=== PATIENT | female | born 1980 | race Caucasian/White ===

== ENCOUNTER 2018-01-04 08:15 | Outpatient (RCR) | payer MEDICARE, SELFPAY ==
--- NOTE | 2017-08-18 05:51 | PT.OIE ---
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, left leg, sequela (08/16/17) Provider Visit Care Team Role Provider Type ELINOR Kendall Attending Provider Non-Staff Family Provider Primary Care Provider Specialty: Medical Address: [address] [place] [address], [id number] Email: Physical Therapy Initial Evaluation PT-OP-A Visit Information Start: 08/17/17 10:04 Freq: Status: Active Protocol: Document 08/17/17 10:04 [facility] (Rec: 08/17/17 10:22 [facility] [id number]) Out-Patient Physical Therapy Visit Information Visit Information Visit Type Initial Evaluation Visit Start Time 10:45 Visit Stop Time 11:15 Total Visit Minutes 45 Visit Number 1 Number of DATA REVIEWER Visits 0 Evaluation Information Evaluation Date 08/16/17 PT-OP-B Current Condition Start: 08/17/17 10:04 Freq: Status: Active Protocol: Document 08/17/17 10:04 [facility] (Rec: 08/17/17 10:22 [facility] [email or web address]) Current Condition History of Current Condition Onset Date 2006 Current Complaints left hip pain chronic due to hx of surgeries, injury to sciatic nerve History of Current Condition Umm is a 37 year old female with 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 She has undergone multiple surgeries and 2 rounds of radiation in her left hip where much of the gluteal tissue has been removed due to the cancer. She has had grafts from the abdominal wall and hamstring performed on the left. 3 years ago Umm woke up from surgery and could not move her left leg lower than her knee. During that surgery there was a nerve injury to the sciatic nerve. She now uses a AFO for gait. Prior Treatments and Tests Umm has been seen at our would clinic for multiple open wounds but notes she is no longer needed wound care. She has also been seen for PT on [facility] but has moved to [place] so is now seeking ongoing treatment in our PT clinic Treatment Goals Patient/Caregiver Goals Crystals goals include having a exercise routine she can follow and do 2 times per day. She likes to hike and would like to improve her left hip ROM for hiking. Prior Functional Status Baseline Function- ADL's Independent Current Functional Impairments (Reported) Functional Limitations- Mobility/Gait limitations with gait due to nerve damage of the lower left leg, wearing AFO, limitations with hip ROM due to radiation /surgeries Functional Limitations- Recreation/ Umm would like to work Hobbies towards hiking but she is limited at this time due to lack of ROM and strength PT-OP-C Subjective Start: 08/17/17 10:04 Freq: Status: Active Protocol: Document 08/16/17 10:30 [facility] (Rec: 08/17/17 10:22 [facility] [email or web address]) OP-PT Subjective Patient Comments Patient Comments Umm reports her chief complaint is stiffness and weakness in her left hip. She is limited with anything that requires hip flexion OP-PT Pain Assessment Pain Assessment Grid Paper Pain Assessment Grid Completed Yes Location Left Hip Pain Location Details pain left hip anteriorly with flexion and posteriorly due to surgeries Intensity 5 Scale Used Numeric (1 - 10) Description Aching Dull Frequency Frequent Pain Aggravating Factors Exercise Sitting Walking Stair Climbing Other Pain Alleviating Factors pain rated 4-5/10 PT-OP-F Manual Assessment Start: 08/17/17 10:04 Freq: Status: Active Protocol: Document 08/16/17 10:30 [facility] (Rec: 08/17/17 10:22 [facility] [email or web address]) Manual Assessments Soft Tissue Assessment Soft Tissue Mobility Assessment left hip tenderness to palpation laterally due to multiple surgeries and skin graphs, Myofascial tension and multiple regions of scar tissue are palpated Joint Mobility Assessment Joint Mobility Assessment left hip limited in flexion past 90 degrees due to hip impingement and soft tissue tightness. Umm feels this is due to her radiation. She notes she has seen improvements with her hip flexion with her prior PT and that she can tie her shoes now where she was unable to do this before PT-OP-K Range of Motion Start: 08/17/17 10:22 Freq: Status: Active Protocol: Document 08/16/17 10:30 [facility] (Rec: 08/17/17 10:30 [facility] [email or web address]) Hip Goniometric Range of Motion Hip Measured in Degrees Right Hip ROM WFL No Flexion w/Knee Flexed 120 Straight Leg Raise 30 External Rotation 45 Left Hip ROM WFL No Testing Position Supine Flexion w/Knee Flexed 90 Straight Leg Raise 40 External Rotation 25 Hip ROM Limitations Hip ROM Limitations Soft Tissue Tightness Comments limited in hip flexion due to tightness and impingement symptoms in the anterior hip, hip extension severely limited due to iliopsoas tightness bilaterally. The left leg leg actually has better ROM of the hamstrings than the right Ankle and Foot Goniometric Range of Motion Ankle and Foot ROM Limitations Comments No AROM of the left foot or ankle due to motor weakness with nerve injury PT-OP-M Strength Start: 08/18/17 05:42 Freq: Status: Active Protocol: Document 08/18/17 05:43 [facility] (Rec: 08/18/17 05:45 [facility] [email or web address]) Trunk Strength Trunk Manual Muscle Testing Core Stabilization Weakness in the core stabilizers with + ASLR test B and a great deal of pelvic rotation during gait Hip Strength Hip Manual Muscle Testing Right Flexion (L2) 5 Normal Extension (S1) 4 Good Abduction 3 Fair Adduction 5 Normal External Rotation 4 Good Internal Rotation 5 Normal Left Flexion (L2) 2+ Poor+ Extension (S1) 3 Fair Abduction 2 Poor External Rotation 3 Fair PT-OP-Q Treatments Start: 08/17/17 10:04 Freq: Status: Active Protocol: Document 08/16/17 10:30 [facility] (Rec: 08/17/17 10:30 [facility] [email or web address]) Therapeutic Exercises Standing Exercises 2 Standing Exercise Name standing warrior one Side bilateral 1 Standing Exercise Name half kneeling and sitting on a ball with hip extended psoas stretch Side left Reps/Minutes hold 1-2 minutes Other Exercises 1 Other Exercise Name quadraped pelvic tilts and rock backs Side bilateral Reps/Minutes 5 each PT-OP-T Assessment and Plan Start: 08/17/17 10:04 Freq: Status: Active Protocol: Document 08/16/17 10:30 [facility] (Rec: 08/18/17 05:41 [facility] [email or web address]) Physical Therapy Assessment Rehab Potential Rehabilitation Potential Good Evaluation Complexity Number of Personal Factors/Comorbidities 1-2 Number of Body Systems Impaired 3 Clinical Presentation at Evaluation Evolving Impairments Impairments Balance Functional Activities Functional Mobility Pain Posture ROM Soft Tissue Mobility Strength Tone Goals Four Impairment Umm is limited in recreational activities of hiking Engineering Systems Analyst Goal (LTG) Umm is able to return to functional activities of hiking Three Impairment Decreased flexibility of the left hip Engineering Systems Analyst Goal (LTG) Umm is independent with a home program addressing hip flexibility and strength Two Impairment functional difficulty with kneeling Engineering Systems Analyst Goal (LTG) Umm is able to perform a 1 /2 kneel for improved iliopsoas flexibility One Impairment decreased ROM left hip Engineering Systems Analyst Goal (LTG) improve hip ROM to 100 degrees flexion or better for improved function LTG Duration 8 weeks Assessment Summary Assessment Umm presents to physical therapy with chief complaints of left hip stiffness and weakness due to multiple skin graphs and surgeries to remove the soft tissue sarcoma in her left hip. She is impaired as well due to nerve damage in the left lower extremity and is wearing a AFO. She feels her left hip ROM restrictions are due to muscle tightness and radiation damage. She does note that she has gained hip ROM from previous PT on [facility]. She has moved to [place] so she is seeking further care here. Treatment will focus on hip ROM, core stability and functional strengthening Physical Therapy Plan Frequency and Duration Duration of Treatment 8 weeks Plan of Care Start Date 08/16/17 Plan of Care End Date 10/18/17 Therapeutic Interventions Therapeutic Interventions Balance Training Gait Training Home Exercise Program Joint Mobilizations Manual Therapy Patient/Caregiver Education Self-Care/Home Management Soft Tissue Mobilization Therapeutic Exercises Modalities Cold Pack/Ice Massage Please Sign and Return: I have reviewed this Plan of Care and certify that the skilled therapy services above are required to meet the patient???s needs. Physician Signature Date Printed Name and Credentials Clinical Instructor Signature Printed Name and Credentials
--- NOTE | 2017-08-18 05:52 | PT.OPPOC ---
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, left leg, sequela (08/16/17) Provider Visit Care Team Role Provider Type ELINOR Kendall Attending Provider Non-Staff Family Provider Primary Care Provider Specialty: Medical Address: [address] [place] [address], [id number] Email: Plan Of Care PT-OP-T Assessment and Plan Start: 08/17/17 10:04 Freq: Status: Active Protocol: Document 08/16/17 10:30 [facility] (Rec: 08/18/17 05:41 [facility] [email or web address]) Physical Therapy Assessment Rehab Potential Rehabilitation Potential Good Evaluation Complexity Number of Personal Factors/Comorbidities 1-2 Number of Body Systems Impaired 3 Clinical Presentation at Evaluation Evolving Impairments Impairments Balance Functional Activities Functional Mobility Pain Posture ROM Soft Tissue Mobility Strength Tone Goals Four Impairment Umm is limited in recreational activities of hiking Assistant Manager [employer]side Operations Goal (LTG) Umm is able to retun to functional activities of hiking Three Impairment Decreased flexibility of the left hip Assistant Manager [employer] Goal (LTG) Umm is independent with a home program addressing hip flexibility and strength Two Impairment functional difficulty with kneeling Half-Way Goal (LTG) Umm is able to perform a 1 /2 kneel for improved iliopsoas flexibiilty One Impairment decreased ROM left hip Assistant Manager [employer] Goal (LTG) improve hip ROM to 100 degrees flexion or better for improved function LTG Duration 8 weeks Assessment Summary Assessment Umm presents to physical therapywith chief complaints of left hip stiffness and weakness due to multiple skin graphs and surgeries to remove the soft tissue sarcoma in her left hip. She is impaired as well due to nerve damage in the left lower extremity and is wearing a AFO. She feels her left hip ROM restrictions are due to muscle tightness and radiation damage. She does note that she has gained hip ROM from previous PT on [facility]. She has moved to [place] so she is seeking further care here. Treatment will focus on hip ROM, core stability and functional strengthening Physical Therapy Plan Frequency and Duration Duration of Treatment 8 weeks Plan of Care Start Date 08/16/17 Plan of Care End Date 10/18/17 Therapeutic Interventions Therapeutic Interventions Balance Training Gait Training Home Exercise Program Joint Mobilizations Manual Therapy Patient/Caregiver Education Self-Care/Home Management Soft Tissue Mobilization Therapeutic Exercises Modalities Cold Pack/Ice Massage Plan of Care Dates Plan of Care Start Date 08/16/17 Plan of Care End Date 10/18/17 Please Sign and Return: I have reviewed this Plan of Care and certify that the skilled therapy services above are required to meet the patient???s needs. Physician Signature Date Printed Name and Credentials Clinical Instructor Signature Printed Name and Credentials
--- NOTE | 2017-08-22 17:20 | PT.OTN ---
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, left leg, sequela (08/22/17) Physical Therapy Treatment Note PT-OP-A Visit Information Start: 08/17/17 10:04 Freq: Status: Active Protocol: Document 08/22/17 17:10 [facility] (Rec: 08/22/17 17:20 [facility] [email or web address]) Out-Patient Physical Therapy Visit Information Visit Information Visit Type Treatment Note Visit Start Time 16:00 Visit Stop Time 16:45 Total Visit Minutes 45 Visit Number 2 Number of LIVESTOCK RANCH HAND Visits 0 PT-OP-B Current Condition Start: 08/17/17 10:04 Freq: Status: Active Protocol: Document 08/22/17 17:10 [facility] (Rec: 08/22/17 17:20 [facility] [email or web address]) Current Condition History of Current Condition Onset Date 2006 Current Complaints left hip pain chronic due to hx of surgeries, injury to sciatic nerve History of Current Condition Umm is a 37 year old female with 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 She has undergone multipe surgeries and 2 rounds of radiation in her left hip where much of the gluteal tissue has been removed due to the cancer. She has had grafts from the abdominal wall and hamstring performed on the left. 3 years ago Umm woke up from surgery and could not move her left leg lower than her knee. During that surgery there was a nerve injury to the sciatic nerve. She now uses a AFO for gait. Prior Treatments and Tests Umm has been seen at our would clinic for multiple open wounds but notes she is no longer needed wound care. She has also been seen for PT on [facility] but has moved to [place] so is now seeking ongoing treatment in our PT clinic PT-OP-C Subjective Start: 08/17/17 10:04 Freq: Status: Active Protocol: Document 08/22/17 17:10 [facility] (Rec: 08/22/17 17:20 [facility] [email or web address]) OP-PT Subjective Patient Comments Patient Comments Umm reports she has been working on her home exercises routine PT-OP-F Manual Assessment Start: 08/17/17 10:04 Freq: Status: Active Protocol: Document 08/16/17 10:30 [facility] (Rec: 08/17/17 10:22 [facility] [email or web address]) Manual Assessments Soft Tissue Assessment Soft Tissue Mobility Assessment left hip tendern to palpation laterally due to multiple surgeries and skin graphs, Myofascial tension and multiple regions of scar tissue are palpated Joint Mobility Assessment Joint Mobility Assessment left hip limited in flexion past 90 degress due to hip impingement and soft tissue tightness. Umm feels this is due to her radiation. She notes she has seen improvements with her hip flexion with her prior PT and that she can tie her shoes now where she was unable to do this before PT-OP-K Range of Motion Start: 08/17/17 10:22 Freq: Status: Active Protocol: Document 08/16/17 10:30 [facility] (Rec: 08/17/17 10:30 [facility] [email or web address]) Hip Goniometric Range of Motion Hip Measured in Degrees Right Hip ROM WFL No Flexion w/Knee Flexed 120 Straight Leg Raise 30 External Rotation 45 Left Hip ROM WFL No Testing Position Supine Flexion w/Knee Flexed 90 Straight Leg Raise 40 External Rotation 25 Hip ROM Limitations Hip ROM Limitations Soft Tissue Tightness Comments limited in hip flexion due to tightness and imprigement symptoms in the anterior hip, hip extension severly limited due to iliopsoas tightness bilaterally. The left leg leg actually has better ROM of the hamstrings than the right Ankle and Foot Goniometric Range of Motion Ankle and Foot ROM Limitations Comments No AROM of the left fot or ankle due to motor weakness with nerve injury PT-OP-M Strength Start: 08/18/17 05:42 Freq: Status: Active Protocol: Document 08/18/17 05:43 [facility] (Rec: 08/18/17 05:45 [facility] [email or web address]) Trunk Strength Trunk Manual Muscle Testing Core Stabilization Weakness in the core stabilizers with + ASLR test B and a great deal of pelvic rotation during gait Hip Strength Hip Manual Muscle Testing Right Flexion (L2) 5 Normal Extension (S1) 4 Good Abduction 3 Fair Adduction 5 Normal External Rotation 4 Good Internal Rotation 5 Normal Left Flexion (L2) 2+ Poor+ Extension (S1) 3 Fair Abduction 2 Poor External Rotation 3 Fair PT-OP-Q Treatments Start: 08/17/17 10:04 Freq: Status: Active Protocol: Document 08/22/17 17:10 [facility] (Rec: 08/22/17 17:20 [facility] [email or web address]) Gym Equipment Shuttle Rebound 1 Exercise Details shuttle leg press Comments 75# 3 sets of 10 reps bilateral 50# 2 sets of 10 reps left leg Therapeutic Exercises Prone Exercises 1 Prone Exercise Name prone on bed manual hip flexor stretch Reps/Minutes hold 2 min per side Sidelying Exercises 1 Sidelying Exercise Name clam shells Reps/Minutes 3x10 Standing Exercises 3 Standing Exercise Name standing hip flexor stretch with foot on the ball Side left Reps/Minutes hold 1-2 minutes 2 Standing Exercise Name standing warrior one Side bilateral 1 Standing Exercise Name half kneeling and sitting on a ball with hip extended psoas stretch Side left Reps/Minutes hold 1-2 minutes Other Exercises 3 Other Exercise Name quadraped TA with left leg extended Reps/Minutes 5 reps 2 Other Exercise Name BALL EXERCISES: ball rolls and ball bridges Reps/Minutes 2 sets of 10 reps 1 Other Exercise Name quadraped pelvic tilts and rock backs Side bilateral Reps/Minutes 5 each Manual Therapy Treatment Joint Mobilizations 2 Joint lateral hip capsule streatch Comments MWM with belt and hip ER 1 Joint MWM hip flexion with distraction and posterior glide Direction posterior Grade III Manual Techniques 1 Type manual hip flexor stretch and manual MFR in heron test position PT-OP-T Assessment and Plan Start: 08/17/17 10:04 Freq: Status: Active Protocol: Document 08/22/17 17:10 [facility] (Rec: 08/22/17 17:20 [facility] [email or web address]) Physical Therapy Assessment Assessment Summary Assessment good tolerance today of manual therapy techniques and exercises Quadraped TA with leg extension is a challange for Crystal. Continue to work on improved hip flexion Physical Therapy Plan Frequency and Duration Frequency of Treatment 2 Duration of Treatment 8 weeks Plan of Care Start Date 08/16/17 Plan of Care End Date 10/18/17 Therapeutic Interventions Therapeutic Interventions Balance Training Gait Training Home Exercise Program Joint Mobilizations Manual Therapy Patient/Caregiver Education Self-Care/Home Management Soft Tissue Mobilization Therapeutic Exercises Modalities Cold Pack/Ice Massage Next Visit Focus/Plan Next Visit Plan focus on hip flexion ROM and dynamic stabilization Please Sign and Return: I have reviewed this Plan of Care and certify that the skilled therapy services above are required to meet the patient???s needs. Physician Signature Date Printed Name and Credentials Clinical Instructor Signature Printed Name and Credentials
--- NOTE | 2017-08-24 15:09 | PT.OTN ---
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, left leg, sequela (08/24/17) Physical Therapy Treatment Note PT-OP-A Visit Information Start: 08/17/17 10:04 Freq: Status: Active Protocol: Document 08/24/17 10:35 LRN (Rec: 08/24/17 11:17 LRN [id number]) Out-Patient Physical Therapy Visit Information Visit Information Visit Type Treatment Note Visit Start Time 10:35 Visit Stop Time 11:25 Visit Number 3 Number of TRAFFIC I MANAGER Visits 0 Evaluation Information Evaluation Date 08/16/17 PT-OP-B Current Condition Start: 08/17/17 10:04 Freq: Status: Active Protocol: Document 08/22/17 17:10 [facility] (Rec: 08/22/17 17:20 [facility] [email or web address]) Current Condition History of Current Condition Onset Date 2006 Current Complaints left hip pain chronic due to hx of surgeries, injury to sciatic nerve History of Current Condition Umm is a 37 year old female with 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 She has undergone multipe surgeries and 2 rounds of radiation in her left hip where much of the gluteal tissue has been removed due to the cancer. She has had grafts from the abdominal wall and hamstring performed on the left. 3 years ago Umm woke up from surgery and could not move her left leg lower than her knee. During that surgery there was a nerve injury to the sciatic nerve. She now uses a AFO for gait. Prior Treatments and Tests Umm has been seen at our would clinic for multiple open wounds but notes she is no longer needed wound care. She has also been seen for PT on [facility] but has moved to [place] so is now seeking ongoing treatment in our PT clinic PT-OP-C Subjective Start: 08/17/17 10:04 Freq: Status: Active Protocol: Document 08/24/17 10:35 LRN (Rec: 08/24/17 15:01 LRN [id number]) OP-PT Subjective Patient Comments Patient Comments Doing home ex's. PT-OP-F Manual Assessment Start: 08/17/17 10:04 Freq: Status: Active Protocol: Document 08/16/17 10:30 [facility] (Rec: 08/17/17 10:22 [facility] [email or web address]) Manual Assessments Soft Tissue Assessment Soft Tissue Mobility Assessment left hip tendern to palpation laterally due to multiple surgeries and skin graphs, Myofascial tension and multiple regions of scar tissue are palpated Joint Mobility Assessment Joint Mobility Assessment left hip limited in flexion past 90 degress due to hip impingement and soft tissue tightness. Umm feels this is due to her radiation. She notes she has seen improvements with her hip flexion with her prior PT and that she can tie her shoes now where she was unable to do this before PT-OP-K Range of Motion Start: 08/17/17 10:22 Freq: Status: Active Protocol: Document 08/16/17 10:30 [facility] (Rec: 08/17/17 10:30 [facility] [email or web address]) Hip Goniometric Range of Motion Hip Measured in Degrees Right Hip ROM WFL No Flexion w/Knee Flexed 120 Straight Leg Raise 30 External Rotation 45 Left Hip ROM WFL No Testing Position Supine Flexion w/Knee Flexed 90 Straight Leg Raise 40 External Rotation 25 Hip ROM Limitations Hip ROM Limitations Soft Tissue Tightness Comments limited in hip flexion due to tightness and imprigement symptoms in the anterior hip, hip extension severly limited due to iliopsoas tightness bilaterally. The left leg leg actually has better ROM of the hamstrings than the right Ankle and Foot Goniometric Range of Motion Ankle and Foot ROM Limitations Comments No AROM of the left fot or ankle due to motor weakness with nerve injury PT-OP-M Strength Start: 08/18/17 05:42 Freq: Status: Active Protocol: Document 08/18/17 05:43 [facility] (Rec: 08/18/17 05:45 [facility] [email or web address]) Trunk Strength Trunk Manual Muscle Testing Core Stabilization Weakness in the core stabilizers with + ASLR test B and a great deal of pelvic rotation during gait Hip Strength Hip Manual Muscle Testing Right Flexion (L2) 5 Normal Extension (S1) 4 Good Abduction 3 Fair Adduction 5 Normal External Rotation 4 Good Internal Rotation 5 Normal Left Flexion (L2) 2+ Poor+ Extension (S1) 3 Fair Abduction 2 Poor External Rotation 3 Fair PT-OP-Q Treatments Start: 08/17/17 10:04 Freq: Status: Active Protocol: Document 08/24/17 10:35 LRN (Rec: 08/24/17 11:17 LRN [id number]) Gym Equipment Shuttle Rebound 1 Exercise Details shuttle leg press Comments 75# 3 sets of 10 reps bilateral 50# 3 sets of 10 reps left leg Therapeutic Exercises Supine Exercises 1 Supine Exercise Name Hip ext after hip flexor stretch Side left Reps/Minutes 10 hip ext reps x 2 Prone Exercises 1 Prone Exercise Name prone on bed manual hip flexor stretch Reps/Minutes hold 2 min L side Standing Exercises 3 Standing Exercise Name standing hip flexor stretch with foot on the ball Side left Reps/Minutes hold 1-2 minutes 2 Standing Exercise Name standing warrior one Side bilateral Reps/Minutes hold 1-2 minutes 1 Standing Exercise Name half kneeling and sitting on a ball with hip extended psoas stretch Side left Reps/Minutes hold 1-2 minutes Other Exercises 1 Other Exercise Name quadraped pelvic tilts and rock backs Side bilateral Reps/Minutes 1-2 each Manual Therapy Treatment Soft Tissue Mobilization 1 Body Location L hip flexor/Quad CATALINO stretch Mobilization Type Trigger Point Release Body Position Supine & R Sidelie Comments Very tender at Psoas attachment @ [facility]. Joint Mobilizations 2 Joint lateral hip capsule streatch Comments MWM with belt and hip ER 1 Joint MWM hip flexion with distraction and posterior glide Direction posterior Grade III Manual Techniques 1 Type manual hip flexor stretch and manual MFR in heron test position PT-OP-T Assessment and Plan Start: 08/17/17 10:04 Freq: Status: Active Protocol: Document 08/24/17 10:35 LRN (Rec: 08/24/17 11:17 LRN [id number]) Physical Therapy Assessment Assessment Summary Assessment Pt is sensitive to touch/ palpation at the L ASIS, probably due to tightness of Psoas Major, CATALINO treatment may be helpful. Physical Therapy Plan Frequency and Duration Frequency of Treatment 2 Duration of Treatment 8 weeks Plan of Care Start Date 08/16/17 Plan of Care End Date 10/18/17 Therapeutic Interventions Therapeutic Interventions Balance Training Gait Training Home Exercise Program Joint Mobilizations Manual Therapy Patient/Caregiver Education Self-Care/Home Management Soft Tissue Mobilization Therapeutic Exercises Modalities Cold Pack/Ice Massage Next Visit Focus/Plan Next Visit Plan focus on hip flexion ROM and dynamic stabilization, try adding CATALINO stretch to L quad/ hip flexors.
--- NOTE | 2017-08-30 14:45 | PT.OTN ---
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, left leg, sequela (08/29/17) Physical Therapy Treatment Note PT-OP-A Visit Information Start: 08/17/17 10:04 Freq: Status: Active Protocol: Document 08/30/17 14:41 [facility] (Rec: 08/30/17 14:44 [facility] [email or web address]) Out-Patient Physical Therapy Visit Information Visit Information Visit Type Treatment Note Visit Start Time 15:15 Visit Stop Time 16:00 Total Visit Minutes 45 Visit Number 5 Number of MASS SPECTROMETRY MANAGER Visits 0 PT-OP-B Current Condition Start: 08/17/17 10:04 Freq: Status: Active Protocol: Document 08/22/17 17:10 [facility] (Rec: 08/22/17 17:20 [facility] [email or web address]) Current Condition History of Current Condition Onset Date 2006 Current Complaints left hip pain chronic due to hx of surgeries, injury to sciatic nerve History of Current Condition Umm is a 37 year old female with 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 She has undergone multipe surgeries and 2 rounds of radiation in her left hip where much of the gluteal tissue has been removed due to the cancer. She has had grafts from the abdominal wall and hamstring performed on the left. 3 years ago Umm woke up from surgery and could not move her left leg lower than her knee. During that surgery there was a nerve injury to the sciatic nerve. She now uses a AFO for gait. Prior Treatments and Tests Umm has been seen at our [facility] clinic for multiple open wounds but notes she is no longer needed wound care. She has also been seen for PT on [facility] but has moved to [place] so is now seeking ongoing treatment in our PT clinic PT-OP-C Subjective Start: 08/17/17 10:04 Freq: Status: Active Protocol: Document 08/24/17 10:35 LRN (Rec: 08/24/17 15:01 LRN [id number]) OP-PT Subjective Patient Comments Patient Comments Doing home ex's. PT-OP-F Manual Assessment Start: 08/17/17 10:04 Freq: Status: Active Protocol: Document 08/16/17 10:30 [facility] (Rec: 08/17/17 10:22 [facility] [email or web address]) Manual Assessments Soft Tissue Assessment Soft Tissue Mobility Assessment left hip tendern to palpation laterally due to multiple surgeries and skin graphs, Myofascial tension and multiple regions of scar tissue are palpated Joint Mobility Assessment Joint Mobility Assessment left hip limited in flexion past 90 degress due to hip impingement and soft tissue tightness. Umm feels this is due to her radiation. She notes she has seen improvements with her hip flexion with her prior PT and that she can tie her shoes now where she was unable to do this before PT-OP-K Range of Motion Start: 08/17/17 10:22 Freq: Status: Active Protocol: Document 08/16/17 10:30 [facility] (Rec: 08/17/17 10:30 [facility] [email or web address]) Hip Goniometric Range of Motion Hip Measured in Degrees Right Hip ROM WFL No Flexion w/Knee Flexed 120 Straight Leg Raise 30 External Rotation 45 Left Hip ROM WFL No Testing Position Supine Flexion w/Knee Flexed 90 Straight Leg Raise 40 External Rotation 25 Hip ROM Limitations Hip ROM Limitations Soft Tissue Tightness Comments limited in hip flexion due to tightness and imprigement symptoms in the anterior hip, hip extension severly limited due to iliopsoas tightness bilaterally. The left leg leg actually has better ROM of the hamstrings than the right Ankle and Foot Goniometric Range of Motion Ankle and Foot ROM Limitations Comments No AROM of the left fot or ankle due to motor weakness with nerve injury PT-OP-M Strength Start: 08/18/17 05:42 Freq: Status: Active Protocol: Document 08/18/17 05:43 [facility] (Rec: 08/18/17 05:45 [facility] [email or web address]) Trunk Strength Trunk Manual Muscle Testing Core Stabilization Weakness in the core stabilizers with + ASLR test B and a great deal of pelvic rotation during gait Hip Strength Hip Manual Muscle Testing Right Flexion (L2) 5 Normal Extension (S1) 4 Good Abduction 3 Fair Adduction 5 Normal External Rotation 4 Good Internal Rotation 5 Normal Left Flexion (L2) 2+ Poor+ Extension (S1) 3 Fair Abduction 2 Poor External Rotation 3 Fair PT-OP-Q Treatments Start: 08/17/17 10:04 Freq: Status: Active Protocol: Document 08/30/17 14:41 [facility] (Rec: 08/30/17 14:44 [facility] [email or web address]) Gym Equipment Shuttle Rebound 1 Exercise Details shuttle leg press Comments 75# 3 sets of 10 reps bilateral 50# 3 sets of 10 reps left leg Therapeutic Exercises Supine Exercises 1 Supine Exercise Name Hip ext after hip flexor stretch Side left Reps/Minutes 10 hip ext reps x 2 Prone Exercises 1 Prone Exercise Name prone on bed manual hip flexor stretch Reps/Minutes hold 2 min L side Sidelying Exercises 1 Sidelying Exercise Name clam shells Reps/Minutes 3x10 Standing Exercises 3 Standing Exercise Name standing hip flexor stretch with foot on the ball Side left Reps/Minutes hold 1-2 minutes Other Exercises 3 Other Exercise Name quadraped TA with left leg extended Reps/Minutes 5 reps 2 Other Exercise Name BALL EXERCISES: ball rolls and ball bridges Reps/Minutes 2 sets of 10 reps 1 Other Exercise Name quadraped pelvic tilts and rock backs Side bilateral Reps/Minutes 1-2 each Manual Therapy Treatment Soft Tissue Mobilization 1 Body Location L hip flexor/Quad CATALINO stretch Mobilization Type Trigger Point Release Body Position Supine & R Sidelie Comments Very tender at Psoas attachment @ [facility]. Joint Mobilizations 2 Joint lateral hip capsule streatch Comments MWM with belt and hip ER 1 Joint MWM hip flexion with distraction and posterior glide Direction posterior Grade III Manual Techniques 1 Type manual hip flexor stretch and manual MFR in heron test position PT-OP-T Assessment and Plan Start: 08/17/17 10:04 Freq: Status: Active Protocol: Document 08/30/17 14:41 [facility] (Rec: 08/30/17 14:44 [facility] [email or web address]) Physical Therapy Assessment Assessment Summary Assessment good tolerance of treatment and hip flexion manual glides and stretching Physical Therapy Plan Frequency and Duration Frequency of Treatment 2 Duration of Treatment 8 weeks Plan of Care Start Date 08/16/17 Plan of Care End Date 10/18/17 Therapeutic Interventions Therapeutic Interventions Balance Training Gait Training Home Exercise Program Joint Mobilizations Manual Therapy Patient/Caregiver Education Self-Care/Home Management Soft Tissue Mobilization Therapeutic Exercises Modalities Cold Pack/Ice Massage Next Visit Focus/Plan Next Visit Plan focus on hip flexion ROM and dynamic stabilization, try adding CATALINO stretch to L quad/ hip flexors. Please Sign and Return: I have reviewed this Plan of Care and certify that the skilled therapy services above are required to meet the patient?s needs. Physician Signature Date Printed Name and Credentials Clinical Instructor Signature Printed Name and Credentials
--- NOTE | 2017-08-31 17:33 | PT.OTN ---
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, left leg, sequela (08/29/17) Physical Therapy Treatment Note PT-OP-A Visit Information Start: 08/17/17 10:04 Freq: Status: Active Protocol: Document 08/29/17 15:15 [facility] (Rec: 08/30/17 14:44 [facility] [email or web address]) Out-Patient Physical Therapy Visit Information Visit Information Visit Type Treatment Note Visit Start Time 15:15 Visit Stop Time 16:00 Total Visit Minutes 45 Visit Number 5 Number of SNATH HANDLE ASSEMBLER Visits 0 PT-OP-B Current Condition Start: 08/17/17 10:04 Freq: Status: Active Protocol: Document 08/22/17 17:10 [facility] (Rec: 08/22/17 17:20 [facility] [email or web address]) Current Condition History of Current Condition Onset Date 2006 Current Complaints left hip pain chronic due to hx of surgeries, injury to sciatic nerve History of Current Condition Umm is a 37 year old female with 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 She has undergone multipe surgeries and 2 rounds of radiation in her left hip where much of the gluteal tissue has been removed due to the cancer. She has had grafts from the abdominal wall and hamstring performed on the left. 3 years ago Umm woke up from surgery and could not move her left leg lower than her knee. During that surgery there was a nerve injury to the sciatic nerve. She now uses a AFO for gait. Prior Treatments and Tests Umm has been seen at our would clinic for multiple open wounds but notes she is no longer needed wound care. She has also been seen for PT on [facility] but has moved to [place] so is now seeking ongoing treatment in our PT clinic PT-OP-C Subjective Start: 08/17/17 10:04 Freq: Status: Active Protocol: Document 08/24/17 10:35 LRN (Rec: 08/24/17 15:01 LRN [id number]) OP-PT Subjective Patient Comments Patient Comments Doing home ex's. PT-OP-F Manual Assessment Start: 08/17/17 10:04 Freq: Status: Active Protocol: Document 08/16/17 10:30 [facility] (Rec: 08/17/17 10:22 [facility] [email or web address]) Manual Assessments Soft Tissue Assessment Soft Tissue Mobility Assessment left hip tendern to palpation laterally due to multiple surgeries and skin graphs, Myofascial tension and multiple regions of scar tissue are palpated Joint Mobility Assessment Joint Mobility Assessment left hip limited in flexion past 90 degress due to hip impingement and soft tissue tightness. Umm feels this is due to her radiation. She notes she has seen improvements with her hip flexion with her prior PT and that she can tie her shoes now where she was unable to do this before PT-OP-K Range of Motion Start: 08/17/17 10:22 Freq: Status: Active Protocol: Document 08/16/17 10:30 [facility] (Rec: 08/17/17 10:30 [facility] [email or web address]) Hip Goniometric Range of Motion Hip Measured in Degrees Right Hip ROM WFL No Flexion w/Knee Flexed 120 Straight Leg Raise 30 External Rotation 45 Left Hip ROM WFL No Testing Position Supine Flexion w/Knee Flexed 90 Straight Leg Raise 40 External Rotation 25 Hip ROM Limitations Hip ROM Limitations Soft Tissue Tightness Comments limited in hip flexion due to tightness and imprigement symptoms in the anterior hip, hip extension severly limited due to iliopsoas tightness bilaterally. The left leg leg actually has better ROM of the hamstrings than the right Ankle and Foot Goniometric Range of Motion Ankle and Foot ROM Limitations Comments No AROM of the left fot or ankle due to motor weakness with nerve injury PT-OP-M Strength Start: 08/18/17 05:42 Freq: Status: Active Protocol: Document 08/18/17 05:43 [facility] (Rec: 08/18/17 05:45 [facility] [email or web address]) Trunk Strength Trunk Manual Muscle Testing Core Stabilization Weakness in the core stabilizers with + ASLR test B and a great deal of pelvic rotation during gait Hip Strength Hip Manual Muscle Testing Right Flexion (L2) 5 Normal Extension (S1) 4 Good Abduction 3 Fair Adduction 5 Normal External Rotation 4 Good Internal Rotation 5 Normal Left Flexion (L2) 2+ Poor+ Extension (S1) 3 Fair Abduction 2 Poor External Rotation 3 Fair PT-OP-Q Treatments Start: 08/17/17 10:04 Freq: Status: Active Protocol: Document 08/30/17 14:41 [facility] (Rec: 08/30/17 14:44 [facility] [email or web address]) Gym Equipment Shuttle Rebound 1 Exercise Details shuttle leg press Comments 75# 3 sets of 10 reps bilateral 50# 3 sets of 10 reps left leg Therapeutic Exercises Supine Exercises 1 Supine Exercise Name Hip ext after hip flexor stretch Side left Reps/Minutes 10 hip ext reps x 2 Prone Exercises 1 Prone Exercise Name prone on bed manual hip flexor stretch Reps/Minutes hold 2 min L side Sidelying Exercises 1 Sidelying Exercise Name clam shells Reps/Minutes 3x10 Standing Exercises 3 Standing Exercise Name standing hip flexor stretch with foot on the ball Side left Reps/Minutes hold 1-2 minutes Other Exercises 3 Other Exercise Name quadraped TA with left leg extended Reps/Minutes 5 reps 2 Other Exercise Name BALL EXERCISES: ball rolls and ball bridges Reps/Minutes 2 sets of 10 reps 1 Other Exercise Name quadraped pelvic tilts and rock backs Side bilateral Reps/Minutes 1-2 each Manual Therapy Treatment Soft Tissue Mobilization 1 Body Location L hip flexor/Quad CATALINO stretch Mobilization Type Trigger Point Release Body Position Supine & R Sidelie Comments Very tender at Psoas attachment @ [facility]. Joint Mobilizations 2 Joint lateral hip capsule streatch Comments MWM with belt and hip ER 1 Joint MWM hip flexion with distraction and posterior glide Direction posterior Grade III Manual Techniques 1 Type manual hip flexor stretch and manual MFR in heron test position PT-OP-T Assessment and Plan Start: 08/17/17 10:04 Freq: Status: Active Protocol: Document 08/30/17 14:41 [facility] (Rec: 08/30/17 14:44 [facility] [email or web address]) Physical Therapy Assessment Assessment Summary Assessment good tolerance of treatment and hip flexion manual glides and stretching Physical Therapy Plan Frequency and Duration Frequency of Treatment 2 Duration of Treatment 8 weeks Plan of Care Start Date 08/16/17 Plan of Care End Date 10/18/17 Therapeutic Interventions Therapeutic Interventions Balance Training Gait Training Home Exercise Program Joint Mobilizations Manual Therapy Patient/Caregiver Education Self-Care/Home Management Soft Tissue Mobilization Therapeutic Exercises Modalities Cold Pack/Ice Massage Next Visit Focus/Plan Next Visit Plan focus on hip flexion ROM and dynamic stabilization, try adding CATALINO stretch to L quad/ hip flexors. Please Sign and Return: I have reviewed this Plan of Care and certify that the skilled therapy services above are required to meet the patient?s needs. Physician Signature Date Printed Name and Credentials Clinical Instructor Signature Printed Name and Credentials
--- NOTE | 2017-08-31 17:36 | PT.OTN ---
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, left leg, sequela (08/29/17) Physical Therapy Treatment Note PT-OP-A Visit Information Start: 08/17/17 10:04 Freq: Status: Active Protocol: Document 08/29/17 15:15 AMH (Rec: 08/30/17 14:44 AMH [email or web address]) Out-Patient Physical Therapy Visit Information Visit Information Visit Type Treatment Note Visit Start Time 15:15 Visit Stop Time 16:00 Total Visit Minutes 45 Visit Number 5 Number of STAFF COUNSEL Visits 0 PT-OP-B Current Condition Start: 08/17/17 10:04 Freq: Status: Active Protocol: Document 08/22/17 17:10 AMH (Rec: 08/22/17 17:20 AMH [email or web address]) Current Condition History of Current Condition Onset Date 2006 Current Complaints left hip pain chronic due to hx of surgeries, injury to sciatic nerve History of Current Condition Umm is a 37 year old female with 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 She has undergone multipe surgeries and 2 rounds of radiation in her left hip where much of the gluteal tissue has been removed due to the cancer. She has had grafts from the abdominal wall and hamstring performed on the left. 3 years ago Umm woke up from surgery and could not move her left leg lower than her knee. During that surgery there was a nerve injury to the sciatic nerve. She now uses a AFO for gait. Prior Treatments and Tests Umm has been seen at our would clinic for multiple open wounds but notes she is no longer needed wound care. She has also been seen for PT on [facility] but has moved to [place] so is now seeking ongoing treatment in our PT clinic PT-OP-C Subjective Start: 08/17/17 10:04 Freq: Status: Active Protocol: Document 08/24/17 10:35 LRN (Rec: 08/24/17 15:01 LRN [id number]) OP-PT Subjective Patient Comments Patient Comments Doing home ex's. PT-OP-F Manual Assessment Start: 08/17/17 10:04 Freq: Status: Active Protocol: Document 08/16/17 10:30 AMH (Rec: 08/17/17 10:22 AMH [email or web address]) Manual Assessments Soft Tissue Assessment Soft Tissue Mobility Assessment left hip tendern to palpation laterally due to multiple surgeries and skin graphs, Myofascial tension and multiple regions of scar tissue are palpated Joint Mobility Assessment Joint Mobility Assessment left hip limited in flexion past 90 degress due to hip impingement and soft tissue tightness. Umm feels this is due to her radiation. She notes she has seen improvements with her hip flexion with her prior PT and that she can tie her shoes now where she was unable to do this before PT-OP-K Range of Motion Start: 08/17/17 10:22 Freq: Status: Active Protocol: Document 08/16/17 10:30 AMH (Rec: 08/17/17 10:30 AMH [email or web address]) Hip Goniometric Range of Motion Hip Measured in Degrees Right Hip ROM WFL No Flexion w/Knee Flexed 120 Straight Leg Raise 30 External Rotation 45 Left Hip ROM WFL No Testing Position Supine Flexion w/Knee Flexed 90 Straight Leg Raise 40 External Rotation 25 Hip ROM Limitations Hip ROM Limitations Soft Tissue Tightness Comments limited in hip flexion due to tightness and imprigement symptoms in the anterior hip, hip extension severly limited due to iliopsoas tightness bilaterally. The left leg leg actually has better ROM of the hamstrings than the right Ankle and Foot Goniometric Range of Motion Ankle and Foot ROM Limitations Comments No AROM of the left fot or ankle due to motor weakness with nerve injury PT-OP-M Strength Start: 08/18/17 05:42 Freq: Status: Active Protocol: Document 08/18/17 05:43 AMH (Rec: 08/18/17 05:45 AMH [email or web address]) Trunk Strength Trunk Manual Muscle Testing Core Stabilization Weakness in the core stabilizers with + ASLR test B and a great deal of pelvic rotation during gait Hip Strength Hip Manual Muscle Testing Right Flexion (L2) 5 Normal Extension (S1) 4 Good Abduction 3 Fair Adduction 5 Normal External Rotation 4 Good Internal Rotation 5 Normal Left Flexion (L2) 2+ Poor+ Extension (S1) 3 Fair Abduction 2 Poor External Rotation 3 Fair PT-OP-Q Treatments Start: 08/17/17 10:04 Freq: Status: Active Protocol: Document 08/29/17 15:15 AMH (Rec: 08/30/17 14:44 AMH [email or web address]) Gym Equipment Shuttle Rebound 1 Exercise Details shuttle leg press Comments 75# 3 sets of 10 reps bilateral 50# 3 sets of 10 reps left leg Therapeutic Exercises Supine Exercises 1 Supine Exercise Name Hip ext after hip flexor stretch Side left Reps/Minutes 10 hip ext reps x 2 Prone Exercises 1 Prone Exercise Name prone on bed manual hip flexor stretch Reps/Minutes hold 2 min L side Sidelying Exercises 1 Sidelying Exercise Name clam shells Reps/Minutes 3x10 Standing Exercises 3 Standing Exercise Name standing hip flexor stretch with foot on the ball Side left Reps/Minutes hold 1-2 minutes Other Exercises 3 Other Exercise Name quadraped TA with left leg extended Reps/Minutes 5 reps 2 Other Exercise Name BALL EXERCISES: ball rolls and ball bridges Reps/Minutes 2 sets of 10 reps 1 Other Exercise Name quadraped pelvic tilts and rock backs Side bilateral Reps/Minutes 1-2 each Manual Therapy Treatment Soft Tissue Mobilization 1 Body Location L hip flexor/Quad CATALINO stretch Mobilization Type Trigger Point Release Body Position Supine & R Sidelie Comments Very tender at Psoas attachment @ [facility]. Joint Mobilizations 2 Joint lateral hip capsule streatch Comments MWM with belt and hip ER 1 Joint MWM hip flexion with distraction and posterior glide Direction posterior Grade III Manual Techniques 1 Type manual hip flexor stretch and manual MFR in heron test position PT-OP-T Assessment and Plan Start: 08/17/17 10:04 Freq: Status: Active Protocol: Document 08/29/17 15:15 AMH (Rec: 08/30/17 14:44 AMH [email or web address]) Physical Therapy Assessment Assessment Summary Assessment good tolerance of treatment and hip flexion manual glides and stretching Physical Therapy Plan Frequency and Duration Frequency of Treatment 2 Duration of Treatment 8 weeks Plan of Care Start Date 08/16/17 Plan of Care End Date 10/18/17 Therapeutic Interventions Therapeutic Interventions Balance Training Gait Training Home Exercise Program Joint Mobilizations Manual Therapy Patient/Caregiver Education Self-Care/Home Management Soft Tissue Mobilization Therapeutic Exercises Modalities Cold Pack/Ice Massage Next Visit Focus/Plan Next Visit Plan focus on hip flexion ROM and dynamic stabilization, try adding CATALINO stretch to L quad/ hip flexors. Please Sign and Return: I have reviewed this Plan of Care and certify that the skilled therapy services above are required to meet the patient?s needs. Physician Signature Date Printed Name and Credentials Clinical Instructor Signature Printed Name and Credentials
--- NOTE | 2017-09-06 12:58 | PT.OTN ---
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, left leg, sequela (09/05/17) Physical Therapy Treatment Note PT-OP-A Visit Information Start: 08/17/17 10:04 Freq: Status: Active Protocol: Document 09/05/17 15:15 AMH (Rec: 09/06/17 12:58 AMH [email or web address]) Out-Patient Physical Therapy Visit Information Visit Information Visit Type Treatment Note Visit Start Time 15:15 Visit Stop Time 16:00 Total Visit Minutes 45 Visit Number 6 Number of RESIDENTIAL INSTRUCTOR Visits 0 PT-OP-B Current Condition Start: 08/17/17 10:04 Freq: Status: Active Protocol: Document 08/22/17 17:10 AMH (Rec: 08/22/17 17:20 AMH [email or web address]) Current Condition History of Current Condition Onset Date 2006 Current Complaints left hip pain chronic due to hx of surgeries, injury to sciatic nerve History of Current Condition Umm is a 37 year old female with 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 She has undergone multipe surgeries and 2 rounds of radiation in her left hip where much of the gluteal tissue has been removed due to the cancer. She has had grafts from the abdominal wall and hamstring performed on the left. 3 years ago Umm woke up from surgery and could not move her left leg lower than her knee. During that surgery there was a nerve injury to the sciatic nerve. She now uses a AFO for gait. Prior Treatments and Tests Umm has been seen at our [facility] clinic for multiple open wounds but notes she is no longer needed wound care. She has also been seen for PT on [facility] but has moved to [place] so is now seeking ongoing treatment in our PT clinic PT-OP-C Subjective Start: 08/17/17 10:04 Freq: Status: Active Protocol: Document 09/05/17 15:15 AMH (Rec: 09/06/17 12:58 AMH [email or web address]) OP-PT Subjective Patient Comments Patient Comments Umm reports she broke her AFO and had it repaired. PT-OP-F Manual Assessment Start: 08/17/17 10:04 Freq: Status: Active Protocol: Document 08/16/17 10:30 AMH (Rec: 08/17/17 10:22 AMH [email or web address]) Manual Assessments Soft Tissue Assessment Soft Tissue Mobility Assessment left hip tendern to palpation laterally due to multiple surgeries and skin graphs, Myofascial tension and multiple regions of scar tissue are palpated Joint Mobility Assessment Joint Mobility Assessment left hip limited in flexion past 90 degress due to hip impingement and soft tissue tightness. Umm feels this is due to her radiation. She notes she has seen improvements with her hip flexion with her prior PT and that she can tie her shoes now where she was unable to do this before PT-OP-K Range of Motion Start: 08/17/17 10:22 Freq: Status: Active Protocol: Document 08/16/17 10:30 AMH (Rec: 08/17/17 10:30 AMH [email or web address]) Hip Goniometric Range of Motion Hip Measured in Degrees Right Hip ROM WFL No Flexion w/Knee Flexed 120 Straight Leg Raise 30 External Rotation 45 Left Hip ROM WFL No Testing Position Supine Flexion w/Knee Flexed 90 Straight Leg Raise 40 External Rotation 25 Hip ROM Limitations Hip ROM Limitations Soft Tissue Tightness Comments limited in hip flexion due to tightness and imprigement symptoms in the anterior hip, hip extension severly limited due to iliopsoas tightness bilaterally. The left leg leg actually has better ROM of the hamstrings than the right Ankle and Foot Goniometric Range of Motion Ankle and Foot ROM Limitations Comments No AROM of the left fot or ankle due to motor weakness with nerve injury PT-OP-M Strength Start: 08/18/17 05:42 Freq: Status: Active Protocol: Document 08/18/17 05:43 AMH (Rec: 08/18/17 05:45 AMH [email or web address]) Trunk Strength Trunk Manual Muscle Testing Core Stabilization Weakness in the core stabilizers with + ASLR test B and a great deal of pelvic rotation during gait Hip Strength Hip Manual Muscle Testing Right Flexion (L2) 5 Normal Extension (S1) 4 Good Abduction 3 Fair Adduction 5 Normal External Rotation 4 Good Internal Rotation 5 Normal Left Flexion (L2) 2+ Poor+ Extension (S1) 3 Fair Abduction 2 Poor External Rotation 3 Fair PT-OP-Q Treatments Start: 08/17/17 10:04 Freq: Status: Active Protocol: Document 09/05/17 15:15 AMH (Rec: 09/06/17 12:58 AMH [email or web address]) Gym Equipment Cable Column (Body Solid) Hip Abduction Details seated abduction Resistance 20# Reps/Time 2x10 Shuttle Rebound 1 Exercise Details shuttle leg press Comments 75# 3 sets of 10 reps bilateral 50# 3 sets of 10 reps left leg Therapeutic Ball 1 Exercise Details prone walk outs and hip abduction Ball Size/Color 65 cm Therapeutic Exercises Supine Exercises 1 Supine Exercise Name Hip ext after hip flexor stretch Side left Reps/Minutes 10 hip ext reps x 2 Sidelying Exercises 1 Sidelying Exercise Name clam shells Reps/Minutes 3x10 Other Exercises 3 Other Exercise Name quadraped TA with left leg extended Reps/Minutes 5 reps 2 Other Exercise Name BALL EXERCISES: ball rolls and ball bridges Reps/Minutes 2 sets of 10 reps 1 Other Exercise Name quadraped pelvic tilts and rock backs Side bilateral Reps/Minutes 1-2 each Manual Therapy Treatment Soft Tissue Mobilization 1 Body Location L hip flexor/Quad CATALINO stretch Mobilization Type Trigger Point Release Body Position Supine & R Sidelie Comments Very tender at Psoas attachment @ [facility]. Joint Mobilizations 2 Joint lateral hip capsule streatch Comments MWM with belt and hip ER 1 Joint MWM hip flexion with distraction and posterior glide Direction posterior Grade III PT-OP-T Assessment and Plan Start: 08/17/17 10:04 Freq: Status: Active Protocol: Document 09/05/17 15:15 AMH (Rec: 09/06/17 12:58 AMH [email or web address]) Physical Therapy Assessment Assessment Summary Assessment begin progressing towards gym equipment as Umm would like to transition to the gym after she is finished with PT. She has a good handle on her HEP mat program Physical Therapy Plan Frequency and Duration Frequency of Treatment 2 Duration of Treatment 8 weeks Plan of Care Start Date 08/16/17 Plan of Care End Date 10/18/17 Therapeutic Interventions Therapeutic Interventions Balance Training Gait Training Home Exercise Program Joint Mobilizations Manual Therapy Patient/Caregiver Education Self-Care/Home Management Soft Tissue Mobilization Therapeutic Exercises Modalities Cold Pack/Ice Massage Next Visit Focus/Plan Next Note Type Treatment Note Next Visit Plan progress towards ther ex on gym equipment Please Sign and Return: I have reviewed this Plan of Care and certify that the skilled therapy services above are required to meet the patient?s needs. Physician Signature Date Printed Name and Credentials Clinical Instructor Signature Printed Name and Credentials
--- NOTE | 2017-09-14 17:23 | PT.OTN ---
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, left leg, sequela (09/14/17) Physical Therapy Treatment Note PT-OP-A Visit Information Start: 08/17/17 10:04 Freq: Status: Active Protocol: Document 09/14/17 13:45 AMH (Rec: 09/14/17 17:22 AMH [email or web address]) Out-Patient Physical Therapy Visit Information Visit Information Visit Type Treatment Note Visit Start Time 13:45 Visit Stop Time 14:30 Total Visit Minutes 45 Visit Number 8 Number of SOLAR ENERGY SYSTEM INSTALLER HELPER Visits 0 PT-OP-B Current Condition Start: 08/17/17 10:04 Freq: Status: Active Protocol: Document 08/22/17 17:10 AMH (Rec: 08/22/17 17:20 AMH [email or web address]) Current Condition History of Current Condition Onset Date 2006 Current Complaints left hip pain chronic due to hx of surgeries, injury to sciatic nerve History of Current Condition Umm is a 37 year old female with 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 She has undergone multipe surgeries and 2 rounds of radiation in her left hip where much of the gluteal tissue has been removed due to the cancer. She has had grafts from the abdominal wall and hamstring performed on the left. 3 years ago Umm woke up from surgery and could not move her left leg lower than her knee. During that surgery there was a nerve injury to the sciatic nerve. She now uses a AFO for gait. Prior Treatments and Tests Umm has been seen at our [facility] clinic for multiple open wounds but notes she is no longer needed wound care. She has also been seen for PT on [facility] but has moved to [place] so is now seeking ongoing treatment in our PT clinic PT-OP-C Subjective Start: 08/17/17 10:04 Freq: Status: Active Protocol: Document 09/14/17 13:45 AMH (Rec: 09/14/17 17:22 AMH [email or web address]) OP-PT Subjective Patient Comments Patient Comments Umm continues to note improvement with hip ROM. She reports she wasn't sore following last visit with the addition of weights Patient Reported Progress Improving PT-OP-F Manual Assessment Start: 08/17/17 10:04 Freq: Status: Active Protocol: Document 08/16/17 10:30 AMH (Rec: 08/17/17 10:22 AMH [email or web address]) Manual Assessments Soft Tissue Assessment Soft Tissue Mobility Assessment left hip tendern to palpation laterally due to multiple surgeries and skin graphs, Myofascial tension and multiple regions of scar tissue are palpated Joint Mobility Assessment Joint Mobility Assessment left hip limited in flexion past 90 degress due to hip impingement and soft tissue tightness. Umm feels this is due to her radiation. She notes she has seen improvements with her hip flexion with her prior PT and that she can tie her shoes now where she was unable to do this before PT-OP-K Range of Motion Start: 08/17/17 10:22 Freq: Status: Active Protocol: Document 08/16/17 10:30 AMH (Rec: 08/17/17 10:30 AMH [email or web address]) Hip Goniometric Range of Motion Hip Measured in Degrees Right Hip ROM WFL No Flexion w/Knee Flexed 120 Straight Leg Raise 30 External Rotation 45 Left Hip ROM WFL No Testing Position Supine Flexion w/Knee Flexed 90 Straight Leg Raise 40 External Rotation 25 Hip ROM Limitations Hip ROM Limitations Soft Tissue Tightness Comments limited in hip flexion due to tightness and imprigement symptoms in the anterior hip, hip extension severly limited due to iliopsoas tightness bilaterally. The left leg leg actually has better ROM of the hamstrings than the right Ankle and Foot Goniometric Range of Motion Ankle and Foot ROM Limitations Comments No AROM of the left fot or ankle due to motor weakness with nerve injury PT-OP-M Strength Start: 08/18/17 05:42 Freq: Status: Active Protocol: Document 08/18/17 05:43 AMH (Rec: 08/18/17 05:45 AMH [email or web address]) Trunk Strength Trunk Manual Muscle Testing Core Stabilization Weakness in the core stabilizers with + ASLR test B and a great deal of pelvic rotation during gait Hip Strength Hip Manual Muscle Testing Right Flexion (L2) 5 Normal Extension (S1) 4 Good Abduction 3 Fair Adduction 5 Normal External Rotation 4 Good Internal Rotation 5 Normal Left Flexion (L2) 2+ Poor+ Extension (S1) 3 Fair Abduction 2 Poor External Rotation 3 Fair PT-OP-Q Treatments Start: 08/17/17 10:04 Freq: Status: Active Protocol: Document 09/14/17 13:45 AMH (Rec: 09/14/17 17:22 AMH [email or web address]) Gym Equipment Cable Column (Body Solid) Leg Extension Details leg ext Resistance 40# Reps/Time 3x10 Shuttle Rebound 1 Exercise Details shuttle leg press Comments 75# 3 sets of 10 reps bilateral 50# 3 sets of 10 reps left leg Therapeutic Exercises Standing Exercises 4 Standing Exercise Name standing lunges in parallel bars 2 Standing Exercise Name standing warrior one Side bilateral Reps/Minutes hold 1-2 minutes Comments in parallel bars 1 Standing Exercise Name half kneeling and sitting on a ball with hip extended psoas stretch Side left Reps/Minutes hold 1-2 minutes Comments in parallel bars Other Exercises 4 Other Exercise Name standing functional squats and single leg squats with cables as TRX Comments on shuttle balance PT-OP-T Assessment and Plan Start: 08/17/17 10:04 Freq: Status: Active Protocol: Document 09/14/17 13:45 AMH (Rec: 09/14/17 17:22 AMH [email or web address]) Physical Therapy Assessment Assessment Summary Assessment able to go into half kneeling in the parallel bars, Good improvement from the first time we tried half kneeling. Physical Therapy Plan Frequency and Duration Frequency of Treatment 2 Duration of Treatment 8 weeks Plan of Care Start Date 08/16/17 Plan of Care End Date 10/18/17 Therapeutic Interventions Therapeutic Interventions Balance Training Gait Training Home Exercise Program Joint Mobilizations Manual Therapy Patient/Caregiver Education Self-Care/Home Management Soft Tissue Mobilization Therapeutic Exercises Modalities Cold Pack/Ice Massage Next Visit Focus/Plan Next Note Type Treatment Note Next Visit Plan continue progressing towards functional movements and dynamic stabilization.
--- NOTE | 2017-09-19 12:15 | PT.OTN ---
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 (Rec: 09/19/17 12:15 [facility] [id number]) Out-Patient Physical Therapy Visit Information Visit Information Visit Type Treatment Note Visit Start Time 11:20 Visit Stop Time 12:00 Total Visit Minutes 40 Visit Number 9 Number of PARK MANAGER Visits 0 PT-OP-B Current Condition Start: 08/17/17 10:04 Freq: Status: Active Protocol: Document 08/22/17 17:10 [facility] (Rec: 08/22/17 17:20 [facility] [email or web address]) Current Condition History of Current Condition Onset Date 2006 Current Complaints left hip pain chronic due to hx of surgeries, injury to sciatic nerve History of Current Condition Umm is a 37 year old female with 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 She has undergone multipe surgeries and 2 rounds of radiation in her left hip where much of the gluteal tissue has been removed due to the cancer. She has had grafts from the abdominal wall and hamstring performed on the left. 3 years ago Umm woke up from surgery and could not move her left leg lower than her knee. During that surgery there was a nerve injury to the sciatic nerve. She now uses a AFO for gait. Prior Treatments and Tests mUm has been seen at our would clinic for multiple open wounds but notes she is no longer needed wound care. She has also been seen for PT on [facility] but has moved to [place] so is now seeking ongoing treatment in our PT clinic PT-OP-C Subjective Start: 08/17/17 10:04 Freq: Status: Active Protocol: Document 09/19/17 11:19 [facility] (Rec: 09/19/17 12:15 [facility] [id number]) OP-PT Subjective Patient Comments Patient Comments compliance with HEP. She has not stretched yet this AM PT-OP-F Manual Assessment Start: 08/17/17 10:04 Freq: Status: Active Protocol: Document 08/16/17 10:30 [facility] (Rec: 08/17/17 10:22 [facility] [email or web address]) Manual Assessments Soft Tissue Assessment Soft Tissue Mobility Assessment left hip tendern to palpation laterally due to multiple surgeries and skin graphs, Myofascial tension and multiple regions of scar tissue are palpated Joint Mobility Assessment Joint Mobility Assessment left hip limited in flexion past 90 degress due to hip impingement and soft tissue tightness. Umm feels this is due to her radiation. She notes she has seen improvements with her hip flexion with her prior PT and that she can tie her shoes now where she was unable to do this before PT-OP-K Range of Motion Start: 08/17/17 10:22 Freq: Status: Active Protocol: Document 08/16/17 10:30 [facility] (Rec: 08/17/17 10:30 [facility] [email or web address]) Hip Goniometric Range of Motion Hip Measured in Degrees Right Hip ROM WFL No Flexion w/Knee Flexed 120 Straight Leg Raise 30 External Rotation 45 Left Hip ROM WFL No Testing Position Supine Flexion w/Knee Flexed 90 Straight Leg Raise 40 External Rotation 25 Hip ROM Limitations Hip ROM Limitations Soft Tissue Tightness Comments limited in hip flexion due to tightness and imprigement symptoms in the anterior hip, hip extension severly limited due to iliopsoas tightness bilaterally. The left leg leg actually has better ROM of the hamstrings than the right Ankle and Foot Goniometric Range of Motion Ankle and Foot ROM Limitations Comments No AROM of the left fot or ankle due to motor weakness with nerve injury PT-OP-M Strength Start: 08/18/17 05:42 Freq: Status: Active Protocol: Document 08/18/17 05:43 [facility] (Rec: 08/18/17 05:45 [facility] [email or web address]) Trunk Strength Trunk Manual Muscle Testing Core Stabilization Weakness in the core stabilizers with + ASLR test B and a great deal of pelvic rotation during gait Hip Strength Hip Manual Muscle Testing Right Flexion (L2) 5 Normal Extension (S1) 4 Good Abduction 3 Fair Adduction 5 Normal External Rotation 4 Good Internal Rotation 5 Normal Left Flexion (L2) 2+ Poor+ Extension (S1) 3 Fair Abduction 2 Poor External Rotation 3 Fair PT-OP-Q Treatments Start: 08/17/17 10:04 Freq: Status: Active Protocol: Document 09/19/17 11:19 [facility] (Rec: 09/19/17 12:15 [facility] [id number]) Gym Equipment Cable Column (Body Solid) Leg Curl Details hamstring curl Resistance 40# 2x10 Leg Extension Details leg ext Resistance 40# Reps/Time 3x10 Shuttle Rebound 1 Exercise Details shuttle leg press Comments 100# 3 sets of 10 reps bilateral 62# 1 set of 15 then 50# 15 reps left leg Therapeutic Exercises Standing Exercises 4 Standing Exercise Name standing lunges in parallel bars Manual Therapy Treatment Joint Mobilizations 2 Joint lateral hip capsule streatch Comments MWM with belt and hip ER 1 Joint hip flexion with distraction and inf glide Direction inf Grade III Comments FM c/r Manual Techniques 1 Type Manual stretching into ER Comments c/r PT-OP-T Assessment and Plan Start: 08/17/17 10:04 Freq: Status: Active Protocol: Document 09/19/17 11:19 [facility] (Rec: 09/19/17 12:15 [facility] [id number]) Physical Therapy Assessment Assessment Summary Assessment Pt did well with inc weight with resistance exercises. Improved ER & flex with stretching & hip mobs. Physical Therapy Plan Frequency and Duration Frequency of Treatment 2 Duration of Treatment 8 weeks Plan of Care Start Date 08/16/17 Plan of Care End Date 10/18/17 Next Visit Focus/Plan Next Note Type Treatment Note Next Visit Plan continue progressing towards functional movements and dynamic stabilization.
--- NOTE | 2017-09-21 18:28 | PT.OTN ---
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, left leg, sequela (09/21/17) Physical Therapy Treatment Note PT-OP-A Visit Information Start: 08/17/17 10:04 Freq: Status: Active Protocol: Document 09/21/17 13:45 [facility] (Rec: 09/21/17 18:28 [facility] [email or web address]) Out-Patient Physical Therapy Visit Information Visit Information Visit Type Treatment Note Visit Start Time 13:45 Visit Stop Time 14:30 Total Visit Minutes 45 Visit Number 10 Number of EMISSIONS REPAIR TECHNICIAN Visits 0 PT-OP-B Current Condition Start: 08/17/17 10:04 Freq: Status: Active Protocol: Document 08/22/17 17:10 [facility] (Rec: 08/22/17 17:20 [facility] [email or web address]) Current Condition History of Current Condition Onset Date 2006 Current Complaints left hip pain chronic due to hx of surgeries, injury to sciatic nerve History of Current Condition Umm is a 37 year old female with 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 She has undergone multipe surgeries and 2 rounds of radiation in her left hip where much of the gluteal tissue has been removed due to the cancer. She has had grafts from the abdominal wall and hamstring performed on the left. 3 years ago Umm woke up from surgery and could not move her left leg lower than her knee. During that surgery there was a nerve injury to the sciatic nerve. She now uses a AFO for gait. Prior Treatments and Tests Umm has been seen at our [facility] clinic for multiple open wounds but notes she is no longer needed wound care. She has also been seen for PT on [facility] but has moved to [place] so is now seeking ongoing treatment in our PT clinic PT-OP-C Subjective Start: 08/17/17 10:04 Freq: Status: Active Protocol: Document 09/21/17 13:45 [facility] (Rec: 09/21/17 18:28 [facility] [email or web address]) OP-PT Subjective Patient Comments Patient Comments reports her AFO was tightened yesterday PT-OP-F Manual Assessment Start: 08/17/17 10:04 Freq: Status: Active Protocol: Document 08/16/17 10:30 [facility] (Rec: 08/17/17 10:22 [facility] [email or web address]) Manual Assessments Soft Tissue Assessment Soft Tissue Mobility Assessment left hip tendern to palpation laterally due to multiple surgeries and skin graphs, Myofascial tension and multiple regions of scar tissue are palpated Joint Mobility Assessment Joint Mobility Assessment left hip limited in flexion past 90 degress due to hip impingement and soft tissue tightness. Umm feels this is due to her radiation. She notes she has seen improvements with her hip flexion with her prior PT and that she can tie her shoes now where she was unable to do this before PT-OP-K Range of Motion Start: 08/17/17 10:22 Freq: Status: Active Protocol: Document 08/16/17 10:30 [facility] (Rec: 08/17/17 10:30 [facility] [email or web address]) Hip Goniometric Range of Motion Hip Measured in Degrees Right Hip ROM WFL No Flexion w/Knee Flexed 120 Straight Leg Raise 30 External Rotation 45 Left Hip ROM WFL No Testing Position Supine Flexion w/Knee Flexed 90 Straight Leg Raise 40 External Rotation 25 Hip ROM Limitations Hip ROM Limitations Soft Tissue Tightness Comments limited in hip flexion due to tightness and imprigement symptoms in the anterior hip, hip extension severly limited due to iliopsoas tightness bilaterally. The left leg leg actually has better ROM of the hamstrings than the right Ankle and Foot Goniometric Range of Motion Ankle and Foot ROM Limitations Comments No AROM of the left fot or ankle due to motor weakness with nerve injury PT-OP-M Strength Start: 08/18/17 05:42 Freq: Status: Active Protocol: Document 08/18/17 05:43 [facility] (Rec: 08/18/17 05:45 [facility] [email or web address]) Trunk Strength Trunk Manual Muscle Testing Core Stabilization Weakness in the core stabilizers with + ASLR test B and a great deal of pelvic rotation during gait Hip Strength Hip Manual Muscle Testing Right Flexion (L2) 5 Normal Extension (S1) 4 Good Abduction 3 Fair Adduction 5 Normal External Rotation 4 Good Internal Rotation 5 Normal Left Flexion (L2) 2+ Poor+ Extension (S1) 3 Fair Abduction 2 Poor External Rotation 3 Fair PT-OP-Q Treatments Start: 08/17/17 10:04 Freq: Status: Active Protocol: Document 09/21/17 13:45 [facility] (Rec: 09/21/17 18:28 [facility] [email or web address]) Gym Equipment Cable Column (Body Solid) Leg Extension Details leg ext Resistance 40# Reps/Time 3x10 Hip Abduction Details seated abduction Resistance 20# Reps/Time 2x10 Shuttle Rebound 1 Exercise Details shuttle leg press Comments 100# 3 sets of 10 reps bilateral 62# 1 set of 15 then 50# 15 reps left leg Therapeutic Exercises Standing Exercises 4 Standing Exercise Name standing lunges in parallel bars 3 Standing Exercise Name standing hip flexor stretch with foot on the ball Side left Reps/Minutes hold 1-2 minutes 2 Standing Exercise Name standing warrior one Side bilateral Reps/Minutes hold 1-2 minutes Comments in parallel bars 1 Standing Exercise Name half kneeling and sitting on a ball with hip extended psoas stretch Side left Reps/Minutes hold 1-2 minutes Comments in parallel bars PT-OP-T Assessment and Plan Start: 08/17/17 10:04 Freq: Status: Active Protocol: Document 09/21/17 13:45 [facility] (Rec: 09/21/17 18:28 [facility] [email or web address]) Physical Therapy Assessment Assessment Summary Assessment tolerating improved hip ROM for standing lunges in parallel bars Physical Therapy Plan Frequency and Duration Frequency of Treatment 2 Duration of Treatment 8 weeks Plan of Care Start Date 08/16/17 Plan of Care End Date 10/18/17 Therapeutic Interventions Therapeutic Interventions Balance Training Gait Training Home Exercise Program Joint Mobilizations Manual Therapy Patient/Caregiver Education Self-Care/Home Management Soft Tissue Mobilization Therapeutic Exercises Modalities Cold Pack/Ice Massage Next Visit Focus/Plan Next Note Type Treatment Note Next Visit Plan continue progressing towards functional movements and dynamic stabilization.
--- NOTE | 2017-09-25 17:28 | PT.OTN ---
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, left leg, sequela (09/25/17) Physical Therapy Treatment Note PT-OP-A Visit Information Start: 08/17/17 10:04 Freq: Status: Active Protocol: Document 09/25/17 16:45 [facility] (Rec: 09/25/17 17:27 [facility] [id number]) Out-Patient Physical Therapy Visit Information Visit Information Visit Type Treatment Note Visit Start Time 16:45 Visit Stop Time 17:30 Total Visit Minutes 45 Visit Number 11 Number of SENIOR DATA MODELER Visits 0 PT-OP-B Current Condition Start: 08/17/17 10:04 Freq: Status: Active Protocol: Document 08/22/17 17:10 [facility] (Rec: 08/22/17 17:20 [facility] [email or web address]) Current Condition History of Current Condition Onset Date 2006 Current Complaints left hip pain chronic due to hx of surgeries, injury to sciatic nerve History of Current Condition Umm is a 37 year old female with 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 She has undergone multipe surgeries and 2 rounds of radiation in her left hip where much of the gluteal tissue has been removed due to the cancer. She has had grafts from the abdominal wall and hamstring performed on the left. 3 years ago Umm woke up from surgery and could not move her left leg lower than her knee. During that surgery there was a nerve injury to the sciatic nerve. She now uses a AFO for gait. Prior Treatments and Tests Umm has been seen at our [facility] clinic for multiple open wounds but notes she is no longer needed wound care. She has also been seen for PT on [facility] but has moved to [place] so is now seeking ongoing treatment in our PT clinic PT-OP-C Subjective Start: 08/17/17 10:04 Freq: Status: Active Protocol: Document 09/25/17 16:45 [facility] (Rec: 09/25/17 17:27 [facility] [id number]) OP-PT Subjective Patient Comments Patient Comments Pt reports that her hips have been feeling much better, and she feels like the strengthening is really helping. PT-OP-F Manual Assessment Start: 08/17/17 10:04 Freq: Status: Active Protocol: Document 08/16/17 10:30 [facility] (Rec: 08/17/17 10:22 [facility] [email or web address]) Manual Assessments Soft Tissue Assessment Soft Tissue Mobility Assessment left hip tendern to palpation laterally due to multiple surgeries and skin graphs, Myofascial tension and multiple regions of scar tissue are palpated Joint Mobility Assessment Joint Mobility Assessment left hip limited in flexion past 90 degress due to hip impingement and soft tissue tightness. Umm feels this is due to her radiation. She notes she has seen improvements with her hip flexion with her prior PT and that she can tie her shoes now where she was unable to do this before PT-OP-K Range of Motion Start: 08/17/17 10:22 Freq: Status: Active Protocol: Document 08/16/17 10:30 [facility] (Rec: 08/17/17 10:30 [facility] [email or web address]) Hip Goniometric Range of Motion Hip Measured in Degrees Right Hip ROM WFL No Flexion w/Knee Flexed 120 Straight Leg Raise 30 External Rotation 45 Left Hip ROM WFL No Testing Position Supine Flexion w/Knee Flexed 90 Straight Leg Raise 40 External Rotation 25 Hip ROM Limitations Hip ROM Limitations Soft Tissue Tightness Comments limited in hip flexion due to tightness and imprigement symptoms in the anterior hip, hip extension severly limited due to iliopsoas tightness bilaterally. The left leg leg actually has better ROM of the hamstrings than the right Ankle and Foot Goniometric Range of Motion Ankle and Foot ROM Limitations Comments No AROM of the left fot or ankle due to motor weakness with nerve injury PT-OP-M Strength Start: 08/18/17 05:42 Freq: Status: Active Protocol: Document 08/18/17 05:43 [facility] (Rec: 08/18/17 05:45 [facility] [email or web address]) Trunk Strength Trunk Manual Muscle Testing Core Stabilization Weakness in the core stabilizers with + ASLR test B and a great deal of pelvic rotation during gait Hip Strength Hip Manual Muscle Testing Right Flexion (L2) 5 Normal Extension (S1) 4 Good Abduction 3 Fair Adduction 5 Normal External Rotation 4 Good Internal Rotation 5 Normal Left Flexion (L2) 2+ Poor+ Extension (S1) 3 Fair Abduction 2 Poor External Rotation 3 Fair PT-OP-Q Treatments Start: 08/17/17 10:04 Freq: Status: Active Protocol: Document 09/25/17 16:45 [facility] (Rec: 09/25/17 17:27 [facility] [id number]) Gym Equipment Cable Column (Body Solid) Leg Curl Details hamstring curl Resistance 50# Reps/Time 3x10 Leg Extension Details leg ext Resistance 40# Reps/Time 3x10 Hip Abduction Details seated abduction Resistance 20# -> 30# Reps/Time 3x10 Shuttle Rebound 1 Exercise Details shuttle leg press Comments 100# 3 sets of 10 reps bilateral 62# 1 set of 15 then 50# 15 reps left leg Therapeutic Exercises Standing Exercises 4 Standing Exercise Name standing lunges in parallel bars 1 Standing Exercise Name half kneeling and sitting on a ball with hip extended psoas stretch Side left Reps/Minutes hold 1-2 minutes Comments in parallel bars Manual Therapy Treatment Joint Mobilizations 2 Joint lateral hip capsule streatch Comments MWM with belt and hip ER 1 Joint hip flexion with distraction and inf glide Direction inf Grade III Comments FM c/r Manual Techniques 1 Type Manual stretching into ER Comments c/r PT-OP-T Assessment and Plan Start: 08/17/17 10:04 Freq: Status: Active Protocol: Document 09/25/17 16:45 [facility] (Rec: 09/25/17 17:27 [facility] [id number]) Physical Therapy Assessment Assessment Summary Assessment Pt making small but steady progress with strength, able to increase weight on many TherEx activities today. Physical Therapy Plan Frequency and Duration Frequency of Treatment 2 Duration of Treatment 8 weeks Plan of Care Start Date 08/16/17 Plan of Care End Date 10/18/17 Therapeutic Interventions Therapeutic Interventions Balance Training Gait Training Home Exercise Program Joint Mobilizations Manual Therapy Patient/Caregiver Education Self-Care/Home Management Soft Tissue Mobilization Therapeutic Exercises Modalities Cold Pack/Ice Massage Next Visit Focus/Plan Next Note Type Treatment Note Next Visit Plan continue progressing towards functional movements and dynamic stabilization.
--- NOTE | 2017-09-28 16:30 | PT.OTN ---
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, left leg, sequela (09/28/17) Physical Therapy Treatment Note PT-OP-A Visit Information Start: 08/17/17 10:04 Freq: Status: Active Protocol: Document 09/28/17 16:23 [facility] (Rec: 09/28/17 16:28 [facility] [email or web address]) Out-Patient Physical Therapy Visit Information Visit Information Visit Type Progress Note Visit Start Time 13:45 Visit Stop Time 14:30 Total Visit Minutes 45 Visit Number 12 Number of BIOINFORMATICS SOFTWARE ENGINEER Visits 0 PT-OP-B Current Condition Start: 08/17/17 10:04 Freq: Status: Active Protocol: Document 08/22/17 17:10 [facility] (Rec: 08/22/17 17:20 [facility] [email or web address]) Current Condition History of Current Condition Onset Date 2006 Current Complaints left hip pain chronic due to hx of surgeries, injury to sciatic nerve History of Current Condition Umm is a 37 year old female with 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 She has undergone multipe surgeries and 2 rounds of radiation in her left hip where much of the gluteal tissue has been removed due to the cancer. She has had grafts from the abdominal wall and hamstring performed on the left. 3 years ago Umm woke up from surgery and could not move her left leg lower than her knee. During that surgery there was a nerve injury to the sciatic nerve. She now uses a AFO for gait. Prior Treatments and Tests Umm has been seen at our [facility] clinic for multiple open wounds but notes she is no longer needed wound care. She has also been seen for PT on [facility] but has moved to [place] so is now seeking ongoing treatment in our PT clinic PT-OP-C Subjective Start: 08/17/17 10:04 Freq: Status: Active Protocol: Document 09/28/17 16:23 [facility] (Rec: 09/28/17 16:28 [facility] [email or web address]) OP-PT Subjective Patient Comments Patient Comments Umm notes continued improvement of her symptoms Patient Reported Progress Improving PT-OP-F Manual Assessment Start: 08/17/17 10:04 Freq: Status: Active Protocol: Document 08/16/17 10:30 [facility] (Rec: 08/17/17 10:22 [facility] [email or web address]) Manual Assessments Soft Tissue Assessment Soft Tissue Mobility Assessment left hip tendern to palpation laterally due to multiple surgeries and skin graphs, Myofascial tension and multiple regions of scar tissue are palpated Joint Mobility Assessment Joint Mobility Assessment left hip limited in flexion past 90 degress due to hip impingement and soft tissue tightness. Umm feels this is due to her radiation. She notes she has seen improvements with her hip flexion with her prior PT and that she can tie her shoes now where she was unable to do this before PT-OP-K Range of Motion Start: 08/17/17 10:22 Freq: Status: Active Protocol: Document 09/28/17 16:28 [facility] (Rec: 09/28/17 16:30 [facility] [email or web address]) Hip Goniometric Range of Motion Hip Measured in Degrees Right Hip ROM WFL No Flexion w/Knee Flexed 120 Straight Leg Raise 50 External Rotation 45 Left Hip ROM WFL No Testing Position Supine Flexion w/Knee Flexed 100 Straight Leg Raise 50 External Rotation 38 Hip ROM Limitations Hip ROM Limitations Soft Tissue Tightness Comments improving length of the iliopsoas, Umm is able to half knee now with parallel bars for support due to improved length of the iliopsoas PT-OP-M Strength Start: 08/18/17 05:42 Freq: Status: Active Protocol: Document 08/18/17 05:43 [facility] (Rec: 08/18/17 05:45 [facility] [email or web address]) Trunk Strength Trunk Manual Muscle Testing Core Stabilization Weakness in the core stabilizers with + ASLR test B and a great deal of pelvic rotation during gait Hip Strength Hip Manual Muscle Testing Right Flexion (L2) 5 Normal Extension (S1) 4 Good Abduction 3 Fair Adduction 5 Normal External Rotation 4 Good Internal Rotation 5 Normal Left Flexion (L2) 2+ Poor+ Extension (S1) 3 Fair Abduction 2 Poor External Rotation 3 Fair PT-OP-Q Treatments Start: 08/17/17 10:04 Freq: Status: Active Protocol: Document 09/28/17 16:23 [facility] (Rec: 09/28/17 16:28 [facility] [email or web address]) Gym Equipment Shuttle Rebound 1 Exercise Details shuttle leg press Comments 100# 3 sets of 10 reps bilateral 62# 1 set of 15 then 50# 15 reps left leg Therapeutic Ball 1 Exercise Details hip extension, ER on the ball stretch Therapeutic Exercises Standing Exercises 4 Standing Exercise Name standing lunges in parallel bars 3 Standing Exercise Name standing hip flexor stretch with foot on the ball Side left Reps/Minutes hold 1-2 minutes 2 Standing Exercise Name standing warrior one Side bilateral Reps/Minutes hold 1-2 minutes Comments in parallel bars 1 Standing Exercise Name half kneeling and sitting on a ball with hip extended psoas stretch Side left Reps/Minutes hold 1-2 minutes Comments in parallel bars Other Exercises 4 Other Exercise Name standing functional squats and single leg squats with cables as TRX Comments on shuttle balance PT-OP-T Assessment and Plan Start: 08/17/17 10:04 Freq: Status: Active Protocol: Document 09/28/17 16:23 [facility] (Rec: 09/28/17 16:28 [facility] [email or web address]) Physical Therapy Assessment Progress Towards Goals Progress Towards Goals Progressing Toward Goals Progress Comments Umm notes that her hips are feeling better and she is showing improvements with strength and ROM. Assessment Summary Assessment Pt making small but steady progress with strength, able to increase weight on many TherEx activities today. Physical Therapy Plan Frequency and Duration Frequency of Treatment 2 Duration of Treatment 8 weeks Plan of Care Start Date 08/16/17 Plan of Care End Date 10/18/17 Therapeutic Interventions Therapeutic Interventions Balance Training Gait Training Home Exercise Program Joint Mobilizations Manual Therapy Patient/Caregiver Education Self-Care/Home Management Soft Tissue Mobilization Therapeutic Exercises Modalities Cold Pack/Ice Massage Next Visit Focus/Plan Next Note Type Treatment Note Next Visit Plan continue progressing towards functional movements and dynamic stabilization.
--- NOTE | 2017-09-28 16:35 | PT.OPPN ---
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, left leg, sequela (09/28/17) Physical Therapy Progress Note PT-OP-A Visit Information Start: 08/17/17 10:04 Freq: Status: Active Protocol: Document 09/28/17 16:23 AMH (Rec: 09/28/17 16:28 AMH [email or web address]) Out-Patient Physical Therapy Visit Information Visit Information Visit Type Progress Note Visit Start Time 13:45 Visit Stop Time 14:30 Total Visit Minutes 45 Visit Number 12 Number of MILLWRIGHT INSTRUCTOR Visits 0 PT-OP-B Current Condition Start: 08/17/17 10:04 Freq: Status: Active Protocol: Document 08/22/17 17:10 AMH (Rec: 08/22/17 17:20 AMH [email or web address]) Current Condition History of Current Condition Onset Date 2006 Current Complaints left hip pain chronic due to hx of surgeries, injury to sciatic nerve History of Current Condition Umm is a 37 year old female with 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 She has undergone multipe surgeries and 2 rounds of radiation in her left hip where much of the gluteal tissue has been removed due to the cancer. She has had grafts from the abdominal wall and hamstring performed on the left. 3 years ago Umm woke up from surgery and could not move her left leg lower than her knee. During that surgery there was a nerve injury to the sciatic nerve. She now uses a AFO for gait. Prior Treatments and Tests Umm has been seen at our would clinic for multiple open wounds but notes she is no longer needed wound care. She has also been seen for PT on [facility] but has moved to [place] so is now seeking ongoing treatment in our PT clinic PT-OP-C Subjective Start: 08/17/17 10:04 Freq: Status: Active Protocol: Document 09/28/17 16:23 AMH (Rec: 09/28/17 16:28 AMH [email or web address]) OP-PT Subjective Patient Comments Patient Comments Umm notes continued improvement of her symptoms Patient Reported Progress Improving PT-OP-F Manual Assessment Start: 08/17/17 10:04 Freq: Status: Active Protocol: Document 08/16/17 10:30 AMH (Rec: 08/17/17 10:22 AMH [email or web address]) Manual Assessments Soft Tissue Assessment Soft Tissue Mobility Assessment left hip tendern to palpation laterally due to multiple surgeries and skin graphs, Myofascial tension and multiple regions of scar tissue are palpated Joint Mobility Assessment Joint Mobility Assessment left hip limited in flexion past 90 degress due to hip impingement and soft tissue tightness. Umm feels this is due to her radiation. She notes she has seen improvements with her hip flexion with her prior PT and that she can tie her shoes now where she was unable to do this before PT-OP-K Range of Motion Start: 08/17/17 10:22 Freq: Status: Active Protocol: Document 09/28/17 16:28 AMH (Rec: 09/28/17 16:30 AMH [email or web address]) Hip Goniometric Range of Motion Hip Measured in Degrees Right Hip ROM WFL No Flexion w/Knee Flexed 120 Straight Leg Raise 50 External Rotation 45 Left Hip ROM WFL No Testing Position Supine Flexion w/Knee Flexed 100 Straight Leg Raise 50 External Rotation 38 Hip ROM Limitations Hip ROM Limitations Soft Tissue Tightness Comments improving length of the iliopsoas, Umm is able to half knee now with parallel bars for support due to improved length of the iliopsoas PT-OP-M Strength Start: 08/18/17 05:42 Freq: Status: Active Protocol: Document 09/28/17 16:35 AMH (Rec: 09/28/17 16:35 AMH [email or web address]) Hip Strength Hip Manual Muscle Testing Right Flexion (L2) 5 Normal Extension (S1) 4 Good Abduction 4 Good Adduction 5 Normal External Rotation 4 Good Internal Rotation 5 Normal Left Flexion (L2) 3 Fair Extension (S1) 3+ Fair+ Abduction 3 Fair External Rotation 3 Fair PT-OP-T Assessment and Plan Start: 08/17/17 10:04 Freq: Status: Active Protocol: Document 09/28/17 16:23 AMH (Rec: 09/28/17 16:28 AMH [email or web address]) Physical Therapy Assessment Progress Towards Goals Progress Towards Goals Progressing Toward Goals Progress Comments Umm notes that her hips are feeling better and she is showing improvements with strength and ROM. Assessment Summary Assessment Pt making small but steady progress with strength, able to increase weight on many TherEx activities today. Physical Therapy Plan Frequency and Duration Frequency of Treatment 2 Duration of Treatment 8 weeks Plan of Care Start Date 08/16/17 Plan of Care End Date 10/18/17 Therapeutic Interventions Therapeutic Interventions Balance Training Gait Training Home Exercise Program Joint Mobilizations Manual Therapy Patient/Caregiver Education Self-Care/Home Management Soft Tissue Mobilization Therapeutic Exercises Modalities Cold Pack/Ice Massage Next Visit Focus/Plan Next Note Type Treatment Note Next Visit Plan continue progressing towards functional movements and dynamic stabilization.
--- NOTE | 2017-10-03 18:15 | PT.OTN ---
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, left leg, sequela (10/03/17) Physical Therapy Treatment Note PT-OP-A Visit Information Start: 08/17/17 10:04 Freq: Status: Active Protocol: Document 10/03/17 18:11 AMH (Rec: 10/03/17 18:15 AMH [email or web address]) Out-Patient Physical Therapy Visit Information Visit Information Visit Type Treatment Note Visit Start Time 13:45 Visit Stop Time 14:30 Total Visit Minutes 45 Visit Number 13 Number of HOPPER OPERATOR Visits 0 PT-OP-B Current Condition Start: 08/17/17 10:04 Freq: Status: Active Protocol: Document 08/22/17 17:10 AMH (Rec: 08/22/17 17:20 AMH [email or web address]) Current Condition History of Current Condition Onset Date 2006 Current Complaints left hip pain chronic due to hx of surgeries, injury to sciatic nerve History of Current Condition Umm is a 37 year old female with 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 She has undergone multipe surgeries and 2 rounds of radiation in her left hip where much of the gluteal tissue has been removed due to the cancer. She has had grafts from the abdominal wall and hamstring performed on the left. 3 years ago Umm woke up from surgery and could not move her left leg lower than her knee. During that surgery there was a nerve injury to the sciatic nerve. She now uses a AFO for gait. Prior Treatments and Tests Umm has been seen at our would clinic for multiple open wounds but notes she is no longer needed wound care. She has also been seen for PT on [facility] but has moved to [place] so is now seeking ongoing treatment in our PT clinic PT-OP-C Subjective Start: 08/17/17 10:04 Freq: Status: Active Protocol: Document 10/03/17 18:11 AMH (Rec: 10/03/17 18:15 AMH [email or web address]) OP-PT Subjective Patient Comments Patient Comments Umm notes continued improvement of her symptoms Patient Reported Progress Improving PT-OP-F Manual Assessment Start: 08/17/17 10:04 Freq: Status: Active Protocol: Document 08/16/17 10:30 AMH (Rec: 08/17/17 10:22 AMH [email or web address]) Manual Assessments Soft Tissue Assessment Soft Tissue Mobility Assessment left hip tendern to palpation laterally due to multiple surgeries and skin graphs, Myofascial tension and multiple regions of scar tissue are palpated Joint Mobility Assessment Joint Mobility Assessment left hip limited in flexion past 90 degress due to hip impingement and soft tissue tightness. Umm feels this is due to her radiation. She notes she has seen improvements with her hip flexion with her prior PT and that she can tie her shoes now where she was unable to do this before PT-OP-K Range of Motion Start: 08/17/17 10:22 Freq: Status: Active Protocol: Document 09/28/17 16:28 AMH (Rec: 09/28/17 16:30 AMH [email or web address]) Hip Goniometric Range of Motion Hip Measured in Degrees Right Hip ROM WFL No Flexion w/Knee Flexed 120 Straight Leg Raise 50 External Rotation 45 Left Hip ROM WFL No Testing Position Supine Flexion w/Knee Flexed 100 Straight Leg Raise 50 External Rotation 38 Hip ROM Limitations Hip ROM Limitations Soft Tissue Tightness Comments improving length of the iliopsoas, Umm is able to half knee now with parallel bars for support due to improved length of the iliopsoas PT-OP-M Strength Start: 08/18/17 05:42 Freq: Status: Active Protocol: Document 09/28/17 16:35 AMH (Rec: 09/28/17 16:35 AMH [email or web address]) Hip Strength Hip Manual Muscle Testing Right Flexion (L2) 5 Normal Extension (S1) 4 Good Abduction 4 Good Adduction 5 Normal External Rotation 4 Good Internal Rotation 5 Normal Left Flexion (L2) 3 Fair Extension (S1) 3+ Fair+ Abduction 3 Fair External Rotation 3 Fair PT-OP-Q Treatments Start: 08/17/17 10:04 Freq: Status: Active Protocol: Document 10/03/17 18:11 AMH (Rec: 10/03/17 18:15 AMH [email or web address]) Gym Equipment Cable Column (Body Solid) Leg Curl Details hamstring curl Resistance 50# Reps/Time 3x10 Leg Extension Details leg ext Resistance 40# Reps/Time 3x10 Hip Abduction Details seated abduction Resistance 20# -> 30# Reps/Time 3x10 Shuttle Rebound 1 Exercise Details shuttle leg press Comments 100# 3 sets of 10 reps bilateral 62# 1 set of 15 then 50# 15 reps left leg Therapeutic Exercises Supine Exercises 1 Supine Exercise Name iliopsoas stretch in heron test position Prone Exercises 1 Prone Exercise Name prone iliopsoas stretch Reps/Minutes 2 min Standing Exercises 4 Standing Exercise Name standing lunges in parallel bars 3 Standing Exercise Name standing hip flexor stretch with foot on the ball Side left Reps/Minutes hold 1-2 minutes 2 Standing Exercise Name standing warrior one Side bilateral Reps/Minutes hold 1-2 minutes Comments in parallel bars PT-OP-T Assessment and Plan Start: 08/17/17 10:04 Freq: Status: Active Protocol: Document 10/03/17 18:11 AMH (Rec: 10/03/17 18:15 AMH [email or web address]) Physical Therapy Assessment Assessment Summary Assessment Umm would like to begin working towards a gym program she can do on her own, as she tolerates additional activities a gym program would work out well for her Physical Therapy Plan Frequency and Duration Frequency of Treatment 2 Duration of Treatment 8 weeks Plan of Care Start Date 08/16/17 Plan of Care End Date 10/18/17 Therapeutic Interventions Therapeutic Interventions Balance Training Gait Training Home Exercise Program Joint Mobilizations Manual Therapy Patient/Caregiver Education Self-Care/Home Management Soft Tissue Mobilization Therapeutic Exercises Modalities Cold Pack/Ice Massage Next Visit Focus/Plan Next Note Type Treatment Note Next Visit Plan continue progressing towards functional movements and dynamic stabilization.
--- NOTE | 2017-10-05 19:01 | PT.OTN ---
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, left leg, sequela (10/05/17) Physical Therapy Treatment Note PT-OP-A Visit Information Start: 08/17/17 10:04 Freq: Status: Active Protocol: Document 10/05/17 18:54 AMH (Rec: 10/05/17 19:01 AMH [email or web address]) Out-Patient Physical Therapy Visit Information Visit Information Visit Type Treatment Note Visit Start Time 13:45 Visit Stop Time 14:30 Total Visit Minutes 45 Visit Number 14 Number of LUNCHROOM OPERATOR Visits 0 PT-OP-B Current Condition Start: 08/17/17 10:04 Freq: Status: Active Protocol: Document 08/22/17 17:10 AMH (Rec: 08/22/17 17:20 AMH [email or web address]) Current Condition History of Current Condition Onset Date 2006 Current Complaints left hip pain chronic due to hx of surgeries, injury to sciatic nerve History of Current Condition Umm is a 37 year old female with 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 She has undergone multipe surgeries and 2 rounds of radiation in her left hip where much of the gluteal tissue has been removed due to the cancer. She has had grafts from the abdominal wall and hamstring performed on the left. 3 years ago Umm woke up from surgery and could not move her left leg lower than her knee. During that surgery there was a nerve injury to the sciatic nerve. She now uses a AFO for gait. Prior Treatments and Tests Umm has been seen at our would clinic for multiple open wounds but notes she is no longer needed wound care. She has also been seen for PT on [facility] but has moved to [place] so is now seeking ongoing treatment in our PT clinic PT-OP-C Subjective Start: 08/17/17 10:04 Freq: Status: Active Protocol: Document 10/05/17 18:54 AMH (Rec: 10/05/17 19:01 AMH [email or web address]) OP-PT Subjective Patient Comments Patient Comments no new complaints PT-OP-F Manual Assessment Start: 08/17/17 10:04 Freq: Status: Active Protocol: Document 08/16/17 10:30 AMH (Rec: 08/17/17 10:22 AMH [email or web address]) Manual Assessments Soft Tissue Assessment Soft Tissue Mobility Assessment left hip tendern to palpation laterally due to multiple surgeries and skin graphs, Myofascial tension and multiple regions of scar tissue are palpated Joint Mobility Assessment Joint Mobility Assessment left hip limited in flexion past 90 degress due to hip impingement and soft tissue tightness. Umm feels this is due to her radiation. She notes she has seen improvements with her hip flexion with her prior PT and that she can tie her shoes now where she was unable to do this before PT-OP-K Range of Motion Start: 08/17/17 10:22 Freq: Status: Active Protocol: Document 09/28/17 16:28 AMH (Rec: 09/28/17 16:30 AMH [email or web address]) Hip Goniometric Range of Motion Hip Measured in Degrees Right Hip ROM WFL No Flexion w/Knee Flexed 120 Straight Leg Raise 50 External Rotation 45 Left Hip ROM WFL No Testing Position Supine Flexion w/Knee Flexed 100 Straight Leg Raise 50 External Rotation 38 Hip ROM Limitations Hip ROM Limitations Soft Tissue Tightness Comments improving length of the iliopsoas, Umm is able to half knee now with parallel bars for support due to improved length of the iliopsoas PT-OP-M Strength Start: 08/18/17 05:42 Freq: Status: Active Protocol: Document 09/28/17 16:35 AMH (Rec: 09/28/17 16:35 AMH [email or web address]) Hip Strength Hip Manual Muscle Testing Right Flexion (L2) 5 Normal Extension (S1) 4 Good Abduction 4 Good Adduction 5 Normal External Rotation 4 Good Internal Rotation 5 Normal Left Flexion (L2) 3 Fair Extension (S1) 3+ Fair+ Abduction 3 Fair External Rotation 3 Fair PT-OP-Q Treatments Start: 08/17/17 10:04 Freq: Status: Active Protocol: Document 10/05/17 18:54 AMH (Rec: 10/05/17 19:01 AMH [email or web address]) Gym Equipment Shuttle Rebound 1 Exercise Details shuttle leg press Comments 100# 3 sets of 10 reps bilateral 62# 1 set of 15 then 50# 15 reps left leg Shuttle Balance 1 Details squats and tandem stance Therapeutic Exercises Standing Exercises 6 Standing Exercise Name side steps with yellow theraband 5 Standing Exercise Name step ups on 6 step and pamela Comments in parallel bars 4 Standing Exercise Name standing lunges in parallel bars 3 Standing Exercise Name standing hip flexor stretch with foot on the ball Side left Reps/Minutes hold 1-2 minutes 2 Standing Exercise Name standing warrior one Side bilateral Reps/Minutes hold 1-2 minutes Comments in parallel bars 1 Standing Exercise Name half kneeling and sitting on a ball with hip extended psoas stretch Side left Reps/Minutes hold 1-2 minutes Comments in parallel bars Other Exercises 4 Other Exercise Name standing functional squats and single leg squats with cables as TRX Comments on shuttle balance Manual Therapy Treatment Joint Mobilizations 2 Joint lateral hip capsule streatch Comments MWM with belt and hip ER 1 Joint hip flexion with distraction and inf glide Direction inf Grade III Comments FM c/r PT-OP-T Assessment and Plan Start: 08/17/17 10:04 Freq: Status: Active Protocol: Document 10/05/17 18:54 AMH (Rec: 10/05/17 19:01 AMH [email or web address]) Physical Therapy Assessment Assessment Summary Assessment able to perform step ups on BOSU bilateral LE today Physical Therapy Plan Frequency and Duration Frequency of Treatment 2 Duration of Treatment 8 weeks Plan of Care Start Date 08/16/17 Plan of Care End Date 10/18/17 Therapeutic Interventions Therapeutic Interventions Balance Training Gait Training Home Exercise Program Joint Mobilizations Manual Therapy Patient/Caregiver Education Self-Care/Home Management Soft Tissue Mobilization Therapeutic Exercises Modalities Cold Pack/Ice Massage Next Visit Focus/Plan Next Note Type Treatment Note Next Visit Plan continue progressing towards functional movements and dynamic stabilization.
--- NOTE | 2017-10-12 15:45 | PT.OTN ---
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, left leg, sequela (10/12/17) Physical Therapy Treatment Note PT-OP-A Visit Information Start: 08/17/17 10:04 Freq: Status: Active Protocol: Document 10/12/17 15:40 AMH (Rec: 10/12/17 15:44 AMH [email or web address]) Out-Patient Physical Therapy Visit Information Visit Information Visit Type Treatment Note Visit Start Time 13:45 Visit Stop Time 14:30 Total Visit Minutes 45 Visit Number 15 Number of ALCOHOLISM WORKER Visits 0 PT-OP-B Current Condition Start: 08/17/17 10:04 Freq: Status: Active Protocol: Document 08/22/17 17:10 AMH (Rec: 08/22/17 17:20 AMH [email or web address]) Current Condition History of Current Condition Onset Date 2006 Current Complaints left hip pain chronic due to hx of surgeries, injury to sciatic nerve History of Current Condition Umm is a 37 year old female with 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 She has undergone multipe surgeries and 2 rounds of radiation in her left hip where much of the gluteal tissue has been removed due to the cancer. She has had grafts from the abdominal wall and hamstring performed on the left. 3 years ago Umm woke up from surgery and could not move her left leg lower than her knee. During that surgery there was a nerve injury to the sciatic nerve. She now uses a AFO for gait. Prior Treatments and Tests Umm has been seen at our would clinic for multiple open wounds but notes she is no longer needed wound care. She has also been seen for PT on [facility] but has moved to [place] so is now seeking ongoing treatment in our PT clinic PT-OP-C Subjective Start: 08/17/17 10:04 Freq: Status: Active Protocol: Document 10/12/17 15:40 AMH (Rec: 10/12/17 15:44 AMH [email or web address]) OP-PT Subjective Patient Comments Patient Comments Umm reports she is a bit sore today as she took a stumble in the [employer] [place] PT-OP-F Manual Assessment Start: 08/17/17 10:04 Freq: Status: Active Protocol: Document 08/16/17 10:30 AMH (Rec: 08/17/17 10:22 AMH [email or web address]) Manual Assessments Soft Tissue Assessment Soft Tissue Mobility Assessment left hip tendern to palpation laterally due to multiple surgeries and skin graphs, Myofascial tension and multiple regions of scar tissue are palpated Joint Mobility Assessment Joint Mobility Assessment left hip limited in flexion past 90 degress due to hip impingement and soft tissue tightness. Umm feels this is due to her radiation. She notes she has seen improvements with her hip flexion with her prior PT and that she can tie her shoes now where she was unable to do this before PT-OP-K Range of Motion Start: 08/17/17 10:22 Freq: Status: Active Protocol: Document 09/28/17 16:28 AMH (Rec: 09/28/17 16:30 AMH [email or web address]) Hip Goniometric Range of Motion Hip Measured in Degrees Right Hip ROM WFL No Flexion w/Knee Flexed 120 Straight Leg Raise 50 External Rotation 45 Left Hip ROM WFL No Testing Position Supine Flexion w/Knee Flexed 100 Straight Leg Raise 50 External Rotation 38 Hip ROM Limitations Hip ROM Limitations Soft Tissue Tightness Comments improving length of the iliopsoas, Umm is able to half knee now with parallel bars for support due to improved length of the iliopsoas PT-OP-M Strength Start: 08/18/17 05:42 Freq: Status: Active Protocol: Document 09/28/17 16:35 AMH (Rec: 09/28/17 16:35 AMH [email or web address]) Hip Strength Hip Manual Muscle Testing Right Flexion (L2) 5 Normal Extension (S1) 4 Good Abduction 4 Good Adduction 5 Normal External Rotation 4 Good Internal Rotation 5 Normal Left Flexion (L2) 3 Fair Extension (S1) 3+ Fair+ Abduction 3 Fair External Rotation 3 Fair PT-OP-Q Treatments Start: 08/17/17 10:04 Freq: Status: Active Protocol: Document 10/12/17 15:40 AMH (Rec: 10/12/17 15:44 AMH [email or web address]) Gym Equipment Shuttle Rebound 1 Exercise Details shuttle leg press Comments 100# 3 sets of 10 reps bilateral 62# 1 set of 15 then 50# 15 reps left leg Shuttle Balance 1 Details squats and tandem stance Therapeutic Exercises Supine Exercises 1 Supine Exercise Name iliopsoas stretch in heron test position Standing Exercises 6 Standing Exercise Name side steps with yellow theraband Manual Therapy Treatment Joint Mobilizations 2 Joint lateral hip capsule streatch Comments MWM with belt and hip ER 1 Joint hip flexion with distraction and inf glide Direction inf Grade III Comments FM c/r Manual Techniques 1 Type Manual stretching into ER Comments c/r PT-OP-T Assessment and Plan Start: 08/17/17 10:04 Freq: Status: Active Protocol: Document 10/12/17 15:40 AMH (Rec: 10/12/17 15:44 AMH [email or web address]) Physical Therapy Assessment Assessment Summary Assessment SLR to 90 degrees today, good improvement Physical Therapy Plan Frequency and Duration Frequency of Treatment 2 Duration of Treatment 8 weeks Plan of Care Start Date 08/16/17 Plan of Care End Date 10/18/17 Therapeutic Interventions Therapeutic Interventions Balance Training Gait Training Home Exercise Program Joint Mobilizations Manual Therapy Patient/Caregiver Education Self-Care/Home Management Soft Tissue Mobilization Therapeutic Exercises Modalities Cold Pack/Ice Massage Next Visit Focus/Plan Next Note Type Treatment Note Next Visit Plan continue progressing towards functional movements and dynamic stabilization.
--- NOTE | 2017-10-17 17:28 | PT.OTN ---
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, left leg, sequela (10/17/17) Physical Therapy Treatment Note PT-OP-A Visit Information Start: 08/17/17 10:04 Freq: Status: Active Protocol: Document 10/17/17 17:21 [facility] (Rec: 10/17/17 17:28 [facility] [email or web address]) Out-Patient Physical Therapy Visit Information Visit Information Visit Type Treatment Note Visit Start Time 13:45 Visit Stop Time 14:30 Total Visit Minutes 45 Visit Number 16 Number of DARKLIGHT INSPECTOR Visits 0 PT-OP-B Current Condition Start: 08/17/17 10:04 Freq: Status: Active Protocol: Document 08/22/17 17:10 [facility] (Rec: 08/22/17 17:20 [facility] [email or web address]) Current Condition History of Current Condition Onset Date 2006 Current Complaints left hip pain chronic due to hx of surgeries, injury to sciatic nerve History of Current Condition Umm is a 37 year old female with 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 She has undergone multipe surgeries and 2 rounds of radiation in her left hip where much of the gluteal tissue has been removed due to the cancer. She has had grafts from the abdominal wall and hamstring performed on the left. 3 years ago Umm woke up from surgery and could not move her left leg lower than her knee. During that surgery there was a nerve injury to the sciatic nerve. She now uses a AFO for gait. Prior Treatments and Tests Umm has been seen at our would clinic for multiple open wounds but notes she is no longer needed wound care. She has also been seen for PT on [facility] but has moved to [place] so is now seeking ongoing treatment in our PT clinic PT-OP-C Subjective Start: 08/17/17 10:04 Freq: Status: Active Protocol: Document 10/17/17 17:21 [facility] (Rec: 10/17/17 17:28 [facility] [email or web address]) OP-PT Subjective Patient Comments Patient Comments Umm reports she fell again when hiking and this time fell onto her right knee. She has been icing it but is still sore today and her low back is sore Patient Reported Progress Improving PT-OP-F Manual Assessment Start: 08/17/17 10:04 Freq: Status: Active Protocol: Document 08/16/17 10:30 [facility] (Rec: 08/17/17 10:22 [facility] [email or web address]) Manual Assessments Soft Tissue Assessment Soft Tissue Mobility Assessment left hip tendern to palpation laterally due to multiple surgeries and skin graphs, Myofascial tension and multiple regions of scar tissue are palpated Joint Mobility Assessment Joint Mobility Assessment left hip limited in flexion past 90 degress due to hip impingement and soft tissue tightness. Umm feels this is due to her radiation. She notes she has seen improvements with her hip flexion with her prior PT and that she can tie her shoes now where she was unable to do this before PT-OP-K Range of Motion Start: 08/17/17 10:22 Freq: Status: Active Protocol: Document 09/28/17 16:28 [facility] (Rec: 09/28/17 16:30 [facility] [email or web address]) Hip Goniometric Range of Motion Hip Measured in Degrees Right Hip ROM WFL No Flexion w/Knee Flexed 120 Straight Leg Raise 50 External Rotation 45 Left Hip ROM WFL No Testing Position Supine Flexion w/Knee Flexed 100 Straight Leg Raise 50 External Rotation 38 Hip ROM Limitations Hip ROM Limitations Soft Tissue Tightness Comments improving length of the iliopsoas, Umm is able to half knee now with parallel bars for support due to improved length of the iliopsoas PT-OP-M Strength Start: 08/18/17 05:42 Freq: Status: Active Protocol: Document 09/28/17 16:35 [facility] (Rec: 09/28/17 16:35 [facility] [email or web address]) Hip Strength Hip Manual Muscle Testing Right Flexion (L2) 5 Normal Extension (S1) 4 Good Abduction 4 Good Adduction 5 Normal External Rotation 4 Good Internal Rotation 5 Normal Left Flexion (L2) 3 Fair Extension (S1) 3+ Fair+ Abduction 3 Fair External Rotation 3 Fair PT-OP-Q Treatments Start: 08/17/17 10:04 Freq: Status: Active Protocol: Document 10/17/17 17:21 [facility] (Rec: 10/17/17 17:28 [facility] [email or web address]) Manual Therapy Treatment Soft Tissue Mobilization 2 Body Location lumbar paraspinals MFR Body Position Prone 1 Body Location LEft hip flexor and quad MFR Joint Mobilizations 2 Joint lateral hip capsule streatch Comments MWM with belt and hip ER 1 Joint hip flexion with distraction and inf glide Direction inf Grade III Comments FM c/r Manual Techniques 1 Type Manual stretching into ER Body Position Prone Comments in prone with contract relax PT-OP-T Assessment and Plan Start: 08/17/17 10:04 Freq: Status: Active Protocol: Document 10/17/17 17:21 [facility] (Rec: 10/17/17 17:28 [facility] [email or web address]) Physical Therapy Assessment Progress Towards Goals Progress Towards Goals Progressing Toward Goals Assessment Summary Assessment Umm has had a few falls with hiking. I did talk to her about using her hiking poles and she is using them. I would like to see her using the eliptical seeing eye dog trainer at the gym as she wants to get her heart rate up with hiking but has taken 2 falls in the past few weeks. Her hip ROM is improving and she is improving with strength of the hips. Umm would benefit from continued PT Physical Therapy Plan Frequency and Duration Frequency of Treatment 2 Duration of Treatment 8 weeks Plan of Care Start Date 08/16/17 Plan of Care End Date 10/18/17 Therapeutic Interventions Therapeutic Interventions Balance Training Gait Training Home Exercise Program Joint Mobilizations Manual Therapy Patient/Caregiver Education Self-Care/Home Management Soft Tissue Mobilization Therapeutic Exercises Modalities Cold Pack/Ice Massage Next Visit Focus/Plan Next Note Type Treatment Note Next Visit Plan continue progressing towards functional movements and dynamic stabilization.
--- NOTE | 2017-10-17 17:31 | PT.OTRE ---
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, left leg, sequela (10/17/17) Provider Visit Care Team Role Provider Type ELINOR Kendall Attending Provider Non-Staff Family Provider Primary Care Provider Specialty: Medical Address: [address] [place] [address], [id number] Email: Physical Therapy Re-Evaluation PT-OP-A Visit Information Start: 08/17/17 10:04 Freq: Status: Active Protocol: Document 10/17/17 17:21 [facility] (Rec: 10/17/17 17:28 [facility] [email or web address]) Out-Patient Physical Therapy Visit Information Visit Information Visit Type Treatment Note Visit Start Time 13:45 Visit Stop Time 14:30 Total Visit Minutes 45 Visit Number 16 Number of SCARFING MACHINE OPERATOR Visits 0 PT-OP-B Current Condition Start: 08/17/17 10:04 Freq: Status: Active Protocol: Document 08/22/17 17:10 [facility] (Rec: 08/22/17 17:20 [facility] [email or web address]) Current Condition History of Current Condition Onset Date 2006 Current Complaints left hip pain chronic due to hx of surgeries, injury to sciatic nerve History of Current Condition Umm is a 37 year old female with 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 She has undergone multipe surgeries and 2 rounds of radiation in her left hip where much of the gluteal tissue has been removed due to the cancer. She has had grafts from the abdominal wall and hamstring performed on the left. 3 years ago Umm woke up from surgery and could not move her left leg lower than her knee. During that surgery there was a nerve injury to the sciatic nerve. She now uses a AFO for gait. Prior Treatments and Tests Umm has been seen at our would clinic for multiple open wounds but notes she is no longer needed wound care. She has also been seen for PT on [facility] but has moved to [place] so is now seeking ongoing treatment in our PT clinic PT-OP-C Subjective Start: 08/17/17 10:04 Freq: Status: Active Protocol: Document 10/17/17 17:21 [facility] (Rec: 10/17/17 17:28 [facility] [email or web address]) OP-PT Subjective Patient Comments Patient Comments Umm reports she fell again when hiking and this time fell onto her right knee. She has been icing it but is still sore today and her low back is sore Patient Reported Progress Improving PT-OP-F Manual Assessment Start: 08/17/17 10:04 Freq: Status: Active Protocol: Document 08/16/17 10:30 [facility] (Rec: 08/17/17 10:22 [facility] [email or web address]) Manual Assessments Soft Tissue Assessment Soft Tissue Mobility Assessment left hip tendern to palpation laterally due to multiple surgeries and skin graphs, Myofascial tension and multiple regions of scar tissue are palpated Joint Mobility Assessment Joint Mobility Assessment left hip limited in flexion past 90 degress due to hip impingement and soft tissue tightness. Umm feels this is due to her radiation. She notes she has seen improvements with her hip flexion with her prior PT and that she can tie her shoes now where she was unable to do this before PT-OP-K Range of Motion Start: 08/17/17 10:22 Freq: Status: Active Protocol: Document 09/28/17 16:28 [facility] (Rec: 09/28/17 16:30 [facility] [email or web address]) Hip Goniometric Range of Motion Hip Measured in Degrees Right Hip ROM WFL No Flexion w/Knee Flexed 120 Straight Leg Raise 50 External Rotation 45 Left Hip ROM WFL No Testing Position Supine Flexion w/Knee Flexed 100 Straight Leg Raise 50 External Rotation 38 Hip ROM Limitations Hip ROM Limitations Soft Tissue Tightness Comments improving length of the iliopsoas, Umm is able to half knee now with parallel bars for support due to improved length of the iliopsoas PT-OP-M Strength Start: 08/18/17 05:42 Freq: Status: Active Protocol: Document 09/28/17 16:35 [facility] (Rec: 09/28/17 16:35 [facility] [email or web address]) Hip Strength Hip Manual Muscle Testing Right Flexion (L2) 5 Normal Extension (S1) 4 Good Abduction 4 Good Adduction 5 Normal External Rotation 4 Good Internal Rotation 5 Normal Left Flexion (L2) 3 Fair Extension (S1) 3+ Fair+ Abduction 3 Fair External Rotation 3 Fair PT-OP-Q Treatments Start: 08/17/17 10:04 Freq: Status: Active Protocol: Document 10/17/17 17:21 [facility] (Rec: 10/17/17 17:28 [facility] [email or web address]) Manual Therapy Treatment Soft Tissue Mobilization 2 Body Location lumbar paraspinals MFR Body Position Prone 1 Body Location LEft hip flexor and quad MFR Joint Mobilizations 2 Joint lateral hip capsule streatch Comments MWM with belt and hip ER 1 Joint hip flexion with distraction and inf glide Direction inf Grade III Comments FM c/r Manual Techniques 1 Type Manual stretching into ER Body Position Prone Comments in prone with contract relax PT-OP-T Assessment and Plan Start: 08/17/17 10:04 Freq: Status: Active Protocol: Document 10/17/17 17:21 [facility] (Rec: 10/17/17 17:28 [facility] [email or web address]) Physical Therapy Assessment Progress Towards Goals Progress Towards Goals Progressing Toward Goals Assessment Summary Assessment Umm has had a few falls with hiking. I did talk to her about using her hiking poles and she is using them. I would like to see her using the eliptical application trainer at the gym as she wants to get her heart rate up with hiking but has taken 2 falls in the past few weeks. Her hip ROM is improving and she is improving with strength of the hips. Umm would benefit from continued PT Physical Therapy Plan Frequency and Duration Frequency of Treatment 2 Duration of Treatment 8 weeks Plan of Care Start Date 10/17/17 Plan of Care End Date 12/13/17 Therapeutic Interventions Therapeutic Interventions Balance Training Gait Training Home Exercise Program Joint Mobilizations Manual Therapy Patient/Caregiver Education Self-Care/Home Management Soft Tissue Mobilization Therapeutic Exercises Modalities Cold Pack/Ice Massage Next Visit Focus/Plan Next Note Type Treatment Note Next Visit Plan continue progressing towards functional movements and dynamic stabilization.
--- NOTE | 2017-10-19 15:48 | PT.OTN ---
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, left leg, sequela (10/19/17) Physical Therapy Treatment Note PT-OP-A Visit Information Start: 08/17/17 10:04 Freq: Status: Active Protocol: Document 10/19/17 15:41 [facility] (Rec: 10/19/17 15:47 [facility] [email or web address]) Out-Patient Physical Therapy Visit Information Visit Information Visit Type Treatment Note Visit Start Time 13:45 Visit Stop Time 14:30 Total Visit Minutes 45 Visit Number 17 Number of WHEEL AND AXLE INSPECTOR Visits 0 PT-OP-B Current Condition Start: 08/17/17 10:04 Freq: Status: Active Protocol: Document 08/22/17 17:10 [facility] (Rec: 08/22/17 17:20 [facility] [email or web address]) Current Condition History of Current Condition Onset Date 2006 Current Complaints left hip pain chronic due to hx of surgeries, injury to sciatic nerve History of Current Condition Umm is a 37 year old female with 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 She has undergone multipe surgeries and 2 rounds of radiation in her left hip where much of the gluteal tissue has been removed due to the cancer. She has had grafts from the abdominal wall and hamstring performed on the left. 3 years ago Umm woke up from surgery and could not move her left leg lower than her knee. During that surgery there was a nerve injury to the sciatic nerve. She now uses a AFO for gait. Prior Treatments and Tests Umm has been seen at our would clinic for multiple open wounds but notes she is no longer needed wound care. She has also been seen for PT on [facility] but has moved to [place] so is now seeking ongoing treatment in our PT clinic PT-OP-C Subjective Start: 08/17/17 10:04 Freq: Status: Active Protocol: Document 10/19/17 15:41 [facility] (Rec: 10/19/17 15:47 [facility] [email or web address]) OP-PT Subjective Patient Comments Patient Comments Umm notes that her back is still sore from her hike. She also talks about how she feels uneven when she is supine or sitting due to the removal of so much of her gluteals. She asks if there is a prosthetic that can be molded for her to put on with sitting or supine. Patient Reported Progress Improving PT-OP-F Manual Assessment Start: 08/17/17 10:04 Freq: Status: Active Protocol: Document 08/16/17 10:30 [facility] (Rec: 08/17/17 10:22 [facility] [email or web address]) Manual Assessments Soft Tissue Assessment Soft Tissue Mobility Assessment left hip tendern to palpation laterally due to multiple surgeries and skin graphs, Myofascial tension and multiple regions of scar tissue are palpated Joint Mobility Assessment Joint Mobility Assessment left hip limited in flexion past 90 degress due to hip impingement and soft tissue tightness. Umm feels this is due to her radiation. She notes she has seen improvements with her hip flexion with her prior PT and that she can tie her shoes now where she was unable to do this before PT-OP-K Range of Motion Start: 08/17/17 10:22 Freq: Status: Active Protocol: Document 09/28/17 16:28 [facility] (Rec: 09/28/17 16:30 [facility] [email or web address]) Hip Goniometric Range of Motion Hip Measured in Degrees Right Hip ROM WFL No Flexion w/Knee Flexed 120 Straight Leg Raise 50 External Rotation 45 Left Hip ROM WFL No Testing Position Supine Flexion w/Knee Flexed 100 Straight Leg Raise 50 External Rotation 38 Hip ROM Limitations Hip ROM Limitations Soft Tissue Tightness Comments improving length of the iliopsoas, Umm is able to half knee now with parallel bars for support due to improved length of the iliopsoas PT-OP-M Strength Start: 08/18/17 05:42 Freq: Status: Active Protocol: Document 09/28/17 16:35 [facility] (Rec: 09/28/17 16:35 [facility] [email or web address]) Hip Strength Hip Manual Muscle Testing Right Flexion (L2) 5 Normal Extension (S1) 4 Good Abduction 4 Good Adduction 5 Normal External Rotation 4 Good Internal Rotation 5 Normal Left Flexion (L2) 3 Fair Extension (S1) 3+ Fair+ Abduction 3 Fair External Rotation 3 Fair PT-OP-Q Treatments Start: 08/17/17 10:04 Freq: Status: Active Protocol: Document 10/19/17 15:41 [facility] (Rec: 10/19/17 15:47 [facility] [email or web address]) Gym Equipment Cable Column (Body Solid) Leg Curl Details hamstring curl Resistance 50# Reps/Time 3x10 Leg Extension Details leg ext Resistance 40# Reps/Time 3x10 Hip Abduction Details seated abduction Resistance 20# -> 30# Reps/Time 3x10 Shuttle Rebound 1 Exercise Details shuttle leg press Comments 100# 3 sets of 10 reps bilateral 62# 1 set of 15 then 50# 15 reps left leg Manual Therapy Treatment Soft Tissue Mobilization 2 Body Location lumbar paraspinals MFR Body Position Prone PT-OP-T Assessment and Plan Start: 08/17/17 10:04 Freq: Status: Active Protocol: Document 10/19/17 15:41 [facility] (Rec: 10/19/17 15:47 [facility] [email or web address]) Physical Therapy Assessment Assessment Summary Assessment I will place a call to [facility] asking about any type of prothesis that can be made. Physical Therapy Plan Frequency and Duration Frequency of Treatment 2 Duration of Treatment 8 weeks Plan of Care Start Date 10/17/17 Plan of Care End Date 12/13/17 Therapeutic Interventions Therapeutic Interventions Balance Training Gait Training Home Exercise Program Joint Mobilizations Manual Therapy Patient/Caregiver Education Self-Care/Home Management Soft Tissue Mobilization Therapeutic Exercises Modalities Cold Pack/Ice Massage Next Visit Focus/Plan Next Note Type Treatment Note Next Visit Plan work on step ups and incline/ declines as Umm wants to be able to hike
--- NOTE | 2017-10-23 16:41 | PT.OTN ---
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, left leg, sequela (10/23/17) Physical Therapy Treatment Note PT-OP-A Visit Information Start: 08/17/17 10:04 Freq: Status: Active Protocol: Document 10/23/17 13:00 [facility] (Rec: 10/23/17 16:32 [facility] [id number]) Out-Patient Physical Therapy Visit Information Visit Information Visit Type Treatment Note Visit Start Time 13:00 Visit Stop Time 13:45 Total Visit Minutes 45 Visit Number 18 Number of MARKET ANALYST Visits 0 PT-OP-B Current Condition Start: 08/17/17 10:04 Freq: Status: Active Protocol: Document 08/22/17 17:10 [facility] (Rec: 08/22/17 17:20 [facility] [email or web address]) Current Condition History of Current Condition Onset Date 2006 Current Complaints left hip pain chronic due to hx of surgeries, injury to sciatic nerve History of Current Condition Umm is a 37 year old female with 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 She has undergone multipe surgeries and 2 rounds of radiation in her left hip where much of the gluteal tissue has been removed due to the cancer. She has had grafts from the abdominal wall and hamstring performed on the left. 3 years ago Umm woke up from surgery and could not move her left leg lower than her knee. During that surgery there was a nerve injury to the sciatic nerve. She now uses a AFO for gait. Prior Treatments and Tests Umm has been seen at our would clinic for multiple open wounds but notes she is no longer needed wound care. She has also been seen for PT on [facility] but has moved to [place] so is now seeking ongoing treatment in our PT clinic PT-OP-C Subjective Start: 08/17/17 10:04 Freq: Status: Active Protocol: Document 10/23/17 13:00 [facility] (Rec: 10/23/17 16:32 [facility] [id number]) OP-PT Subjective Patient Comments Patient Comments Still a little soreness in back but improving. Frustrated about difficulty with hiking. Excited to try aquatic PT. PT-OP-F Manual Assessment Start: 08/17/17 10:04 Freq: Status: Active Protocol: Document 08/16/17 10:30 [facility] (Rec: 08/17/17 10:22 [facility] [email or web address]) Manual Assessments Soft Tissue Assessment Soft Tissue Mobility Assessment left hip tendern to palpation laterally due to multiple surgeries and skin graphs, Myofascial tension and multiple regions of scar tissue are palpated Joint Mobility Assessment Joint Mobility Assessment left hip limited in flexion past 90 degress due to hip impingement and soft tissue tightness. Umm feels this is due to her radiation. She notes she has seen improvements with her hip flexion with her prior PT and that she can tie her shoes now where she was unable to do this before PT-OP-K Range of Motion Start: 08/17/17 10:22 Freq: Status: Active Protocol: Document 09/28/17 16:28 [facility] (Rec: 09/28/17 16:30 [facility] [email or web address]) Hip Goniometric Range of Motion Hip Measured in Degrees Right Hip ROM WFL No Flexion w/Knee Flexed 120 Straight Leg Raise 50 External Rotation 45 Left Hip ROM WFL No Testing Position Supine Flexion w/Knee Flexed 100 Straight Leg Raise 50 External Rotation 38 Hip ROM Limitations Hip ROM Limitations Soft Tissue Tightness Comments improving length of the iliopsoas, Umm is able to half knee now with parallel bars for support due to improved length of the iliopsoas PT-OP-M Strength Start: 08/18/17 05:42 Freq: Status: Active Protocol: Document 09/28/17 16:35 [facility] (Rec: 09/28/17 16:35 [facility] [email or web address]) Hip Strength Hip Manual Muscle Testing Right Flexion (L2) 5 Normal Extension (S1) 4 Good Abduction 4 Good Adduction 5 Normal External Rotation 4 Good Internal Rotation 5 Normal Left Flexion (L2) 3 Fair Extension (S1) 3+ Fair+ Abduction 3 Fair External Rotation 3 Fair PT-OP-Q Treatments Start: 08/17/17 10:04 Freq: Status: Active Protocol: Document 10/19/17 15:41 [facility] (Rec: 10/19/17 15:47 [facility] [email or web address]) Gym Equipment Cable Column (Body Solid) Leg Curl Details hamstring curl Resistance 50# Reps/Time 3x10 Leg Extension Details leg ext Resistance 40# Reps/Time 3x10 Hip Abduction Details seated abduction Resistance 20# -> 30# Reps/Time 3x10 Shuttle Rebound 1 Exercise Details shuttle leg press Comments 100# 3 sets of 10 reps bilateral 62# 1 set of 15 then 50# 15 reps left leg Manual Therapy Treatment Soft Tissue Mobilization 2 Body Location lumbar paraspinals MFR Body Position Prone PT-OP-S Aquatic Treatment Start: 10/23/17 16:32 Freq: Status: Active Protocol: Document 10/23/17 13:00 [facility] (Rec: 10/23/17 16:38 [facility] [email or web address]) Aquatics Treatment Pool Entry/Exit Pool Entry/Exit Method Stairs Assistance Independent Water Walking Other- 1 Water Level Chest Level Level of Assistance Verbal Cues Comments fwd, bck, , may, may kick Lower Extremity Exercises 1 Details hip flex/ext, ab/ad, circles Body Position Standing Water Level Chest Level Reps/Duration 10x Lower Extremity Stretches 1 Details HS, hip ad, ITB, quad, hip flex Body Position Standing Water Level Chest Level Equipment Small Noodle Reps/Duration 6 min Balance 1 Details SLS Body Position Standing Water Level Chest Level Reps/Duration 2x Eola Activities Eola Activities Bicycle Cross Country Running Hip Abduction/Adduction Sit Kicks Other Activities Included 10 min of 30:30 intervals tethered Equipment flotation belt, tether Duration 15 min Swim Strokes Crawl Equipment Flotation Belt Laps/Duration 25 m PT-OP-T Assessment and Plan Start: 08/17/17 10:04 Freq: Status: Active Protocol: Document 10/23/17 13:00 [facility] (Rec: 10/23/17 16:32 [facility] [id number]) Physical Therapy Assessment Assessment Summary Assessment Good tolerance for aquatic PT with patient noting improved ease of hip mobility, and was able to challenge balance in a safe manner. Physical Therapy Plan Frequency and Duration Frequency of Treatment 2 Duration of Treatment 8 weeks Plan of Care Start Date 10/17/17 Plan of Care End Date 12/13/17 Therapeutic Interventions Therapeutic Interventions Balance Training Gait Training Home Exercise Program Joint Mobilizations Manual Therapy Patient/Caregiver Education Self-Care/Home Management Soft Tissue Mobilization Therapeutic Exercises Modalities Cold Pack/Ice Massage Next Visit Focus/Plan Next Note Type Treatment Note Next Visit Plan work on step ups and incline/ declines as Umm wants to be able to hike. Issue written aquatic exercise handouts including deep water running interval program.
--- NOTE | 2017-10-25 09:13 | PT.OTN ---
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, left leg, sequela (10/24/17) Physical Therapy Treatment Note PT-OP-A Visit Information Start: 08/17/17 10:04 Freq: Status: Active Protocol: Document 10/24/17 13:45 AMH (Rec: 10/25/17 09:10 AMH [email or web address]) Out-Patient Physical Therapy Visit Information Visit Information Visit Type Treatment Note Visit Start Time 13:45 Visit Stop Time 14:30 Total Visit Minutes 45 Visit Number 19 Number of SMALL PRODUCTS II ASSEMBLER Visits 0 PT-OP-B Current Condition Start: 08/17/17 10:04 Freq: Status: Active Protocol: Document 08/22/17 17:10 AMH (Rec: 08/22/17 17:20 AMH [email or web address]) Current Condition History of Current Condition Onset Date 2006 Current Complaints left hip pain chronic due to hx of surgeries, injury to sciatic nerve History of Current Condition Umm is a 37 year old female with 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 She has undergone multipe surgeries and 2 rounds of radiation in her left hip where much of the gluteal tissue has been removed due to the cancer. She has had grafts from the abdominal wall and hamstring performed on the left. 3 years ago Umm woke up from surgery and could not move her left leg lower than her knee. During that surgery there was a nerve injury to the sciatic nerve. She now uses a AFO for gait. Prior Treatments and Tests Umm has been seen at our would clinic for multiple open wounds but notes she is no longer needed wound care. She has also been seen for PT on [facility] but has moved to [place] so is now seeking ongoing treatment in our PT clinic PT-OP-C Subjective Start: 08/17/17 10:04 Freq: Status: Active Protocol: Document 10/24/17 13:45 AMH (Rec: 10/25/17 09:10 AMH [email or web address]) OP-PT Subjective Patient Comments Patient Comments low back symptoms are improving. Umm reports she enjoyed working in the pool and was suprised she could ambulate without her AFO Patient Reported Progress Improving PT-OP-F Manual Assessment Start: 08/17/17 10:04 Freq: Status: Active Protocol: Document 08/16/17 10:30 AMH (Rec: 08/17/17 10:22 [facility] [email or web address]) Manual Assessments Soft Tissue Assessment Soft Tissue Mobility Assessment left hip tendern to palpation laterally due to multiple surgeries and skin graphs, Myofascial tension and multiple regions of scar tissue are palpated Joint Mobility Assessment Joint Mobility Assessment left hip limited in flexion past 90 degress due to hip impingement and soft tissue tightness. Umm feels this is due to her radiation. She notes she has seen improvements with her hip flexion with her prior PT and that she can tie her shoes now where she was unable to do this before PT-OP-K Range of Motion Start: 08/17/17 10:22 Freq: Status: Active Protocol: Document 09/28/17 16:28 AMH (Rec: 09/28/17 16:30 AMH [email or web address]) Hip Goniometric Range of Motion Hip Measured in Degrees Right Hip ROM WFL No Flexion w/Knee Flexed 120 Straight Leg Raise 50 External Rotation 45 Left Hip ROM WFL No Testing Position Supine Flexion w/Knee Flexed 100 Straight Leg Raise 50 External Rotation 38 Hip ROM Limitations Hip ROM Limitations Soft Tissue Tightness Comments improving length of the iliopsoas, Umm is able to half knee now with parallel bars for support due to improved length of the iliopsoas PT-OP-M Strength Start: 08/18/17 05:42 Freq: Status: Active Protocol: Document 09/28/17 16:35 AMH (Rec: 09/28/17 16:35 AMH [email or web address]) Hip Strength Hip Manual Muscle Testing Right Flexion (L2) 5 Normal Extension (S1) 4 Good Abduction 4 Good Adduction 5 Normal External Rotation 4 Good Internal Rotation 5 Normal Left Flexion (L2) 3 Fair Extension (S1) 3+ Fair+ Abduction 3 Fair External Rotation 3 Fair PT-OP-Q Treatments Start: 08/17/17 10:04 Freq: Status: Active Protocol: Document 10/24/17 13:45 AMH (Rec: 10/25/17 09:10 AMH [email or web address]) Gym Equipment Shuttle Rebound 1 Exercise Details shuttle leg press Comments 100# 3 sets of 10 reps bilateral 62# 1 set of 15 then 50# 15 reps left leg Therapeutic Exercises Standing Exercises 8 Standing Exercise Name standing balance board Comments forward and back 7 Standing Exercise Name standing hip hikes Reps/Minutes 2 x 10 6 Standing Exercise Name side steps with yellow theraband 5 Standing Exercise Name step ups on 6 step and pamela Comments in parallel bars forward and lateral steps 4 Standing Exercise Name standing lunges in parallel bars 3 Standing Exercise Name standing hip flexor stretch with foot on the ball Side left Reps/Minutes hold 1-2 minutes Other Exercises 2 Other Exercise Name standing hip abduction Reps/Minutes 2 x 10 reps PT-OP-S Aquatic Treatment Start: 10/23/17 16:32 Freq: Status: Active Protocol: Document 10/23/17 13:00 SAK (Rec: 10/23/17 16:38 SAK [id number]) Aquatics Treatment Pool Entry/Exit Pool Entry/Exit Method Stairs Assistance Independent Water Walking Other- 1 Water Level Chest Level Level of Assistance Verbal Cues Comments fwd, bck, , may, may kick Lower Extremity Exercises 1 Details hip flex/ext, ab/ad, circles Body Position Standing Water Level Chest Level Reps/Duration 10x Lower Extremity Stretches 1 Details HS, hip ad, ITB, quad, hip flex Body Position Standing Water Level Chest Level Equipment Small Noodle Reps/Duration 6 min Balance 1 Details SLS Body Position Standing Water Level Chest Level Reps/Duration 2x Dowling Activities Dowling Activities Bicycle Cross Country Running Hip Abduction/Adduction Sit Kicks Other Activities Included 10 min of 30:30 intervals tethered Equipment flotation belt, tether Duration 15 min Swim Strokes Crawl Equipment Flotation Belt Laps/Duration 25 m PT-OP-T Assessment and Plan Start: 08/17/17 10:04 Freq: Status: Active Protocol: Document 10/24/17 13:45 AMH (Rec: 10/25/17 09:10 AMH [email or web address]) Physical Therapy Assessment Assessment Summary Assessment working on step ups and downs as well as walking down incline with eccentric control as this is how Umm fell last week on a trail Physical Therapy Plan Frequency and Duration Frequency of Treatment 2 Duration of Treatment 8 weeks Plan of Care Start Date 10/17/17 Plan of Care End Date 12/13/17 Therapeutic Interventions Therapeutic Interventions Balance Training Gait Training Home Exercise Program Joint Mobilizations Manual Therapy Patient/Caregiver Education Self-Care/Home Management Soft Tissue Mobilization Therapeutic Exercises Modalities Cold Pack/Ice Massage Next Visit Focus/Plan Next Note Type Treatment Note Next Visit Plan continue working eccentric control to help with walking downhill and going down stairs
--- NOTE | 2017-10-30 15:51 | PT.OTN ---
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, left leg, sequela (10/30/17) Physical Therapy Treatment Note PT-OP-A Visit Information Start: 08/17/17 10:04 Freq: Status: Active Protocol: Document 10/30/17 09:06 LRN (Rec: 10/30/17 10:36 LRN [id number]) Out-Patient Physical Therapy Visit Information Visit Information Visit Type Treatment Note Visit Start Time 09:06 Visit Stop Time 09:45 Total Visit Minutes 39 Visit Number 20 Number of LEATHER GOODS I ASSEMBLER Visits 0 PT-OP-B Current Condition Start: 08/17/17 10:04 Freq: Status: Active Protocol: Document 08/22/17 17:10 AMH (Rec: 08/22/17 17:20 AMH [email or web address]) Current Condition History of Current Condition Onset Date 2006 Current Complaints left hip pain chronic due to hx of surgeries, injury to sciatic nerve History of Current Condition Umm is a 37 year old female with 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 She has undergone multipe surgeries and 2 rounds of radiation in her left hip where much of the gluteal tissue has been removed due to the cancer. She has had grafts from the abdominal wall and hamstring performed on the left. 3 years ago Umm woke up from surgery and could not move her left leg lower than her knee. During that surgery there was a nerve injury to the sciatic nerve. She now uses a AFO for gait. Prior Treatments and Tests Umm has been seen at our [facility] clinic for multiple open wounds but notes she is no longer needed wound care. She has also been seen for PT on [facility] but has moved to [place] so is now seeking ongoing treatment in our PT clinic PT-OP-C Subjective Start: 08/17/17 10:04 Freq: Status: Active Protocol: Document 10/30/17 09:06 LRN (Rec: 10/30/17 10:36 LRN [id number]) OP-PT Subjective Patient Comments Patient Comments Fell a couple weeks ago and strained her back. Feels like she has a slipped disc ana she has lost flexibility and feels something is out. Overall is getting better. PT-OP-F Manual Assessment Start: 08/17/17 10:04 Freq: Status: Active Protocol: Document 08/16/17 10:30 AMH (Rec: 08/17/17 10:22 AMH [email or web address]) Manual Assessments Soft Tissue Assessment Soft Tissue Mobility Assessment left hip tendern to palpation laterally due to multiple surgeries and skin graphs, Myofascial tension and multiple regions of scar tissue are palpated Joint Mobility Assessment Joint Mobility Assessment left hip limited in flexion past 90 degress due to hip impingement and soft tissue tightness. Umm feels this is due to her radiation. She notes she has seen improvements with her hip flexion with her prior PT and that she can tie her shoes now where she was unable to do this before PT-OP-K Range of Motion Start: 08/17/17 10:22 Freq: Status: Active Protocol: Document 09/28/17 16:28 AMH (Rec: 09/28/17 16:30 AMH [email or web address]) Hip Goniometric Range of Motion Hip Measured in Degrees Right Hip ROM WFL No Flexion w/Knee Flexed 120 Straight Leg Raise 50 External Rotation 45 Left Hip ROM WFL No Testing Position Supine Flexion w/Knee Flexed 100 Straight Leg Raise 50 External Rotation 38 Hip ROM Limitations Hip ROM Limitations Soft Tissue Tightness Comments improving length of the iliopsoas, Umm is able to half knee now with parallel bars for support due to improved length of the iliopsoas PT-OP-M Strength Start: 08/18/17 05:42 Freq: Status: Active Protocol: Document 09/28/17 16:35 AMH (Rec: 09/28/17 16:35 AMH [email or web address]) Hip Strength Hip Manual Muscle Testing Right Flexion (L2) 5 Normal Extension (S1) 4 Good Abduction 4 Good Adduction 5 Normal External Rotation 4 Good Internal Rotation 5 Normal Left Flexion (L2) 3 Fair Extension (S1) 3+ Fair+ Abduction 3 Fair External Rotation 3 Fair PT-OP-Q Treatments Start: 08/17/17 10:04 Freq: Status: Active Protocol: Document 10/30/17 09:06 LRN (Rec: 10/30/17 10:36 LRN [id number]) Gym Equipment Shuttle Rebound 1 Exercise Details shuttle leg press Comments 100# 3 sets of 10 reps bilateral 62# 2 set of 15 reps left leg Shuttle Balance 1 Details Squats, forward/backd, angled fwd/bkwd, angled with mvmt of R back leg. Reps/Duration 20' Comments Links on Blue Therapeutic Exercises Standing Exercises 8 Standing Exercise Name standing balance board, and with rocker on top for incline ecc loading Comments forward and back 5 Standing Exercise Name Step down with L. Comments in parallel bars forward and lateral steps 3 Standing Exercise Name standing hip flexor stretch with foot on step Side bilateral Reps/Minutes hold 1-2 minutes Comments Pump stretch L with hip flex and R with knee ext PT-OP-S Aquatic Treatment Start: 10/23/17 16:32 Freq: Status: Active Protocol: Document 10/23/17 13:00 SAK (Rec: 10/23/17 16:38 SAK [id number]) Aquatics Treatment Pool Entry/Exit Pool Entry/Exit Method Stairs Assistance Independent Water Walking Other- 1 Water Level Chest Level Level of Assistance Verbal Cues Comments fwd, bck, side, may, may kick Lower Extremity Exercises 1 Details hip flex/ext, ab/ad, circles Body Position Standing Water Level Chest Level Reps/Duration 10x Lower Extremity Stretches 1 Details HS, hip ad, ITB, quad, hip flex Body Position Standing Water Level Chest Level Equipment Small Noodle Reps/Duration 6 min Balance 1 Details SLS Body Position Standing Water Level Chest Level Reps/Duration 2x Jackson Activities Jackson Activities Bicycle Cross Country Running Hip Abduction/Adduction Sit Kicks Other Activities Included 10 min of 30:30 intervals tethered Equipment flotation belt, tether Duration 15 min Swim Strokes Crawl Equipment Flotation Belt Laps/Duration 25 m PT-OP-T Assessment and Plan Start: 08/17/17 10:04 Freq: Status: Active Protocol: Document 10/30/17 09:06 LRN (Rec: 10/30/17 10:36 LRN [id number]) Physical Therapy Assessment Assessment Summary Assessment Pt appears to be safer side stepping down an incline at a 45 deg angle when practicing balance on the Balance Shuttle and rocker board. Physical Therapy Plan Frequency and Duration Frequency of Treatment 2 Duration of Treatment 8 weeks Plan of Care Start Date 10/17/17 Plan of Care End Date 12/13/17 Therapeutic Interventions Therapeutic Interventions Balance Training Gait Training Home Exercise Program Joint Mobilizations Manual Therapy Patient/Caregiver Education Self-Care/Home Management Soft Tissue Mobilization Therapeutic Exercises Modalities Cold Pack/Ice Massage Next Visit Focus/Plan Next Note Type Treatment Note Next Visit Plan Continue working eccentric control to help with walking downhill and going down stairs
--- NOTE | 2017-11-15 11:23 | PT.OTN ---
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, left leg, sequela (11/14/17) Physical Therapy Treatment Note PT-OP-A Visit Information Start: 08/17/17 10:04 Freq: Status: Active Protocol: Document 11/14/17 16:00 AMH (Rec: 11/15/17 11:22 AMH [email or web address]) Out-Patient Physical Therapy Visit Information Visit Information Visit Type Treatment Note Visit Start Time 16:00 Visit Stop Time 16:45 Total Visit Minutes 45 Visit Number 21 Number of MANAGER PAYROLL Visits 0 PT-OP-B Current Condition Start: 08/17/17 10:04 Freq: Status: Active Protocol: Document 08/22/17 17:10 AMH (Rec: 08/22/17 17:20 AMH [email or web address]) Current Condition History of Current Condition Onset Date 2006 Current Complaints left hip pain chronic due to hx of surgeries, injury to sciatic nerve History of Current Condition Umm is a 37 year old female with 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 She has undergone multipe surgeries and 2 rounds of radiation in her left hip where much of the gluteal tissue has been removed due to the cancer. She has had grafts from the abdominal wall and hamstring performed on the left. 3 years ago Umm woke up from surgery and could not move her left leg lower than her knee. During that surgery there was a nerve injury to the sciatic nerve. She now uses a AFO for gait. Prior Treatments and Tests Umm has been seen at our [facility] clinic for multiple open wounds but notes she is no longer needed wound care. She has also been seen for PT on [facility] but has moved to [place] so is now seeking ongoing treatment in our PT clinic PT-OP-C Subjective Start: 08/17/17 10:04 Freq: Status: Active Protocol: Document 11/14/17 16:00 AMH (Rec: 11/15/17 11:22 AMH [email or web address]) OP-PT Subjective Patient Comments Patient Comments Umm reports her back is doing better overall and she felt like she walked a lot when she was on her [employer] cruise Patient Reported Progress Improving PT-OP-F Manual Assessment Start: 08/17/17 10:04 Freq: Status: Active Protocol: Document 08/16/17 10:30 AMH (Rec: 08/17/17 10:22 [facility] [id number]) Manual Assessments Soft Tissue Assessment Soft Tissue Mobility Assessment left hip tendern to palpation laterally due to multiple surgeries and skin graphs, Myofascial tension and multiple regions of scar tissue are palpated Joint Mobility Assessment Joint Mobility Assessment left hip limited in flexion past 90 degress due to hip impingement and soft tissue tightness. Umm feels this is due to her radiation. She notes she has seen improvements with her hip flexion with her prior PT and that she can tie her shoes now where she was unable to do this before PT-OP-K Range of Motion Start: 08/17/17 10:22 Freq: Status: Active Protocol: Document 09/28/17 16:28 AMH (Rec: 09/28/17 16:30 AMH [email or web address]) Hip Goniometric Range of Motion Hip Measured in Degrees Right Hip ROM WFL No Flexion w/Knee Flexed 120 Straight Leg Raise 50 External Rotation 45 Left Hip ROM WFL No Testing Position Supine Flexion w/Knee Flexed 100 Straight Leg Raise 50 External Rotation 38 Hip ROM Limitations Hip ROM Limitations Soft Tissue Tightness Comments improving length of the iliopsoas, Umm is able to half knee now with parallel bars for support due to improved length of the iliopsoas PT-OP-M Strength Start: 08/18/17 05:42 Freq: Status: Active Protocol: Document 09/28/17 16:35 AMH (Rec: 09/28/17 16:35 AMH [email or web address]) Hip Strength Hip Manual Muscle Testing Right Flexion (L2) 5 Normal Extension (S1) 4 Good Abduction 4 Good Adduction 5 Normal External Rotation 4 Good Internal Rotation 5 Normal Left Flexion (L2) 3 Fair Extension (S1) 3+ Fair+ Abduction 3 Fair External Rotation 3 Fair PT-OP-Q Treatments Start: 08/17/17 10:04 Freq: Status: Active Protocol: Document 11/14/17 16:00 AMH (Rec: 11/15/17 11:22 AMH [email or web address]) Cardio Equipment Elliptical Duration (Minutes) 5 Gym Equipment Shuttle Rebound 1 Exercise Details shuttle leg press Comments 100# 3 sets of 10 reps bilateral 62# 2 set of 15 reps left leg Shuttle Balance 1 Details Squats, forward/backd, angled fwd/bkwd, angled with mvmt of R back leg. Reps/Duration 20' Comments Links on Blue Therapeutic Exercises Prone Exercises 1 Prone Exercise Name prone on table iliopsoas stretch Reps/Minutes hold 1-2 minutes with knee flexion Standing Exercises 8 Standing Exercise Name standing balance board, and with rocker on top for incline ecc loading Comments forward and back 7 Standing Exercise Name standing hip hikes Reps/Minutes 2 x 10 6 Standing Exercise Name side steps with yellow theraband 5 Standing Exercise Name Step down with L. Comments in parallel bars forward and lateral steps 4 Standing Exercise Name standing lunges in parallel bars 3 Standing Exercise Name standing hip flexor stretch with foot on step Side bilateral Reps/Minutes hold 1-2 minutes Comments Pump stretch L with hip flex and R with knee ext Other Exercises 2 Other Exercise Name standing hip abduction Reps/Minutes 2 x 10 reps PT-OP-S Aquatic Treatment Start: 10/23/17 16:32 Freq: Status: Active Protocol: Document 10/23/17 13:00 SAK (Rec: 10/23/17 16:38 SAK [id number]) Aquatics Treatment Pool Entry/Exit Pool Entry/Exit Method Stairs Assistance Independent Water Walking Other- 1 Water Level Chest Level Level of Assistance Verbal Cues Comments fwd, bck, side, may, may kick Lower Extremity Exercises 1 Details hip flex/ext, ab/ad, circles Body Position Standing Water Level Chest Level Reps/Duration 10x Lower Extremity Stretches 1 Details HS, hip ad, ITB, quad, hip flex Body Position Standing Water Level Chest Level Equipment Small Noodle Reps/Duration 6 min Balance 1 Details SLS Body Position Standing Water Level Chest Level Reps/Duration 2x Wilsons Activities Wilsons Activities Bicycle Cross Country Running Hip Abduction/Adduction Sit Kicks Other Activities Included 10 min of 30:30 intervals tethered Equipment flotation belt, tether Duration 15 min Swim Strokes Crawl Equipment Flotation Belt Laps/Duration 25 m PT-OP-T Assessment and Plan Start: 08/17/17 10:04 Freq: Status: Active Protocol: Document 11/14/17 16:00 AMH (Rec: 11/15/17 11:22 AMH [email or web address]) Physical Therapy Assessment Assessment Summary Assessment good tolerance for exercises today and balance. Begin transitioning to gym program Physical Therapy Plan Frequency and Duration Frequency of Treatment 2 Duration of Treatment 8 weeks Plan of Care Start Date 10/17/17 Plan of Care End Date 12/13/17 Therapeutic Interventions Therapeutic Interventions Balance Training Gait Training Home Exercise Program Joint Mobilizations Manual Therapy Patient/Caregiver Education Self-Care/Home Management Soft Tissue Mobilization Therapeutic Exercises Modalities Cold Pack/Ice Massage Next Visit Focus/Plan Next Note Type Treatment Note Next Visit Plan Continue working eccentric control to help with walking downhill and going down stairs
--- NOTE | 2017-11-16 17:55 | PT.OTN ---
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, left leg, sequela (11/16/17) Physical Therapy Treatment Note PT-OP-A Visit Information Start: 08/17/17 10:04 Freq: Status: Active Protocol: Document 11/16/17 17:51 [facility] (Rec: 11/16/17 17:55 [facility] [email or web address]) Out-Patient Physical Therapy Visit Information Visit Information Visit Type Treatment Note Visit Start Time 15:15 Visit Stop Time 16:00 Total Visit Minutes 45 Visit Number 22 Number of [employer] WORKER Visits 0 PT-OP-B Current Condition Start: 08/17/17 10:04 Freq: Status: Active Protocol: Document 08/22/17 17:10 [facility] (Rec: 08/22/17 17:20 [facility] [email or web address]) Current Condition History of Current Condition Onset Date 2006 Current Complaints left hip pain chronic due to hx of surgeries, injury to sciatic nerve History of Current Condition Umm is a 37 year old female with 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 She has undergone multipe surgeries and 2 rounds of radiation in her left hip where much of the gluteal tissue has been removed due to the cancer. She has had grafts from the abdominal wall and hamstring performed on the left. 3 years ago Umm woke up from surgery and could not move her left leg lower than her knee. During that surgery there was a nerve injury to the sciatic nerve. She now uses a AFO for gait. Prior Treatments and Tests Umm has been seen at our would clinic for multiple open wounds but notes she is no longer needed wound care. She has also been seen for PT on [facility] but has moved to [place] so is now seeking ongoing treatment in our PT clinic PT-OP-C Subjective Start: 08/17/17 10:04 Freq: Status: Active Protocol: Document 11/16/17 17:51 [facility] (Rec: 11/16/17 17:55 [facility] [email or web address]) OP-PT Subjective Patient Comments Patient Comments feeling better overall and rode the eliptical for 30 minutes today prior to therapy PT-OP-F Manual Assessment Start: 08/17/17 10:04 Freq: Status: Active Protocol: Document 08/16/17 10:30 [facility] (Rec: 08/17/17 10:22 [facility] [email or web address]) Manual Assessments Soft Tissue Assessment Soft Tissue Mobility Assessment left hip tendern to palpation laterally due to multiple surgeries and skin graphs, Myofascial tension and multiple regions of scar tissue are palpated Joint Mobility Assessment Joint Mobility Assessment left hip limited in flexion past 90 degress due to hip impingement and soft tissue tightness. Umm feels this is due to her radiation. She notes she has seen improvements with her hip flexion with her prior PT and that she can tie her shoes now where she was unable to do this before PT-OP-K Range of Motion Start: 08/17/17 10:22 Freq: Status: Active Protocol: Document 09/28/17 16:28 [facility] (Rec: 09/28/17 16:30 [facility] [email or web address]) Hip Goniometric Range of Motion Hip Measured in Degrees Right Hip ROM WFL No Flexion w/Knee Flexed 120 Straight Leg Raise 50 External Rotation 45 Left Hip ROM WFL No Testing Position Supine Flexion w/Knee Flexed 100 Straight Leg Raise 50 External Rotation 38 Hip ROM Limitations Hip ROM Limitations Soft Tissue Tightness Comments improving length of the iliopsoas, Umm is able to half knee now with parallel bars for support due to improved length of the iliopsoas PT-OP-M Strength Start: 08/18/17 05:42 Freq: Status: Active Protocol: Document 09/28/17 16:35 [facility] (Rec: 09/28/17 16:35 [facility] [email or web address]) Hip Strength Hip Manual Muscle Testing Right Flexion (L2) 5 Normal Extension (S1) 4 Good Abduction 4 Good Adduction 5 Normal External Rotation 4 Good Internal Rotation 5 Normal Left Flexion (L2) 3 Fair Extension (S1) 3+ Fair+ Abduction 3 Fair External Rotation 3 Fair PT-OP-Q Treatments Start: 08/17/17 10:04 Freq: Status: Active Protocol: Document 11/16/17 17:51 [facility] (Rec: 11/16/17 17:55 [facility] [email or web address]) Gym Equipment Shuttle Rebound 1 Exercise Details shuttle leg press Comments 100# 3 sets of 10 reps bilateral 62# 2 set of 15 reps left leg Shuttle Balance 1 Details Squats, forward/backd, angled fwd/bkwd, angled with mvmt of R back leg. Reps/Duration 20' Comments Links on Blue Therapeutic Exercises Standing Exercises 8 Standing Exercise Name standing balance board, and with rocker on top for incline ecc loading Comments forward and back 7 Standing Exercise Name standing hip hikes Reps/Minutes 2 x 10 6 Standing Exercise Name side steps with yellow theraband 5 Standing Exercise Name Step down with L. Comments in parallel bars forward and lateral steps 4 Standing Exercise Name standing lunges in parallel bars 3 Standing Exercise Name standing hip flexor stretch with foot on step Side bilateral Reps/Minutes hold 1-2 minutes Comments Pump stretch L with hip flex and R with knee ext 2 Standing Exercise Name standing warrior one Side bilateral Reps/Minutes hold 1-2 minutes Comments in parallel bars 1 Standing Exercise Name half kneeling and sitting on a ball with hip extended psoas stretch Side left Reps/Minutes hold 1-2 minutes Comments in parallel bars Manual Therapy Treatment Joint Mobilizations 1 Joint hip flexion with distraction and inf glide Direction inf Grade III Comments FM c/r Manual Techniques 1 Type Manual stretching into ER Body Position Prone Comments in prone with contract relax PT-OP-S Aquatic Treatment Start: 10/23/17 16:32 Freq: Status: Active Protocol: Document 10/23/17 13:00 [facility] (Rec: 10/23/17 16:38 [facility] [id number]) Aquatics Treatment Pool Entry/Exit Pool Entry/Exit Method Stairs Assistance Independent Water Walking Other- 1 Water Level Chest Level Level of Assistance Verbal Cues Comments fwd, bck, , may, may kick Lower Extremity Exercises 1 Details hip flex/ext, ab/ad, circles Body Position Standing Water Level Chest Level Reps/Duration 10x Lower Extremity Stretches 1 Details HS, hip ad, ITB, quad, hip flex Body Position Standing Water Level Chest Level Equipment Small Noodle Reps/Duration 6 min Balance 1 Details SLS Body Position Standing Water Level Chest Level Reps/Duration 2x [place] Activities [place] Activities Bicycle Cross Country Running Hip Abduction/Adduction Sit Kicks Other Activities Included 10 min of 30:30 intervals tethered Equipment flotation belt, tether Duration 15 min Swim Strokes Crawl Equipment Flotation Belt Laps/Duration 25 m PT-OP-T Assessment and Plan Start: 08/17/17 10:04 Freq: Status: Active Protocol: Document 11/16/17 17:51 [facility] (Rec: 11/16/17 17:55 [facility] [email or web address]) Physical Therapy Assessment Assessment Summary Assessment improving hip flexion today to 110 degrees. Umm has turned a corner with both hip ROM and balance Physical Therapy Plan Frequency and Duration Frequency of Treatment 2 Duration of Treatment 8 weeks Plan of Care Start Date 10/17/17 Plan of Care End Date 12/13/17 Therapeutic Interventions Therapeutic Interventions Balance Training Gait Training Home Exercise Program Joint Mobilizations Manual Therapy Patient/Caregiver Education Self-Care/Home Management Soft Tissue Mobilization Therapeutic Exercises Modalities Cold Pack/Ice Massage Next Visit Focus/Plan Next Note Type Treatment Note Next Visit Plan Continue working eccentric control to help with walking downhill and going down stairs
--- NOTE | 2017-11-21 16:30 | PT.OTN ---
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 She has undergone multipe surgeries and 2 rounds of radiation in her left hip where much of the gluteal tissue has been removed due to the cancer. She has had grafts from the abdominal wall and hamstring performed on the left. 3 years ago Umm woke up from surgery and could not move her left leg lower than her knee. During that surgery there was a nerve injury to the sciatic nerve. She now uses a AFO for gait. Prior Treatments and Tests Umm has been seen at our [facility] clinic for multiple open wounds but notes she is no longer needed wound care. She has also been seen for PT on [facility] but has moved to [place] so is now seeking ongoing treatment in our PT clinic PT-OP-C Subjective Start: 08/17/17 10:04 Freq: Status: Active Protocol: Document 11/21/17 16:23 [facility] (Rec: 11/21/17 16:29 [facility] [email or web address]) OP-PT Subjective Patient Comments Patient Comments Umm reports she did the eliptical again at the gym today prior to PT. She is noticing improved hip flexion. She is wanting to start trying some classes at the gym PT-OP-F Manual Assessment Start: 08/17/17 10:04 Freq: Status: Active Protocol: Document 08/16/17 10:30 [facility] (Rec: 08/17/17 10:22 [facility] [email or web address]) Manual Assessments Soft Tissue Assessment Soft Tissue Mobility Assessment left hip tendern to palpation laterally due to multiple surgeries and skin graphs, Myofascial tension and multiple regions of scar tissue are palpated Joint Mobility Assessment Joint Mobility Assessment left hip limited in flexion past 90 degress due to hip impingement and soft tissue tightness. Umm feels this is due to her radiation. She notes she has seen improvements with her hip flexion with her prior PT and that she can tie her shoes now where she was unable to do this before PT-OP-K Range of Motion Start: 08/17/17 10:22 Freq: Status: Active Protocol: Document 09/28/17 16:28 [facility] (Rec: 09/28/17 16:30 [facility] [email or web address]) Hip Goniometric Range of Motion Hip Measured in Degrees Right Hip ROM WFL No Flexion w/Knee Flexed 120 Straight Leg Raise 50 External Rotation 45 Left Hip ROM WFL No Testing Position Supine Flexion w/Knee Flexed 100 Straight Leg Raise 50 External Rotation 38 Hip ROM Limitations Hip ROM Limitations Soft Tissue Tightness Comments improving length of the iliopsoas, Umm is able to half knee now with parallel bars for support due to improved length of the iliopsoas PT-OP-M Strength Start: 08/18/17 05:42 Freq: Status: Active Protocol: Document 09/28/17 16:35 [facility] (Rec: 09/28/17 16:35 [facility] [email or web address]) Hip Strength Hip Manual Muscle Testing Right Flexion (L2) 5 Normal Extension (S1) 4 Good Abduction 4 Good Adduction 5 Normal External Rotation 4 Good Internal Rotation 5 Normal Left Flexion (L2) 3 Fair Extension (S1) 3+ Fair+ Abduction 3 Fair External Rotation 3 Fair PT-OP-Q Treatments Start: 08/17/17 10:04 Freq: Status: Active Protocol: Document 11/21/17 16:23 [facility] (Rec: 11/21/17 16:29 [facility] [email or web address]) Gym Equipment Shuttle Rebound 1 Exercise Details shuttle leg press Comments 100# 3 sets of 10 reps bilateral 62# 2 set of 15 reps left leg Shuttle Balance 1 Details Squats, forward/backd, angled fwd/bkwd, angled with mvmt of R back leg. Reps/Duration 20' Comments Links on Blue Therapeutic Exercises Standing Exercises 8 Standing Exercise Name standing balance board, and with rocker on top for incline ecc loading Comments forward and back 7 Standing Exercise Name standing hip hikes Reps/Minutes 2 x 10 6 Standing Exercise Name side steps with blue theraband 5 Standing Exercise Name Step down with L. Comments in parallel bars forward and lateral steps 2 Standing Exercise Name standing warrior one Side bilateral Reps/Minutes hold 1-2 minutes Comments in parallel bars Other Exercises 4 Other Exercise Name step ups on 6 bench Reps/Minutes 2 x 10 reps 2 Other Exercise Name standing hip abduction Reps/Minutes 2 x 10 reps PT-OP-S Aquatic Treatment Start: 10/23/17 16:32 Freq: Status: Active Protocol: Document 10/23/17 13:00 [facility] (Rec: 10/23/17 16:38 [facility]AK [id number]) Aquatics Treatment Pool Entry/Exit Pool Entry/Exit Method Stairs Assistance Independent Water Walking Other- 1 Water Level Chest Level Level of Assistance Verbal Cues Comments fwd, bck, , may, may kick Lower Extremity Exercises 1 Details hip flex/ext, ab/ad, circles Body Position Standing Water Level Chest Level Reps/Duration 10x Lower Extremity Stretches 1 Details HS, hip ad, ITB, quad, hip flex Body Position Standing Water Level Chest Level Equipment Small Noodle Reps/Duration 6 min Balance 1 Details SLS Body Position Standing Water Level Chest Level Reps/Duration 2x [place] Activities [place] Activities Bicycle Cross Country Running Hip Abduction/Adduction Sit Kicks Other Activities Included 10 min of 30:30 intervals tethered Equipment flotation belt, tether Duration 15 min Swim Strokes Crawl Equipment Flotation Belt Laps/Duration 25 m PT-OP-T Assessment and Plan Start: 08/17/17 10:04 Freq: Status: Active Protocol: Document 11/21/17 16:23 [facility] (Rec: 11/21/17 16:29 [facility] [email or web address]) Physical Therapy Assessment Assessment Summary Assessment hip ROM into flexion continues to improve and lateral hip stabilization is helping with balance. No falls in the past 3 weeks Physical Therapy Plan Frequency and Duration Frequency of Treatment 2 Duration of Treatment 8 weeks Plan of Care Start Date 10/17/17 Plan of Care End Date 12/13/17 Therapeutic Interventions Therapeutic Interventions Balance Training Gait Training Home Exercise Program Joint Mobilizations Manual Therapy Patient/Caregiver Education Self-Care/Home Management Soft Tissue Mobilization Therapeutic Exercises Modalities Cold Pack/Ice Massage Next Visit Focus/Plan Next Note Type Treatment Note Next Visit Plan Continue working eccentric control to help with walking downhill and going down stairs . Increase step height for step ups
--- NOTE | 2017-11-24 09:59 | PT.OTN ---
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 She has undergone multipe surgeries and 2 rounds of radiation in her left hip where much of the gluteal tissue has been removed due to the cancer. She has had grafts from the abdominal wall and hamstring performed on the left. 3 years ago Umm woke up from surgery and could not move her left leg lower than her knee. During that surgery there was a nerve injury to the sciatic nerve. She now uses a AFO for gait. Prior Treatments and Tests Umm has been seen at our would clinic for multiple open wounds but notes she is no longer needed wound care. She has also been seen for PT on [facility] but has moved to [place] so is now seeking ongoing treatment in our PT clinic PT-OP-C Subjective Start: 08/17/17 10:04 Freq: Status: Active Protocol: Document 11/24/17 09:01 [facility]N (Rec: 11/24/17 09:58 LRN [id number]) OP-PT Subjective Patient Comments Patient Comments Pt reports not doing gym workout today. PT-OP-F Manual Assessment Start: 08/17/17 10:04 Freq: Status: Active Protocol: Document 08/16/17 10:30 [facility] (Rec: 08/17/17 10:22 [facility] [email or web address]) Manual Assessments Soft Tissue Assessment Soft Tissue Mobility Assessment left hip tendern to palpation laterally due to multiple surgeries and skin graphs, Myofascial tension and multiple regions of scar tissue are palpated Joint Mobility Assessment Joint Mobility Assessment left hip limited in flexion past 90 degress due to hip impingement and soft tissue tightness. Umm feels this is due to her radiation. She notes she has seen improvements with her hip flexion with her prior PT and that she can tie her shoes now where she was unable to do this before PT-OP-K Range of Motion Start: 08/17/17 10:22 Freq: Status: Active Protocol: Document 09/28/17 16:28 [facility] (Rec: 09/28/17 16:30 [facility] [email or web address]) Hip Goniometric Range of Motion Hip Measured in Degrees Right Hip ROM WFL No Flexion w/Knee Flexed 120 Straight Leg Raise 50 External Rotation 45 Left Hip ROM WFL No Testing Position Supine Flexion w/Knee Flexed 100 Straight Leg Raise 50 External Rotation 38 Hip ROM Limitations Hip ROM Limitations Soft Tissue Tightness Comments improving length of the iliopsoas, Umm is able to half knee now with parallel bars for support due to improved length of the iliopsoas PT-OP-M Strength Start: 08/18/17 05:42 Freq: Status: Active Protocol: Document 09/28/17 16:35 [facility] (Rec: 09/28/17 16:35 [facility] [email or web address]) Hip Strength Hip Manual Muscle Testing Right Flexion (L2) 5 Normal Extension (S1) 4 Good Abduction 4 Good Adduction 5 Normal External Rotation 4 Good Internal Rotation 5 Normal Left Flexion (L2) 3 Fair Extension (S1) 3+ Fair+ Abduction 3 Fair External Rotation 3 Fair PT-OP-Q Treatments Start: 08/17/17 10:04 Freq: Status: Active Protocol: Document 11/24/17 09:01 [facility] (Rec: 11/24/17 09:58 LRN [id number]) Cardio Equipment Elliptical Duration (Minutes) 10 Resistance Lev 2 Therapeutic Exercises Standing Exercises 8 Standing Exercise Name Incline stepping forward/ sideways with L LE Reps/Minutes 7' 5 Standing Exercise Name Step down with L. Comments in parallel bars forward Other Exercises 4 Other Exercise Name step ups on 6 to 4 bench Reps/Minutes 2 x 10 reps Manual Therapy Treatment Joint Mobilizations 1 Joint hip flexion with distraction and inf glide Direction inf Grade III Comments FM c/r Manual Techniques 2 Type Manual stretch into Hip Ext & Flex Body Position Supine Comments c/r f/b active Ext & Flex respectively. 1 Type Manual stretching into ER Body Position Prone Comments in prone with contract relax f /b active ER PT-OP-S Aquatic Treatment Start: 10/23/17 16:32 Freq: Status: Active Protocol: Document 10/23/17 13:00 [facility] (Rec: 10/23/17 16:38 [facility]AK [id number]) Aquatics Treatment Pool Entry/Exit Pool Entry/Exit Method Stairs Assistance Independent Water Walking Other- 1 Water Level Chest Level Level of Assistance Verbal Cues Comments fwd, bck, , may, may kick Lower Extremity Exercises 1 Details hip flex/ext, ab/ad, circles Body Position Standing Water Level Chest Level Reps/Duration 10x Lower Extremity Stretches 1 Details HS, hip ad, ITB, quad, hip flex Body Position Standing Water Level Chest Level Equipment Small Noodle Reps/Duration 6 min Balance 1 Details SLS Body Position Standing Water Level Chest Level Reps/Duration 2x [place] Activities [place] Activities Bicycle Cross Country Running Hip Abduction/Adduction Sit Kicks Other Activities Included 10 min of 30:30 intervals tethered Equipment flotation belt, tether Duration 15 min Swim Strokes Crawl Equipment Flotation Belt Laps/Duration 25 m PT-OP-T Assessment and Plan Start: 08/17/17 10:04 Freq: Status: Active Protocol: Document 11/24/17 09:01 [facility]N (Rec: 11/24/17 09:58 [facility]N [id number]) Physical Therapy Assessment Assessment Summary Assessment Pt is improving in confidence of ability to exercise. No complaint with stretching, L hip ER appears most restricted . Physical Therapy Plan Frequency and Duration Frequency of Treatment 2 Duration of Treatment 8 weeks Plan of Care Start Date 10/17/17 Plan of Care End Date 12/13/17 Therapeutic Interventions Therapeutic Interventions Balance Training Gait Training Home Exercise Program Joint Mobilizations Manual Therapy Patient/Caregiver Education Self-Care/Home Management Soft Tissue Mobilization Therapeutic Exercises Modalities Cold Pack/Ice Massage Next Visit Focus/Plan Next Note Type Treatment Note Next Visit Plan Continue working eccentric control to help with walking downhill and going down stairs . Increase step height for step ups
--- NOTE | 2017-12-11 15:18 | PT.OTN ---
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, left leg, sequela (12/11/17) Physical Therapy Treatment Note PT-OP-A Visit Information Start: 08/17/17 10:04 Freq: Status: Active Protocol: Document 12/11/17 11:19 LRN (Rec: 12/11/17 12:38 LRN [id number]) Out-Patient Physical Therapy Visit Information Visit Information Visit Type Progress Note Visit Note Pt 4' late Visit Start Time 11:19 Visit Stop Time 12:15 Total Visit Minutes 56 Visit Number 25 Number of APPRENTICESHIP CONSULTANT Visits 0 Evaluation Information Evaluation Date 08/16/17 PT-OP-B Current Condition Start: 08/17/17 10:04 Freq: Status: Active Protocol: Document 08/22/17 17:10 [facility] (Rec: 08/22/17 17:20 [facility] [email or web address]) Current Condition History of Current Condition Onset Date 2006 Current Complaints left hip pain chronic due to hx of surgeries, injury to sciatic nerve History of Current Condition Umm is a 37 year old female with 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 She has undergone multipe surgeries and 2 rounds of radiation in her left hip where much of the gluteal tissue has been removed due to the cancer. She has had grafts from the abdominal wall and hamstring performed on the left. 3 years ago Umm woke up from surgery and could not move her left leg lower than her knee. During that surgery there was a nerve injury to the sciatic nerve. She now uses a AFO for gait. Prior Treatments and Tests Umm has been seen at our would clinic for multiple open wounds but notes she is no longer needed wound care. She has also been seen for PT on [facility] but has moved to [place] so is now seeking ongoing treatment in our PT clinic PT-OP-C Subjective Start: 08/17/17 10:04 Freq: Status: Active Protocol: Document 12/11/17 11:19 LRN (Rec: 12/11/17 12:38 LRN [id number]) OP-PT Subjective Patient Comments Patient Comments States she is doing better. Doing stairs with reciprocal gait and it is feeling more natural. Strength in the leg is improving. Patient Questionnaires Lower Extremity Functional Scale LEFS Score 39 LEFS Impairment 40 to 59% Impaired (Score 32- 47) PT-OP-F Manual Assessment Start: 08/17/17 10:04 Freq: Status: Active Protocol: Document 08/16/17 10:30 [facility] (Rec: 08/17/17 10:22 [facility] [email or web address]) Manual Assessments Soft Tissue Assessment Soft Tissue Mobility Assessment left hip tendern to palpation laterally due to multiple surgeries and skin graphs, Myofascial tension and multiple regions of scar tissue are palpated Joint Mobility Assessment Joint Mobility Assessment left hip limited in flexion past 90 degress due to hip impingement and soft tissue tightness. Umm feels this is due to her radiation. She notes she has seen improvements with her hip flexion with her prior PT and that she can tie her shoes now where she was unable to do this before PT-OP-K Range of Motion Start: 08/17/17 10:22 Freq: Status: Active Protocol: Document 12/11/17 11:19 LRN (Rec: 12/11/17 15:12 LRN [id number]) Hip Goniometric Range of Motion Hip Measured in Degrees Right Hip ROM WFL No Testing Position Supine Straight Leg Raise 85 Internal Rotation 85 External Rotation 60 Left Hip ROM WFL No Testing Position Supine Flexion w/Knee Flexed 100 Straight Leg Raise 90 Extension 10 Internal Rotation 85 External Rotation 60 Hip ROM Limitations Hip ROM Limitations Soft Tissue Tightness Comments R hip ext: lacking 10 deg's. PT-OP-M Strength Start: 08/18/17 05:42 Freq: Status: Active Protocol: Document 09/28/17 16:35 [facility] (Rec: 09/28/17 16:35 [facility] [email or web address]) Hip Strength Hip Manual Muscle Testing Right Flexion (L2) 5 Normal Extension (S1) 4 Good Abduction 4 Good Adduction 5 Normal External Rotation 4 Good Internal Rotation 5 Normal Left Flexion (L2) 3 Fair Extension (S1) 3+ Fair+ Abduction 3 Fair External Rotation 3 Fair PT-OP-Q Treatments Start: 08/17/17 10:04 Freq: Status: Active Protocol: Document 12/11/17 11:19 LRN (Rec: 12/11/17 12:38 LRN [id number]) Cardio Equipment Elliptical Duration (Minutes) 10 Resistance Lev 2 Gym Equipment Shuttle Rebound 1 Exercise Details shuttle leg press Comments 100# 3 sets of 10 reps bilateral 62# 2 set of 15 reps left leg Therapeutic Exercises Supine Exercises KTC stretch Side left Comments AROM/PROM taken 1 Supine Exercise Name Iliopsoas stretch Side bilateral Comments PROM taken supine. Right - kneeling, Left - supine. Standing Exercises 8 Standing Exercise Name Incline stepping forward/ sideways with L LE Reps/Minutes none Comments forward and back 7 Standing Exercise Name standing hip hikes Reps/Minutes none 6 Standing Exercise Name side steps with blue theraband Reps/Minutes none 5 Standing Exercise Name Step down with L. Reps/Minutes none Comments in parallel bars forward 4 Standing Exercise Name standing lunges in parallel bars Reps/Minutes none 3 Standing Exercise Name standing hip flexor stretch with foot on step Reps/Minutes none 2 Standing Exercise Name standing warrior one Reps/Minutes none Comments in parallel bars 1 Standing Exercise Name half kneeling and sitting on a ball with hip extended psoas stretch Side right Reps/Minutes hold 1-2 minutes Comments in parallel bars Other Exercises 4 Other Exercise Name step ups on 6 to 4 bench Reps/Minutes none 2 Other Exercise Name standing hip abduction Reps/Minutes none Manual Therapy Treatment Nerve Glides LE Nerve Sciatic/Hamstring Body Position Supine Reps/Duration 2' each Comments Bilateral Manual Techniques 2 Type Manual stretch into Hip Ext & Flex Body Position Supine Comments c/r f/b active Ext & Flex respectively. 1 Type Manual stretching into ER/IR Body Position Supine Comments contract relax f/b active ER & IR. ROM taken. Self-Care/Home Management Treatment Education Patient Education Home Exercise Program Activities Self-Care/Home Management Activities Handout issued and reviewed for Hamstring/Sciatic n. stretch. PT-OP-S Aquatic Treatment Start: 10/23/17 16:32 Freq: Status: Active Protocol: Document 10/23/17 13:00 [facility] (Rec: 10/23/17 16:38 [email or web address] [id number]) Aquatics Treatment Pool Entry/Exit Pool Entry/Exit Method Stairs Assistance Independent Water Walking Other- 1 Water Level Chest Level Level of Assistance Verbal Cues Comments fwd, bck, may, kick Lower Extremity Exercises 1 Details hip flex/ext, ab/ad, circles Body Position Standing Water Level Chest Level Reps/Duration 10x Lower Extremity Stretches 1 Details HS, hip ad, ITB, quad, hip flex Body Position Standing Water Level Chest Level Equipment Small Noodle Reps/Duration 6 min Balance 1 Details SLS Body Position Standing Water Level Chest Level Reps/Duration 2x [place] Activities [place] Activities Bicycle Cross Country Running Hip Abduction/Adduction Sit Kicks Other Activities Included 10 min of 30:30 intervals tethered Equipment flotation belt, tether Duration 15 min Swim Strokes Crawl Equipment Flotation Belt Laps/Duration 25 m PT-OP-T Assessment and Plan Start: 08/17/17 10:04 Freq: Status: Active Protocol: Document 12/11/17 11:19 LRN (Rec: 12/11/17 12:38 LRN [id number]) Physical Therapy Assessment Rehab Potential Rehabilitation Potential Good Impairments Impairments Balance Functional Activities Functional Mobility Pain Posture ROM Soft Tissue Mobility Strength Tone Goals Five Impairment Decreased ROM Right Hip Fdc Goal (LTG) Improve R hip PSLR 90 deg's and extension 8 deg's or greater for improved function. Four Impairment Umm is limited in recreational activities of hiking Phys Asst Goal (LTG) Umm is able to return to functional activities of hiking on trails and inclines without falling. Three Impairment Decreased flexibility of the left hip Short Term Goal (STG) Umm is independent with a home program addressing hip flexibility and strength. STG Duration GOAL MET Phys Asst Goal (LTG) Pt will demonstrate improved symmetry of motion at the hips for greater stability with recreational activities. LTG Duration 03/16/18 Two Impairment Functional difficulty with kneeling Phys Asst Goal (LTG) Umm is able to perform a 1 /2 kneel for improved Iliopsoas flexibility. (: Tight hip ext Right, able to perform on the Left). LTG Duration 03/16/18 One Impairment Decreased ROM left hip Phys Asst Goal (LTG) Improve L hip ROM: Flex to 100 degrees and ER to 30 deg's or better and maximize IR, for improved function. LTG Duration 03/16/18 Assessment Summary Assessment Pt demonstrates improved L hip flexion mobility but also demonstrates asymmetry with mobility for PSLR, hip ER, IR and extension. She has improved in LE strength and now is able to ambulate stairs with a reciprocal gait, but has difficulty with walking on uneven surfaces (hiking trails) and is limited with hiking on steep inclines; therefore further strengthening and balance training is appropriate. The pt is consistent with therapy and her HEP and shows excellent potential to further improve. I recommend the pt decrease therapy to 1x/ week to progress her transition to a home program and carlos add aquatic therapy to further challenge and improve her balance. Physical Therapy Plan Frequency and Duration Frequency of Treatment 1x/Week Duration of Treatment 12 weeks Plan of Care Start Date 12/11/17 Plan of Care End Date 03/12/18 Therapeutic Interventions Therapeutic Interventions Balance Training Gait Training Home Exercise Program Joint Mobilizations Manual Therapy Patient/Caregiver Education Self-Care/Home Management Soft Tissue Mobilization Therapeutic Exercises Modalities Cold Pack/Ice Massage Next Visit Focus/Plan Next Note Type Treatment Note Next Visit Plan Continue aquatic therapy to improve balance. Continue working eccentric control to help with walking downhill and going down stairs. Increase step height for step ups. Improve flexibility of L hip: IR, ER; R hip: PSLR, ER, & ext to improve kneeling ability and function.
--- NOTE | 2017-12-27 14:32 | PT.OTN ---
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, left leg, sequela (12/27/17) Physical Therapy Treatment Note PT-OP-A Visit Information Start: 08/17/17 10:04 Freq: Status: Active Protocol: Document 12/27/17 14:28 [facility] (Rec: 12/27/17 14:31 [facility] [email or web address]) Out-Patient Physical Therapy Visit Information Visit Information Visit Type Treatment Note Visit Start Time 13:00 Visit Stop Time 13:45 Total Visit Minutes 45 Visit Number 26 Number of REPRODUCTIVE ENDOCRINOLOGIST Visits 0 PT-OP-B Current Condition Start: 08/17/17 10:04 Freq: Status: Active Protocol: Document 08/22/17 17:10 [facility] (Rec: 08/22/17 17:20 [facility] [email or web address]) Current Condition History of Current Condition Onset Date 2006 Current Complaints left hip pain chronic due to hx of surgeries, injury to sciatic nerve History of Current Condition Umm is a 37 year old female with 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 She has undergone multipe surgeries and 2 rounds of radiation in her left hip where much of the gluteal tissue has been removed due to the cancer. She has had grafts from the abdominal wall and hamstring performed on the left. 3 years ago Umm woke up from surgery and could not move her left leg lower than her knee. During that surgery there was a nerve injury to the sciatic nerve. She now uses a AFO for gait. Prior Treatments and Tests Umm has been seen at our would clinic for multiple open wounds but notes she is no longer needed wound care. She has also been seen for PT on [facility] but has moved to [place] so is now seeking ongoing treatment in our PT clinic PT-OP-C Subjective Start: 08/17/17 10:04 Freq: Status: Active Protocol: Document 12/27/17 14:31 [facility] (Rec: 12/27/17 14:32 [facility] [email or web address]) OP-PT Subjective Patient Comments Patient Comments Umm reports she has hiked a few times and done the body flow class at the gym. She has been happy to be able to do this Patient Reported Progress Improving PT-OP-F Manual Assessment Start: 08/17/17 10:04 Freq: Status: Active Protocol: Document 08/16/17 10:30 [facility] (Rec: 08/17/17 10:22 [facility] [id number]) Manual Assessments Soft Tissue Assessment Soft Tissue Mobility Assessment left hip tendern to palpation laterally due to multiple surgeries and skin graphs, Myofascial tension and multiple regions of scar tissue are palpated Joint Mobility Assessment Joint Mobility Assessment left hip limited in flexion past 90 degress due to hip impingement and soft tissue tightness. Umm feels this is due to her radiation. She notes she has seen improvements with her hip flexion with her prior PT and that she can tie her shoes now where she was unable to do this before PT-OP-K Range of Motion Start: 08/17/17 10:22 Freq: Status: Active Protocol: Document 12/11/17 11:19 LRN (Rec: 12/11/17 15:12 LRN [id number]) Hip Goniometric Range of Motion Hip Measured in Degrees Right Hip ROM WFL No Testing Position Supine Straight Leg Raise 85 Internal Rotation 85 External Rotation 60 Left Hip ROM WFL No Testing Position Supine Flexion w/Knee Flexed 100 Straight Leg Raise 90 Extension 10 Internal Rotation 85 External Rotation 60 Hip ROM Limitations Hip ROM Limitations Soft Tissue Tightness Comments R hip ext: lacking 10 deg's. PT-OP-M Strength Start: 08/18/17 05:42 Freq: Status: Active Protocol: Document 09/28/17 16:35 [facility] (Rec: 09/28/17 16:35 [facility] [email or web address]) Hip Strength Hip Manual Muscle Testing Right Flexion (L2) 5 Normal Extension (S1) 4 Good Abduction 4 Good Adduction 5 Normal External Rotation 4 Good Internal Rotation 5 Normal Left Flexion (L2) 3 Fair Extension (S1) 3+ Fair+ Abduction 3 Fair External Rotation 3 Fair PT-OP-Q Treatments Start: 08/17/17 10:04 Freq: Status: Active Protocol: Document 12/27/17 14:28 [facility] (Rec: 12/27/17 14:31 AM[facility] [email or web address]) Therapeutic Exercises Standing Exercises 8 Standing Exercise Name Incline stepping forward/ sideways with L LE Reps/Minutes none Comments forward and back 7 Standing Exercise Name standing hip hikes Reps/Minutes none 6 Standing Exercise Name side steps with blue theraband Reps/Minutes none 5 Standing Exercise Name Step down with L. Reps/Minutes none Comments in parallel bars forward 4 Standing Exercise Name standing lunges in parallel bars Reps/Minutes none 3 Standing Exercise Name standing hip flexor stretch with foot on step Reps/Minutes none 2 Standing Exercise Name standing warrior one Reps/Minutes none Comments in parallel bars 1 Standing Exercise Name half kneeling and sitting on a ball with hip extended psoas stretch Side right Reps/Minutes hold 1-2 minutes Comments in parallel bars Other Exercises 4 Other Exercise Name step ups on 6 to 4 bench Reps/Minutes none 2 Other Exercise Name standing hip abduction Reps/Minutes none Manual Therapy Treatment Joint Mobilizations 1 Joint hip flexion with distraction and inf glide Direction inf Grade III Comments FM c/r Manual Techniques 3 Type manual iliopsoas stretch 1 Type Manual stretching into ER/IR Body Position Supine Comments contract relax f/b active ER & IR. ROM taken. PT-OP-S Aquatic Treatment Start: 10/23/17 16:32 Freq: Status: Active Protocol: Document 10/23/17 13:00 [facility] (Rec: 10/23/17 16:38 [facility] [id number]) Aquatics Treatment Pool Entry/Exit Pool Entry/Exit Method Stairs Assistance Independent Water Walking Other- 1 Water Level Chest Level Level of Assistance Verbal Cues Comments fwd, bck, side, may, may kick Lower Extremity Exercises 1 Details hip flex/ext, ab/ad, circles Body Position Standing Water Level Chest Level Reps/Duration 10x Lower Extremity Stretches 1 Details HS, hip ad, ITB, quad, hip flex Body Position Standing Water Level Chest Level Equipment Small Noodle Reps/Duration 6 min Balance 1 Details SLS Body Position Standing Water Level Chest Level Reps/Duration 2x [place] Activities [place] Activities Bicycle Cross Country Running Hip Abduction/Adduction Sit Kicks Other Activities Included 10 min of 30:30 intervals tethered Equipment flotation belt, tether Duration 15 min Swim Strokes Crawl Equipment Flotation Belt Laps/Duration 25 m PT-OP-T Assessment and Plan Start: 08/17/17 10:04 Freq: Status: Active Protocol: Document 12/27/17 14:28 [facility] (Rec: 12/27/17 14:31 [facility] [email or web address]) Physical Therapy Assessment Assessment Summary Assessment improved balance today from the last time I have seen Umm. She has been hiking more as well and doing yoga. Physical Therapy Plan Frequency and Duration Frequency of Treatment 1x/Week Duration of Treatment 12 weeks Plan of Care Start Date 12/11/17 Plan of Care End Date 03/12/18 Next Visit Focus/Plan Next Note Type Treatment Note Next Visit Plan continue to progress dynamic strengthnening and balance exercises
--- NOTE | 2018-01-04 13:42 | PT.OTN ---
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, left leg, sequela (01/04/18) Physical Therapy Treatment Note PT-OP-A Visit Information Start: 08/17/17 10:04 Freq: Status: Active Protocol: Document 01/04/18 08:18 LRN (Rec: 01/04/18 09:03 LRN [id number]) Out-Patient Physical Therapy Visit Information Visit Information Visit Type Treatment Note Visit Start Time 08:18 Visit Stop Time 09:02 Total Visit Minutes 44 Visit Number 28 Number of INTERNAL REVIEW AND AUDIT COMPLIANCE Visits 0 Evaluation Information Evaluation Date 08/16/17 PT-OP-B Current Condition Start: 08/17/17 10:04 Freq: Status: Active Protocol: Document 08/22/17 17:10 AMH (Rec: 08/22/17 17:20 AMH [id number]) Current Condition History of Current Condition Onset Date 2006 Current Complaints left hip pain chronic due to hx of surgeries, injury to sciatic nerve History of Current Condition Umm is a 37 year old female with 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 She has undergone multipe surgeries and 2 rounds of radiation in her left hip where much of the gluteal tissue has been removed due to the cancer. She has had grafts from the abdominal wall and hamstring performed on the left. 3 years ago Umm woke up from surgery and could not move her left leg lower than her knee. During that surgery there was a nerve injury to the sciatic nerve. She now uses a AFO for gait. Prior Treatments and Tests Umm has been seen at our would clinic for multiple open wounds but notes she is no longer needed wound care. She has also been seen for PT on [facility] but has moved to [place] so is now seeking ongoing treatment in our PT clinic PT-OP-C Subjective Start: 08/17/17 10:04 Freq: Status: Active Protocol: Document 01/04/18 08:18 LRN (Rec: 01/04/18 09:03 LRN [id number]) OP-PT Subjective Patient Comments Patient Comments Can walk a mile ~28' vs previously almost 45' Patient Reported Progress Improving PT-OP-F Manual Assessment Start: 08/17/17 10:04 Freq: Status: Active Protocol: Document 08/16/17 10:30 AMH (Rec: 08/17/17 10:22 [facility] [id number]) Manual Assessments Soft Tissue Assessment Soft Tissue Mobility Assessment left hip tendern to palpation laterally due to multiple surgeries and skin graphs, Myofascial tension and multiple regions of scar tissue are palpated Joint Mobility Assessment Joint Mobility Assessment left hip limited in flexion past 90 degress due to hip impingement and soft tissue tightness. Umm feels this is due to her radiation. She notes she has seen improvements with her hip flexion with her prior PT and that she can tie her shoes now where she was unable to do this before PT-OP-K Range of Motion Start: 08/17/17 10:22 Freq: Status: Active Protocol: Document 12/11/17 11:19 LRN (Rec: 12/11/17 15:12 LRN [id number]) Hip Goniometric Range of Motion Hip Measured in Degrees Right Hip ROM WFL No Testing Position Supine Straight Leg Raise 85 Internal Rotation 85 External Rotation 60 Left Hip ROM WFL No Testing Position Supine Flexion w/Knee Flexed 100 Straight Leg Raise 90 Extension 10 Internal Rotation 85 External Rotation 60 Hip ROM Limitations Hip ROM Limitations Soft Tissue Tightness Comments R hip ext: lacking 10 deg's. PT-OP-M Strength Start: 08/18/17 05:42 Freq: Status: Active Protocol: Document 09/28/17 16:35 AMH (Rec: 09/28/17 16:35 AMH [email or web address]) Hip Strength Hip Manual Muscle Testing Right Flexion (L2) 5 Normal Extension (S1) 4 Good Abduction 4 Good Adduction 5 Normal External Rotation 4 Good Internal Rotation 5 Normal Left Flexion (L2) 3 Fair Extension (S1) 3+ Fair+ Abduction 3 Fair External Rotation 3 Fair PT-OP-Q Treatments Start: 08/17/17 10:04 Freq: Status: Active Protocol: Document 01/04/18 08:18 LRN (Rec: 01/04/18 09:03 LRN [id number]) Gym Equipment Shuttle Rebound 1 Exercise Details shuttle leg press Comments 100# 3 sets of 10 reps bilateral 62# 2 set of 15 reps left leg Shuttle Balance 1 Details Scissor stance fwd/bkwd, weight shifting forward/back; wgt shift w/incline Reps/Duration 20' Comments Links on Red, bilaterally. Therapeutic Ball 1 Exercise Details Trunk rotation bilaterally Ball Size/Color Green Body Position Sitting Comments Dk Blue T-Band resistance. Trunk rotation weaker to the right. Lumbar Paraspinal weakness on right. Therapeutic Exercises Standing Exercises 8 Standing Exercise Name Incline stepping forward/ sideways with L LE Reps/Minutes 1' Comments 15% inclined treadmill; DC'd - not a challenge 5 Standing Exercise Name Step down with L. Reps/Minutes none Comments in parallel bars forward 1 Standing Exercise Name half kneeling and sitting on a ball with hip extended psoas stretch Side right Equipment Used 6' Reps/Minutes hold 1-2 minutes Comments in parallel bars Other Exercises 4 Other Exercise Name step ups on 6 to 4 bench Reps/Minutes 6' 2 Other Exercise Name standing hip abduction Reps/Minutes 3' PT-OP-S Aquatic Treatment Start: 10/23/17 16:32 Freq: Status: Active Protocol: Document 10/23/17 13:00 SAK (Rec: 10/23/17 16:38 SAK [id number]) Aquatics Treatment Pool Entry/Exit Pool Entry/Exit Method Stairs Assistance Independent Water Walking Other- 1 Water Level Chest Level Level of Assistance Verbal Cues Comments fwd, bck, side, may, may kick Lower Extremity Exercises 1 Details hip flex/ext, ab/ad, circles Body Position Standing Water Level Chest Level Reps/Duration 10x Lower Extremity Stretches 1 Details HS, hip ad, ITB, quad, hip flex Body Position Standing Water Level Chest Level Equipment Small Noodle Reps/Duration 6 min Balance 1 Details SLS Body Position Standing Water Level Chest Level Reps/Duration 2x Baker Activities Baker Activities Bicycle Cross Country Running Hip Abduction/Adduction Sit Kicks Other Activities Included 10 min of 30:30 intervals tethered Equipment flotation belt, tether Duration 15 min Swim Strokes Crawl Equipment Flotation Belt Laps/Duration 25 m PT-OP-T Assessment and Plan Start: 08/17/17 10:04 Freq: Status: Active Protocol: Document 01/04/18 08:18 LRN (Rec: 01/04/18 09:03 LRN [id number]) Physical Therapy Assessment Goals Five Impairment Decreased ROM Right Hip Mining Engineer Goal (LTG) Improve R hip PSLR 90 deg's and extension 8 deg's or greater for improved function. Four Impairment Umm is limited in recreational activities of hiking Mining Engineer Goal (LTG) Umm is able to return to functional activities of hiking on trails and inclines without falling. Three Impairment Decreased flexibility of the left hip Short Term Goal (STG) Umm is independent with a home program addressing hip flexibility and strength. STG Duration GOAL MET Mining Engineer Goal (LTG) Pt will demonstrate improved symmetry of motion at the hips for greater stability with recreational activities. LTG Duration 03/16/18 Two Impairment Functional difficulty with kneeling Mining Engineer Goal (LTG) Umm is able to perform a 1 /2 kneel for improved Iliopsoas flexibility. (: Tight hip ext Right, able to perform on the Left). LTG Duration 03/16/18 One Impairment Decreased ROM left hip Senior Living Goal (LTG) Improve L hip ROM: Flex to 100 degrees and ER to 30 deg's or better and maximize IR, for improved function. LTG Duration 03/16/18 Assessment Summary Assessment Pt walking speed is much improved per verbal report. She has tightness of her R Illiopsoas and may need manual assist to stretch. Pt willing to try a steeper hike. Physical Therapy Plan Frequency and Duration Frequency of Treatment 1x/Week Duration of Treatment 12 weeks Plan of Care Start Date 12/11/17 Plan of Care End Date 03/12/18 Next Visit Focus/Plan Next Visit Plan Recheck L hip flex/ext motion if goal achieved. Progress dynamic strengthening and balance exercises.
--- NOTE | 2018-05-09 10:52 | PT.OPDS ---
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, left leg, sequela (01/04/18) Provider Visit Care Team Role Provider Type ELINOR Kendall Attending Provider Non-Staff Family Provider Primary Care Provider Specialty: Medical Address: [address] [place] [address], [id number] Email: Visit Number Visit Number [id number] Discharge Summary PT-OP-B Current Condition Start: 08/17/17 10:04 Freq: Status: Active Protocol: Document 08/22/17 17:10 AMH (Rec: 08/22/17 17:20 AMH [id number]) Current Condition History of Current Condition Onset Date 2006 Current Complaints left hip pain chronic due to hx of surgeries, injury to sciatic nerve History of Current Condition Umm is a 37 year old female with 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 She has undergone multipe surgeries and 2 rounds of radiation in her left hip where much of the gluteal tissue has been removed due to the cancer. She has had grafts from the abdominal wall and hamstring performed on the left. 3 years ago Umm woke up from surgery and could not move her left leg lower than her knee. During that surgery there was a nerve injury to the sciatic nerve. She now uses a AFO for gait. Prior Treatments and Tests Umm has been seen at our would clinic for multiple open wounds but notes she is no longer needed wound care. She has also been seen for PT on [facility] but has moved to [place] so is now seeking ongoing treatment in our PT clinic PT-OP-C Subjective Start: 08/17/17 10:04 Freq: Status: Active Protocol: Document 01/04/18 08:18 LRN (Rec: 01/04/18 09:03 LRN [id number]) OP-PT Subjective Patient Comments Patient Comments Can walk a mile ~28' vs previously almost 45' Patient Reported Progress Improving PT-OP-F Manual Assessment Start: 08/17/17 10:04 Freq: Status: Active Protocol: Document 08/16/17 10:30 AMH (Rec: 08/17/17 10:22 AMH [email or web address]) Manual Assessments Soft Tissue Assessment Soft Tissue Mobility Assessment left hip tendern to palpation laterally due to multiple surgeries and skin graphs, Myofascial tension and multiple regions of scar tissue are palpated Joint Mobility Assessment Joint Mobility Assessment left hip limited in flexion past 90 degress due to hip impingement and soft tissue tightness. Umm feels this is due to her radiation. She notes she has seen improvements with her hip flexion with her prior PT and that she can tie her shoes now where she was unable to do this before PT-OP-K Range of Motion Start: 08/17/17 10:22 Freq: Status: Active Protocol: Document 12/11/17 11:19 LRN (Rec: 12/11/17 15:12 LRN [id number]) Hip Goniometric Range of Motion Hip Measured in Degrees Right Hip ROM WFL No Testing Position Supine Straight Leg Raise 85 Internal Rotation 85 External Rotation 60 Left Hip ROM WFL No Testing Position Supine Flexion w/Knee Flexed 100 Straight Leg Raise 90 Extension 10 Internal Rotation 85 External Rotation 60 Hip ROM Limitations Hip ROM Limitations Soft Tissue Tightness Comments R hip ext: lacking 10 deg's. PT-OP-M Strength Start: 08/18/17 05:42 Freq: Status: Active Protocol: Document 09/28/17 16:35 AMH (Rec: 09/28/17 16:35 AMH [email or web address]) Hip Strength Hip Manual Muscle Testing Right Flexion (L2) 5 Normal Extension (S1) 4 Good Abduction 4 Good Adduction 5 Normal External Rotation 4 Good Internal Rotation 5 Normal Left Flexion (L2) 3 Fair Extension (S1) 3+ Fair+ Abduction 3 Fair External Rotation 3 Fair PT-OP-T Assessment and Plan Start: 08/17/17 10:04 Freq: Status: Active Protocol: Document 05/09/18 10:49 AMH (Rec: 05/09/18 10:52 AMH [email or web address]) Physical Therapy Assessment Assessment Summary Assessment Pt walking speed is much improved per verbal report. She has tightness of her R Illiopsoas. Umm did not schedule any remaining visits following her last appointment 01/04/19. Physical Therapy Plan Discharge Physical Therapy Discharge Reasons No Longer Attending PT
== END 2018-05-15 13:45 ==
LOC: PHYS 08:15
PROVIDERS: Family Provider Nurse Practitioner Family; PCP Nurse Practitioner Family; Visit Provider Nurse Practitioner Family
DX: M25.552 Pain in left hip (principal); S74 Injury of nerves at hip and thigh level
CPT/HCPCS: 97010; 97110; 97112; 97113; 97140; 97162

== ENCOUNTER 2018-02-12 09:31 | Inpatient (IN) | payer MEDICARE, MEDICAID, SELFPAY ==
[2018-02-12] VITALS (7 sets, daily range): BP systolic 97–130; BP diastolic 41–67; PULSE 75–87; RESP 14–18; TEMP 36.3–37.2; O2SAT 93–100; BMI 35.6
--- NOTE | 2018-02-12 10:15 | PC.NURSE ---
Left hip scarring extensive after osteosarcoma surgery 3 years ago. Has had staph infection x 3. Small amount of exudate noted in folds of skin. Left hip is hot, red w/ redness extending to right buttocks outside of area marked yesterday by .
[2018-02-12] MEDS: SODIUM CHLORIDE 0.9% 1,000 ML 1000 ML IV (10:52)
[2018-02-12 10:54] LABS: Add Manual Diff / Slide Review NO; Basophils Percent Auto 0.2 % (0-2); Hematocrit 37.2 % (36-46); Hemoglobin 12.5 g/dL (12.0-16.0); Mean Corpuscular HGB Conc 33.7 % (30-36); Mean Corpuscular Hemoglobin 30.5 PG (26-34); Mean Corpuscular Volume 90.7 fL (80-100); Monocytes Percent Auto 4.1 % (3-14); Neutrophils Absolute Auto 9900 /uL (3000-5900); Neutrophils Percent Auto 90.7 % (50-75); Platelet Count 140 X10^3/uL (150-400); Red Blood Cell Count 4.11 X10^6/uL (4.0-5.2); Red Cell Distribution Width 13.4 % (11.6-14.8); White Blood Cell Count 10.9 X10^3/uL (4.5-11.0)
[2018-02-12 11:01] LABS: INR 1.4 (0.9-1.3); Prothrombin Time 15.1 SECONDS (10.1-12.7)
[2018-02-12 11:04] LABS: PTT Partial Thromboplastin Tim 29 SECONDS (26.4-36.2)
--- NOTE | 2018-02-12 11:04 | ED.EXTPRO ---
HPI - Extremity Problem General Chief complaint: Extremity Problem,Nontraumatic Stated complaint: think she has a staph infection on left hip Time Seen by Provider: 02/12/18 10:30 Source: patient Mode of arrival: ambulatory Limitations: no limitations History of Present Illness HPI Narrative: Patient complains of erythema and pain in this skin and soft tissue of her left hip and buttock. Patient has extensive scarring in the area after removal of cancers tissue years ago, and has had multiple infections in this site. She has an area on her left buttock that has taken a very very long time to heal, and is still occasionally open. The patient is concerned because the area of pain and erythema has spread quickly. Patient denies fevers, but does have a feeling of chills. No nausea or vomiting. No abdominal pain no spread of the redness to her abdominal wall. Related Data Home Medications Medication Instructions Recorded Confirmed gabapentin [Neurontin] 600 mg PO TID #0 12/29/16 02/12/18 lorazepam 2 mg PO PRN PRN #0 05/12/17 02/12/18 Previous Rx's Medication Instructions Recorded acyclovir [Zovirax] 400 mg PO BID 8 Days #16 tab 02/14/18 cephalexin 500 mg PO QID 7 Days #28 cap 02/14/18 Allergies Allergy/AdvReac Type Severity Reaction Status Date / Time levofloxacin [From LEVAQUIN] Allergy Severe TENDON AND Verified 02/12/18 09:45 JOINT PAIN omeprazole [OMEPRAZOLE] Allergy Severe RASH Verified 02/12/18 09:45 Review of Systems Review of Systems All systems reviewed & are unremarkable except as noted in HPI and below Constitutional Denies chills, Denies fever(s), Denies lethargy and Denies weakness Eyes Denies change in vision, Denies eye discharge, Denies irritation and Denies loss of vision ENT Ears, Nose, Mouth, and Throat: Denies change in voice, Denies neck pain and Denies sore throat Cardiovascular Denies chest pain, Denies irregular heart rhythm, Denies lightheadedness, Denies palpitations, Denies dyspnea, Denies dyspnea on exertion and Denies orthopnea Respiratory Denies cough, Denies dyspnea, Denies dyspnea on exertion and Denies wheezing Gastrointestinal Gastrointestinal: Denies abdominal pain, Denies change in bowel habits, Denies diarrhea, Denies nausea and Denies vomiting Genitourinary Denies hematuria, Denies flank pain, Denies urinary incontinence and Denies urinary urgency Musculoskeletal Denies neck pain Comments: Pain and erythema, left buttock and hip. Integumentary/Breasts Denies pruritus, Reports erythema, Denies rash and Denies wounds Neurologic Denies confusion, Denies loss of vision and Denies weakness Psychiatric Denies anxiety, Denies confusion, Denies depression, Denies homicidal ideation and Denies suicidal ideation Endocrine Denies palpitations Hematologic/Lymphatic Denies easy bruising Allergic/Immunologic Denies wheezing [facility] Medical History Clostridium difficile diarrhea (Acute) Nerve damage (Acute) Nerve damage of foot (Acute) Osteosarcoma of bone (Acute) Surgical History Status post skin flap graft (Acute) Family History Father Pacemaker Social History household members: significant other and children Smoking Status: Former smoker alcohol intake: current Exam Initial Vital Signs Initial Vital Signs: Vital Signs Temperature 97.4 F L 02/12/18 09:45 Pulse Rate 87 02/12/18 09:45 Respiratory Rate 16 02/12/18 09:45 Blood Pressure 102/63 02/12/18 09:45 Pulse Oximetry 93 02/12/18 09:45 Const General: cooperative and well developed Nutritional Appearance: well nourished Orientation: alert, awake, oriented x3 and not confused [facility] Head: normocephalic and atraumatic Ears: external ears normal Nose: external nose normal and No nasal discharge Face and sinus: face symmetric and No dry mucous membranes Mouth: oral mucosae normal and moist mucous membranes Teeth and gingiva: dentition normal Eyes General: appearance normal, both eyes and all related structures Eyelids: eyelids normal Conjunctivae: conjunctivae normal Sclera: sclerae normal Pupils: PERRL EOM: EOM intact bilaterally Neck Neck: normal visual inspection, trachea midline, No lymphadenopathy, No midline deformity and No JVD Lymphatic: No lymphedema Chest Chest: normal inspection of the chest Resp Effort & Inspection: normal respiratory effort, able to speak in complete sentences, no respiratory distress and no use of accessory muscles Auscultation: clear to auscultation bilaterally, no rales, no rhonchi and no wheezes Cardio Rate: regular rate Rhythm: regular rhythm Heart Sounds: no click, no gallops, no murmurs and no rubs Pulses: normal peripheral pulses GI Inspection: non-distended Palpation: soft, no hepatosplenomegaly, No guarding, No pulsatile mass and No tender Auscultation: normal bowel sounds Back/Spine/Pelvis Back: No CVA tenderness Cervical Spine: cervical ROM normal and No pain with cervical ROM Thoracic/Lumbar Spine: thoracic and lumbar spine normal to inspection Skin General: no rashes or lesions noted, erythema, No jaundice and No petechiae Other: An additional 10 cm of more faint erythema is noted to be starting on the patient's right buttock. Neuro General: alert, oriented x3, gait normal and no focal motor deficits Speech: speech normal Extrem General: full ROM, no clubbing, cyanosis or edema, no pedal edema and no calf tenderness Psych Appearance: well kempt Mental Status: mental status grossly normal Attitude: cooperative Thought Content: normal and suicidality Judgment: judgment good Course Course Narrative: Patient was worked up with labs and started on vancomycin. The patient was given the option to have a dose of vancomycin here and then go home and have IV antibiotics at up with her doctor tomorrow as she has done before. However, patient expressed concern about the rapid spread of this cellulitis, and felt that it would be better to have a period of observation as an inpatient, as she had when she has had a rapidly progressive infection before, it has been more difficult to get turned around. I felt this was reasonable, and I did arrange for admission to the hospital with Dr. Langston. Orders Ordered: Discontinued Medications Acetaminophen (Tylenol) 650 mg PO Q6HR PRN PRN Reason: As Needed for Fever/Mild Pain Last Admin: 02/14/18 09:26 Dose: 650 mg Hydrocodone Bitart/Acetaminophen (Mcgill 5/325) 1 tab PO Q4HR PRN PRN Reason: Pain, Moderate (4-6) Last Admin: 02/13/18 23:18 Dose: 1 tab Admin: 02/13/18 18:56 Dose: 1 tab Admin: 02/13/18 14:29 Dose: 1 tab Admin: 02/13/18 08:18 Dose: 1 tab Admin: 02/13/18 03:14 Dose: 1 tab Admin: 02/12/18 22:10 Dose: 1 tab Admin: 02/12/18 16:46 Dose: 1 tab Acyclovir (Zovirax) 400 mg PO BID [facility] Last Admin: 02/14/18 09:05 Dose: 400 mg Admin: 02/13/18 21:56 Dose: 400 mg Admin: 02/13/18 14:29 Dose: 400 mg Enoxaparin Sodium (Lovenox) 40 mg SUBCUT DAILY [facility] Last Admin: 02/14/18 09:09 Dose: Not Given Admin: 02/13/18 08:12 Dose: 40 mg Gabapentin (Neurontin) 600 mg PO TID [facility] Last Admin: 02/14/18 09:05 Dose: 600 mg Admin: 02/13/18 21:57 Dose: 600 mg Admin: 02/13/18 14:29 Dose: 600 mg Admin: 02/13/18 08:13 Dose: 600 mg Admin: 02/12/18 22:08 Dose: 600 mg Admin: 02/12/18 15:49 Dose: 600 mg Heparin Sodium (Porcine) (Heparin (Cl/Picc/Mid-Line)) 50 unit IV BID [facility] Last Admin: 02/14/18 10:13 Dose: 50 unit Admin: 02/13/18 22:53 Dose: 50 unit Heparin Sodium (Porcine) (Heparin (Cl/Picc/Mid-Line)) 50 unit IV PRN PRN PRN Reason: Flush Last Admin: 02/13/18 23:42 Dose: 50 unit Sodium Chloride (Normal Saline 0.9%) 1,000 mls @ 1,000 mls/hr IV BOLUS ONE Stop: 02/12/18 10:56 Last Admin: 02/12/18 10:52 Dose: 1,000 mls/hr Vancomycin HCl/Dextrose (Vancomycin) 1,000 mg in 200 mls @ 200 mls/hr IV NOW ONE Stop: 02/12/18 12:26 Last Infusion: 02/12/18 13:50 Dose: 0 mls/hr Admin: 02/12/18 12:08 Dose: 200 mls/hr Cefazolin Sodium/Dextrose (Ancef) 2 gm in 100 mls @ 200 mls/hr IV Q8H [facility] Last Infusion: 02/14/18 10:20 Dose: 0 mls/hr Admin: 02/14/18 09:07 Dose: 200 mls/hr Infusion: 02/13/18 23:41 Dose: 0 mls/hr Admin: 02/13/18 22:53 Dose: 200 mls/hr Infusion: 02/13/18 16:47 Dose: 200 mls/hr Admin: 02/13/18 16:17 Dose: 200 mls/hr Infusion: 02/13/18 09:00 Dose: 0 mls/hr Admin: 02/13/18 08:11 Dose: 200 mls/hr Infusion: 02/13/18 00:15 Dose: 0 mls/hr Admin: 02/12/18 23:40 Dose: 200 mls/hr Infusion: 02/12/18 16:35 Dose: 0 mls/hr Admin: 02/12/18 15:48 Dose: 200 mls/hr Dextrose/Sodium Chloride (Dextrose 5%-0.45% Ns) 1,000 mls @ 100 mls/hr IV CONT NINFA Last Infusion: 02/13/18 14:28 Dose: 0 mls/hr Admin: 02/13/18 03:14 Dose: 100 mls/hr Infusion: 02/13/18 01:48 Dose: 100 mls/hr Admin: 02/12/18 15:48 Dose: 100 mls/hr Sodium Chloride (Normal Saline 0.9%) 250 mls @ 21 mls/hr IV Q24H PRN PRN Reason: Flush Last Admin: 02/14/18 09:10 Dose: 21 mls/hr Infusion: 02/14/18 04:14 Dose: 21 mls/hr Admin: 02/13/18 16:19 Dose: 21 mls/hr Lactobacillus Acidophilus (Bacid Caplet) 1 each PO BIDWM [facility] Last Admin: 02/14/18 09:05 Dose: 1 each Admin: 02/13/18 17:50 Dose: 1 each Lorazepam (Ativan) 2 mg PO Q6HR PRN PRN Reason: Anxiety Morphine Sulfate (Morphine) 2 mg IV Q4HR PRN PRN Reason: Pain, Moderate (4-6) Sennosides (Senna) 17.2 mg PO BEDTIME NINFA Last Admin: 02/13/18 21:57 Dose: 17.2 mg Admin: 02/12/18 22:08 Dose: 17.2 mg Sertraline HCl (Zoloft) 25 mg PO BEDTIME NINFA Last Admin: 02/13/18 21:57 Dose: 25 mg Admin: 02/12/18 22:08 Dose: 25 mg Sodium Chloride (Normal Saline 0.9% Flush) 10 ml IV PRN PRN PRN Reason: Flush Last Admin: 02/14/18 10:13 Dose: 10 ml Admin: 02/13/18 16:19 Dose: 10 ml Sodium Chloride (Normal Saline 0.9% Flush) 10 ml IV BID NINFA Last Admin: 02/14/18 09:08 Dose: 10 ml Admin: 02/13/18 22:53 Dose: 10 ml Temazepam (Resoril) 30 mg PO BEDTIME PRN PRN Reason: Sleep Last Admin: 02/13/18 22:53 Dose: 30 mg Vital Signs - 8 hr 02/12/18 09:45 02/12/18 10:12 02/12/18 10:46 Temperature 97.4 F L Pulse Rate 87 78 80 Pulse Rate [Left Dorsalis Pedis] 75 Respiratory Rate 16 14 14 Blood Pressure 102/63 Blood Pressure [Left Arm] 97/41 L 111/53 L Pulse Oximetry 93 95 95 MDM - Extremity (Nontraumatic) Medical Records Attestation: I reviewed the patient's medical records. Lab Data Attestation: I reviewed the patient's lab results. Result diagrams: 02/13/18 06:27 02/13/18 06:27 Lab Results 02/12/18 02/12/18 02/12/18 Range/Units 10:45 10:45 10:45 WBC 10.9 (4.5-11.0) X10^3/uL RBC 4.11 (4.0-5.2) X10^6/uL Hgb 12.5 (12.0-16.0) g/dL Hct 37.2 (36-46) % MCV 90.7 (80-100) fL MCH 30.5 (26-34) PG MCHC 33.7 (30-36) % RDW 13.4 (11.6-14.8) % Plt Count 140 L (150-400) X10^3/uL Neut % (Auto) 90.7 H (50-75) % Lymph % (Auto) 5.0 L (25-40) % [place] % (Auto) 4.1 (3-14) % Eos % (Auto) 0.0 L (2-4) % Baso % (Auto) 0.2 (0-2) % Neut # (Auto) 9900 H (7516-0793) /uL PT 15.1 H (10.1-12.7) SECONDS INR 1.4 H (0.9-1.3) APTT 29 (26.4-36.2) SECONDS Sodium (137-145) mmol/L Potassium (3.4-5.1) mmol/L Chloride (98-107) mmol/L Carbon Dioxide (22-32) mmol/L BUN (7-17) mg/dL Creatinine (0.52-1.04) mg/dL Estimated GFR (>60) mL/min BUN/Creatinine Ratio (6-22) Glucose (70-100) mg/dL Lactate (0.7-2.1) mmol/L Calcium (8.4-10.2) mg/dL Total Bilirubin (0.2-1.3) mg/dL AST (14-36) IU/L ALT (9-52) IU/L Alkaline Phosphatase (38-126) U/L Total Protein (6.3-8.2) g/dL Albumin (3.5-5.0) g/dL Globulin (1.7-4.1) g/dL Albumin/Globulin Ratio (1.0-2.8) Lipase (23-300) U/L Procalcitonin 7.00 H (<0.5) ng/mL 02/12/18 02/12/18 02/13/18 Range/Units 10:45 10:45 06:27 WBC 6.6 (4.5-11.0) X10^3/uL RBC 3.89 L (4.0-5.2) X10^6/uL Hgb 11.9 L (12.0-16.0) g/dL Hct 35.3 L (36-46) % MCV 90.6 (80-100) fL MCH 30.5 (26-34) PG MCHC 33.6 (30-36) % RDW 13.4 (11.6-14.8) % Plt Count 123 L (150-400) X10^3/uL Neut % (Auto) 69.8 D (50-75) % Lymph % (Auto) 19.2 L (25-40) % [place] % (Auto) 9.8 (3-14) % Eos % (Auto) 1.0 L (2-4) % Baso % (Auto) 0.2 (0-2) % Neut # (Auto) 4600 (5427-0551) /uL PT (10.1-12.7) SECONDS INR (0.9-1.3) APTT (26.4-36.2) SECONDS Sodium 139 (137-145) mmol/L Potassium 3.2 L (3.4-5.1) mmol/L Chloride 102 (98-107) mmol/L Carbon Dioxide 27 (22-32) mmol/L BUN 16 (7-17) mg/dL Creatinine 0.70 (0.52-1.04) mg/dL Estimated GFR > 60.0 (>60) mL/min BUN/Creatinine Ratio 22.9 H (6-22) Glucose 105 H (70-100) mg/dL Lactate 0.8 (0.7-2.1) mmol/L Calcium 9.2 (8.4-10.2) mg/dL Total Bilirubin 0.6 (0.2-1.3) mg/dL AST 28 (14-36) IU/L ALT 35 (9-52) IU/L Alkaline Phosphatase 62 (38-126) U/L Total Protein 7.1 (6.3-8.2) g/dL Albumin 3.9 (3.5-5.0) g/dL Globulin 3.2 (1.7-4.1) g/dL Albumin/Globulin Ratio 1.2 (1.0-2.8) Lipase 39 (23-300) U/L Procalcitonin (<0.5) ng/mL 02/13/18 Range/Units 06:27 WBC (4.5-11.0) X10^3/uL RBC (4.0-5.2) X10^6/uL Hgb (12.0-16.0) g/dL Hct (36-46) % MCV (80-100) fL MCH (26-34) PG MCHC (30-36) % RDW (11.6-14.8) % Plt Count (150-400) X10^3/uL Neut % (Auto) (50-75) % Lymph % (Auto) (25-40) % [place] % (Auto) (3-14) % Eos % (Auto) (2-4) % Baso % (Auto) (0-2) % Neut # (Auto) (5322-8846) /uL PT (10.1-12.7) SECONDS INR (0.9-1.3) APTT (26.4-36.2) SECONDS Sodium 143 (137-145) mmol/L Potassium 3.1 L (3.4-5.1) mmol/L Chloride 106 (98-107) mmol/L Carbon Dioxide 26 (22-32) mmol/L BUN 10 (7-17) mg/dL Creatinine 0.70 (0.52-1.04) mg/dL Estimated GFR > 60.0 (>60) mL/min BUN/Creatinine Ratio 14.3 (6-22) Glucose 112 H (70-100) mg/dL Lactate (0.7-2.1) mmol/L Calcium 8.7 (8.4-10.2) mg/dL Total Bilirubin (0.2-1.3) mg/dL AST (14-36) IU/L ALT (9-52) IU/L Alkaline Phosphatase (38-126) U/L Total Protein (6.3-8.2) g/dL Albumin (3.5-5.0) g/dL Globulin (1.7-4.1) g/dL Albumin/Globulin Ratio (1.0-2.8) Lipase (23-300) U/L Procalcitonin (<0.5) ng/mL Point of Care Testing Test Results Negative Urine Dip Bedside Urine Glucose Negative Bedside Urine Bilirubin - Negative Bedside Urine Ketone - Negative Urine Specific [place] 1.010 Bedside Urine Occult Blood - Negative Bedside Urine pH 6 Bedside Urine Protein - Negative Bedside Urine Urobilinogen - Negative Bedside Urine Nitrite - Negative Bedside Urine Leukocytes - Negative Esterase Discharge Plan Departure Patient Disposition: Admitted As Inpatient Clinical Impression: Cellulitis Discharge Date/Time: 02/12/18 14:31 Interventions: ED Discharge Assessment Last Done: 02/12/18 14:30 Admit Date/Time: 02/12/18 13:45 Admit Provider: Rosa Maria Langston
[2018-02-12 11:11] LABS: Alanine Aminotransferase 35 IU/L (9-52); Albumin 3.9 g/dL (3.5-5.0); Albumin Globulin Ratio 1.2 (1.0-2.8); Alkaline Phosphatase 62 U/L (38-126); Aspartate Aminotransferase 28 IU/L (14-36); BUN Creatinine Ratio 22.9 (6-22); Bilirubin Total 0.6 mg/dL (0.2-1.3); Blood Urea Nitrogen 16 mg/dL (7-17); Calcium 9.2 mg/dL (8.4-10.2); Carbon Dioxide 27 mmol/L (22-32); Chloride 102 mmol/L (98-107); Estimated Glomerular Filt Rate > 60.0 mL/min (>60); Globulin 3.2 g/dL (1.7-4.1); Glucose 105 mg/dL (70-100); HEMOLYSIS < 15 (0-50); Lipase 39 U/L (23-300); Potassium 3.2 mmol/L (3.4-5.1); Sodium 139 mmol/L (137-145); Total Protein 7.1 g/dL (6.3-8.2)
[2018-02-12 11:12] LABS: Lactate (Lactic Acid) 0.8 mmol/L (0.7-2.1)
[2018-02-12] MEDS: VANCOMYCIN 1,000 MG/200 ML FROZ.PIGGY 200 MG IV (12:08)
--- NOTE | 2018-02-12 13:57 | PC.NURSE ---
elier Sandhu placed a midline left upper arm.
--- NOTE | 2018-02-12 15:26 | P.HP_ITS ---
History of Present Illness Date Patient Seen: 02/12/18 Chief complaint: think she has a staph infection on left hip Narrative: Patient is a 37-year-old female with a history of osteosarcoma involving the left hip. She has had at least 6 surgeries to the left hip. The patient has had myocutaneous flap. She had an open wound. He has had at least 2 episodes of cellulitis. Patient was last hospitalized in April of 2017 for cellulitis of the left hip. Her cultures were negative for MRSA, she did grow cultures that showed methicillin sensitive Staph aureus. She was previously treated with cefazolin with good results. The patient would like to have IV antibiotics at home if possible. We discussed using IV and then switching to oral at the time of discharge. The patient states her symptoms began yesterday. She developed shaking chills, nausea, and noted redness over the left hip. She is not aware of having a fever. She reports some headache and initially thought she was getting the flu. She developed redness over the entire hip and anterior thigh. The patient had a normal lactate, slightly elevated WBC. She is admitted to the hospital for treatment of cellulitis Patient History Medical History Osteosarcoma of bone (Acute) Surgical History Status post skin flap graft (Acute) Family & Social History Family history unavailable: Yes Social History: household members significant other,children Prior Living Arrangements House Safety & Behavioral: Feels Safe in Current Yes Environment Been Physically Hurt or No Threatened By a Person Suicidal Ideation Description None Suicide Plan Description No Plan Tobacco & Substance use: Smoking Status Former smoker alcohol intake current alcohol intake frequency a few times a week Meds Home Medications Medication Instructions Recorded Confirmed Type gabapentin [Neurontin] 600 mg PO TID #0 12/29/16 02/12/18 History lorazepam 2 mg PO PRN PRN #0 05/12/17 02/12/18 History Allergies Allergy/AdvReac Type Severity Reaction Status Date / Time levofloxacin [From LEVAQUIN] Allergy Severe TENDON AND Verified 02/12/18 09:45 JOINT PAIN omeprazole [OMEPRAZOLE] Allergy Severe RASH Verified 02/12/18 09:45 Review of Systems Review of Systems All systems reviewed & are unremarkable except as noted in HPI and below Exam Vital Signs (past 8 hours): - 02/12/18 09:45 02/12/18 10:12 02/12/18 10:46 Temperature 97.4 F L Pulse Rate 87 78 80 Pulse Rate [Left Dorsalis Pedis] 75 Respiratory Rate 16 14 14 Blood Pressure 102/63 Blood Pressure [Left Arm] 97/41 L 111/53 L Pulse Oximetry 93 95 95 02/12/18 13:10 02/12/18 14:19 Temperature 98.2 F Pulse Rate 81 78 Pulse Rate [Left Dorsalis Pedis] Respiratory Rate 18 18 Blood Pressure 112/61 Blood Pressure [Left Arm] 104/67 Pulse Oximetry 97 98 Oxygen Delivery Method Room Air Oxygen Flow Rate 0 Narrative Exam Narrative: Pleasant female in no acute distress HEENT: Normocephalic atraumatic, oropharynx is clear, neck is supple, Lungs: Clear to auscultation Cardiac exam: Regular rate and rhythm normal S1 and S2 with a II/ systolic ejection murmur Abdomen: Soft nontender nondistended Left hip: Erythema along the surgical incision. There is erythema along the anterior posterior surface stretching down the thigh. There are multiple deformities of the left hip corresponding to multiple prior surgeries. The left foot is dropped. Skin over the hip is warm red and mildly tender. Neuro exam: Cranial nerves are intact, sensation grossly intact, strength is symmetric and equal except for the left foot. She is unable to dorsiflex or plantar flex the left foot Objective Labs Result Diagrams: 02/12/18 10:45 02/12/18 10:45 Labs: Laboratory Results - last 24 hr 02/12/18 02/12/18 02/12/18 10:45 10:45 10:45 WBC 10.9 RBC 4.11 Hgb 12.5 Hct 37.2 MCV 90.7 MCH 30.5 MCHC 33.7 RDW 13.4 Plt Count 140 L Neut % (Auto) 90.7 H Lymph % (Auto) 5.0 L [place] % (Auto) 4.1 Eos % (Auto) 0.0 L Baso % (Auto) 0.2 Neut # (Auto) 9900 H PT 15.1 H INR 1.4 H APTT 29 Sodium Potassium Chloride Carbon Dioxide BUN Creatinine Estimated GFR BUN/Creatinine Ratio Glucose Lactate Calcium Total Bilirubin AST ALT Alkaline Phosphatase Total Protein Albumin Globulin Albumin/Globulin Ratio Lipase Procalcitonin 7.00 H 02/12/18 02/12/18 10:45 10:45 WBC RBC Hgb Hct MCV MCH MCHC RDW Plt Count Neut % (Auto) Lymph % (Auto) [place] % (Auto) Eos % (Auto) Baso % (Auto) Neut # (Auto) PT INR APTT Sodium 139 Potassium 3.2 L Chloride 102 Carbon Dioxide 27 BUN 16 Creatinine 0.70 Estimated GFR > 60.0 BUN/Creatinine Ratio 22.9 H Glucose 105 H Lactate 0.8 Calcium 9.2 Total Bilirubin 0.6 AST 28 ALT 35 Alkaline Phosphatase 62 Total Protein 7.1 Albumin 3.9 Globulin 3.2 Albumin/Globulin Ratio 1.2 Lipase 39 Procalcitonin Assessment & Plan (1) Cellulitis: Problem details: Patient will be started on cefazolin. She has previously been treated for methicillin sensitive Staph aureus with prior infections and this is been successful. Hopefully she will get 48 hr of IV antibiotics and then be switched to oral. Qualifiers: Laterality: Site of cellulitis: buttock Site of cellulitis of extremity: Site of cellulitis of trunk: Qualified Code(s): L03.317 - Cellulitis of buttock Current visit: Yes Status: Acute (2) Neuropathy: Problem details: Will continue her gabapentin as previously taken. Current visit: Yes Status: Acute (3) Hypokalemia: Problem details: Will replace Current visit: Yes Status: Acute Plan: Assessment/Plan Narrative: Will place her on DVT prophylaxis, will treat headache/pain with tylenol/lortab as needed Quality VTE Deep Vein Thrombosis/Pulmonary Embolism Present on Admission: No
[2018-02-12] MEDS: DEXTROSE 5%-0.45% NS 1,000 ML 100 ML IV (15:48)
[2018-02-12] MEDS: CEFAZOLIN 2 GM/100 ML FROZ.PIGGY IV ×2 (15:48→23:40)
[2018-02-12] MEDS: GABAPENTIN 600 MG TABLET PO ×2 (15:49→22:08)
[2018-02-12] MEDS: HYDROCODONE/ACET 5/325 TABLET 1 TAB PO ×2 (16:46→22:10)
--- NOTE | 2018-02-12 18:49 | PC.NURSE ---
Belkys shift note: Patient awake and alert, pleasant and cooperative. Erythematous left lateral hip extending from upper hip to lower buttocks area, areas of induration noted, tender, warm and non draining. Medicated with Mclean PO for pain 6/10 with adequate pain control. Call light within reach
[2018-02-12] MEDS: SENNOSIDES 8.6 MG TABLET 17.2 MG PO (22:08)
[2018-02-12] MEDS: SERTRALINE 25 MG TABLET PO (22:08)
[2018-02-13] VITALS (10 sets, daily range): BP systolic 107–125; BP diastolic 56–78; PULSE 71–93; RESP 16–18; TEMP 36.7–37.5; O2SAT 95–98
[2018-02-13] MEDS: HYDROCODONE/ACET 5/325 TABLET 1 TAB PO ×5 (03:14→23:18)
[2018-02-13] MEDS: DEXTROSE 5%-0.45% NS 1,000 ML 100 ML IV (03:14)
[2018-02-13 07:26] LABS: Add Manual Diff / Slide Review NO; Basophils Percent Auto 0.2 % (0-2); Hematocrit 35.3 % (36-46); Hemoglobin 11.9 g/dL (12.0-16.0); Lymphocytes Percent Auto 19.2 % (25-40); Mean Corpuscular HGB Conc 33.6 % (30-36); Mean Corpuscular Hemoglobin 30.5 PG (26-34); Mean Corpuscular Volume 90.6 fL (80-100); Monocytes Percent Auto 9.8 % (3-14); Neutrophils Absolute Auto 4600 /uL (3000-5900); Neutrophils Percent Auto 69.8 % (50-75); Platelet Count 123 X10^3/uL (150-400); Red Blood Cell Count 3.89 X10^6/uL (4.0-5.2); Red Cell Distribution Width 13.4 % (11.6-14.8); White Blood Cell Count 6.6 X10^3/uL (4.5-11.0)
[2018-02-13 07:38] LABS: BUN Creatinine Ratio 14.3 (6-22); Blood Urea Nitrogen 10 mg/dL (7-17); Calcium 8.7 mg/dL (8.4-10.2); Carbon Dioxide 26 mmol/L (22-32); Chloride 106 mmol/L (98-107); Estimated Glomerular Filt Rate > 60.0 mL/min (>60); Glucose 112 mg/dL (70-100); HEMOLYSIS < 15 (0-50); Potassium 3.1 mmol/L (3.4-5.1); Sodium 143 mmol/L (137-145)
[2018-02-13] MEDS: CEFAZOLIN 2 GM/100 ML FROZ.PIGGY IV ×3 (08:11→22:53)
[2018-02-13] MEDS: ENOXAPARIN 40 MG/0.4 ML SYRINGE SUBCUT (08:12)
[2018-02-13] MEDS: GABAPENTIN 600 MG TABLET PO ×3 (08:13→21:57)
--- NOTE | 2018-02-13 08:45 | CM.DANOTE ---
DCP: Case received, EMR reviewed and met with patient. Introduced self and role. DCP template completed with information currently available. Patient is a 37 year old female who admitted yesteday afternoon to the care of the hospitalist team. PCP: Dr. Pereira. Payer: confirmed: Medicare. Patient came to hospital with concerns of wound infection to her left hip. Patient has history of osteosarcoma. Patient carries diagnosis of Cellulitus. She is here for IV antibiotics. Met briefly with patient. Lives at home with her boyfriend, and is independent. P: DCP to continue to follow as plan unfolds. May need home health for wound care, will depend on progress in hospital. Kortney Lombardi RN/[employer]ologist
--- NOTE | 2018-02-13 12:08 | P.PN_ITS ---
Subjective Date Patient Seen: 02/13/18 Interval history: Patient had difficulty sleeping since last night. Notes that her redness has improved. She is anxious to go home. We discussed options of home IV antibiotics, antibiotics via the [facility], or inpatient antibiotics followed up with oral antibiotics. She is not having any diarrhea or nausea. No fever or chills. Patient requests to take probiotic and a sleeper to help her at night. Exam Vital Signs (past 8 hours): - 02/13/18 08:05 02/13/18 08:15 Temperature 99.0 F Pulse Rate 73 Respiratory Rate 18 Blood Pressure 113/62 Pulse Oximetry 96 96 Oxygen Delivery Method Room Air Oxygen Flow Rate 0 Narrative Exam Narrative: pleasant female in no acute distress Lungs: clear to auscultation CV: RRR nl Sl S2 Abd: Soft/ non tender/ non distended Ext: left hip with decreasing erythema, induration, and warmth. Still with significant rash along lateral portion of thigh Objective Labs Result Diagrams: 02/13/18 06:27 02/13/18 06:27 Labs: Laboratory Results - last 24 hr 02/13/18 02/13/18 06:27 06:27 WBC 6.6 RBC 3.89 L Hgb 11.9 L Hct 35.3 L MCV 90.6 MCH 30.5 MCHC 33.6 RDW 13.4 Plt Count 123 L Neut % (Auto) 69.8 D Lymph % (Auto) 19.2 L [place] % (Auto) 9.8 Eos % (Auto) 1.0 L Baso % (Auto) 0.2 Neut # (Auto) 4600 Sodium 143 Potassium 3.1 L Chloride 106 Carbon Dioxide 26 BUN 10 Creatinine 0.70 Estimated GFR > 60.0 BUN/Creatinine Ratio 14.3 Glucose 112 H Calcium 8.7 Assessment & Plan (1) Cellulitis: Problem details: Patient will be started on cefazolin. She has previously been treated for methicillin sensitive Staph aureus with prior infections and this is been successful. Hopefully she will get 48 hr of IV antibiotics and then be switched to oral. Cellulitis likely a complication from her multiple prior surgeries to the area Qualifiers: Laterality: Site of cellulitis: buttock Site of cellulitis of extremity: Site of cellulitis of trunk: Qualified Code(s): L03.317 - Cellulitis of buttock Current visit: Yes Status: Acute (2) Neuropathy: Problem details: Will continue her gabapentin as previously taken. Current visit: Yes Status: Acute (3) Hypokalemia: Problem details: Will replace Current visit: Yes Status: Acute Plan: Assessment/Plan Narrative: Will add sleeping pill. I would recommend IV antibiotics here for 2-3 days , then home on oral antibiotics Quality VTE Deep Vein Thrombosis/Pulmonary Embolism Present on Admission: No
[2018-02-13] MEDS: ACYCLOVIR 400 MG TABLET PO ×2 (14:29→21:56)
[2018-02-13] MEDS: SODIUM CHLORIDE 0.9% FLUSH 10 ML IV ×2 (16:19→22:53)
[2018-02-13] MEDS: SODIUM CHLORIDE 0.9% 250 ML 21 ML IV (16:19)
[2018-02-13] MEDS: LACTOBACILLUS ACIDOPHILUS TABLET 1 EACH PO (17:50)
[2018-02-13] MEDS: SERTRALINE 25 MG TABLET PO (21:57)
[2018-02-13] MEDS: SENNOSIDES 8.6 MG TABLET 17.2 MG PO (21:57)
[2018-02-13] MEDS: TEMAZEPAM 15 MG CAPSULE 30 MG PO (22:53)
--- NOTE | 2018-02-13 23:41 | PC.NURSE ---
SHIFT NOTE A&Ox3, pleasant and cooperative with care. independent with ADLs. pt frequently walking in hallways. c/o 5-10/03 pain to L hip area, given PRN norco per MAY. L midline intact. pt reports minimal sleep last night, hoping to have vitals and medications timed so she can sleep tonight; communicated to oncoming RN. call light within reach.
[2018-02-14 00:02] VITALS: O2SAT 97
--- NOTE | 2018-02-14 00:05 | PC.NURSE ---
Addendum entered by Kristine Valladares R.N. 02/14/18 07:00: Slept entire shift. States pain is minimal at 2/10 and declines offer of pain medication. Original Note: Patient is alert and oriented. Breath sounds CTA with RA sat of 97%. HRR Denies nausea. BT present and abdomen is soft. Denies any dysuria, frequency, urgency or incontinence. Has been getting up independently, but when asked reports a fall in past couple weeks due to paralysis of left foot/use of orthotic brace and apparently tripped over brace. Discussed fall risk with patient and she verbalizes she will call for assistance when getting out of bed and refuses bed alarm at this time; informed that if she does get up without calling we will need to activate the bed alarm and she verbalizes understanding. Independent with bed mobility. Area on left hip/buttock/perineal area is lightly pink but without any open areas. States pain is 5/10 and was medicated by SAT with Vicodin at shift change. Slight puffiness noted in left foot which she states is chronic.
[2018-02-14 06:41] VITALS: BP 109/61; PULSE 68; RESP 19; TEMP 36.7; O2SAT 96
[2018-02-14 07:50] VITALS: BP 130/72; PULSE 80; RESP 16; TEMP 36.5; O2SAT 97
[2018-02-14] MEDS: ACYCLOVIR 400 MG TABLET PO (09:05)
[2018-02-14] MEDS: LACTOBACILLUS ACIDOPHILUS TABLET 1 EACH PO (09:05)
[2018-02-14] MEDS: GABAPENTIN 600 MG TABLET PO (09:05)
[2018-02-14] MEDS: CEFAZOLIN 2 GM/100 ML FROZ.PIGGY IV (09:07)
[2018-02-14] MEDS: SODIUM CHLORIDE 0.9% FLUSH 10 ML IV ×2 (09:08→10:13)
[2018-02-14 09:10] VITALS: O2SAT 98
[2018-02-14] MEDS: SODIUM CHLORIDE 0.9% 250 ML 21 ML IV (09:10)
[2018-02-14] MEDS: ACETAMINOPHEN 325 MG TABLET 650 MG PO (09:26)
[2018-02-14 11:35] VITALS: BP 109/66; PULSE 73; RESP 14; TEMP 36.8; O2SAT 94
--- NOTE | 2018-02-14 12:12 | P.DS_ITS ---
History of Present Illness Date Patient Seen: 02/14/18 Time Patient Seen: 12:10 Chief complaint: L hip Cellulitis Narrative: 37-year-old female with past medical history of osteosarcoma bone, status post skin flap graft in the left hip presented to ED with shaking chills , nausea, and increasing redness in the left hip. Denied any fever on admission , but states that she developed redness over the entire hip and anterior thigh within the matter of a couple of days prior to admission. Discharge Providers Date of admission: 02/12/18 13:45 Primary care physician: ELINOR Kendall Discharge provider: Karina Dash MD Discharge Date: 02/14/18 Summary Discharge Diagnosis: L Hip Cellulitis, improving Osteosarcoma of the left hip with 6 surgeries and mucocutaneous flap, chronic Hospital Course: In the emergency department patient's vital signs were stable. She was noted to have normal lactate with slightly elevated WBC. She was also noted to have erythema and swelling in the left anterior hip. Patient was admitted for treatment of acute cellulitis. She was admitted to the general medical floor, and IV cefazolin was started, given her history of MSSA. WBC decreased to normal. Patient continued to be afebrile. Patient's condition improved over the course of 48 hr, and patient was switched to cephalexin p.o. 500 mg 4 times a day patient will be discharged home on cephalexin for 7 more days to complete a 10 day course of antibiotics. Status at Discharge Functional status at discharge: independent ambulation Overall status at discharge: patient is back to baseline Time Spent with Patient Less than 30 minutes Exam Vital Signs (past 8 hours): - 02/14/18 06:41 02/14/18 07:50 02/14/18 11:35 Temperature 98.0 F 97.7 F 98.2 F Pulse Rate 68 80 73 Respiratory Rate 19 16 14 Blood Pressure 109/61 130/72 109/66 Pulse Oximetry 96 97 94 Oxygen Delivery Method Room Air Oxygen Flow Rate 0 Narrative Exam Narrative: General: No acute distress, AAO x3 HEENT: PERRLA bilaterally Neck: Supple CV: Regular rate rhythm, no murmurs Respiratory: CTA bilaterally, no wheezing or crackles GI: Positive bowel sounds, soft, nontender Musculoskeletal: Normal range of motion Skin: Left hip redness improving. Mucocutaneous flap present. Large area of resection in the left hip. Neuro: No focal deficits Psych: AAO x3, appropriate mood Objective Labs Result Diagrams: 02/13/18 06:27 02/13/18 06:27 Discharge Plan Discharge Plan Discharge Problem: Cellulitis Patient Disposition: Home Discharge Med Rec/Prescriptions Prescriptions: New cephalexin 500 mg capsule 500 mg PO QID 7 Days Qty: 28 RF: 0 Continue gabapentin [Neurontin] 600 MG tablet 600 mg PO TID Qty: 0 RF: 0 lorazepam 2 MG tablet 2 mg PO PRN PRN (Reason: Anxiety) Qty: 0 RF: 0 Follow up/Referrals: Cassidy Pereira ARNP [Primary Care Provider] - 1 Week Provider Discharge Instructions Diet: Regular Discharge Data Primary Care Provider: Cassidy Pereira Attending Provider: Rosa Maria Langston Admit Date/Time: 02/12/18 13:45 Quality VTE Deep Vein Thrombosis/Pulmonary Embolism Present on Admission: No
--- NOTE | 2018-02-14 13:04 | CM.DPC ---
DCP: continued: case received, d/c order noted and spoke with KENYA Thornton. She is just in process of finalizing the d/c orders. Says pt's daughter is here to pick her up. No concerns noted re the dc plan.
--- NOTE | 2018-02-14 13:33 | PC.NURSE ---
Day Shift- Reviewed written and verbal discharge instructions with pt from Discharge summary packet. Reviewed prescription, follow up appt (pt will call for F/U in 1 week), pain management, antibiotic use, mobility, S/S of infection. Stated had no concerns. Midline removed without difficulty per protocol. Sterile gauze and tegaderm placed over insertion site, pt tolerated well. Pt left unit via wheelchair in no distress, stated was ready to be discharged. Pt's daughter present to drive pt home.
--- NOTE | 2018-02-20 06:29 | ED_ITS ---
HPI - Extremity Problem General Chief complaint: Extremity Problem,Nontraumatic Stated complaint: think she has a staph infection on left hip Time Seen by Provider: 02/12/18 10:30 Source: patient Mode of arrival: ambulatory Limitations: no limitations History of Present Illness HPI Narrative: Patient complains of erythema and pain in this skin and soft tissue of her left hip and buttock. Patient has extensive scarring in the area after removal of cancers tissue years ago, and has had multiple infections in this site. She has an area on her left buttock that has taken a very very long time to heal, and is still occasionally open. The patient is concerned because the area of pain and erythema has spread quickly. Patient denies fevers, but does have a feeling of chills. No nausea or vomiting. No abdominal pain no spread of the redness to her abdominal wall. Related Data Home Medications Medication Instructions Recorded Confirmed gabapentin [Neurontin] 600 mg PO TID #0 12/29/16 02/12/18 lorazepam 2 mg PO PRN PRN #0 05/12/17 02/12/18 Previous Rx's Medication Instructions Recorded acyclovir [Zovirax] 400 mg PO BID 8 Days #16 tab 02/14/18 cephalexin 500 mg PO QID 7 Days #28 cap 02/14/18 Allergies Allergy/AdvReac Type Severity Reaction Status Date / Time levofloxacin [From LEVAQUIN] Allergy Severe TENDON AND Verified 02/12/18 09:45 JOINT PAIN omeprazole [OMEPRAZOLE] Allergy Severe RASH Verified 02/12/18 09:45 Review of Systems Review of Systems All systems reviewed & are unremarkable except as noted in HPI and below Constitutional Denies chills, Denies fever(s), Denies lethargy and Denies weakness Eyes Denies change in vision, Denies eye discharge, Denies irritation and Denies loss of vision ENT Ears, Nose, Mouth, and Throat: Denies change in voice, Denies neck pain and Denies sore throat Cardiovascular Denies chest pain, Denies irregular heart rhythm, Denies lightheadedness, Denies palpitations, Denies dyspnea, Denies dyspnea on exertion and Denies orthopnea Respiratory Denies cough, Denies dyspnea, Denies dyspnea on exertion and Denies wheezing Gastrointestinal Gastrointestinal: Denies abdominal pain, Denies change in bowel habits, Denies diarrhea, Denies nausea and Denies vomiting Genitourinary Denies hematuria, Denies flank pain, Denies urinary incontinence and Denies urinary urgency Musculoskeletal Denies neck pain Comments: Pain and erythema, left buttock and hip. Integumentary/Breasts Denies pruritus, Reports erythema, Denies rash and Denies wounds Neurologic Denies confusion, Denies loss of vision and Denies weakness Psychiatric Denies anxiety, Denies confusion, Denies depression, Denies homicidal ideation and Denies suicidal ideation Endocrine Denies palpitations Hematologic/Lymphatic Denies easy bruising Allergic/Immunologic Denies wheezing [facility] Medical History Clostridium difficile diarrhea (Acute) Nerve damage (Acute) Nerve damage of foot (Acute) Osteosarcoma of bone (Acute) Surgical History Status post skin flap graft (Acute) Family History Father Pacemaker Social History household members: significant other and children Smoking Status: Former smoker alcohol intake: current Exam Initial Vital Signs Initial Vital Signs: Vital Signs Temperature 97.4 F L 02/12/18 09:45 Pulse Rate 87 02/12/18 09:45 Respiratory Rate 16 02/12/18 09:45 Blood Pressure 102/63 02/12/18 09:45 Pulse Oximetry 93 02/12/18 09:45 Const General: cooperative and well developed Nutritional Appearance: well nourished Orientation: alert, awake, oriented x3 and not confused [facility] Head: normocephalic and atraumatic Ears: external ears normal Nose: external nose normal and No nasal discharge Face and sinus: face symmetric and No dry mucous membranes Mouth: oral mucosae normal and moist mucous membranes Teeth and gingiva: dentition normal Eyes General: appearance normal, both eyes and all related structures Eyelids: eyelids normal Conjunctivae: conjunctivae normal Sclera: sclerae normal Pupils: PERRL EOM: EOM intact bilaterally Neck Neck: normal visual inspection, trachea midline, No lymphadenopathy, No midline deformity and No JVD Lymphatic: No lymphedema Chest Chest: normal inspection of the chest Resp Effort & Inspection: normal respiratory effort, able to speak in complete sentences, no respiratory distress and no use of accessory muscles Auscultation: clear to auscultation bilaterally, no rales, no rhonchi and no wheezes Cardio Rate: regular rate Rhythm: regular rhythm Heart Sounds: no click, no gallops, no murmurs and no rubs Pulses: normal peripheral pulses GI Inspection: non-distended Palpation: soft, no hepatosplenomegaly, No guarding, No pulsatile mass and No tender Auscultation: normal bowel sounds Back/Spine/Pelvis Back: No CVA tenderness Cervical Spine: cervical ROM normal and No pain with cervical ROM Thoracic/Lumbar Spine: thoracic and lumbar spine normal to inspection Skin General: no rashes or lesions noted, erythema, No jaundice and No petechiae Other: An additional 10 cm of more faint erythema is noted to be starting on the patient's right buttock. Neuro General: alert, oriented x3, gait normal and no focal motor deficits Speech: speech normal Extrem General: full ROM, no clubbing, cyanosis or edema, no pedal edema and no calf tenderness Psych Appearance: well kempt Mental Status: mental status grossly normal Attitude: cooperative Thought Content: normal and suicidality Judgment: judgment good Course Course Narrative: Patient was worked up with labs and started on vancomycin. The patient was given the option to have a dose of vancomycin here and then go home and have IV antibiotics at up with her doctor tomorrow as she has done before. However, patient expressed concern about the rapid spread of this cellulitis, and felt that it would be better to have a period of observation as an inpatient, as she had when she has had a rapidly progressive infection before , it has been more difficult to get turned around. I felt this was reasonable, and I did arrange for admission to the hospital with Dr. Langston. Orders Ordered: Discontinued Medications Acetaminophen (Tylenol) 650 mg PO Q6HR PRN PRN Reason: As Needed for Fever/Mild Pain Last Admin: 02/14/18 09:26 Dose: 650 mg Hydrocodone Bitart/Acetaminophen ([place]ester 5/325) 1 tab PO Q4HR PRN PRN Reason: Pain, Moderate (4-6) Last Admin: 02/13/18 23:18 Dose: 1 tab Admin: 02/13/18 18:56 Dose: 1 tab Admin: 02/13/18 14:29 Dose: 1 tab Admin: 02/13/18 08:18 Dose: 1 tab Admin: 02/13/18 03:14 Dose: 1 tab Admin: 02/12/18 22:10 Dose: 1 tab Admin: 02/12/18 16:46 Dose: 1 tab Acyclovir (Zovirax) 400 mg PO BID [facility] Last Admin: 02/14/18 09:05 Dose: 400 mg Admin: 02/13/18 21:56 Dose: 400 mg Admin: 02/13/18 14:29 Dose: 400 mg Enoxaparin Sodium (Lovenox) 40 mg SUBCUT DAILY [facility] Last Admin: 02/14/18 09:09 Dose: Not Given Admin: 02/13/18 08:12 Dose: 40 mg Gabapentin (Neurontin) 600 mg PO TID [facility] Last Admin: 02/14/18 09:05 Dose: 600 mg Admin: 02/13/18 21:57 Dose: 600 mg Admin: 02/13/18 14:29 Dose: 600 mg Admin: 02/13/18 08:13 Dose: 600 mg Admin: 02/12/18 22:08 Dose: 600 mg Admin: 02/12/18 15:49 Dose: 600 mg Heparin Sodium (Porcine) (Heparin (Cl/Picc/Mid-Line)) 50 unit IV BID [facility] Last Admin: 02/14/18 10:13 Dose: 50 unit Admin: 02/13/18 22:53 Dose: 50 unit Heparin Sodium (Porcine) (Heparin (Cl/Picc/Mid-Line)) 50 unit IV PRN PRN PRN Reason: Flush Last Admin: 02/13/18 23:42 Dose: 50 unit Sodium Chloride (Normal Saline 0.9%) 1,000 mls @ 1,000 mls/hr IV BOLUS ONE Stop: 02/12/18 10:56 Last Admin: 02/12/18 10:52 Dose: 1,000 mls/hr Vancomycin HCl/Dextrose (Vancomycin) 1,000 mg in 200 mls @ 200 mls/hr IV NOW ONE Stop: 02/12/18 12:26 Last Infusion: 02/12/18 13:50 Dose: 0 mls/hr Admin: 02/12/18 12:08 Dose: 200 mls/hr Cefazolin Sodium/Dextrose (Ancef) 2 gm in 100 mls @ 200 mls/hr IV Q8H [facility] Last Infusion: 02/14/18 10:20 Dose: 0 mls/hr Admin: 02/14/18 09:07 Dose: 200 mls/hr Infusion: 02/13/18 23:41 Dose: 0 mls/hr Admin: 02/13/18 22:53 Dose: 200 mls/hr Infusion: 02/13/18 16:47 Dose: 200 mls/hr Admin: 02/13/18 16:17 Dose: 200 mls/hr Infusion: 02/13/18 09:00 Dose: 0 mls/hr Admin: 02/13/18 08:11 Dose: 200 mls/hr Infusion: 02/13/18 00:15 Dose: 0 mls/hr Admin: 02/12/18 23:40 Dose: 200 mls/hr Infusion: 02/12/18 16:35 Dose: 0 mls/hr Admin: 02/12/18 15:48 Dose: 200 mls/hr Dextrose/Sodium Chloride (Dextrose 5%-0.45% Ns) 1,000 mls @ 100 mls/hr IV CONT NINFA Last Infusion: 02/13/18 14:28 Dose: 0 mls/hr Admin: 02/13/18 03:14 Dose: 100 mls/hr Infusion: 02/13/18 01:48 Dose: 100 mls/hr Admin: 02/12/18 15:48 Dose: 100 mls/hr Sodium Chloride (Normal Saline 0.9%) 250 mls @ 21 mls/hr IV Q24H PRN PRN Reason: Flush Last Admin: 02/14/18 09:10 Dose: 21 mls/hr Infusion: 02/14/18 04:14 Dose: 21 mls/hr Admin: 02/13/18 16:19 Dose: 21 mls/hr Lactobacillus Acidophilus (Bacid Caplet) 1 each PO BIDWM [facility] Last Admin: 02/14/18 09:05 Dose: 1 each Admin: 02/13/18 17:50 Dose: 1 each Lorazepam (Ativan) 2 mg PO Q6HR PRN PRN Reason: Anxiety Morphine Sulfate (Morphine) 2 mg IV Q4HR PRN PRN Reason: Pain, Moderate (4-6) Sennosides (Senna) 17.2 mg PO BEDTIME NINFA Last Admin: 02/13/18 21:57 Dose: 17.2 mg Admin: 02/12/18 22:08 Dose: 17.2 mg Sertraline HCl (Zoloft) 25 mg PO BEDTIME NINFA Last Admin: 02/13/18 21:57 Dose: 25 mg Admin: 02/12/18 22:08 Dose: 25 mg Sodium Chloride (Normal Saline 0.9% Flush) 10 ml IV PRN PRN PRN Reason: Flush Last Admin: 02/14/18 10:13 Dose: 10 ml Admin: 02/13/18 16:19 Dose: 10 ml Sodium Chloride (Normal Saline 0.9% Flush) 10 ml IV BID NINFA Last Admin: 02/14/18 09:08 Dose: 10 ml Admin: 02/13/18 22:53 Dose: 10 ml Temazepam (Resoril) 30 mg PO BEDTIME PRN PRN Reason: Sleep Last Admin: 02/13/18 22:53 Dose: 30 mg Vital Signs - 8 hr 02/12/18 09:45 02/12/18 10:12 02/12/18 10:46 Temperature 97.4 F L Pulse Rate 87 78 80 Pulse Rate [Left Dorsalis Pedis] 75 Respiratory Rate 16 14 14 Blood Pressure 102/63 Blood Pressure [Left Arm] 97/41 L 111/53 L Pulse Oximetry 93 95 95 MDM - Extremity (Nontraumatic) Medical Records Attestation: I reviewed the patient's medical records. Lab Data Attestation: I reviewed the patient's lab results. Result diagrams: 02/13/18 06:27 02/13/18 06:27 Lab Results 02/12/18 02/12/18 02/12/18 Range/Units 10:45 10:45 10:45 WBC 10.9 (4.5-11.0) X10^3/uL RBC 4.11 (4.0-5.2) X10^6/uL Hgb 12.5 (12.0-16.0) g/dL Hct 37.2 (36-46) % MCV 90.7 (80-100) fL MCH 30.5 (26-34) PG MCHC 33.7 (30-36) % RDW 13.4 (11.6-14.8) % Plt Count 140 L (150-400) X10^3/uL Neut % (Auto) 90.7 H (50-75) % Lymph % (Auto) 5.0 L (25-40) % [place] % (Auto) 4.1 (3-14) % Eos % (Auto) 0.0 L (2-4) % Baso % (Auto) 0.2 (0-2) % Neut # (Auto) 9900 H (0855-0481) /uL PT 15.1 H (10.1-12.7) SECONDS INR 1.4 H (0.9-1.3) APTT 29 (26.4-36.2) SECONDS Sodium (137-145) mmol/L Potassium (3.4-5.1) mmol/L Chloride (98-107) mmol/L Carbon Dioxide (22-32) mmol/L BUN (7-17) mg/dL Creatinine (0.52-1.04) mg/dL Estimated GFR (>60) mL/min BUN/Creatinine Ratio (6-22) Glucose (70-100) mg/dL Lactate (0.7-2.1) mmol/L Calcium (8.4-10.2) mg/dL Total Bilirubin (0.2-1.3) mg/dL AST (14-36) IU/L ALT (9-52) IU/L Alkaline Phosphatase (38-126) U/L Total Protein (6.3-8.2) g/dL Albumin (3.5-5.0) g/dL Globulin (1.7-4.1) g/dL Albumin/Globulin Ratio (1.0-2.8) Lipase (23-300) U/L Procalcitonin 7.00 H (<0.5) ng/mL 02/12/18 02/12/18 02/13/18 Range/Units 10:45 10:45 06:27 WBC 6.6 (4.5-11.0) X10^3/uL RBC 3.89 L (4.0-5.2) X10^6/uL Hgb 11.9 L (12.0-16.0) g/dL Hct 35.3 L (36-46) % MCV 90.6 (80-100) fL MCH 30.5 (26-34) PG MCHC 33.6 (30-36) % RDW 13.4 (11.6-14.8) % Plt Count 123 L (150-400) X10^3/uL Neut % (Auto) 69.8 D (50-75) % Lymph % (Auto) 19.2 L (25-40) % [place] % (Auto) 9.8 (3-14) % Eos % (Auto) 1.0 L (2-4) % Baso % (Auto) 0.2 (0-2) % Neut # (Auto) 4600 (0670-2162) /uL PT (10.1-12.7) SECONDS INR (0.9-1.3) APTT (26.4-36.2) SECONDS Sodium 139 (137-145) mmol/L Potassium 3.2 L (3.4-5.1) mmol/L Chloride 102 (98-107) mmol/L Carbon Dioxide 27 (22-32) mmol/L BUN 16 (7-17) mg/dL Creatinine 0.70 (0.52-1.04) mg/dL Estimated GFR > 60.0 (>60) mL/min BUN/Creatinine Ratio 22.9 H (6-22) Glucose 105 H (70-100) mg/dL Lactate 0.8 (0.7-2.1) mmol/L Calcium 9.2 (8.4-10.2) mg/dL Total Bilirubin 0.6 (0.2-1.3) mg/dL AST 28 (14-36) IU/L ALT 35 (9-52) IU/L Alkaline Phosphatase 62 (38-126) U/L Total Protein 7.1 (6.3-8.2) g/dL Albumin 3.9 (3.5-5.0) g/dL Globulin 3.2 (1.7-4.1) g/dL Albumin/Globulin Ratio 1.2 (1.0-2.8) Lipase 39 (23-300) U/L Procalcitonin (<0.5) ng/mL 02/13/18 Range/Units 06:27 WBC (4.5-11.0) X10^3/uL RBC (4.0-5.2) X10^6/uL Hgb (12.0-16.0) g/dL Hct (36-46) % MCV (80-100) fL MCH (26-34) PG MCHC (30-36) % RDW (11.6-14.8) % Plt Count (150-400) X10^3/uL Neut % (Auto) (50-75) % Lymph % (Auto) (25-40) % [place] % (Auto) (3-14) % Eos % (Auto) (2-4) % Baso % (Auto) (0-2) % Neut # (Auto) (2421-4705) /uL PT (10.1-12.7) SECONDS INR (0.9-1.3) APTT (26.4-36.2) SECONDS Sodium 143 (137-145) mmol/L Potassium 3.1 L (3.4-5.1) mmol/L Chloride 106 (98-107) mmol/L Carbon Dioxide 26 (22-32) mmol/L BUN 10 (7-17) mg/dL Creatinine 0.70 (0.52-1.04) mg/dL Estimated GFR > 60.0 (>60) mL/min BUN/Creatinine Ratio 14.3 (6-22) Glucose 112 H (70-100) mg/dL Lactate (0.7-2.1) mmol/L Calcium 8.7 (8.4-10.2) mg/dL Total Bilirubin (0.2-1.3) mg/dL AST (14-36) IU/L ALT (9-52) IU/L Alkaline Phosphatase (38-126) U/L Total Protein (6.3-8.2) g/dL Albumin (3.5-5.0) g/dL Globulin (1.7-4.1) g/dL Albumin/Globulin Ratio (1.0-2.8) Lipase (23-300) U/L Procalcitonin (<0.5) ng/mL Point of Care Testing Test Results Negative Urine Dip Bedside Urine Glucose Negative Bedside Urine Bilirubin - Negative Bedside Urine Ketone - Negative Urine Specific [place] 1.010 Bedside Urine Occult Blood - Negative Bedside Urine pH 6 Bedside Urine Protein - Negative Bedside Urine Urobilinogen - Negative Bedside Urine Nitrite - Negative Bedside Urine Leukocytes - Negative Esterase Discharge Plan Departure Patient Disposition: Admitted As Inpatient Clinical Impression: Cellulitis Discharge Date/Time: 02/12/18 14:31 Interventions: ED Discharge Assessment Last Done: 02/12/18 14:30 Admit Date/Time: 02/12/18 13:45 Admit Provider: Rosa Maria Langston
== END 2018-02-14 13:35 | disposition home or self-care (01) | DRG 863 ==
LOC: ED 13:30 → AC 13:46
PROVIDERS: Admitting Provider Internal Medicine; Emergency Provider Emergency Medicine; Family Provider Nurse Practitioner Family; PCP Nurse Practitioner Family; Visit Provider Internal Medicine
DX: T81.40XA Infection following a procedure, unspecified, initial encounter (principal); L03.116 Cellulitis of left lower limb; L03.317 Cellulitis of buttock; E87.6 Hypokalemia; G62.9 Polyneuropathy, unspecified; Z85.830 Personal history of malignant neoplasm of bone; Z87.891 Personal history of nicotine dependence
CPT/HCPCS: 36415; 36591; 80048; 80053; 81003; 81025; 83605; 83690; 84145; 85025; 85610; 85730; 87040; 96365; 96367; 99283; 99284; J0690; J1642; J1650; J3370

== ENCOUNTER → 2019-01-02 08:41 | Outpatient (CLI) | payer MEDICARE, SELFPAY ==
[2018-02-12 14:36] VITALS: BMI 35.6
--- NOTE | 2019-01-02 | DI.CT.S_ITS ---
PROCEDURE: CT CHEST WO CON INDICATIONS: Prior 2014 history of sarcoma, evaluate for metastatic disease. TECHNIQUE: Noncontrast 5 mm thick sections acquired from the pulmonary apices to the posterior costophrenic angles. 1 mm lung window, 5 mm thick coronal and sagittal and 7 mm axial MIP reformats were then acquired. For radiation dose reduction, the following was used: automated exposure control, adjustment of mA and/or kV according to patient size. COMPARISON: None. FINDINGS: Image quality: Excellent. Lungs and pleura: No acute air space opacities. No pleural effusions or pneumothorax. Central and peripheral airways are patent and normal in caliber. Mediastinum: Heart size is normal. No pericardial effusion. No mediastinal adenopathy by size criteria. Thoracic aorta and central pulmonary arteries are normal in size. Esophagus is normal in caliber. No hiatal hernia. Bones and chest wall: No suspicious bony lesions. No vertebral body compression fractures. No axillary or supraclavicular adenopathy by size criteria. Thyroid gland is not well-visualized by this noncontrast technique. Abdomen: Visualized upper abdominal solid organs and bowel loops appear normal in the absence of contrast. IMPRESSION: No evidence of metastatic disease related to prior history of sarcoma. No underlying evidence of pneumonia or neoplasm is found. Dictated by: Vinnie Rodriguez M.D. on 01/02/2019 at 12:12 Approved by: Vinnie Rodriguez M.D. on 01/02/2019 at 12:14
--- NOTE | 2019-01-02 | DI.MRI.S_ITS ---
PROCEDURE: MR LOWER LEG LT WO/W CON INDICATIONS: SARCOMA TECHNIQUE: Noncontrast coronal T1 spin echo and STIR, sagittal T1 spin echo with fat saturation and STIR, axial T1 spin echo and T2 fast spin echo with fat saturation. After the administration of contrast, axial/sagittal/coronal T1 spin echo with fat saturation through the left tibia. COMPARISON: [facility], CT, CT PELVIS WITH CONTRAST, 07/06/2018, 11:14. Outside Facility, RG, MRI PELVIS W/WO CONTRAST, 03/31/2016, 14:45. [facility], MR, MR TIBIA FIBULA LEFT WITH/WITHOUT CONTRAST, 09/18/2018, 10:31. FINDINGS: Image quality: Excellent. Bones: The visualized bone marrow demonstrates normal signal on all sequences. There is redemonstration of periosteal and/or adjacent soft tissue enhancement at the level of the anterior mid left tibia, demonstrating amorphous appearance without definite masslike margins. Overall size and extent probably unchanged since 09/18/18. Overall, this measures 16 x 3 mm, however irregular margins preclude exact measurement. Soft tissues: Diffuse muscle atrophy IMPRESSION: Overall, grossly unchanged appearance of amorphous T2 hyperintensity and enhancement involving the anterior mid left tibial periosteum and adjacent subcutaneous soft tissue which is nonspecific. Differential remains unchanged from prior study dated 09/18/18 and recommend continued clinical and imaging surveillance (versus histologic sampling) since neoplasm cannot be excluded. Diffuse muscle atrophy. Dictated by: Demetrius Tang M.D. on 01/02/2019 at 10:52 Approved by: Demetrius Tang M.D. on 01/02/2019 at 11:03
--- NOTE | 2019-01-02 10:29 | DI.CT.S_ITS ---
PROCEDURE: CT PELVIS W CON INDICATIONS: SARCOMA TECHNIQUE: After the administration of intravenous contrast, 5 mm thick sections acquired from the iliac crests to the symphysis. 5 mm coronal and sagittal reformats were acquired. For radiation dose reduction, the following was used: automated exposure control, adjustment of mA and/or kV according to patient size. COMPARISON: [facility], CT, CT PELVIS WITH CONTRAST, 12/28/2017, 11:44. [facility], CT, CT PELVIS WITH CONTRAST, 07/06/2018, 11:14. FINDINGS: Image quality: Excellent. Peritoneum and bowel: Bowel loops demonstrate normal wall thickness and caliber. No free fluid or air. Genitourinary: Bladder wall thickness is normal. Nodes and vessels: No iliac, pelvic, or inguinal adenopathy by size criteria. Iliac vessels demonstrate normal size and enhancement. Bones: No suspicious bony lesions. Subcentimeter sclerosis within the left iliac wing is unchanged. Miscellaneous: No inguinal hernias. Postsurgical sequela related to resection of the left gluteal region. There is superficial fascial and subcutaneous stranding, scattered surgical clips and calcifications, with overall unchanged appearance. Ill-defined soft tissue scarring, and overlying skin deformity and thickening is seen, also unchanged. IMPRESSION: Overall, grossly stable examination with no specific evidence of residual or recurrent active tumor. Dictated by: Demetrius Tang M.D. on 01/02/2019 at 16:13 Approved by: Demetrius Tang M.D. on 01/02/2019 at 16:18
== END ==
PROVIDERS: Family Provider Nurse Practitioner Family; PCP Nurse Practitioner Family
DX: Z08 Encounter for follow-up examination after completed treatment for malignant neoplasm (principal); Z85.831 Personal history of malignant neoplasm of soft tissue; M62.562 Muscle wasting and atrophy, not elsewhere classified, left lower leg
CPT/HCPCS: 71250; 72193; 73720; Q9967

== ENCOUNTER 2019-02-24 17:44 | Observation (INO) | payer MEDICARE, SELFPAY ==
[2018-02-12 14:36] VITALS: BMI 35.6
[2019-02-24 17:47] VITALS: BP 99/63; PULSE 71; RESP 18; TEMP 36.6; O2SAT 98; BMI 34.2
--- NOTE | 2019-02-24 18:38 | ED_ITS ---
HPI - Skin/Abscess/Foreign Bdy General Chief complaint: Skin/Abscess/Foreign Body Stated complaint: cellulitis in hip Time Seen by Provider: 02/24/19 18:03 Source: patient Mode of arrival: Ambulatory Limitations: no limitations History of Present Illness HPI narrative: 38-year-old female nonsmoker with history of soft tissue osteosarcoma and recurrent cellulitis of the left hip presents to the emergency department with rapid onset pain, redness warmth overlying the surgical site on her left hip. She had fever and shaking chills with nausea and weakness starting last night. She denies chest pain or shortness of breath. She denies any bowel or urinary complaints. Her last admission for the same was about 1 year ago. MD complaint: other Onset (ago): hour(s) Tetanus up to date: yes Location: LLE Severity: moderate Quality: burning and aching Pain Consistency: constant Relieving factors: none Exacerbating factors: none Context: none Associated symptoms: fever and chills Treatments prior to arrival: none Related Data Previous Rx's Medication Instructions Recorded gabapentin 600 mg tablet 600 mg PO BID #180 tab 12/14/18 sertraline 100 mg tablet 100 mg PO DAILY #90 tab 01/29/19 Allergies Allergy/AdvReac Type Severity Reaction Status Date / Time levofloxacin [From LEVAQUIN] Allergy Severe TENDON AND Verified 10/30/18 14:23 JOINT PAIN omeprazole [OMEPRAZOLE] Allergy Severe RASH Verified 10/30/18 14:23 Review of Systems Constitutional Constitutional: Denies chills, Denies fatigue, Denies fever(s), Denies frequent falls, Denies lethargy and Denies weakness Eyes Eyes: Denies change in vision, Denies eye discharge, Denies irritation and Slim es loss of vision ENT Ears, Nose, Mouth, and Throat: Denies change in voice, Denies dizziness, Denies neck pain, Denies sore throat and Denies throat swelling Cardiovascular Cardiovascular: Denies chest pain, Denies irregular heart rhythm, Denies lightheadedness, Denies palpitations, Denies dyspnea, Denies dyspnea on exertion and Denies orthopnea Respiratory Respiratory: Denies cough, Denies dyspnea, Denies dyspnea on exertion and Denies wheezing Gastrointestinal Gastrointestinal: Denies abdominal pain, Denies change in bowel habits, Denies diarrhea, Denies nausea and Denies vomiting Genitourinary Genitourinary: Denies hematuria, Denies flank pain, Denies urinary incontinence and Denies urinary urgency Musculoskeletal Musculoskeletal: Denies back pain, Denies muscle weakness, Denies neck pain, Denies numbness and Denies tingling Integumentary/Breasts Skin/Breast: Denies pruritus, Reports erythema, Denies rash, Reports skin swelling and Denies wounds Neurologic Neurologic: Denies behavioral changes, Denies confusion, Denies dizziness, Denies frequent falls, Denies loss of vision, Denies numbness, Denies tingling and Denies weakness Psychiatric Psychiatric: Denies anxiety, Denies behavioral changes, Denies confusion, Denies depression, Denies homicidal ideation and Denies suicidal ideation Endocrine Endocrine: Denies fatigue, Denies flushing and Denies palpitations Hematologic/Lymphatic Hematologic/Lymphatic: Denies easy bruising Allergic/Immunologic Allergic/Immunologic: Denies urticaria, Denies throat swelling and Denies wheezing Patient History Medical History Clostridium difficile diarrhea (Acute) Nerve damage (Acute) Nerve damage of foot (Acute) Neutropenia (Inactive) Osteosarcoma of bone (Acute) Surgical History Anesthesia (Resolved) History of surgery (Resolved) Infection (Inactive) Status post skin flap graft (Acute) Tumor (Resolved) Family History Father Pacemaker Mental health problem Social History household members: significant other and children Smoking Status: Former smoker Tobacco: How many years used: 8 second hand exposure: No alcohol intake: current alcohol intake frequency: holidays/special occasions only Substance Use Type: does not use Exam Narrative Exam Narrative: GENERAL: [38] year old patient appears stated age. Well- nourished, well-developed patient, in mild distress. HEAD: Atraumatic. Normocephalic. EYES: Pupils equal round and reactive. Extraocular motions intact. No scleral icterus. No injection or drainage. ENT: Nose without bleeding, purulent drainage. Throat without erythema, tonsillar hypertrophy or exudate. Airway patent. NECK: Trachea midline. Non tender CARDIOVASCULAR: Regular rate and rhythm without murmurs, gallops, or rubs. RESPIRATORY: Clear to auscultation. Breath sounds equal bilaterally. No wheezes, rales, or rhonchi. GASTROINTESTINAL: Abdomen soft, non-tender, nondistended. EXTREMITIES: No edema or joint tenderness. BACK: Nontender without deformity or crepitance. No flank tenderness. NEURO: AOx3. SKIN: Well demarcated erythema overlying well-healed incision site on left hip warm to the touch and tender. No induration or fluctuance to suggest abscess. Initial Vital Signs Initial Vital Signs: Vital Signs Temperature 97.9 F 02/24/19 17:47 Pulse Rate 71 02/24/19 17:47 Respiratory Rate 18 02/24/19 17:47 Blood Pressure 99/63 02/24/19 17:47 Pulse Oximetry 98 02/24/19 17:47 Course Orders Ordered: ED Orders 02/24/19 18:49 Lactate (Lactic Acid) Stat 02/24/19 19:16 Basic Metabolic Panel Stat Blood Culture Stat C-Reactive Protein Quant Stat Complete Blood Count AUTO DIFF Stat Erythrocyte Sedimentation Rate Stat Acetaminophen (Tylenol) 650 mg PO Q6HR PRN PRN Reason: As Needed for Fever/Mild Pain Al Hydrox/Mg Hydrox/Simethicone (Maalox Plus) 30 ml PO Q6HR PRN PRN Reason: Dyspepsia Calcium Carbonate (Tums) 1,000 mg PO Q4HR PRN PRN Reason: Dyspepsia Enoxaparin Sodium (Lovenox) 40 mg SUBCUT DAILY [facility] Gabapentin (Neurontin) 600 mg PO BID [facility] Last Admin: 02/24/19 21:03 Dose: 600 mg Documented by: JACEY Lactated Ringer's (Lactated Ringers) 1,000 mls @ 75 mls/hr IV CONT [facility] Last Admin: 02/24/19 21:03 Dose: 75 mls/hr Documented by: JACEY Cefazolin Sodium/Dextrose (Ancef) 2 gm in 100 mls @ 200 mls/hr IV Q8H [facility] Ibuprofen (Advil) 600 mg PO Q6HR PRN PRN Reason: As Needed for Fever/Mild Pain Naloxone HCl (Narcan) 0.2 mg IV Q2MIN PRN PRN Reason: Opiate Reversal Ondansetron HCl (Zofran) 4 mg IV Q8HR PRN PRN Reason: Nausea And Vomiting Oxycodone HCl (Percolone) 5 mg PO Q4HR PRN PRN Reason: Pain, Moderate (4-6) Sertraline HCl (Zoloft) 100 mg PO DAILY NINFA Discontinued Medications Cefazolin Sodium/Dextrose (Ancef) 2 gm in 100 mls @ 200 mls/hr IV NOW ONE Stop: 02/24/19 19:17 Last Infusion: 02/24/19 19:57 Dose: 0 mls/hr Documented by: Admin: 02/24/19 19:15 Dose: 200 mls/hr Documented by: DOREEN Sodium Chloride (Normal Saline 0.9%) 1,000 mls @ 1,000 mls/hr IV BOLUS ONE Stop: 02/24/19 19:56 Last Infusion: 02/24/19 20:36 Dose: 0 mls/hr Documented by: Admin: 02/24/19 19:15 Dose: 1,000 mls/hr Documented by: DOREEN Ketorolac Tromethamine (Toradol) 15 mg IV NOW ONE Stop: 02/24/19 18:49 Last Admin: 02/24/19 19:15 Dose: 15 mg Documented by: DOREEN Vital Signs Vital signs: Vital Signs - 8 hr 02/24/19 17:47 Temperature 97.9 F Pulse Rate 71 Respiratory Rate 18 Blood Pressure 99/63 Pulse Oximetry 98 MDM - Skin/Abscess/Foreign Bdy Lab Data Result diagrams: 02/24/19 19:16 02/24/19 19:16 Labs: Lab Results 02/24/19 02/24/19 02/24/19 Range/Units 18:49 19:16 19:16 WBC (4.5-11.0) X10^3/uL RBC (4.0-5.2) X10^6/uL Hgb (12.0-16.0) g/dL Hct (36-46) % MCV (80-100) fL MCH (26-34) PG MCHC (30-36) % RDW (11.6-14.8) % Plt Count (150-400) X10^3/uL Neut % (Auto) (50-75) % Lymph % (Auto) (25-40) % [place] % (Auto) (3-14) % Eos % (Auto) (2-4) % Baso % (Auto) (0-2) % Neut # (Auto) (2647-3124) /uL Lymph # (Auto) (1155-7483) /uL [place] # (Auto) (0-900) /uL Eos # (Auto) (0-450) /uL Baso # (Auto) (0-100) /uL ESR 48 H (0-20) MM/HR Sodium 140 (137-145) mmol/L Potassium 3.3 L (3.4-5.1) mmol/L Chloride 104 (98-107) mmol/L Carbon Dioxide 29 (22-32) mmol/L BUN 18 H (7-17) mg/dL Creatinine 0.70 (0.52-1.04) mg/dL Estimated GFR > 60.0 (>60) mL/min BUN/Creatinine Ratio 25.7 H (6-22) Glucose 120 H (70-100) mg/dL Lactate 0.7 (0.7-2.1) mmol/L Calcium 9.2 (8.4-10.2) mg/dL C-Reactive Protein 20.0 H (<1.0) mg/dL 02/24/19 Range/Units 19:16 WBC 6.7 (4.5-11.0) X10^3/uL RBC 4.08 (4.0-5.2) X10^6/uL Hgb 12.6 (12.0-16.0) g/dL Hct 37.3 (36-46) % MCV 91.5 (80-100) fL MCH 30.8 (26-34) PG MCHC 33.6 (30-36) % RDW 13.3 (11.6-14.8) % Plt Count 141 L (150-400) X10^3/uL Neut % (Auto) 79.6 H (50-75) % Lymph % (Auto) 14.4 L (25-40) % [place] % (Auto) 4.3 (3-14) % Eos % (Auto) 1.0 L (2-4) % Baso % (Auto) 0.7 (0-2) % Neut # (Auto) 5300 (4025-6385) /uL Lymph # (Auto) 1000 L (9473-5592) /uL [place] # (Auto) 300 (0-900) /uL Eos # (Auto) 100 (0-450) /uL Baso # (Auto) 0 (0-100) /uL ESR (0-20) MM/HR Sodium (137-145) mmol/L Potassium (3.4-5.1) mmol/L Chloride (98-107) mmol/L Carbon Dioxide (22-32) mmol/L BUN (7-17) mg/dL Creatinine (0.52-1.04) mg/dL Estimated GFR (>60) mL/min BUN/Creatinine Ratio (6-22) Glucose (70-100) mg/dL Lactate (0.7-2.1) mmol/L Calcium (8.4-10.2) mg/dL C-Reactive Protein (<1.0) mg/dL MDM Narrative Medical decision making narrative: Patient with rapid onset symptoms consistent with cellulitis and the presence of systemic findings such as fever and shaking chills will warrants labs including cultures, IV and admission Discharge Plan Departure Patient Disposition: Admitted as Observation Clinical Impression: Cellulitis Qualifiers: Site of cellulitis: extremity Site of cellulitis of extremity: lower extremity Laterality: left Qualified Code(s): L03.116 - Cellulitis of left lower limb Discharge Date/Time: 02/24/19 20:37 Referrals: Jesse Munson ARNP [Primary Care Provider] - Admit Date/Time: 02/24/19 19:31 Admit Provider: Carlos Birmingham
[2019-02-24] MEDS: SODIUM CHLORIDE 0.9% 1,000 ML 1000 ML IV (19:15)
[2019-02-24] MEDS: CEFAZOLIN 2 GM/100 ML FROZ.PIGGY IV (19:15)
[2019-02-24] MEDS: KETOROLAC 60 MG/2 ML VIAL 15 MG IV (19:15)
[2019-02-24 19:24] LABS: Add Manual Diff / Slide Review NO; Basophils Absolute Auto 0 /uL (0-100); Basophils Percent Auto 0.7 % (0-2); Eosinophils Absolute Auto 100 /uL (0-450); Hematocrit 37.3 % (36-46); Hemoglobin 12.6 g/dL (12.0-16.0); Lymphocytes Absolute Auto 1000 /uL (1100-4500); Lymphocytes Percent Auto 14.4 % (25-40); Mean Corpuscular HGB Conc 33.6 % (30-36); Mean Corpuscular Hemoglobin 30.8 PG (26-34); Mean Corpuscular Volume 91.5 fL (80-100); Monocytes Absolute Auto 300 /uL (0-900); Monocytes Percent Auto 4.3 % (3-14); Neutrophils Absolute Auto 5300 /uL (1500-7000); Neutrophils Percent Auto 79.6 % (50-75); Platelet Count 141 X10^3/uL (150-400); Red Blood Cell Count 4.08 X10^6/uL (4.0-5.2); Red Cell Distribution Width 13.3 % (11.6-14.8); White Blood Cell Count 6.7 X10^3/uL (4.5-11.0)
[2019-02-24 19:33] LABS: BUN Creatinine Ratio 25.7 (6-22); Blood Urea Nitrogen 18 mg/dL (7-17); Calcium 9.2 mg/dL (8.4-10.2); Carbon Dioxide 29 mmol/L (22-32); Chloride 104 mmol/L (98-107); Estimated Glomerular Filt Rate > 60.0 mL/min (>60); Glucose 120 mg/dL (70-100); HEMOLYSIS 17 (0-50); Potassium 3.3 mmol/L (3.4-5.1); Sodium 140 mmol/L (137-145)
[2019-02-24 19:42] LABS: Lactate (Lactic Acid) 0.7 mmol/L (0.7-2.1)
[2019-02-24 19:45] LABS: Erythrocyte Sedimentation Rate 48 MM/HR (0-20)
[2019-02-24 20:31] VITALS: BP 111/60; PULSE 65; RESP 20; TEMP 36.4; O2SAT 100
[2019-02-24 20:36] VITALS: BP 106/67; PULSE 73; O2SAT 98
[2019-02-24 20:41] VITALS: BMI 34.2
[2019-02-24] MEDS: LACTATED RINGERS 1,000 ML 75 ML IV (21:03)
[2019-02-24] MEDS: GABAPENTIN 600 MG TABLET PO (21:03)
--- NOTE | 2019-02-24 21:57 | PC.ADMIT ---
1820 36 Admission Note: The patient,Umm Beltran,38 y/o, was given written information regarding hospital policies, unit procedures and contact persons. Patient's smoking status: Former smoker. Vital Signs - 8 hr 02/24/19 17:47 02/24/19 20:31 02/24/19 20:36 Temperature 97.9 F 97.5 F L Pulse Rate 71 65 73 Respiratory Rate 18 20 Blood Pressure 99/63 111/60 Blood Pressure [Right Arm] 106/67 Pulse Oximetry 98 100 98 Patient admitted to room 220 from ED, awake, alert, and pleasant. VSS and afebrile. Oriented to room, environment, and plan of care. Call light within reach
[2019-02-24] MEDS: OXYCODONE IR 5 MG TABLET PO (21:59)
[2019-02-24 23:30] VITALS: BP 122/71; PULSE 78; RESP 16; TEMP 37.7; O2SAT 98
--- NOTE | 2019-02-24 23:54 | PM.HP.1 ---
History of Present Illness History of Present Illness Date Patient Seen: 02/24/19 Time Patient Seen: 19:30 Chief complaint: cellulitis in hip Narrative: Ms. 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 The patient states her symptoms began last night with fingers, rigors, dizziness and nausea yesterday. She states she has been feeling weaker and groggy for the last few days. She describes pain in her left hip described as a constant burning and aching. She states that this is a similar episode for which was admitted 1 year ago. The patient receives care with the [facility] and was last seen reportedly 2 weeks ago. The patient denies complaints of headaches, nasal congestion or sore throat. She denies chest pain or palpitations, shortness of breath cough or wheezing. She has no abdominal pain and has had no further nausea or vomiting. She does endorse painful lymph nodes in the groin bilaterally. She reports no change in bowel or bladder habits. 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 She has no other assistive devices. Upon arrival the patient is afebrile with a temperature of 97.5?, heart rate of 65, blood pressure 111/60, respirations 20 saturating 100% on room air. On lab work the patient has a normal white count at 6.7, hemoglobin of 12.6 and hematocrit of 37.3 and platelets of 141. She is noted to have an ESR of 48 and CRP of 20. Lactic acid is negative at 0.7. On chemistry she is noted to have low potassium 3.3 and a BUN of 18 and creatinine 0.7 nonfasting glucose of 120. She has an EGFR of 60 with a BUN creatinine ratio of 25.7. While in the ER the patient received a normal saline bolus and Toradol for pain. She started on cefazolin 2 g IV and is admitted to the medicine service for IV antibiotic therapy for recurrent cellulitis. Patient History Medical History Anxiety (Inactive ~1977) Cellulitis (Inactive) Clostridium difficile diarrhea (Acute) Depression (Inactive ~1977) Hypokalemia (Inactive) Nerve damage of foot (Acute) Osteosarcoma of bone (Acute) Surgical History History of surgery (Resolved) Infection (Inactive) Status post skin flap graft (Acute) Tumor (Resolved) Family & Social History Family History Father Pacemaker Mental health problem Mother No significant medical problems Brother No significant medical problems Sister No significant medical problems Social History: household members significant other,children Prior Living Arrangements House Safety & Behavioral: Feels Safe in Current Yes Environment Tobacco & Substance use: Smoking Status Former smoker alcohol intake current alcohol intake frequency holiday/special occasion Substance Use Type does not use Comment: Patient lives in a single family home with her significant other whom she has been with for 6 years in 2 children. The patient states her father has a history of mental health issues and has had a pacemaker implantation however the rest of her family members have no significant medical history and denies further history of cancer, cardiac disease, respiratory or renal disease. Occupation: The patient is not currently working Smoking: The patient reports smoking approximately 1/2 pack per day for 8 years quitting in 1998. Alcohol: Patient describes occasional alcohol consumption approximately once per month. Substance use: The patient uses CBD tincture and at doubles for pain and anxiety. Advanced directives: The patient has no formal advanced directives but states her desire to be FULL CODE. She designates her significant other Nabeel Arreola to be her surrogate decision maker. Meds Home Medications and Allergies Home Medications Medication Instructions Recorded Confirmed Type gabapentin 600 mg tablet 600 mg PO BID #180 tab 12/14/18 02/24/19 Rx sertraline 100 mg tablet 100 mg PO DAILY #90 tab 01/29/19 02/24/19 Rx Allergies Allergy/AdvReac Type Severity Reaction Status Date / Time levofloxacin [From LEVAQUIN] Allergy Severe TENDON AND Verified 10/30/18 14:23 JOINT PAIN omeprazole [OMEPRAZOLE] Allergy Severe RASH Verified 10/30/18 14:23 Review of Systems Review of Systems Narrative: All systems are reviewed and unremarkable except as noted in HPI. Exam Vital Signs (past 8 hours): - 02/24/19 17:47 12/01/19 20:31 02/24/19 20:36 Temperature 97.9 F 97.5 F L Pulse Rate 71 65 73 Respiratory Rate 18 20 Blood Pressure 99/63 111/60 Blood Pressure [Right Arm] 106/67 Pulse Oximetry 98 100 98 Oxygen Delivery Method Room Air Oxygen Flow Rate 0 Narrative Exam Narrative: GENERAL APPEARANCE: well developed, overweight female appearing her stated age in no acute distress. HEENT: Normocephalic, PERRLA, conjunctiva clear, EOMs intact, no rhinorrhea, mucous membranes are moist and pink without lesions or exudate. NECK/THYROID: neck supple, no JVD, no thyromegaly, trachea midline. LYMPH NODES: no cervical or supraclavicular lymphadenopathy, pain on palpation bilateral inguinal lymph nodes. SKIN: [place], warm and dry, tissue deformity left hip extending antibiotic with deep crevices with surrounding redness warmth and tenderness on palpation left hip extending from iliac crest into the proximal thigh and lateral buttock. HEART: regular rate and rhythm, S1-S2, no murmur, no rubs or gallops, brisk capillary refill, no edema LUNGS: clear to auscultation bilaterally, no coarseness crackles or wheezing, no cough present CHEST: Symmetrical movement, no accessory muscle use. ABDOMEN: Well-healed surgical scar left lower abdomen, soft, no distention, no abdominal tenderness, no guarding, no organomegaly, no flank tenderness, active bowel tones. BACK: Normal curvature, nontender to palpation, no CVA tenderness on percussion EXTREMITIES: moves all extremities, left foot is flaccid. NEUROLOGIC: AAO x4, cranial nerves II-XII grossly intact, slight sensation left foot on deep pressure, no other sensory deficits. PSYCH: Calm, linear thought process, cooperative, appropriate with stable behavior, no thoughts of self-harm. Objective Labs Result Diagrams: 02/24/19 19:16 02/24/19 19:16 Labs: Laboratory Results - last 24 hr 02/24/19 02/24/19 02/24/19 18:49 19:16 19:16 WBC RBC Hgb Hct MCV MCH MCHC RDW Plt Count Neut % (Auto) Lymph % (Auto) [place] % (Auto) Eos % (Auto) Baso % (Auto) Neut # (Auto) Lymph # (Auto) [place] # (Auto) Eos # (Auto) Baso # (Auto) ESR 48 H Sodium 140 Potassium 3.3 L Chloride 104 Carbon Dioxide 29 BUN 18 H Creatinine 0.70 Estimated GFR > 60.0 BUN/Creatinine Ratio 25.7 H Glucose 120 H Lactate 0.7 Calcium 9.2 C-Reactive Protein 20.0 H 02/24/19 19:16 WBC 6.7 RBC 4.08 Hgb 12.6 Hct 37.3 MCV 91.5 MCH 30.8 MCHC 33.6 RDW 13.3 Plt Count 141 L Neut % (Auto) 79.6 H Lymph % (Auto) 14.4 L [place] % (Auto) 4.3 Eos % (Auto) 1.0 L Baso % (Auto) 0.7 Neut # (Auto) 5300 Lymph # (Auto) 1000 L [place] # (Auto) 300 Eos # (Auto) 100 Baso # (Auto) 0 ESR Sodium Potassium Chloride Carbon Dioxide BUN Creatinine Estimated GFR BUN/Creatinine Ratio Glucose Lactate Calcium C-Reactive Protein Assessment & Plan Assessment & Plan narrative: This is a 38-year-old female patient with a rapid onset of recurrent cellulitis left hip at site of previous cellulitis and multiple surgical interventions with associated systemic symptoms of weakness, fevers, rigors and nausea. 1. Acute cellulitis left hip, present on admission, active -patient with acute redness, warmth and pain on palpation over left hip rapid in onset. -patient with significant deformity of the left buttock and hip status post myocutaneous flap with no visible wounds or drainage. -patient with systemic symptoms including fevers, rigors and nausea. -elevated CRP at 20 and ESR at 48. -patient started on cefazolin 2 g IV every 8 hours. 2. Hypokalemia, acute, present on admission, active -patient with a potassium of 3.3 on admission -potassium K rider ordered -will recheck potassium level in the morning 3. Anxiety and depression, chronic, stable -stable mood and affect, no thoughts of self harm. -will continue sertraline 100 mg daily 4. 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 -patient reports minimal impairment of mobility, uses AFO brace left foot. -will continue gabapentin 600 mg twice daily. VTE prophylaxis: Bilateral SCDs, Lovenox 40 mg daily The patient is admitted to the hospital related to the rapid onset and systemic symptoms associated with cellulitis and the risk for potential complications and adverse events. The patient is admitted as an outpatient with expected length of stay to be less than 2 midnights. Scores GCS Ronaldo coma scale eye opening: Spontaneous [place] coma scale verbal response: Orientated [place] coma scale motor response: Obey commands Ronaldo coma scale total score: 15
[2019-02-25] MEDS: CEFAZOLIN 2 GM/100 ML FROZ.PIGGY IV ×2 (01:05→09:40)
[2019-02-25] MEDS: IBUPROFEN 600 MG TABLET PO ×2 (01:11→09:41)
[2019-02-25] MEDS: POTASSIUM CHLORIDE 40 MEQ in SODIUM CHLORIDE 0.9% 500 ML 130 ML IV (02:04)
[2019-02-25] MEDS: OXYCODONE IR 5 MG TABLET PO ×3 (02:09→14:04)
[2019-02-25 04:20] VITALS: BP 115/57; PULSE 61; RESP 16; TEMP 37.1; O2SAT 96
[2019-02-25] MEDS: SODIUM CHLORIDE 0.9% FLUSH 10 ML IV ×2 (06:19→09:41)
--- NOTE | 2019-02-25 06:24 | PC.NURSE ---
Pt. requested to stop IVF & her K-rider 40 meq. infused 328 cc. C/O IVP keeps alarming & she did not able to sleep. ELINOR Birmingham notified IVF & K-rider discontinued, Celsa from lab notified. Will monitor.
[2019-02-25 07:25] LABS: Add Manual Diff / Slide Review NO; Basophils Absolute Auto 0 /uL (0-100); Basophils Percent Auto 0.3 % (0-2); Eosinophils Absolute Auto 100 /uL (0-450); Eosinophils Percent Auto 1.8 % (2-4); Hematocrit 32.5 % (36-46); Lymphocytes Absolute Auto 1500 /uL (1100-4500); Lymphocytes Percent Auto 25.7 % (25-40); Mean Corpuscular HGB Conc 33.8 % (30-36); Mean Corpuscular Hemoglobin 30.9 PG (26-34); Mean Corpuscular Volume 91.3 fL (80-100); Monocytes Absolute Auto 500 /uL (0-900); Monocytes Percent Auto 9.2 % (3-14); Neutrophils Absolute Auto 3700 /uL (1500-7000); Platelet Count 135 X10^3/uL (150-400); Red Blood Cell Count 3.56 X10^6/uL (4.0-5.2); Red Cell Distribution Width 13.2 % (11.6-14.8); White Blood Cell Count 5.9 X10^3/uL (4.5-11.0)
[2019-02-25 07:30] LABS: BUN Creatinine Ratio 23.3 (6-22); Blood Urea Nitrogen 14 mg/dL (7-17); Calcium 8.5 mg/dL (8.4-10.2); Carbon Dioxide 26 mmol/L (22-32); Chloride 109 mmol/L (98-107); Estimated Glomerular Filt Rate > 60.0 mL/min (>60); Glucose 85 mg/dL (70-100); HEMOLYSIS < 15 (0-50); Potassium 3.8 mmol/L (3.4-5.1); Sodium 141 mmol/L (137-145)
[2019-02-25 07:47] LABS: C-Reactive Protein Quant 13.6 mg/dL (<1.0)
[2019-02-25 08:00] VITALS: BP 111/63; PULSE 62; RESP 16; TEMP 36.6; O2SAT 96
--- NOTE | 2019-02-25 09:15 | CM.DANOTE ---
Addendum entered by Kortney Lombardi R.N. 02/25/19 09:21: Is noted that patient is Medicaid/Medicare. Home Infusions may cover her since she is Medicaid. Original Note: DCP: Case received, EMR reviewed and met with patient. Introduced self and role. Was able to obtain baseline history and health information from patient. DCP assessment completed with information currently available. Patient is a 38 year old female who admitted yesterday evening to the care of the hospitalist team. PCP: ELINOR Carroll. Payer: confirmed: Medicare. Patient came to the hospital via family vehicle secondary to concerns about redness and possible infection in her hip. Patient holds diagnosis of cellulitis, and is on IV antibiotics. She also has history of osteosarcoma, and recurrent cellulitis. At this time, is pending culture. Met with patient in her room, she is alert and oriented. She resides here in [place] with her life partner, Nabeel Arreola, and other family members. Asked her if she had ever had home infusions before, and stated, she has. At this time, patient has peripheral line in. P: DCP will follow closely. Will see what cultures show, and if she will need rn long term care antibiotics at discharge. She is Medicare, so she may need to have outpatient infusion set up. Kortney Lombardi RN/Flux Plant Operator
[2019-02-25] MEDS: GABAPENTIN 600 MG TABLET PO (09:38)
[2019-02-25] MEDS: SERTRALINE 50 MG TABLET 100 MG PO (09:39)
[2019-02-25] MEDS: ACETAMINOPHEN 325 MG TABLET 650 MG PO (09:39)
[2019-02-25 11:15] VITALS: BP 112/72; PULSE 63; RESP 16; TEMP 37.1; O2SAT 97
--- NOTE | 2019-02-25 14:38 | P.DS_ITS ---
History of Present Illness History of Present Illness Date Patient Seen: 02/24/19 Chief complaint: cellulitis in hip Narrative: Written by Carlos ALDRICH: Ms. 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 The patient states her symptoms began last night with fingers, rigors, dizziness and nausea yesterday. She states she has been feeling weaker and groggy for the last few days. She describes pain in her left hip described as a constant burning and aching. She states that this is a similar episode for which was admitted 1 year ago. The patient receives care with the [facility] and was last seen reportedly 2 weeks ago. The patient denies complaints of headaches, nasal congestion or sore throat. She denies chest pain or palpitations, shortness of breath cough or wheezing. She has no abdominal pain and has had no further nausea or vomiting. She does endorse painful lymph nodes in the groin bilaterally. She reports no change in bowel or bladder habits. 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 She has no other assistive devices. Upon arrival the patient is afebrile with a temperature of 97.5?, heart rate of 65, blood pressure 111/60, respirations 20 saturating 100% on room air. On lab work the patient has a normal white count at 6.7, hemoglobin of 12.6 and hematocrit of 37.3 and platelets of 141. She is noted to have an ESR of 48 and CRP of 20. Lactic acid is negative at 0.7. On chemistry she is noted to have low potassium 3.3 and a BUN of 18 and creatinine 0.7 nonfasting glucose of 120. She has an EGFR of 60 with a BUN creatinine ratio of 25.7. While in the ER the patient received a normal saline bolus and Toradol for pain. She started on cefazolin 2 g IV and is admitted to the medicine service for IV antibiotic therapy for recurrent cellulitis. Discharge Providers Provider Date of admission: 02/24/19 19:31 Discharge Date: 02/25/19 Primary care physician: ELINOR Leal Consults: 02/24/19 20:37 Consult to Discharge Planning Routine Comment: Discharge provider: Melissa Mitchell DO Summary Hospital Course Discharge Diagnosis: 1. Acute cellulitis left hip, present on admission. Resolving. 2. Hypokalemia, acute, present on admission, active 3. Anxiety and depression, chronic, present on admission. Stable. 4. 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 Stable. Hospital Course: Umm Beltran is a 38-year-old female patient with a past medical history significant for left hip osteosarcoma status post resection and multiple reconstructive surgeries who presented with recurrent cellulitis of reconstructive site with associated weakness, fevers, rigors and nausea. 1. Acute cellulitis left hip, present on admission. Resolving. -Patient with significant deformity of the left buttock and hip status post myocutaneous flap with no visible wounds or drainage. Patient with acute redness, warmth and pain on palpation over left hip rapid in onset. -Patient with systemic symptoms including fevers, rigors and nausea. -Elevated CRP at 20 and ESR at 48. -Continued cefazolin 2 g IV every 8 hours in discharged on Keflex 500 mg twice daily for 7 days. 2. Hypokalemia, acute, present on admission, active -Initial potassium level 3.3 on admission. Received potassium chloride 40 mEq IV x1. -Potassium level now 3.8. -Continued to monitor and replete potassium as necessary. 3. Anxiety and depression, chronic, present on admission. Stable. -Stable mood and affect. Denies thoughts of self harm. -Continued sertraline 100 mg daily 4. 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 Stable. -Patient reports minimal impairment of mobility and uses AFO brace on left foot. -Continued gabapentin 600 mg twice daily. Exam Vital Signs (past 8 hours): - 02/25/19 08:00 02/25/19 11:15 Temperature 98 F 98.7 F Pulse Rate 62 63 Respiratory Rate 16 16 Blood Pressure 111/63 112/72 Pulse Oximetry 96 97 Oxygen Delivery Method Room Air Oxygen Flow Rate 0 Narrative Exam Narrative: General: Young female sitting in bed and in no acute distress, well-developed, well-nourished, appropriately interactive. HEENT: Normocephalic, atraumatic. External ears without defect. Pupils equal, round, and reactive to light. Anicteric sclerae, moist conjunctivae, and no lid lag. Neck: Supple with full range of motion. No lymphadenopathy or thyromegaly. Cardiovascular: Regular rate and rhythm without murmurs, rubs, or gallops appreciated Pulmonary: Clear to auscultation bilaterally without crackles, wheezes, or rhonchi. Normal respiratory effort with no use of accessory muscles. Abdomen: Soft, bowel sounds present, nontender, nondistended. No hepatosplenomegaly or masses appreciated. Extremities: No clubbing, cyanosis, or edema. Skin: Mild erythema and tenderness around left hip at reconstructive site with multiple deep crevices but without any open wounds. Mild inguinal lymphadenopathy. Neurological: Cranial nerves grossly intact. Psychiatric: Normal mood and affect. Alert and oriented to person, place, and time. Objective Labs Result Diagrams: 02/25/19 07:02 02/25/19 07:02 Labs: Laboratory Results - last 24 hr 02/24/19 02/24/19 02/24/19 18:49 19:16 19:16 WBC RBC Hgb Hct MCV MCH MCHC RDW Plt Count Neut % (Auto) Lymph % (Auto) Isabela % (Auto) Eos % (Auto) Baso % (Auto) Neut # (Auto) Lymph # (Auto) Isabela # (Auto) Eos # (Auto) Baso # (Auto) ESR 48 H Sodium 140 Potassium 3.3 L Chloride 104 Carbon Dioxide 29 BUN 18 H Creatinine 0.70 Estimated GFR > 60.0 BUN/Creatinine Ratio 25.7 H Glucose 120 H Lactate 0.7 Calcium 9.2 C-Reactive Protein 20.0 H 02/24/19 02/25/19 02/25/19 19:16 07:02 07:02 WBC 6.7 5.9 RBC 4.08 3.56 L Hgb 12.6 11.0 L Hct 37.3 32.5 L MCV 91.5 91.3 MCH 30.8 30.9 MCHC 33.6 33.8 RDW 13.3 13.2 Plt Count 141 L 135 L Neut % (Auto) 79.6 H 63.0 Lymph % (Auto) 14.4 L 25.7 Isabela % (Auto) 4.3 9.2 Eos % (Auto) 1.0 L 1.8 L Baso % (Auto) 0.7 0.3 Neut # (Auto) 5300 3700 Lymph # (Auto) 1000 L 1500 Isabela # (Auto) 300 500 Eos # (Auto) 100 100 Baso # (Auto) 0 0 ESR Sodium 141 Potassium 3.8 Chloride 109 H Carbon Dioxide 26 BUN 14 Creatinine 0.60 Estimated GFR > 60.0 BUN/Creatinine Ratio 23.3 H Glucose 85 Lactate Calcium 8.5 C-Reactive Protein 02/25/19 07:02 WBC RBC Hgb Hct MCV MCH MCHC RDW Plt Count Neut % (Auto) Lymph % (Auto) Isabela % (Auto) Eos % (Auto) Baso % (Auto) Neut # (Auto) Lymph # (Auto) Isabela # (Auto) Eos # (Auto) Baso # (Auto) ESR Sodium Potassium Chloride Carbon Dioxide BUN Creatinine Estimated GFR BUN/Creatinine Ratio Glucose Lactate Calcium C-Reactive Protein 13.6 H Discharge Plan Discharge Plan Patient Disposition: Home Discharge comment: You are being discharged home. You have cellulitis of the skin around your reconstructive site. Please try to keep this area clean and dry. You have been prescribed Keflex 500 mg twice daily for 7 days to complete an antibiotic course. You have also been prescribed a probiotic to take twice daily to help promote good gut josafat. Please follow-up with your primary care provider, Maggy Munson, in the next 1 week regarding your hospitalization. Discharge orders & Medications Prescriptions: New Bacid 1 billion cell- 250 mg Tablet 1 ea PO BIDWM Qty: 60 RF: 0 cephalexin [Keflex] 500 mg capsule 500 mg PO BID Qty: 14 RF: 0 Continued gabapentin [Neurontin] 600 mg tablet 600 mg PO BID Qty: 180 RF: 0 sertraline 100 mg tablet 100 mg PO DAILY Qty: 90 RF: 0 Follow up/Referrals: Jesse Munson ARNP [Primary Care Provider] - 1 Week Diet/Activity/Treatments Diet: Diet as Tolerated Activity: Activity as tolerated Visit Report/Discharge Packet Instructions: DI for Cellulitis -- Adult Discharge Data Primary Care Provider: Jesse Munson Attending Provider: Carlos Birmingham Admit Date/Time: 02/24/19 19:31
--- NOTE | 2019-02-25 14:50 | PC.NURSE ---
pt preparing for discharge to home- removal of iv access and allowing pt to dress and gather items for planned discharge
== END 2019-02-25 15:03 | disposition home or self-care (01) ==
LOC: ED 18:56 → AC 19:32
PROVIDERS: Admitting Provider Nurse Practitioner Adult Health; Emergency Provider Emergency Medicine; Family Provider Nurse Practitioner Family; PCP Nurse Practitioner Family; Visit Provider Nurse Practitioner Adult Health
DX: L03.116 Cellulitis of left lower limb (principal); E87.6 Hypokalemia; F41.9 Anxiety disorder, unspecified; F32.9 Major depressive disorder, single episode, unspecified; G62.89 Other specified polyneuropathies; Z85.830 Personal history of malignant neoplasm of bone
CPT/HCPCS: 36415; 80048; 83605; 85025; 85651; 86140; 87040; 96361; 96365; 96366; 96367; 96375; 99283; 99284; G0378; J0690; J1885; J3480

== ENCOUNTER → 2019-04-18 07:56 | Outpatient (CLI) | payer MEDICARE, SELFPAY ==
--- NOTE | 2019-04-18 07:57 | DI.MG.S_ITS ---
BILATERAL DIGITAL SCREENING MAMMOGRAM 3D/2D WITH CAD: 04/18/2019 CLINICAL: Baseline exam. Routine screening. Baseline exam. No prior exams were available for comparison. There are scattered fibroglandular elements in both breasts. Current study was also evaluated with a Computer Aided Detection (CAD) system. There is a benign intramammary node in the right breast. Benign skin calcifications. No significant masses, calcifications, or other findings are seen in either breast. IMPRESSION: There is no mammographic evidence of malignancy. A 1 year screening mammogram is recommended. This exam was interpreted at Station ID: [id number]. NOTE: For mammograms, a report in lay terms will be sent to the patient. Approximately 15% of breast malignancies will not be visualized mammographically. In the management of a palpable breast mass, a negative mammogram must not discourage biopsy of a clinically suspicious lesion. Electronically Signed By: Emeterio Redd M.D. [facility] [place]/:04/18/2019 12:08:10 letter sent: Normal Exam ACR BI-RADS Category 2: Benign Finding(s) 3342F
== END ==
PROVIDERS: PCP Nurse Practitioner Family; Visit Provider Nurse Practitioner Family
DX: Z12.31 Encounter for screening mammogram for malignant neoplasm of breast (principal)
CPT/HCPCS: 77063; 77067

== ENCOUNTER → 2019-05-30 11:10 | Outpatient (CLI) | payer MEDICARE, SELFPAY ==
--- NOTE | 2019-05-30 11:12 | DI.RAD.S_ITS ---
PROCEDURE: XR CERVICAL SPINE 2V OR 3V INDICATIONS: neck pain TECHNIQUE: 3 view(s) of the cervical spine were acquired. COMPARISON: None. FINDINGS: Bones: No fractures or dislocations to the C7 level. The lateral masses of C1 appear intact on the odontoid view. No suspicious bony lesions. Straightening of the normal lordotic curvature. Multilevel degenerative endplate sclerosis and spurring. Diffuse facet arthropathy. Mild narrowing of the C5-C6, C6-C7 disc spaces. Mild focal kyphosis noted at C5-C6. Soft tissues: No prevertebral soft tissue swelling. IMPRESSION: Mild C5-C6 and C6-C7 disc degeneration. Straightening of the normal lordotic curvature. Mild focal kyphosis at C5-C6. Dictated by: Demetrius Tang M.D. on 05/30/2019 at 12:34 Approved by: Demetrius Tang M.D. on 05/30/2019 at 12:41
== END ==
PROVIDERS: PCP Nurse Practitioner Family; Referring Provider Nurse Practitioner Family; Visit Provider Nurse Practitioner Family
DX: S16.1XXA Strain of muscle, fascia and tendon at neck level, initial encounter (principal); M50.322 Other cervical disc degeneration at C5-C6 level; M48.02 Spinal stenosis, cervical region; M40.202 Unspecified kyphosis, cervical region; Z85.830 Personal history of malignant neoplasm of bone
CPT/HCPCS: 72040

== ENCOUNTER 2019-06-04 08:15 | Outpatient (RCR) | payer MEDICARE, SELFPAY ==
--- NOTE | 2019-04-19 16:33 | PT.OIE ---
Current Diagnoses Stiffness of left hip, not elsewhere classified (04/19/19) Personal history of malignant neoplasm of bone (04/19/19) Past Medical History (Last Reviewed 02/25/19 @ 00:48 by ELINOR Damon) Anxiety (Inactive ~1977) Cellulitis (Inactive) Clostridium difficile diarrhea (Acute) Depression (Inactive ~1977) Hypokalemia (Inactive) Nerve damage of foot (Acute) Osteosarcoma of bone (Acute) Past Surgical History (Last Reviewed 02/25/19 @ 00:47 by ELINOR Damon) History of surgery (Resolved) Infection (Inactive) Status post skin flap graft (Acute) Tumor (Resolved) Visit Care Team Role Provider Type ELINOR Leal Attending Provider Advanced Signal Processing Engineer Primary Care Provider Specialty: Family Practice Address: [address] [place] [address], [facility] Email: [email or web address] Physical Therapy Initial Evaluation PT-OP-A Visit Information Start: 04/11/19 10:35 Freq: Status: Active Protocol: Document 04/19/19 13:50 HH (Rec: 04/19/19 16:30 HH [email or web address]) Out-Patient Physical Therapy Visit Information Visit Information Visit Type Initial Evaluation Visit Start Time 13:50 Visit Stop Time 14:30 Total Visit Minutes 40 Visit Number 1 Number of CHEMISTRY PHYSICS TEACHER Visits 0 Evaluation Information Evaluation Date 04/19/19 PT-OP-B Current Condition Start: 04/11/19 10:35 Freq: Status: Active Protocol: Document 04/19/19 13:50 HH (Rec: 04/19/19 16:30 HH [email or web address]) Current Condition History of Current Condition Onset Date 2006 Current Complaints Chronic L hip pain d/t hx of surgeries, sciatic nerve injury. 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 She had multiple surgeries and 2 rounds of radiation in her left hip which much of gluteal tissue has been removed d/t cancer. Pt had grafts from the abdominal wall and hamstring performed on the L, but resulted a sciatic nerve injury that significant impaired her L foot function. Pt has been wearing AFO for gait. Pt reports she was very active and able to walk a few miles and go to the gym 2-3x/ week x 40 mins eliptical, along with stretching ex until she had a recent hospitalization d/t recurrent cellulitis on 02/24/19 which led her decreased L hip mobility and strength. She describes pain in her left hip described as a constant burning and aching. She states that this is a similar episode for which was admitted 1 year ago. She is hoping participating PT again will improve her L hip mobility and strength in general. Prior Treatments and Tests Had PT from July 2017 to Dec 2017 Treatment Goals Patient/Caregiver Goals 1. To be able to cross her L leg over R leg and tie her shoes. 2. Able to climb stairs without rails 3. To learn a new strengthening program for her workout routine. Prior Functional Status Baseline Function- ADL's Independent Baseline Function- Mobility Independent Current Functional Impairments (Reported) Functional Limitations- ADL's Uable to cross her L leg over R leg to tie her shoes. Functional Limitations- Mobility/Gait Unable to balance on L leg. Functional Limitations- Other Climb stairs with step over pattern with 1 rail Personal Factors Other Personal Factors That May Effect Bruise easily Therapy/Recovery sciatic nerve injury. PT-OP-C Subjective Start: 04/11/19 10:35 Freq: Status: Active Protocol: Document 04/19/19 13:50 HH (Rec: 04/19/19 16:30 HH [email or web address]) OP-PT Subjective Patient Comments Patient Comments I want to be strong again! Patient Questionnaires Lower Extremity Functional Scale LEFS Score 36 LEFS Impairment 40 to 59% Impaired (Score 32- 47) OP-PT Pain Assessment Location Left Hip Intensity 3 Scale Used Numeric (1 - 10) Description Aching,Dull Frequency Constant Pain Aggravating Factors Position,Exercise,Walking Pain Alleviating Factors Inactivity PT-OP-D Balance Start: 04/11/19 10:35 Freq: Status: Active Protocol: Document 04/19/19 13:50 HH (Rec: 04/19/19 16:30 HH [email or web address]) Balance Tests Single Limb Standing Single Limb- Right >40s Single Limb- Left 1s PT-OP-G Mobility & Gait Start: 04/19/19 16:31 Freq: Status: Active Protocol: Document 04/19/19 13:50 HH (Rec: 04/19/19 16:33 HH [email or web address]) OP Gait Assessment Gait Gait Assistance Required: Independent Able to Maintain Weight Bearing Status Yes During Gait Assistive Devices Orthotic/Prosthetic Devices or Brace: No Gait Deviations General Gait Pattern Decreased Stride Length, Decreased Feet Clearance, Lateral Trunk Lean Factors Limiting Gait Function Factors Limiting Gait Function Abnormal Tonal Influences, Decreased Activity Tolerance, Decreased Sensation,Decreased Strength,Limited Range of Motion,Pain,Poor Balance Comments Gait Comments with L AFO for foot drop +ve tredelengberg (R hip drop) during L stance phase Stair Climbing Evaluation Evaluation Level of Assist On Stairs Independent Devices Stair Climbing Assistive Devices Right Railing Technique/Endurance Stair Climbing Direction Ascend and Descend Stair Climbing Technique Step Over Step PT-OP-J Posture/Palpation/Skin Start: 04/11/19 10:35 Freq: Status: Active Protocol: Document 04/19/19 13:50 HH (Rec: 04/19/19 16:30 HH [email or web address]) Posture Evaluation Position Standing Evaluation View Anterior Weight Distribution Weight Shifted Right Hip Posture (L) Internally Rotated Knee Posture (R) Genu Valgus Ankle/Foot Posture (R) Pronated PT-OP-K Range of Motion Start: 04/11/19 10:35 Freq: Status: Active Protocol: Document 04/19/19 13:50 HH (Rec: 04/19/19 16:30 HH [email or web address]) Hip Goniometric Range of Motion Hip Right Hip ROM WFL Yes Testing Position Supine Flexion w/Knee Flexed 100 Straight Leg Raise 60 Extension 12 Abduction 35 Internal Rotation 70 External Rotation 32 Left Hip ROM WFL No Testing Position Supine Flexion w/Knee Flexed 90 Straight Leg Raise 65 Extension 0 Abduction 30 Internal Rotation 5 External Rotation 0 Hip ROM Limitations Hip ROM Limitations Soft Tissue Tightness,Bony Restriction,Pain PT-OP-M Strength Start: 04/11/19 10:35 Freq: Status: Active Protocol: Document 04/19/19 13:50 HH (Rec: 04/19/19 16:30 HH [email or web address]) Hip Strength Hip Manual Muscle Testing Right Flexion (L2) 4 Good Extension (S1) 4- Good- Abduction 4 Good Adduction 4+ Good+ External Rotation 4+ Good+ Internal Rotation 4+ Good+ Left Flexion (L2) 4+ Good+ Extension (S1) 3 Fair Abduction 3+ Fair+ Adduction 4- Good- External Rotation 3+ Fair+ Internal Rotation 4- Good- Reason Not Measured Pain Comments at end range ER/ IR Knee Strength Knee Manual Muscle Testing Right Flexion (S2) 4+ Good+ Extension (L3) 4+ Good+ Left Flexion (S2) 3+ Fair+ Extension (L3) 4+ Good+ PT-OP-T Assessment and Plan Start: 04/11/19 10:35 Freq: Status: Active Protocol: Document 04/19/19 13:50 HH (Rec: 04/19/19 16:30 HH [email or web address]) Physical Therapy Assessment Rehab Potential Rehabilitation Potential Good Evaluation Complexity Number of Personal Factors/Comorbidities 3 or More Number of Body Systems Impaired 3 Clinical Presentation at Evaluation Stable Impairments Impairments Activity Tolerance,Balance, Functional Activities, Functional Mobility,Gait,Pain, Posture,ROM,Sensation,Soft Tissue Mobility,Strength,Tone, Transfers Goals Strengthening program Impairment pt does not has a strength training program Cement Mixer Driver Goal (LTG) Pt will be independent with a home strength and mobility program addressing hip mobility and strength. LTG Duration 12 weeks stair climbing Impairment pt needs 1rail for stair climbing Longterm Goal (LTG) Pt will be able to climb stairs reciprocally without rails safely to improve functional mobility. LTG Duration 12 weeks strength Impairment unable to prone hip extension d/t L hip weakness Short Term Goal (STG) Pt will be able to perform posterior single leg raise addressing strength to improve gait efficiency STG Duration 6 weeks Longterm Goal (LTG) Pt will be be to perform posterior single leg raise x5 addressing strength to reduce her R hip drop during gait. LTG Duration 12 weeks hip mobility Impairment decreased L hip mobility Short Term Goal (STG) Pt will improve 5 degrees of L hip gross ROM addressing hip flexibility STG Duration 6 weeks Longterm Goal (LTG) Pt will improve 10 degrees of L hip gross ROM addressing hip flexibility to be able to tie her L shoe in seated position LTG Duration 12 weeks Assessment Summary Assessment Crystal presents to physical therapy with primary c/o decreased L hip mobility and strength d/t multiple skin graphs and surgeries to remove soft tissue sarcoma in her L hip. She also has to wear AFO d/t sciatic nerve injury. Pt presents significant limited L hip mobility (ER> IR > Extension) which limits her mobility to tie her shoes in seated position. There's noticeable weakness with L hamstring, hip extensors and abductors during assessment which possibly contribute to her signficant R hip drop during stance phase on L. Pt will be a good candidate for skilled therapy to improve L hip mobility, strength and eccentric control to improve her gait mechanics and functional mobility. Physical Therapy Plan Frequency and Duration Frequency of Treatment 2x/Week Duration of Treatment 12 weeks Plan of Care Start Date 04/19/19 Plan of Care End Date 07/18/19 Therapeutic Interventions Therapeutic Interventions Balance Training,Gait Training ,Home Exercise Program,Joint Mobilizations,Manual Therapy, Neuromuscular Re-education, Orthotic/Prosthetic Management ,Patient/Caregiver Education, Self-Care/Home Management,Soft Tissue Mobilization,Taping, Therapeutic Activities, Therapeutic Exercises Modalities Cold Pack/Ice Massage,Hot Packs,Traction- Mechanical Next Visit Focus/Plan Next Note Type Treatment Note Next Visit Plan manual therapy on L hip mobility (ER>IR>EXT) start with open/ close chain exs for hip ext/ abd/ stabilizers
--- NOTE | 2019-04-19 16:33 | PT.OPPOC ---
Physical, Occupational & Speech Therapy At [facility] Current Diagnoses Stiffness of left hip, not elsewhere classified (04/19/19) Personal history of malignant neoplasm of bone (04/19/19) Visit Care Team Role Provider Type ELINOR Leal Attending Provider Advanced Utility Operator Yarn Primary Care Provider Specialty: Family Practice Address: [address] [place] [address], [facility] Email: [email or web address] Plan Of Care PT-OP-T Assessment and Plan Start: 04/11/19 10:35 Freq: Status: Active Protocol: Document 04/19/19 13:50 HH (Rec: 04/19/19 16:30 HH [email or web address]) Physical Therapy Assessment Rehab Potential Rehabilitation Potential Good Evaluation Complexity Number of Personal Factors/Comorbidities 3 or More Number of Body Systems Impaired 3 Clinical Presentation at Evaluation Stable Impairments Impairments Activity Tolerance,Balance, Functional Activities, Functional Mobility,Gait,Pain, Posture,ROM,Sensation,Soft Tissue Mobility,Strength,Tone, Transfers Goals Strengthening program Impairment pt does not has a strength training program Senior Care Goal (LTG) Pt will be independent with a home strength and mobility program addressing hip mobility and strength. LTG Duration 12 weeks stair climbing Impairment pt needs 1rail for stair climbing Database Administration Manager Goal (LTG) Pt will be able to climb stairs reciprocally without rails safely to improve functional mobility. LTG Duration 12 weeks strength Impairment unable to prone hip extension d/t L hip weakness Short Term Goal (STG) Pt will be able to perform posterior single leg raise addressing strength to improve gait efficiency STG Duration 6 weeks Senior Care Goal (LTG) Pt will be be to perform posterior single leg raise x5 addressing strength to reduce her R hip drop during gait. LTG Duration 12 weeks hip mobility Impairment decreased L hip mobility Short Term Goal (STG) Pt will improve 5 degrees of L hip gross ROM addressing hip flexibility STG Duration 6 weeks Senior Care Goal (LTG) Pt will improve 10 degrees of L hip gross ROM addressing hip flexibility to be able to tie her L shoe in seated position LTG Duration 12 weeks Assessment Summary Assessment Crystal presents to physical therapy with primary c/o decreased L hip mobility and strength d/t multiple skin graphs and surgeries to remove soft tissue sarcoma in her L hip. She also has to wear AFO d/t sciatic nerve injury. Pt presents significant limited L hip mobility (ER> IR > Extension) which limits her mobility to tie her shoes in seated position. There's noticeable weakness with L hamstring, hip extensors and abductors during assessment which possibly contribute to her signficant R hip drop during stance phase on L. Pt will be a good candidate for skilled therapy to improve L hip mobility, strength and eccentric control to improve her gait mechanics and functional mobility. Physical Therapy Plan Frequency and Duration Frequency of Treatment 2x/Week Duration of Treatment 12 weeks Plan of Care Start Date 04/19/19 Plan of Care End Date 07/18/19 Therapeutic Interventions Therapeutic Interventions Balance Training,Gait Training ,Home Exercise Program,Joint Mobilizations,Manual Therapy, Neuromuscular Re-education, Orthotic/Prosthetic Management ,Patient/Caregiver Education, Self-Care/Home Management,Soft Tissue Mobilization,Taping, Therapeutic Activities, Therapeutic Exercises Modalities Cold Pack/Ice Massage,Hot Packs,Traction- Mechanical Next Visit Focus/Plan Next Note Type Treatment Note Next Visit Plan manual therapy on L hip mobility (ER>IR>EXT) start with open/ close chain exs for hip ext/ abd/ stabilizers Plan of Care Dates Plan of Care Start Date 04/19/19 Plan of Care End Date 07/18/19 Electronically Signed by: Srikanth Winter PT 04/19/19 [id number] Please Sign and Return: I have reviewed this Plan of Care and certify that the skilled therapy services above are required to meet the patient?s needs. Physician Signature Date Printed Name and Credentials Clinical Instructor Signature Printed Name and Credentials
--- NOTE | 2019-04-23 14:46 | PT.OTN ---
Current Diagnoses Stiffness of left hip, not elsewhere classified (04/23/19) Personal history of malignant neoplasm of bone (04/23/19) Physical Therapy Treatment Note PT-OP-A Visit Information Start: 04/11/19 10:35 Freq: Status: Active Protocol: Document 04/23/19 13:48 HH (Rec: 04/23/19 14:45 HH [id number]) Out-Patient Physical Therapy Visit Information Visit Information Visit Type Treatment Note Visit Start Time 13:48 Visit Stop Time 14:30 Total Visit Minutes 42 Visit Number 2 Number of CREATIVE/ART DIRECTOR Visits 0 PT-OP-B Current Condition Start: 04/11/19 10:35 Freq: Status: Active Protocol: Document 04/19/19 13:50 HH (Rec: 04/19/19 16:30 HH [email or web address]) Current Condition History of Current Condition Onset Date 2006 Current Complaints Chronic L hip pain d/t hx of surgeries, sciatic nerve injury. 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 She had multiple surgeries and 2 rounds of radiation in her left hip which much of gluteal tissue has been removed d/t cancer. Pt had grafts from the abdominal wall and hamstring performed on the L, but resulted a sciatic nerve injury that significant impaired her L foot function. Pt has been wearing AFO for gait. Pt reports she was very active and able to walk a few miles and go to the gym 2-3x/ week x 40 mins eliptical, along with stretching ex until she had a recent hospitalization d/t recurrent cellulitis on 02/24/19 which led her decreased L hip mobility and strength. She describes pain in her left hip described as a constant burning and aching. She states that this is a similar episode for which was admitted 1 year ago. She is hoping participating PT again will improve her L hip mobility and strength in general. Prior Treatments and Tests Had PT from July 2017 to Dec 2017 Treatment Goals Patient/Caregiver Goals 1. To be able to cross her L leg over R leg and tie her shoes. 2. Able to climb stairs without rails 3. To learn a new strengthening program for her workout routine. Prior Functional Status Baseline Function- ADL's Independent Baseline Function- Mobility Independent Current Functional Impairments (Reported) Functional Limitations- ADL's Uable to cross her L leg over R leg to tie her shoes. Functional Limitations- Mobility/Gait Unable to balance on L leg. Functional Limitations- Other Climb stairs with step over pattern with 1 rail Personal Factors Other Personal Factors That May Effect Bruise easily Therapy/Recovery sciatic nerve injury. PT-OP-C Subjective Start: 04/11/19 10:35 Freq: Status: Active Protocol: Document 04/23/19 13:48 HH (Rec: 04/23/19 14:45 HH [id number]) OP-PT Subjective Patient Comments Patient Comments I didnt feel too bad after the assessment. PT-OP-D Balance Start: 04/11/19 10:35 Freq: Status: Active Protocol: Document 04/19/19 13:50 HH (Rec: 04/19/19 16:30 HH [email or web address]) Balance Tests Single Limb Standing Single Limb- Right >40s Single Limb- Left 1s PT-OP-G Mobility & Gait Start: 04/19/19 16:31 Freq: Status: Active Protocol: Document 04/19/19 13:50 HH (Rec: 04/19/19 16:33 HH [email or web address]) OP Gait Assessment Gait Gait Assistance Required: Independent Able to Maintain Weight Bearing Status Yes During Gait Assistive Devices Orthotic/Prosthetic Devices or Brace: No Gait Deviations General Gait Pattern Decreased Stride Length, Decreased Feet Clearance, Lateral Trunk Lean Factors Limiting Gait Function Factors Limiting Gait Function Abnormal Tonal Influences, Decreased Activity Tolerance, Decreased Sensation,Decreased Strength,Limited Range of Motion,Pain,Poor Balance Comments Gait Comments with L AFO for foot drop +ve tredelengberg (R hip drop) during L stance phase Stair Climbing Evaluation Evaluation Level of Assist On Stairs Independent Devices Stair Climbing Assistive Devices Right Railing Technique/Endurance Stair Climbing Direction Ascend and Descend Stair Climbing Technique Step Over Step PT-OP-J Posture/Palpation/Skin Start: 04/11/19 10:35 Freq: Status: Active Protocol: Document 04/19/19 13:50 HH (Rec: 04/19/19 16:30 HH [email or web address]) Posture Evaluation Position Standing Evaluation View Anterior Weight Distribution Weight Shifted Right Hip Posture (L) Internally Rotated Knee Posture (R) Genu Valgus Ankle/Foot Posture (R) Pronated PT-OP-K Range of Motion Start: 04/11/19 10:35 Freq: Status: Active Protocol: Document 04/19/19 13:50 HH (Rec: 04/19/19 16:30 HH [email or web address]) Hip Goniometric Range of Motion Hip Right Hip ROM WFL Yes Testing Position Supine Flexion w/Knee Flexed 100 Straight Leg Raise 60 Extension 12 Abduction 35 Internal Rotation 70 External Rotation 32 Left Hip ROM WFL No Testing Position Supine Flexion w/Knee Flexed 90 Straight Leg Raise 65 Extension 0 Abduction 30 Internal Rotation 5 External Rotation 0 Hip ROM Limitations Hip ROM Limitations Soft Tissue Tightness,Bony Restriction,Pain PT-OP-M Strength Start: 04/11/19 10:35 Freq: Status: Active Protocol: Document 04/19/19 13:50 HH (Rec: 04/19/19 16:30 HH [email or web address]) Hip Strength Hip Manual Muscle Testing Right Flexion (L2) 4 Good Extension (S1) 4- Good- Abduction 4 Good Adduction 4+ Good+ External Rotation 4+ Good+ Internal Rotation 4+ Good+ Left Flexion (L2) 4+ Good+ Extension (S1) 3 Fair Abduction 3+ Fair+ Adduction 4- Good- External Rotation 3+ Fair+ Internal Rotation 4- Good- Reason Not Measured Pain Comments at end range ER/ IR Knee Strength Knee Manual Muscle Testing Right Flexion (S2) 4+ Good+ Extension (L3) 4+ Good+ Left Flexion (S2) 3+ Fair+ Extension (L3) 4+ Good+ PT-OP-Q Treatments Start: 04/11/19 10:35 Freq: Status: Active Protocol: Document 04/23/19 13:48 HH (Rec: 04/23/19 14:45 HH [id number]) Therapeutic Exercises Supine Exercises bridging Side bilateral Equipment Used yellow band Reps/Minutes 8 x2 Comments cues on increased weight bearing through L supine hip abd Supine Exercise Name with knee bent Side bilateral Equipment Used yellow band Reps/Minutes 10 x2 supine knee fall out Supine Exercise Name unilateral knee fall out with band Side left Equipment Used yellow band Reps/Minutes 10 x2 Manual Therapy Treatment Joint Mobilizations hip ER/IR Joint one hand stabilize pelvis to prevent compensation Grade III Body Position Supine Comments supine and prone followed by MET for hip IR and ER L hip distraction Direction inferior Grade III Body Position Supine Reps/Duration 10 sec hold x 8 Comments pt reports decreased discomfort PT-OP-T Assessment and Plan Start: 04/11/19 10:35 Freq: Status: Active Protocol: Document 04/23/19 13:48 (Rec: 04/23/19 14:45 [id number]) Physical Therapy Assessment Goals Strengthening program Impairment pt does not has a strength training program Fdc Goal (LTG) Pt will be independent with a home strength and mobility program addressing hip mobility and strength. LTG Duration 12 weeks stair climbing Impairment pt needs 1rail for stair climbing Emd Teacher Goal (LTG) Pt will be able to climb stairs reciprocally without rails safely to improve functional mobility. LTG Duration 12 weeks strength Impairment unable to prone hip extension d/t L hip weakness Short Term Goal (STG) Pt will be able to perform posterior single leg raise addressing strength to improve gait efficiency STG Duration 6 weeks Fdc Goal (LTG) Pt will be be to perform posterior single leg raise x5 addressing strength to reduce her R hip drop during gait. LTG Duration 12 weeks hip mobility Impairment decreased L hip mobility Short Term Goal (STG) Pt will improve 5 degrees of L hip gross ROM addressing hip flexibility STG Duration 6 weeks Emd Teacher Goal (LTG) Pt will improve 10 degrees of L hip gross ROM addressing hip flexibility to be able to tie her L shoe in seated position LTG Duration 12 weeks Assessment Summary Assessment Tx focused on increasing L hip mobility ER>IR. Pt reports decreased discomfort with hip distraction. Her L hip ER and IR appeared to improve after as well. Therex focused on supine position with posterior chain and hip stabilizers strengthening. Physical Therapy Plan Next Visit Focus/Plan Next Note Type Treatment Note Next Visit Plan assess post tx tolerance manual therapy on L hip mobility (ER>IR>EXT) start with supine open/ close chain exs for hip ext/ abd/ stabilizers
--- NOTE | 2019-04-25 17:46 | PT.OTN ---
Current Diagnoses Stiffness of left hip, not elsewhere classified (04/25/19) Personal history of malignant neoplasm of bone (04/25/19) Physical Therapy Treatment Note PT-OP-A Visit Information Start: 04/11/19 10:35 Freq: Status: Active Protocol: Document 04/25/19 16:45 HH (Rec: 04/25/19 17:45 HH [id number]) Out-Patient Physical Therapy Visit Information Visit Information Visit Type Treatment Note Visit Start Time 16:45 Visit Stop Time 17:31 Total Visit Minutes 46 Visit Number 3 Number of MAJOR GENERAL Visits 0 PT-OP-B Current Condition Start: 04/11/19 10:35 Freq: Status: Active Protocol: Document 04/19/19 13:50 HH (Rec: 04/19/19 16:30 HH [email or web address]) Current Condition History of Current Condition Onset Date 2006 Current Complaints Chronic L hip pain d/t hx of surgeries, sciatic nerve injury. 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 She had multiple surgeries and 2 rounds of radiation in her left hip which much of gluteal tissue has been removed d/t cancer. Pt had grafts from the abdominal wall and hamstring performed on the L, but resulted a sciatic nerve injury that significant impaired her L foot function. Pt has been wearing AFO for gait. Pt reports she was very active and able to walk a few miles and go to the gym 2-3x/ week x 40 mins eliptical, along with stretching ex until she had a recent hospitalization d/t recurrent cellulitis on 02/24/19 which led her decreased L hip mobility and strength. She describes pain in her left hip described as a constant burning and aching. She states that this is a similar episode for which was admitted 1 year ago. She is hoping participating PT again will improve her L hip mobility and strength in general. Prior Treatments and Tests Had PT from July 2017 to Dec 2017 Treatment Goals Patient/Caregiver Goals 1. To be able to cross her L leg over R leg and tie her shoes. 2. Able to climb stairs without rails 3. To learn a new strengthening program for her workout routine. Prior Functional Status Baseline Function- ADL's Independent Baseline Function- Mobility Independent Current Functional Impairments (Reported) Functional Limitations- ADL's Uable to cross her L leg over R leg to tie her shoes. Functional Limitations- Mobility/Gait Unable to balance on L leg. Functional Limitations- Other Climb stairs with step over pattern with 1 rail Personal Factors Other Personal Factors That May Effect Bruise easily Therapy/Recovery sciatic nerve injury. PT-OP-C Subjective Start: 04/11/19 10:35 Freq: Status: Active Protocol: Document 04/25/19 16:45 HH (Rec: 04/25/19 17:45 HH [id number]) OP-PT Subjective Patient Comments Patient Comments I felt very sore after last visit but i was able to recover the next day. I could feel i have more flexion todya . PT-OP-D Balance Start: 04/11/19 10:35 Freq: Status: Active Protocol: Document 04/19/19 13:50 HH (Rec: 04/19/19 16:30 HH [email or web address]) Balance Tests Single Limb Standing Single Limb- Right >40s Single Limb- Left 1s PT-OP-G Mobility & Gait Start: 04/19/19 16:31 Freq: Status: Active Protocol: Document 04/19/19 13:50 HH (Rec: 04/19/19 16:33 HH [email or web address]) OP Gait Assessment Gait Gait Assistance Required: Independent Able to Maintain Weight Bearing Status Yes During Gait Assistive Devices Orthotic/Prosthetic Devices or Brace: No Gait Deviations General Gait Pattern Decreased Stride Length, Decreased Feet Clearance, Lateral Trunk Lean Factors Limiting Gait Function Factors Limiting Gait Function Abnormal Tonal Influences, Decreased Activity Tolerance, Decreased Sensation,Decreased Strength,Limited Range of Motion,Pain,Poor Balance Comments Gait Comments with L AFO for foot drop +ve tredelengberg (R hip drop) during L stance phase Stair Climbing Evaluation Evaluation Level of Assist On Stairs Independent Devices Stair Climbing Assistive Devices Right Railing Technique/Endurance Stair Climbing Direction Ascend and Descend Stair Climbing Technique Step Over Step PT-OP-J Posture/Palpation/Skin Start: 04/11/19 10:35 Freq: Status: Active Protocol: Document 04/19/19 13:50 HH (Rec: 04/19/19 16:30 HH [email or web address]) Posture Evaluation Position Standing Evaluation View Anterior Weight Distribution Weight Shifted Right Hip Posture (L) Internally Rotated Knee Posture (R) Genu Valgus Ankle/Foot Posture (R) Pronated PT-OP-K Range of Motion Start: 04/11/19 10:35 Freq: Status: Active Protocol: Document 04/19/19 13:50 HH (Rec: 04/19/19 16:30 HH [email or web address]) Hip Goniometric Range of Motion Hip Right Hip ROM WFL Yes Testing Position Supine Flexion w/Knee Flexed 100 Straight Leg Raise 60 Extension 12 Abduction 35 Internal Rotation 70 External Rotation 32 Left Hip ROM WFL No Testing Position Supine Flexion w/Knee Flexed 90 Straight Leg Raise 65 Extension 0 Abduction 30 Internal Rotation 5 External Rotation 0 Hip ROM Limitations Hip ROM Limitations Soft Tissue Tightness,Bony Restriction,Pain PT-OP-M Strength Start: 04/11/19 10:35 Freq: Status: Active Protocol: Document 04/19/19 13:50 HH (Rec: 04/19/19 16:30 HH [email or web address]) Hip Strength Hip Manual Muscle Testing Right Flexion (L2) 4 Good Extension (S1) 4- Good- Abduction 4 Good Adduction 4+ Good+ External Rotation 4+ Good+ Internal Rotation 4+ Good+ Left Flexion (L2) 4+ Good+ Extension (S1) 3 Fair Abduction 3+ Fair+ Adduction 4- Good- External Rotation 3+ Fair+ Internal Rotation 4- Good- Reason Not Measured Pain Comments at end range ER/ IR Knee Strength Knee Manual Muscle Testing Right Flexion (S2) 4+ Good+ Extension (L3) 4+ Good+ Left Flexion (S2) 3+ Fair+ Extension (L3) 4+ Good+ PT-OP-Q Treatments Start: 04/11/19 10:35 Freq: Status: Active Protocol: Document 04/25/19 16:45 HH (Rec: 04/25/19 17:45 HH [id number]) Therapeutic Exercises Supine Exercises bridging Side bilateral Equipment Used yellow band Reps/Minutes 8 x2 Comments cues on increased weight bearing through L supine hip abd Supine Exercise Name with knee bent Side bilateral Equipment Used yellow band Reps/Minutes 10 x2 supine knee fall out Supine Exercise Name unilateral knee fall out with band Side left Equipment Used yellow band Reps/Minutes 10 x2 Prone Exercises hamstring curl Prone Exercise Name AAROM for conc Side left Reps/Minutes 8 mins Manual Therapy Treatment Soft Tissue Mobilization L quad and hip flexors Mobilization Type Sustained Pressure,Trigger Point Release Intensity/Depth Moderate Body Position Hooklying Comments inferior glide Joint Mobilizations hip ant glide Direction anterior Grade III Body Position Prone Reps/Duration 4 mins Comments with belt L hip inf glide Grade III Body Position Hooklying Reps/Duration 8 mins hip ER/IR Joint one hand stabilize pelvis to prevent compensation Grade III Body Position Supine Comments supine and prone followed by MET for hip IR and ER L hip distraction Direction inferior Grade III Body Position Supine Reps/Duration 10 sec hold x 8 Comments pt reports decreased discomfort Manual Traction L hip distraction Body Position Supine Reps/Duration 10 sec holdx 8 PT-OP-T Assessment and Plan Start: 04/11/19 10:35 Freq: Status: Active Protocol: Document 04/25/19 16:45 HH (Rec: 04/25/19 17:45 HH [id number]) Physical Therapy Assessment Goals hamstring curl Impairment Pt is unable to perform 1 hamstring curl School Administrator Goal (LTG) Pt will be able to perform L hamstring curl with foot brace on x 5 times LTG Duration 12 weeks Strengthening program Impairment pt does not has a strength training program Fpc Goal (LTG) Pt will be independent with a home strength and mobility program addressing hip mobility and strength. LTG Duration 12 weeks stair climbing Impairment pt needs 1rail for stair climbing Fpc Goal (LTG) Pt will be able to climb stairs reciprocally without rails safely to improve functional mobility. LTG Duration 12 weeks strength Impairment unable to prone hip extension d/t L hip weakness Short Term Goal (STG) Pt will be able to perform posterior single leg raise addressing strength to improve gait efficiency STG Duration 6 weeks School Administrator Goal (LTG) Pt will be be to perform posterior single leg raise x5 addressing strength to reduce her R hip drop during gait. LTG Duration 12 weeks hip mobility Impairment decreased L hip mobility Short Term Goal (STG) Pt will improve 5 degrees of L hip gross ROM addressing hip flexibility STG Duration 6 weeks School Administrator Goal (LTG) Pt will improve 10 degrees of L hip gross ROM addressing hip flexibility to be able to tie her L shoe in seated position LTG Duration 12 weeks Assessment Summary Assessment Cont focus tx on manual therapy ER>IR with less c/o discomfort. Pt overall felt more mobile. Pt has difficulty doing hamstrings curl and needed RLE to assist for concentric contraction. Added unilateral hip fall out, bridging and hamstrings curl for HEP.
--- NOTE | 2019-04-30 08:10 | PT.OTN ---
Current Diagnoses Stiffness of left hip, not elsewhere classified (04/30/19) Personal history of malignant neoplasm of bone (04/30/19) Physical Therapy Treatment Note PT-OP-A Visit Information Start: 04/11/19 10:35 Freq: Status: Active Protocol: Document 04/30/19 07:28 MB (Rec: 04/30/19 08:10 MB [id number]) Out-Patient Physical Therapy Visit Information Visit Information Visit Type Treatment Note Visit Start Time 07:28 Visit Stop Time 08:10 Total Visit Minutes 42 Visit Number 4 Number of CARDIO CLINICIAN Visits 0 PT-OP-B Current Condition Start: 04/11/19 10:35 Freq: Status: Active Protocol: Document 04/19/19 13:50 HH (Rec: 04/19/19 16:30 HH [email or web address]) Current Condition History of Current Condition Onset Date 2006 Current Complaints Chronic L hip pain d/t hx of surgeries, sciatic nerve injury. 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 She had multiple surgeries and 2 rounds of radiation in her left hip which much of gluteal tissue has been removed d/t cancer. Pt had grafts from the abdominal wall and hamstring performed on the L, but resulted a sciatic nerve injury that significant impaired her L foot function. Pt has been wearing AFO for gait. Pt reports she was very active and able to walk a few miles and go to the gym 2-3x/ week x 40 mins eliptical, along with stretching ex until she had a recent hospitalization d/t recurrent cellulitis on 02/24/19 which led her decreased L hip mobility and strength. She describes pain in her left hip described as a constant burning and aching. She states that this is a similar episode for which was admitted 1 year ago. She is hoping participating PT again will improve her L hip mobility and strength in general. Prior Treatments and Tests Had PT from July 2017 to Dec 2017 Treatment Goals Patient/Caregiver Goals 1. To be able to cross her L leg over R leg and tie her shoes. 2. Able to climb stairs without rails 3. To learn a new strengthening program for her workout routine. Prior Functional Status Baseline Function- ADL's Independent Baseline Function- Mobility Independent Current Functional Impairments (Reported) Functional Limitations- ADL's Uable to cross her L leg over R leg to tie her shoes. Functional Limitations- Mobility/Gait Unable to balance on L leg. Functional Limitations- Other Climb stairs with step over pattern with 1 rail Personal Factors Other Personal Factors That May Effect Bruise easily Therapy/Recovery sciatic nerve injury. PT-OP-C Subjective Start: 04/11/19 10:35 Freq: Status: Active Protocol: Document 04/30/19 07:28 MB (Rec: 04/30/19 08:10 MB [id number]) OP-PT Subjective Patient Comments Patient Comments Pt is feeling good. PT-OP-D Balance Start: 04/11/19 10:35 Freq: Status: Active Protocol: Document 04/19/19 13:50 HH (Rec: 04/19/19 16:30 HH [email or web address]) Balance Tests Single Limb Standing Single Limb- Right >40s Single Limb- Left 1s PT-OP-G Mobility & Gait Start: 04/19/19 16:31 Freq: Status: Active Protocol: Document 04/19/19 13:50 HH (Rec: 04/19/19 16:33 HH [email or web address]) OP Gait Assessment Gait Gait Assistance Required: Independent Able to Maintain Weight Bearing Status Yes During Gait Assistive Devices Orthotic/Prosthetic Devices or Brace: No Gait Deviations General Gait Pattern Decreased Stride Length, Decreased Feet Clearance, Lateral Trunk Lean Factors Limiting Gait Function Factors Limiting Gait Function Abnormal Tonal Influences, Decreased Activity Tolerance, Decreased Sensation,Decreased Strength,Limited Range of Motion,Pain,Poor Balance Comments Gait Comments with L AFO for foot drop +ve tredelengberg (R hip drop) during L stance phase Stair Climbing Evaluation Evaluation Level of Assist On Stairs Independent Devices Stair Climbing Assistive Devices Right Railing Technique/Endurance Stair Climbing Direction Ascend and Descend Stair Climbing Technique Step Over Step PT-OP-J Posture/Palpation/Skin Start: 04/11/19 10:35 Freq: Status: Active Protocol: Document 04/19/19 13:50 HH (Rec: 04/19/19 16:30 HH [email or web address]) Posture Evaluation Position Standing Evaluation View Anterior Weight Distribution Weight Shifted Right Hip Posture (L) Internally Rotated Knee Posture (R) Genu Valgus Ankle/Foot Posture (R) Pronated PT-OP-K Range of Motion Start: 04/11/19 10:35 Freq: Status: Active Protocol: Document 04/19/19 13:50 HH (Rec: 04/19/19 16:30 HH [email or web address]) Hip Goniometric Range of Motion Hip Right Hip ROM WFL Yes Testing Position Supine Flexion w/Knee Flexed 100 Straight Leg Raise 60 Extension 12 Abduction 35 Internal Rotation 70 External Rotation 32 Left Hip ROM WFL No Testing Position Supine Flexion w/Knee Flexed 90 Straight Leg Raise 65 Extension 0 Abduction 30 Internal Rotation 5 External Rotation 0 Hip ROM Limitations Hip ROM Limitations Soft Tissue Tightness,Bony Restriction,Pain PT-OP-M Strength Start: 04/11/19 10:35 Freq: Status: Active Protocol: Document 04/19/19 13:50 HH (Rec: 04/19/19 16:30 HH [email or web address]) Hip Strength Hip Manual Muscle Testing Right Flexion (L2) 4 Good Extension (S1) 4- Good- Abduction 4 Good Adduction 4+ Good+ External Rotation 4+ Good+ Internal Rotation 4+ Good+ Left Flexion (L2) 4+ Good+ Extension (S1) 3 Fair Abduction 3+ Fair+ Adduction 4- Good- External Rotation 3+ Fair+ Internal Rotation 4- Good- Reason Not Measured Pain Comments at end range ER/ IR Knee Strength Knee Manual Muscle Testing Right Flexion (S2) 4+ Good+ Extension (L3) 4+ Good+ Left Flexion (S2) 3+ Fair+ Extension (L3) 4+ Good+ PT-OP-Q Treatments Start: 04/11/19 10:35 Freq: Status: Active Protocol: Document 04/30/19 07:28 MB (Rec: 04/30/19 08:10 MB [id number]) Cardio Equipment Elliptical Duration (Minutes) 5 Therapeutic Exercises Supine Exercises [place] stretch Reps/Minutes 30 sec Comments Pelvic tilt, right leg dangling off; Pelvic realignment exercises Comments 5 reps 3 sec hold, added to HEP Gait Training Gait Activity Gait with both lifts in right boot and then 1 lift in right boot Comments Functional leg length difference with right leg longer than the left with gait . Removed one of her lifts out of right shoe as she has two in the right boot and her gait is similar, only slightly better. Manual Therapy Treatment Soft Tissue Mobilization 2 Comments STM left iliospoas with PT providing trigger point pressure and pt sliding heel PT-OP-T Assessment and Plan Start: 04/11/19 10:35 Freq: Status: Active Protocol: Document 04/30/19 07:28 MB (Rec: 04/30/19 08:10 MB [id number]) Physical Therapy Assessment Goals hamstring curl Impairment Pt is unable to perform 1 hamstring curl Halfway Goal (LTG) Pt will be able to perform L hamstring curl with foot brace on x 5 times LTG Duration 12 weeks Strengthening program Impairment pt does not has a strength training program Internet Project Manager Goal (LTG) Pt will be independent with a home strength and mobility program addressing hip mobility and strength. LTG Duration 12 weeks stair climbing Impairment pt needs 1rail for stair climbing Internet Project Manager Goal (LTG) Pt will be able to climb stairs reciprocally without rails safely to improve functional mobility. LTG Duration 12 weeks strength Impairment unable to prone hip extension d/t L hip weakness Short Term Goal (STG) Pt will be able to perform posterior single leg raise addressing strength to improve gait efficiency STG Duration 6 weeks Halfway Goal (LTG) Pt will be be to perform posterior single leg raise x5 addressing strength to reduce her R hip drop during gait. LTG Duration 12 weeks hip mobility Impairment decreased L hip mobility Short Term Goal (STG) Pt will improve 5 degrees of L hip gross ROM addressing hip flexibility STG Duration 6 weeks Internet Project Manager Goal (LTG) Pt will improve 10 degrees of L hip gross ROM addressing hip flexibility to be able to tie her L shoe in seated position LTG Duration 12 weeks Assessment Summary Assessment Pt walks high on the right with gait and has two lifts in her right boot. Removes one and her gait is similar. Con't to assess this component of gait. A functional leg length difference with gait will require more work on the weak left hip. Physical Therapy Plan Next Visit Focus/Plan Next Note Type Treatment Note Next Visit Plan Consider working on left QL. Con't to monitor gait in setting of 2 lifts in right shoe and pt walking high on the right with gait. One lift removed previous treatment. Ongoing from previous: assess post tx tolerance manual therapy on L hip mobility (ER>IR>EXT) start with supine open/ close chain exs for hip ext/ abd/ stabilizers
--- NOTE | 2019-05-03 08:27 | PT.OTN ---
Current Diagnoses Stiffness of left hip, not elsewhere classified (05/03/19) Personal history of malignant neoplasm of bone (05/03/19) Physical Therapy Treatment Note PT-OP-A Visit Information Start: 04/11/19 10:35 Freq: Status: Active Protocol: Document 05/03/19 07:31 MB (Rec: 05/03/19 08:27 MB [id number]) Out-Patient Physical Therapy Visit Information Visit Information Visit Type Treatment Note Visit Start Time 07:31 Visit Stop Time 08:12 Total Visit Minutes 41 Visit Number 5 Number of AUTOMOBILE OR TRUCK RENTAL DISPATCHER Visits 0 PT-OP-B Current Condition Start: 04/11/19 10:35 Freq: Status: Active Protocol: Document 04/19/19 13:50 HH (Rec: 04/19/19 16:30 HH [email or web address]) Current Condition History of Current Condition Onset Date 2006 Current Complaints Chronic L hip pain d/t hx of surgeries, sciatic nerve injury. 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 She had multiple surgeries and 2 rounds of radiation in her left hip which much of gluteal tissue has been removed d/t cancer. Pt had grafts from the abdominal wall and hamstring performed on the L, but resulted a sciatic nerve injury that significant impaired her L foot function. Pt has been wearing AFO for gait. Pt reports she was very active and able to walk a few miles and go to the gym 2-3x/ week x 40 mins eliptical, along with stretching ex until she had a recent hospitalization d/t recurrent cellulitis on 02/24/19 which led her decreased L hip mobility and strength. She describes pain in her left hip described as a constant burning and aching. She states that this is a similar episode for which was admitted 1 year ago. She is hoping participating PT again will improve her L hip mobility and strength in general. Prior Treatments and Tests Had PT from July 2017 to Dec 2017 Treatment Goals Patient/Caregiver Goals 1. To be able to cross her L leg over R leg and tie her shoes. 2. Able to climb stairs without rails 3. To learn a new strengthening program for her workout routine. Prior Functional Status Baseline Function- ADL's Independent Baseline Function- Mobility Independent Current Functional Impairments (Reported) Functional Limitations- ADL's Uable to cross her L leg over R leg to tie her shoes. Functional Limitations- Mobility/Gait Unable to balance on L leg. Functional Limitations- Other Climb stairs with step over pattern with 1 rail Personal Factors Other Personal Factors That May Effect Bruise easily Therapy/Recovery sciatic nerve injury. PT-OP-C Subjective Start: 04/11/19 10:35 Freq: Status: Active Protocol: Document 05/03/19 07:31 MB (Rec: 05/03/19 08:27 MB [id number]) OP-PT Subjective Patient Comments Patient Comments Pt brings in exercises from previous therapies. PT-OP-D Balance Start: 04/11/19 10:35 Freq: Status: Active Protocol: Document 04/19/19 13:50 HH (Rec: 04/19/19 16:30 HH [email or web address]) Balance Tests Single Limb Standing Single Limb- Right >40s Single Limb- Left 1s PT-OP-G Mobility & Gait Start: 04/19/19 16:31 Freq: Status: Active Protocol: Document 04/19/19 13:50 HH (Rec: 04/19/19 16:33 HH [email or web address]) OP Gait Assessment Gait Gait Assistance Required: Independent Able to Maintain Weight Bearing Status Yes During Gait Assistive Devices Orthotic/Prosthetic Devices or Brace: No Gait Deviations General Gait Pattern Decreased Stride Length, Decreased Feet Clearance, Lateral Trunk Lean Factors Limiting Gait Function Factors Limiting Gait Function Abnormal Tonal Influences, Decreased Activity Tolerance, Decreased Sensation,Decreased Strength,Limited Range of Motion,Pain,Poor Balance Comments Gait Comments with L AFO for foot drop +ve tredelengberg (R hip drop) during L stance phase Stair Climbing Evaluation Evaluation Level of Assist On Stairs Independent Devices Stair Climbing Assistive Devices Right Railing Technique/Endurance Stair Climbing Direction Ascend and Descend Stair Climbing Technique Step Over Step PT-OP-J Posture/Palpation/Skin Start: 04/11/19 10:35 Freq: Status: Active Protocol: Document 04/19/19 13:50 HH (Rec: 04/19/19 16:30 HH [email or web address]) Posture Evaluation Position Standing Evaluation View Anterior Weight Distribution Weight Shifted Right Hip Posture (L) Internally Rotated Knee Posture (R) Genu Valgus Ankle/Foot Posture (R) Pronated PT-OP-K Range of Motion Start: 04/11/19 10:35 Freq: Status: Active Protocol: Document 04/19/19 13:50 HH (Rec: 04/19/19 16:30 HH [email or web address]) Hip Goniometric Range of Motion Hip Right Hip ROM WFL Yes Testing Position Supine Flexion w/Knee Flexed 100 Straight Leg Raise 60 Extension 12 Abduction 35 Internal Rotation 70 External Rotation 32 Left Hip ROM WFL No Testing Position Supine Flexion w/Knee Flexed 90 Straight Leg Raise 65 Extension 0 Abduction 30 Internal Rotation 5 External Rotation 0 Hip ROM Limitations Hip ROM Limitations Soft Tissue Tightness,Bony Restriction,Pain PT-OP-M Strength Start: 04/11/19 10:35 Freq: Status: Active Protocol: Document 04/19/19 13:50 HH (Rec: 04/19/19 16:30 HH [email or web address]) Hip Strength Hip Manual Muscle Testing Right Flexion (L2) 4 Good Extension (S1) 4- Good- Abduction 4 Good Adduction 4+ Good+ External Rotation 4+ Good+ Internal Rotation 4+ Good+ Left Flexion (L2) 4+ Good+ Extension (S1) 3 Fair Abduction 3+ Fair+ Adduction 4- Good- External Rotation 3+ Fair+ Internal Rotation 4- Good- Reason Not Measured Pain Comments at end range ER/ IR Knee Strength Knee Manual Muscle Testing Right Flexion (S2) 4+ Good+ Extension (L3) 4+ Good+ Left Flexion (S2) 3+ Fair+ Extension (L3) 4+ Good+ PT-OP-Q Treatments Start: 04/11/19 10:35 Freq: Status: Active Protocol: Document 05/03/19 07:31 MB (Rec: 05/03/19 08:27 MB [id number]) Therapeutic Exercises Supine Exercises Abdominal progression--set position draw in/pelvic tilt, knee rocking, heel slide, marching Comments 10x2 bridging Comments Level 1 band, 1 rep 45 sec supine knee fall out Reps/Minutes 10x2 Comments Pelvic tilt spine flat, core engaged Prone Exercises hamstring curl Comments 10 reps, glute squeeze hold 3 sec end range Manual Therapy Treatment Soft Tissue Mobilization 2 Comments STM left iliospoas with PT providing trigger point pressure and pt sliding heel PT-OP-T Assessment and Plan Start: 04/11/19 10:35 Freq: Status: Active Protocol: Document 05/03/19 07:31 MB (Rec: 05/03/19 08:27 MB [id number]) Physical Therapy Assessment Goals hamstring curl Impairment Pt is unable to perform 1 hamstring curl Paving Block Cutter Goal (LTG) Pt will be able to perform L hamstring curl with foot brace on x 5 times LTG Duration 12 weeks Strengthening program Impairment pt does not has a strength training program Paving Block Cutter Goal (LTG) Pt will be independent with a home strength and mobility program addressing hip mobility and strength. LTG Duration 12 weeks stair climbing Impairment pt needs 1rail for stair climbing Alf Goal (LTG) Pt will be able to climb stairs reciprocally without rails safely to improve functional mobility. LTG Duration 12 weeks strength Impairment unable to prone hip extension d/t L hip weakness Short Term Goal (STG) Pt will be able to perform posterior single leg raise addressing strength to improve gait efficiency STG Duration 6 weeks Paving Block Cutter Goal (LTG) Pt will be be to perform posterior single leg raise x5 addressing strength to reduce her R hip drop during gait. LTG Duration 12 weeks hip mobility Impairment decreased L hip mobility Short Term Goal (STG) Pt will improve 5 degrees of L hip gross ROM addressing hip flexibility STG Duration 6 weeks Alf Goal (LTG) Pt will improve 10 degrees of L hip gross ROM addressing hip flexibility to be able to tie her L shoe in seated position LTG Duration 12 weeks Assessment Summary Assessment Progressed core exercises today, refined hamstring curl, con't to progress. Physical Therapy Plan Next Visit Focus/Plan Next Note Type Treatment Note Next Visit Plan Consider working on left QL. Con't to monitor gait in setting of 2 lifts in right shoe and pt walking high on the right with gait. One lift removed previous treatment. Ongoing from previous: assess post tx tolerance manual therapy on L hip mobility (ER>IR>EXT) start with supine open/ close chain exs for hip ext/ abd/ stabilizers
--- NOTE | 2019-05-07 08:21 | PT.OTN ---
Current Diagnoses Stiffness of left hip, not elsewhere classified (05/07/19) Personal history of malignant neoplasm of bone (05/07/19) Physical Therapy Treatment Note PT-OP-A Visit Information Start: 04/11/19 10:35 Freq: Status: Active Protocol: Document 05/07/19 07:29 MB (Rec: 05/07/19 08:18 MB [id number]) Out-Patient Physical Therapy Visit Information Visit Information Visit Type Treatment Note Visit Start Time 07:29 Visit Stop Time 08:13 Total Visit Minutes 42 Visit Number 6 Number of PHYSICIAN PEDIATRICIAN Visits 0 PT-OP-B Current Condition Start: 04/11/19 10:35 Freq: Status: Active Protocol: Document 04/19/19 13:50 HH (Rec: 04/19/19 16:30 HH [email or web address]) Current Condition History of Current Condition Onset Date 2006 Current Complaints Chronic L hip pain d/t hx of surgeries, sciatic nerve injury. 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 She had multiple surgeries and 2 rounds of radiation in her left hip which much of gluteal tissue has been removed d/t cancer. Pt had grafts from the abdominal wall and hamstring performed on the L, but resulted a sciatic nerve injury that significant impaired her L foot function. Pt has been wearing AFO for gait. Pt reports she was very active and able to walk a few miles and go to the gym 2-3x/ week x 40 mins eliptical, along with stretching ex until she had a recent hospitalization d/t recurrent cellulitis on 02/24/19 which led her decreased L hip mobility and strength. She describes pain in her left hip described as a constant burning and aching. She states that this is a similar episode for which was admitted 1 year ago. She is hoping participating PT again will improve her L hip mobility and strength in general. Prior Treatments and Tests Had PT from July 2017 to Dec 2017 Treatment Goals Patient/Caregiver Goals 1. To be able to cross her L leg over R leg and tie her shoes. 2. Able to climb stairs without rails 3. To learn a new strengthening program for her workout routine. Prior Functional Status Baseline Function- ADL's Independent Baseline Function- Mobility Independent Current Functional Impairments (Reported) Functional Limitations- ADL's Uable to cross her L leg over R leg to tie her shoes. Functional Limitations- Mobility/Gait Unable to balance on L leg. Functional Limitations- Other Climb stairs with step over pattern with 1 rail Personal Factors Other Personal Factors That May Effect Bruise easily Therapy/Recovery sciatic nerve injury. PT-OP-C Subjective Start: 04/11/19 10:35 Freq: Status: Active Protocol: Document 05/07/19 07:29 MB (Rec: 05/07/19 08:18 MB [id number]) OP-PT Subjective Patient Comments Patient Comments Pt states that she hurt her neck when holding onto band on her back to stretch her legs on Monday. She could not turn her neck. Her neck is 90% better. Pt goes end of the month to have a fitting for orthosis. She put lift back in to right shoe. PT-OP-D Balance Start: 04/11/19 10:35 Freq: Status: Active Protocol: Document 04/19/19 13:50 HH (Rec: 04/19/19 16:30 HH [email or web address]) Balance Tests Single Limb Standing Single Limb- Right >40s Single Limb- Left 1s PT-OP-G Mobility & Gait Start: 04/19/19 16:31 Freq: Status: Active Protocol: Document 04/19/19 13:50 HH (Rec: 04/19/19 16:33 HH [email or web address]) OP Gait Assessment Gait Gait Assistance Required: Independent Able to Maintain Weight Bearing Status Yes During Gait Assistive Devices Orthotic/Prosthetic Devices or Brace: No Gait Deviations General Gait Pattern Decreased Stride Length, Decreased Feet Clearance, Lateral Trunk Lean Factors Limiting Gait Function Factors Limiting Gait Function Abnormal Tonal Influences, Decreased Activity Tolerance, Decreased Sensation,Decreased Strength,Limited Range of Motion,Pain,Poor Balance Comments Gait Comments with L AFO for foot drop +ve tredelengberg (R hip drop) during L stance phase Stair Climbing Evaluation Evaluation Level of Assist On Stairs Independent Devices Stair Climbing Assistive Devices Right Railing Technique/Endurance Stair Climbing Direction Ascend and Descend Stair Climbing Technique Step Over Step PT-OP-J Posture/Palpation/Skin Start: 04/11/19 10:35 Freq: Status: Active Protocol: Document 04/19/19 13:50 HH (Rec: 04/19/19 16:30 HH [email or web address]) Posture Evaluation Position Standing Evaluation View Anterior Weight Distribution Weight Shifted Right Hip Posture (L) Internally Rotated Knee Posture (R) Genu Valgus Ankle/Foot Posture (R) Pronated PT-OP-K Range of Motion Start: 04/11/19 10:35 Freq: Status: Active Protocol: Document 04/19/19 13:50 HH (Rec: 04/19/19 16:30 HH [email or web address]) Hip Goniometric Range of Motion Hip Right Hip ROM WFL Yes Testing Position Supine Flexion w/Knee Flexed 100 Straight Leg Raise 60 Extension 12 Abduction 35 Internal Rotation 70 External Rotation 32 Left Hip ROM WFL No Testing Position Supine Flexion w/Knee Flexed 90 Straight Leg Raise 65 Extension 0 Abduction 30 Internal Rotation 5 External Rotation 0 Hip ROM Limitations Hip ROM Limitations Soft Tissue Tightness,Bony Restriction,Pain PT-OP-M Strength Start: 04/11/19 10:35 Freq: Status: Active Protocol: Document 04/19/19 13:50 HH (Rec: 04/19/19 16:30 HH [email or web address]) Hip Strength Hip Manual Muscle Testing Right Flexion (L2) 4 Good Extension (S1) 4- Good- Abduction 4 Good Adduction 4+ Good+ External Rotation 4+ Good+ Internal Rotation 4+ Good+ Left Flexion (L2) 4+ Good+ Extension (S1) 3 Fair Abduction 3+ Fair+ Adduction 4- Good- External Rotation 3+ Fair+ Internal Rotation 4- Good- Reason Not Measured Pain Comments at end range ER/ IR Knee Strength Knee Manual Muscle Testing Right Flexion (S2) 4+ Good+ Extension (L3) 4+ Good+ Left Flexion (S2) 3+ Fair+ Extension (L3) 4+ Good+ PT-OP-Q Treatments Start: 04/11/19 10:35 Freq: Status: Active Protocol: Document 05/07/19 07:29 MB (Rec: 05/07/19 08:18 MB [id number]) Manual Therapy Treatment Manual Techniques Counterstrain Comments Pt denies eye pressure changes . She is agreeable to Counterstrain to assess and treat fascial tension and PT treat stacks B: neural fascia LEs PT-OP-T Assessment and Plan Start: 04/11/19 10:35 Freq: Status: Active Protocol: Document 05/07/19 07:29 MB (Rec: 05/07/19 08:18 MB [id number]) Physical Therapy Assessment Goals hamstring curl Impairment Pt is unable to perform 1 hamstring curl Clinical Director Goal (LTG) Pt will be able to perform L hamstring curl with foot brace on x 5 times LTG Duration 12 weeks Strengthening program Impairment pt does not has a strength training program Residential Goal (LTG) Pt will be independent with a home strength and mobility program addressing hip mobility and strength. LTG Duration 12 weeks stair climbing Impairment pt needs 1rail for stair climbing Clinical Director Goal (LTG) Pt will be able to climb stairs reciprocally without rails safely to improve functional mobility. LTG Duration 12 weeks strength Impairment unable to prone hip extension d/t L hip weakness Short Term Goal (STG) Pt will be able to perform posterior single leg raise addressing strength to improve gait efficiency STG Duration 6 weeks Clinical Director Goal (LTG) Pt will be be to perform posterior single leg raise x5 addressing strength to reduce her R hip drop during gait. LTG Duration 12 weeks hip mobility Impairment decreased L hip mobility Short Term Goal (STG) Pt will improve 5 degrees of L hip gross ROM addressing hip flexibility STG Duration 6 weeks Residential Goal (LTG) Pt will improve 10 degrees of L hip gross ROM addressing hip flexibility to be able to tie her L shoe in seated position LTG Duration 12 weeks Assessment Summary Assessment Pt presents with increased fascial tension. Con't manual and exercise progression. Physical Therapy Plan Frequency and Duration Frequency of Treatment 2x/Week Duration of Treatment 12 weeks Plan of Care Start Date 04/19/19 Plan of Care End Date 07/18/19 Therapeutic Interventions Therapeutic Interventions Balance Training,Gait Training ,Home Exercise Program,Joint Mobilizations,Manual Therapy, Neuromuscular Re-education, Orthotic/Prosthetic Management ,Patient/Caregiver Education, Self-Care/Home Management,Soft Tissue Mobilization,Taping, Therapeutic Activities, Therapeutic Exercises Modalities Cold Pack/Ice Massage,Hot Packs,Traction- Mechanical Next Visit Focus/Plan Next Note Type Treatment Note Next Visit Plan Consider working on left QL. Con't to monitor gait in setting of 2 lifts in right shoe and pt walking high on the right with gait. One lift removed previous treatment. Ongoing from previous: assess post tx tolerance manual therapy on L hip mobility (ER>IR>EXT) start with supine open/ close chain exs for hip ext/ abd/ stabilizers
--- NOTE | 2019-05-10 08:16 | PT.OTN ---
Current Diagnoses Stiffness of left hip, not elsewhere classified (05/10/19) Personal history of malignant neoplasm of bone (05/10/19) Physical Therapy Treatment Note PT-OP-A Visit Information Start: 04/11/19 10:35 Freq: Status: Active Protocol: Document 05/10/19 07:30 MB (Rec: 05/10/19 08:14 MB [id number]) Out-Patient Physical Therapy Visit Information Visit Information Visit Type Treatment Note Visit Start Time 07:33 Visit Stop Time 08:13 Total Visit Minutes 40 Visit Number 7 Number of WAREHOUSE DISTRIBUTION SPECIALIST Visits 0 PT-OP-B Current Condition Start: 04/11/19 10:35 Freq: Status: Active Protocol: Document 04/19/19 13:50 HH (Rec: 04/19/19 16:30 HH [email or web address]) Current Condition History of Current Condition Onset Date 2006 Current Complaints Chronic L hip pain d/t hx of surgeries, sciatic nerve injury. 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 She had multiple surgeries and 2 rounds of radiation in her left hip which much of gluteal tissue has been removed d/t cancer. Pt had grafts from the abdominal wall and hamstring performed on the L, but resulted a sciatic nerve injury that significant impaired her L foot function. Pt has been wearing AFO for gait. Pt reports she was very active and able to walk a few miles and go to the gym 2-3x/ week x 40 mins eliptical, along with stretching ex until she had a recent hospitalization d/t recurrent cellulitis on 02/24/19 which led her decreased L hip mobility and strength. She describes pain in her left hip described as a constant burning and aching. She states that this is a similar episode for which was admitted 1 year ago. She is hoping participating PT again will improve her L hip mobility and strength in general. Prior Treatments and Tests Had PT from July 2017 to Dec 2017 Treatment Goals Patient/Caregiver Goals 1. To be able to cross her L leg over R leg and tie her shoes. 2. Able to climb stairs without rails 3. To learn a new strengthening program for her workout routine. Prior Functional Status Baseline Function- ADL's Independent Baseline Function- Mobility Independent Current Functional Impairments (Reported) Functional Limitations- ADL's Uable to cross her L leg over R leg to tie her shoes. Functional Limitations- Mobility/Gait Unable to balance on L leg. Functional Limitations- Other Climb stairs with step over pattern with 1 rail Personal Factors Other Personal Factors That May Effect Bruise easily Therapy/Recovery sciatic nerve injury. PT-OP-C Subjective Start: 04/11/19 10:35 Freq: Status: Active Protocol: Document 05/10/19 07:30 MB (Rec: 05/10/19 08:14 MB [id number]) OP-PT Subjective Patient Comments Patient Comments The neck thing is moving down to her left shoulder when she stands up and she told her PCP . PT-OP-D Balance Start: 04/11/19 10:35 Freq: Status: Active Protocol: Document 04/19/19 13:50 HH (Rec: 04/19/19 16:30 HH [email or web address]) Balance Tests Single Limb Standing Single Limb- Right >40s Single Limb- Left 1s PT-OP-G Mobility & Gait Start: 04/19/19 16:31 Freq: Status: Active Protocol: Document 04/19/19 13:50 HH (Rec: 04/19/19 16:33 HH [email or web address]) OP Gait Assessment Gait Gait Assistance Required: Independent Able to Maintain Weight Bearing Status Yes During Gait Assistive Devices Orthotic/Prosthetic Devices or Brace: No Gait Deviations General Gait Pattern Decreased Stride Length, Decreased Feet Clearance, Lateral Trunk Lean Factors Limiting Gait Function Factors Limiting Gait Function Abnormal Tonal Influences, Decreased Activity Tolerance, Decreased Sensation,Decreased Strength,Limited Range of Motion,Pain,Poor Balance Comments Gait Comments with L AFO for foot drop +ve tredelengberg (R hip drop) during L stance phase Stair Climbing Evaluation Evaluation Level of Assist On Stairs Independent Devices Stair Climbing Assistive Devices Right Railing Technique/Endurance Stair Climbing Direction Ascend and Descend Stair Climbing Technique Step Over Step PT-OP-J Posture/Palpation/Skin Start: 04/11/19 10:35 Freq: Status: Active Protocol: Document 04/19/19 13:50 HH (Rec: 04/19/19 16:30 HH [email or web address]) Posture Evaluation Position Standing Evaluation View Anterior Weight Distribution Weight Shifted Right Hip Posture (L) Internally Rotated Knee Posture (R) Genu Valgus Ankle/Foot Posture (R) Pronated PT-OP-K Range of Motion Start: 04/11/19 10:35 Freq: Status: Active Protocol: Document 04/19/19 13:50 HH (Rec: 04/19/19 16:30 HH [email or web address]) Hip Goniometric Range of Motion Hip Right Hip ROM WFL Yes Testing Position Supine Flexion w/Knee Flexed 100 Straight Leg Raise 60 Extension 12 Abduction 35 Internal Rotation 70 External Rotation 32 Left Hip ROM WFL No Testing Position Supine Flexion w/Knee Flexed 90 Straight Leg Raise 65 Extension 0 Abduction 30 Internal Rotation 5 External Rotation 0 Hip ROM Limitations Hip ROM Limitations Soft Tissue Tightness,Bony Restriction,Pain PT-OP-M Strength Start: 04/11/19 10:35 Freq: Status: Active Protocol: Document 04/19/19 13:50 HH (Rec: 04/19/19 16:30 HH [email or web address]) Hip Strength Hip Manual Muscle Testing Right Flexion (L2) 4 Good Extension (S1) 4- Good- Abduction 4 Good Adduction 4+ Good+ External Rotation 4+ Good+ Internal Rotation 4+ Good+ Left Flexion (L2) 4+ Good+ Extension (S1) 3 Fair Abduction 3+ Fair+ Adduction 4- Good- External Rotation 3+ Fair+ Internal Rotation 4- Good- Reason Not Measured Pain Comments at end range ER/ IR Knee Strength Knee Manual Muscle Testing Right Flexion (S2) 4+ Good+ Extension (L3) 4+ Good+ Left Flexion (S2) 3+ Fair+ Extension (L3) 4+ Good+ PT-OP-Q Treatments Start: 04/11/19 10:35 Freq: Status: Active Protocol: Document 05/10/19 07:30 MB (Rec: 05/10/19 08:14 MB [id number]) Therapeutic Exercises Supine Exercises Try STM gastroc with yoga belt asst around foot Comments Difficult d/t no ankle movement, con't to practice passively Racquet ball STM SI ligaments Comments Hook lying today, added to HEP Sitting Exercises Plantar fascia STM racquet ball Comments Performed this date and added to HEP Rolling pin STM with rolling pin Comments Performed today, added to HEP Racquet ball massage hamstring Comments Performed with LAQ to help with quad and hamstring faciliation Standing Exercises Racquet ball massage glutes, lateral hip Comments Performed this date against the wall, added to HEP Manual Therapy Treatment Manual Techniques 3 Comments STM B quads with rolling pin PT-OP-T Assessment and Plan Start: 04/11/19 10:35 Freq: Status: Active Protocol: Document 05/10/19 07:30 MB (Rec: 05/10/19 08:14 MB [id number]) Physical Therapy Assessment Goals hamstring curl Impairment Pt is unable to perform 1 hamstring curl Fdc Goal (LTG) Pt will be able to perform L hamstring curl with foot brace on x 5 times LTG Duration 12 weeks Strengthening program Impairment pt does not has a strength training program Fdc Goal (LTG) Pt will be independent with a home strength and mobility program addressing hip mobility and strength. LTG Duration 12 weeks stair climbing Impairment pt needs 1rail for stair climbing [place]addy Goal (LTG) Pt will be able to climb stairs reciprocally without rails safely to improve functional mobility. LTG Duration 12 weeks strength Impairment unable to prone hip extension d/t L hip weakness Short Term Goal (STG) Pt will be able to perform posterior single leg raise addressing strength to improve gait efficiency STG Duration 6 weeks Fdc Goal (LTG) Pt will be be to perform posterior single leg raise x5 addressing strength to reduce her R hip drop during gait. LTG Duration 12 weeks hip mobility Impairment decreased L hip mobility Short Term Goal (STG) Pt will improve 5 degrees of L hip gross ROM addressing hip flexibility STG Duration 6 weeks Top Waddy Goal (LTG) Pt will improve 10 degrees of L hip gross ROM addressing hip flexibility to be able to tie her L shoe in seated position LTG Duration 12 weeks Assessment Summary Assessment Progressed self-myofascial release today. Con't progression. Physical Therapy Plan Frequency and Duration Frequency of Treatment 2x/Week Duration of Treatment 12 weeks Plan of Care Start Date 04/19/19 Plan of Care End Date 07/18/19 Therapeutic Interventions Therapeutic Interventions Balance Training,Gait Training ,Home Exercise Program,Joint Mobilizations,Manual Therapy, Neuromuscular Re-education, Orthotic/Prosthetic Management ,Patient/Caregiver Education, Self-Care/Home Management,Soft Tissue Mobilization,Taping, Therapeutic Activities, Therapeutic Exercises Modalities Cold Pack/Ice Massage,Hot Packs,Traction- Mechanical Next Visit Focus/Plan Next Note Type Treatment Note Next Visit Plan Consider working on left QL. Con't to monitor gait in setting of 2 lifts in right shoe and pt walking high on the right with gait. One lift removed previous treatment. Ongoing from previous: assess post tx tolerance manual therapy on L hip mobility (ER>IR>EXT) start with supine open/ close chain exs for hip ext/ abd/ stabilizers
--- NOTE | 2019-05-16 09:05 | PT.OTN ---
Current Diagnoses Stiffness of left hip, not elsewhere classified (05/16/19) Personal history of malignant neoplasm of bone (05/16/19) Physical Therapy Treatment Note PT-OP-A Visit Information Start: 04/11/19 10:35 Freq: Status: Active Protocol: Document 05/16/19 08:21 HH (Rec: 05/16/19 09:05 HH [id number]) Out-Patient Physical Therapy Visit Information Visit Information Visit Type Treatment Note Visit Start Time 08:17 Visit Stop Time 09:00 Total Visit Minutes 43 Visit Number 8 Number of S[employer]IOR [employer] DEVELOPER Visits 0 PT-OP-B Current Condition Start: 04/11/19 10:35 Freq: Status: Active Protocol: Document 04/19/19 13:50 HH (Rec: 04/19/19 16:30 HH [email or web address]) Current Condition History of Current Condition Onset Date 2006 Current Complaints Chronic L hip pain d/t hx of surgeries, sciatic nerve injury. 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 She had multiple surgeries and 2 rounds of radiation in her left hip which much of gluteal tissue has been removed d/t cancer. Pt had grafts from the abdominal wall and hamstring performed on the L, but resulted a sciatic nerve injury that significant impaired her L foot function. Pt has been wearing AFO for gait. Pt reports she was very active and able to walk a few miles and go to the gym 2-3x/ week x 40 mins eliptical, along with stretching ex until she had a recent hospitalization d/t recurrent cellulitis on 02/24/19 which led her decreased L hip mobility and strength. She describes pain in her left hip described as a constant burning and aching. She states that this is a similar episode for which was admitted 1 year ago. She is hoping participating PT again will improve her L hip mobility and strength in general. Prior Treatments and Tests Had PT from July 2017 to Dec 2017 Treatment Goals Patient/Caregiver Goals 1. To be able to cross her L leg over R leg and tie her shoes. 2. Able to climb stairs without rails 3. To learn a new strengthening program for her workout routine. Prior Functional Status Baseline Function- ADL's Independent Baseline Function- Mobility Independent Current Functional Impairments (Reported) Functional Limitations- ADL's Uable to cross her L leg over R leg to tie her shoes. Functional Limitations- Mobility/Gait Unable to balance on L leg. Functional Limitations- Other Climb stairs with step over pattern with 1 rail Personal Factors Other Personal Factors That May Effect Bruise easily Therapy/Recovery sciatic nerve injury. PT-OP-C Subjective Start: 04/11/19 10:35 Freq: Status: Active Protocol: Document 05/16/19 08:21 HH (Rec: 05/16/19 09:05 HH [id number]) OP-PT Subjective Patient Comments Patient Comments My neck is getting better slowly and im going to see chiropractor today. My hip overall feels better and more mobile. I am able to walk more and participate balance class 2x/week Patient Reported Progress Improving PT-OP-D Balance Start: 04/11/19 10:35 Freq: Status: Active Protocol: Document 04/19/19 13:50 HH (Rec: 04/19/19 16:30 HH [email or web address]) Balance Tests Single Limb Standing Single Limb- Right >40s Single Limb- Left 1s PT-OP-G Mobility & Gait Start: 04/19/19 16:31 Freq: Status: Active Protocol: Document 04/19/19 13:50 HH (Rec: 04/19/19 16:33 HH [email or web address]) OP Gait Assessment Gait Gait Assistance Required: Independent Able to Maintain Weight Bearing Status Yes During Gait Assistive Devices Orthotic/Prosthetic Devices or Brace: No Gait Deviations General Gait Pattern Decreased Stride Length, Decreased Feet Clearance, Lateral Trunk Lean Factors Limiting Gait Function Factors Limiting Gait Function Abnormal Tonal Influences, Decreased Activity Tolerance, Decreased Sensation,Decreased Strength,Limited Range of Motion,Pain,Poor Balance Comments Gait Comments with L AFO for foot drop +ve tredelengberg (R hip drop) during L stance phase Stair Climbing Evaluation Evaluation Level of Assist On Stairs Independent Devices Stair Climbing Assistive Devices Right Railing Technique/Endurance Stair Climbing Direction Ascend and Descend Stair Climbing Technique Step Over Step PT-OP-J Posture/Palpation/Skin Start: 04/11/19 10:35 Freq: Status: Active Protocol: Document 04/19/19 13:50 HH (Rec: 04/19/19 16:30 HH [email or web address]) Posture Evaluation Position Standing Evaluation View Anterior Weight Distribution Weight Shifted Right Hip Posture (L) Internally Rotated Knee Posture (R) Genu Valgus Ankle/Foot Posture (R) Pronated PT-OP-K Range of Motion Start: 04/11/19 10:35 Freq: Status: Active Protocol: Document 04/19/19 13:50 (Rec: 04/19/19 16:30 [email or web address]) Hip Goniometric Range of Motion Hip Right Hip ROM WFL Yes Testing Position Supine Flexion w/Knee Flexed 100 Straight Leg Raise 60 Extension 12 Abduction 35 Internal Rotation 70 External Rotation 32 Left Hip ROM WFL No Testing Position Supine Flexion w/Knee Flexed 90 Straight Leg Raise 65 Extension 0 Abduction 30 Internal Rotation 5 External Rotation 0 Hip ROM Limitations Hip ROM Limitations Soft Tissue Tightness,Bony Restriction,Pain PT-OP-M Strength Start: 04/11/19 10:35 Freq: Status: Active Protocol: Document 04/19/19 13:50 (Rec: 04/19/19 16:30 [email or web address]) Hip Strength Hip Manual Muscle Testing Right Flexion (L2) 4 Good Extension (S1) 4- Good- Abduction 4 Good Adduction 4+ Good+ External Rotation 4+ Good+ Internal Rotation 4+ Good+ Left Flexion (L2) 4+ Good+ Extension (S1) 3 Fair Abduction 3+ Fair+ Adduction 4- Good- External Rotation 3+ Fair+ Internal Rotation 4- Good- Reason Not Measured Pain Comments at end range ER/ IR Knee Strength Knee Manual Muscle Testing Right Flexion (S2) 4+ Good+ Extension (L3) 4+ Good+ Left Flexion (S2) 3+ Fair+ Extension (L3) 4+ Good+ PT-OP-Q Treatments Start: 04/11/19 10:35 Freq: Status: Active Protocol: Document 05/16/19 08:21 (Rec: 05/16/19 09:05 [id number]) Therapeutic Exercises Supine Exercises bridging Supine Exercise Name hold at top Reps/Minutes 5 sec x10 Comments weight on LLE primarily supine knee fall out Side left Comments improved isolated hip ER noticed Prone Exercises hamstring curl Side left Reps/Minutes 6 x2 Comments with RLE assisted to lift off. Standing Exercises hip hike Standing Exercise Name kneeling on chair with LLE and R hip hike Side left Reps/Minutes 8 x2 Comments cues to prevent lumbar lateral flexion Manual Therapy Treatment Soft Tissue Mobilization hip adductos Body Location L Mobilization Type Rolling,Sustained Pressure, Trigger Point Release Intensity/Depth Moderate Body Position Hooklying Comments with rolling pin. significant tenderness noted. Joint Mobilizations hip ant glide Direction ant Grade III Body Position Prone hip ER/IR Grade III Body Position Prone L hip distraction Grade IV Body Position Supine PT-OP-T Assessment and Plan Start: 04/11/19 10:35 Freq: Status: Active Protocol: Document 05/16/19 08:21 (Rec: 05/16/19 09:05 [id number]) Physical Therapy Assessment Goals hamstring curl Impairment Pt is unable to perform 1 hamstring curl [employer] Examiner Goal (LTG) Pt will be able to perform L hamstring curl with foot brace on x 5 times LTG Duration 12 weeks Strengthening program Impairment pt does not has a strength training program [employer] Compliance Examiner Goal (LTG) Pt will be independent with a home strength and mobility program addressing hip mobility and strength. LTG Duration 12 weeks stair climbing Impairment pt needs 1rail for stair climbing Snf Goal (LTG) Pt will be able to climb stairs reciprocally without rails safely to improve functional mobility. LTG Duration 12 weeks strength Impairment unable to prone hip extension d/t L hip weakness Short Term Goal (STG) Pt will be able to perform posterior single leg raise addressing strength to improve gait efficiency STG Duration 6 weeks Snf Goal (LTG) Pt will be be to perform posterior single leg raise x5 addressing strength to reduce her R hip drop during gait. LTG Duration 12 weeks hip mobility Impairment decreased L hip mobility Short Term Goal (STG) Pt will improve 5 degrees of L hip gross ROM addressing hip flexibility STG Duration 6 weeks [employer] Compliance Examiner Goal (LTG) Pt will improve 10 degrees of L hip gross ROM addressing hip flexibility to be able to tie her L shoe in seated position LTG Duration 12 weeks Assessment Summary Assessment Pt has not seen this PT for a month. Pt has improved hip mobility, hip abd/ER and hamstrings strength and reduced muscle guarding in general. Educated pt to use rolling pin for hip adductors and tennis ball for L glute. Added hip hike with LLE on chair to improve motor control of L hip stabilizers. Physical Therapy Plan Next Visit Focus/Plan Next Note Type Treatment Note Next Visit Plan Consider working on left QL. Con't to monitor gait in setting of 2 lifts in right shoe and pt walking high on the right with gait. One lift removed previous treatment. Ongoing from previous: assess post tx tolerance manual therapy on L hip mobility (ER>IR>EXT) start with supine open/ close chain exs for hip ext/ abd/ stabilizers
--- NOTE | 2019-05-21 08:15 | PT.OTN ---
Current Diagnoses Stiffness of left hip, not elsewhere classified (05/21/19) Personal history of malignant neoplasm of bone (05/21/19) Physical Therapy Treatment Note PT-OP-A Visit Information Start: 04/11/19 10:35 Freq: Status: Active Protocol: Document 05/21/19 07:39 MB (Rec: 05/21/19 08:15 MB [id number]) Out-Patient Physical Therapy Visit Information Visit Information Visit Type Treatment Note Visit Note Pt arrives late to appointment Visit Start Time 07:39 Visit Stop Time 08:15 Total Visit Minutes 36 Visit Number 9 Number of RN SUPPLEMENTAL Visits 0 PT-OP-B Current Condition Start: 04/11/19 10:35 Freq: Status: Active Protocol: Document 04/19/19 13:50 HH (Rec: 04/19/19 16:30 HH [email or web address]) Current Condition History of Current Condition Onset Date 2006 Current Complaints Chronic L hip pain d/t hx of surgeries, sciatic nerve injury. 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 She had multiple surgeries and 2 rounds of radiation in her left hip which much of gluteal tissue has been removed d/t cancer. Pt had grafts from the abdominal wall and hamstring performed on the L, but resulted a sciatic nerve injury that significant impaired her L foot function. Pt has been wearing AFO for gait. Pt reports she was very active and able to walk a few miles and go to the gym 2-3x/ week x 40 mins eliptical, along with stretching ex until she had a recent hospitalization d/t recurrent cellulitis on 02/24/19 which led her decreased L hip mobility and strength. She describes pain in her left hip described as a constant burning and aching. She states that this is a similar episode for which was admitted 1 year ago. She is hoping participating PT again will improve her L hip mobility and strength in general. Prior Treatments and Tests Had PT from July 2017 to Dec 2017 Treatment Goals Patient/Caregiver Goals 1. To be able to cross her L leg over R leg and tie her shoes. 2. Able to climb stairs without rails 3. To learn a new strengthening program for her workout routine. Prior Functional Status Baseline Function- ADL's Independent Baseline Function- Mobility Independent Current Functional Impairments (Reported) Functional Limitations- ADL's Uable to cross her L leg over R leg to tie her shoes. Functional Limitations- Mobility/Gait Unable to balance on L leg. Functional Limitations- Other Climb stairs with step over pattern with 1 rail Personal Factors Other Personal Factors That May Effect Bruise easily Therapy/Recovery sciatic nerve injury. PT-OP-C Subjective Start: 04/11/19 10:35 Freq: Status: Active Protocol: Document 05/21/19 07:39 MB (Rec: 05/21/19 08:15 MB [id number]) OP-PT Subjective Patient Comments Patient Comments Pt con't to have soreness in her right hamstring after gardening over the weekend. Pt is getting chiropractor care once a week for her neck and ribs. PT-OP-D Balance Start: 04/11/19 10:35 Freq: Status: Active Protocol: Document 04/19/19 13:50 HH (Rec: 04/19/19 16:30 HH [email or web address]) Balance Tests Single Limb Standing Single Limb- Right >40s Single Limb- Left 1s PT-OP-G Mobility & Gait Start: 04/19/19 16:31 Freq: Status: Active Protocol: Document 04/19/19 13:50 HH (Rec: 04/19/19 16:33 HH [email or web address]) OP Gait Assessment Gait Gait Assistance Required: Independent Able to Maintain Weight Bearing Status Yes During Gait Assistive Devices Orthotic/Prosthetic Devices or Brace: No Gait Deviations General Gait Pattern Decreased Stride Length, Decreased Feet Clearance, Lateral Trunk Lean Factors Limiting Gait Function Factors Limiting Gait Function Abnormal Tonal Influences, Decreased Activity Tolerance, Decreased Sensation,Decreased Strength,Limited Range of Motion,Pain,Poor Balance Comments Gait Comments with L AFO for foot drop +ve tredelengberg (R hip drop) during L stance phase Stair Climbing Evaluation Evaluation Level of Assist On Stairs Independent Devices Stair Climbing Assistive Devices Right Railing Technique/Endurance Stair Climbing Direction Ascend and Descend Stair Climbing Technique Step Over Step PT-OP-J Posture/Palpation/Skin Start: 04/11/19 10:35 Freq: Status: Active Protocol: Document 04/19/19 13:50 HH (Rec: 04/19/19 16:30 HH [email or web address]) Posture Evaluation Position Standing Evaluation View Anterior Weight Distribution Weight Shifted Right Hip Posture (L) Internally Rotated Knee Posture (R) Genu Valgus Ankle/Foot Posture (R) Pronated PT-OP-K Range of Motion Start: 04/11/19 10:35 Freq: Status: Active Protocol: Document 04/19/19 13:50 HH (Rec: 04/19/19 16:30 HH [email or web address]) Hip Goniometric Range of Motion Hip Right Hip ROM WFL Yes Testing Position Supine Flexion w/Knee Flexed 100 Straight Leg Raise 60 Extension 12 Abduction 35 Internal Rotation 70 External Rotation 32 Left Hip ROM WFL No Testing Position Supine Flexion w/Knee Flexed 90 Straight Leg Raise 65 Extension 0 Abduction 30 Internal Rotation 5 External Rotation 0 Hip ROM Limitations Hip ROM Limitations Soft Tissue Tightness,Bony Restriction,Pain PT-OP-M Strength Start: 04/11/19 10:35 Freq: Status: Active Protocol: Document 04/19/19 13:50 HH (Rec: 04/19/19 16:30 HH [email or web address]) Hip Strength Hip Manual Muscle Testing Right Flexion (L2) 4 Good Extension (S1) 4- Good- Abduction 4 Good Adduction 4+ Good+ External Rotation 4+ Good+ Internal Rotation 4+ Good+ Left Flexion (L2) 4+ Good+ Extension (S1) 3 Fair Abduction 3+ Fair+ Adduction 4- Good- External Rotation 3+ Fair+ Internal Rotation 4- Good- Reason Not Measured Pain Comments at end range ER/ IR Knee Strength Knee Manual Muscle Testing Right Flexion (S2) 4+ Good+ Extension (L3) 4+ Good+ Left Flexion (S2) 3+ Fair+ Extension (L3) 4+ Good+ PT-OP-Q Treatments Start: 04/11/19 10:35 Freq: Status: Active Protocol: Document 05/21/19 07:39 MB (Rec: 05/21/19 08:15 MB [id number]) Therapeutic Exercises Sitting Exercises Racquet ball massage hamstring Comments Performed sitting today, LAQ Standing Exercises hip hike Comments Pt performs in standing today Manual Therapy Treatment Manual Techniques STM left fibularis longus, DF, STM left quads with rolling pin Comments Performed today PT-OP-T Assessment and Plan Start: 04/11/19 10:35 Freq: Status: Active Protocol: Document 05/21/19 07:39 MB (Rec: 05/21/19 08:15 MB [id number]) Physical Therapy Assessment Goals hamstring curl Impairment Pt is unable to perform 1 hamstring curl Skilled Nursing Goal (LTG) Pt will be able to perform L hamstring curl with foot brace on x 5 times LTG Duration 12 weeks Strengthening program Impairment pt does not has a strength training program Skilled Nursing Goal (LTG) Pt will be independent with a home strength and mobility program addressing hip mobility and strength. LTG Duration 12 weeks stair climbing Impairment pt needs 1rail for stair climbing Skilled Nursing Goal (LTG) Pt will be able to climb stairs reciprocally without rails safely to improve functional mobility. LTG Duration 12 weeks strength Impairment unable to prone hip extension d/t L hip weakness Short Term Goal (STG) Pt will be able to perform posterior single leg raise addressing strength to improve gait efficiency STG Duration 6 weeks [employer] House Goal (LTG) Pt will be be to perform posterior single leg raise x5 addressing strength to reduce her R hip drop during gait. LTG Duration 12 weeks hip mobility Impairment decreased L hip mobility Short Term Goal (STG) Pt will improve 5 degrees of L hip gross ROM addressing hip flexibility STG Duration 6 weeks Skilled Nursing Goal (LTG) Pt will improve 10 degrees of L hip gross ROM addressing hip flexibility to be able to tie her L shoe in seated position LTG Duration 12 weeks Assessment Summary Assessment Progress note soon as 10 visits next time. Pt to go for initial fitting for new AFO. May consider extending out therapy to perform more upright WB exercises as she evens out with leg length. Con 't progressive exercise. Physical Therapy Plan Frequency and Duration Frequency of Treatment 2x/Week Duration of Treatment 12 weeks Plan of Care Start Date 04/19/19 Plan of Care End Date 07/18/19 Therapeutic Interventions Therapeutic Interventions Balance Training,Gait Training ,Home Exercise Program,Joint Mobilizations,Manual Therapy, Neuromuscular Re-education, Orthotic/Prosthetic Management ,Patient/Caregiver Education, Self-Care/Home Management,Soft Tissue Mobilization,Taping, Therapeutic Activities, Therapeutic Exercises Modalities Cold Pack/Ice Massage,Hot Packs,Traction- Mechanical Next Visit Focus/Plan Next Note Type Progress Note Next Visit Plan Consider working on left QL. Con't to monitor gait in setting of 2 lifts in right shoe and pt walking high on the right with gait. One lift removed previous treatment. Ongoing from previous: assess post tx tolerance manual therapy on L hip mobility (ER>IR>EXT) start with supine open/ close chain exs for hip ext/ abd/ stabilizers
--- NOTE | 2019-05-28 09:00 | PT.OTN ---
Current Diagnoses Stiffness of left hip, not elsewhere classified (05/28/19) Personal history of malignant neoplasm of bone (05/28/19) Physical Therapy Treatment Note PT-OP-A Visit Information Start: 04/11/19 10:35 Freq: Status: Active Protocol: Document 05/28/19 08:16 MB (Rec: 05/28/19 09:00 MB [id number]) Out-Patient Physical Therapy Visit Information Visit Information Visit Type Progress Note Visit Start Time 08:16 Visit Stop Time 09:56 Total Visit Minutes 40 Visit Number 01/03, progress note done today PT-OP-B Current Condition Start: 04/11/19 10:35 Freq: Status: Active Protocol: Document 04/19/19 13:50 HH (Rec: 04/19/19 16:30 HH [email or web address]) Current Condition History of Current Condition Onset Date 2006 Current Complaints Chronic L hip pain d/t hx of surgeries, sciatic nerve injury. 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 She had multiple surgeries and 2 rounds of radiation in her left hip which much of gluteal tissue has been removed d/t cancer. Pt had grafts from the abdominal wall and hamstring performed on the L, but resulted a sciatic nerve injury that significant impaired her L foot function. Pt has been wearing AFO for gait. Pt reports she was very active and able to walk a few miles and go to the gym 2-3x/ week x 40 mins eliptical, along with stretching ex until she had a recent hospitalization d/t recurrent cellulitis on 02/24/19 which led her decreased L hip mobility and strength. She describes pain in her left hip described as a constant burning and aching. She states that this is a similar episode for which was admitted 1 year ago. She is hoping participating PT again will improve her L hip mobility and strength in general. Prior Treatments and Tests Had PT from July 2017 to Dec 2017 Treatment Goals Patient/Caregiver Goals 1. To be able to cross her L leg over R leg and tie her shoes. 2. Able to climb stairs without rails 3. To learn a new strengthening program for her workout routine. Prior Functional Status Baseline Function- ADL's Independent Baseline Function- Mobility Independent Current Functional Impairments (Reported) Functional Limitations- ADL's Uable to cross her L leg over R leg to tie her shoes. Functional Limitations- Mobility/Gait Unable to balance on L leg. Functional Limitations- Other Climb stairs with step over pattern with 1 rail Personal Factors Other Personal Factors That May Effect Bruise easily Therapy/Recovery sciatic nerve injury. PT-OP-C Subjective Start: 04/11/19 10:35 Freq: Status: Active Protocol: Document 05/28/19 08:16 MB (Rec: 05/28/19 09:00 MB [id number]) OP-PT Subjective Patient Comments Patient Comments Pt went to hydraulic technician and is going to get new brace made. She is interested in going down for rehab training at the [facility] after getting the brace. This will occur end of May, early June. She used temporary brace and noticed better walking. PT-OP-D Balance Start: 04/11/19 10:35 Freq: Status: Active Protocol: Document 04/19/19 13:50 HH (Rec: 04/19/19 16:30 HH [email or web address]) Balance Tests Single Limb Standing Single Limb- Right >40s Single Limb- Left 1s PT-OP-G Mobility & Gait Start: 04/19/19 16:31 Freq: Status: Active Protocol: Document 04/19/19 13:50 HH (Rec: 04/19/19 16:33 HH [email or web address]) OP Gait Assessment Gait Gait Assistance Required: Independent Able to Maintain Weight Bearing Status Yes During Gait Assistive Devices Orthotic/Prosthetic Devices or Brace: No Gait Deviations General Gait Pattern Decreased Stride Length, Decreased Feet Clearance, Lateral Trunk Lean Factors Limiting Gait Function Factors Limiting Gait Function Abnormal Tonal Influences, Decreased Activity Tolerance, Decreased Sensation,Decreased Strength,Limited Range of Motion,Pain,Poor Balance Comments Gait Comments with L AFO for foot drop +ve tredelengberg (R hip drop) during L stance phase Stair Climbing Evaluation Evaluation Level of Assist On Stairs Independent Devices Stair Climbing Assistive Devices Right Railing Technique/Endurance Stair Climbing Direction Ascend and Descend Stair Climbing Technique Step Over Step PT-OP-J Posture/Palpation/Skin Start: 04/11/19 10:35 Freq: Status: Active Protocol: Document 04/19/19 13:50 HH (Rec: 04/19/19 16:30 HH [email or web address]) Posture Evaluation Position Standing Evaluation View Anterior Weight Distribution Weight Shifted Right Hip Posture (L) Internally Rotated Knee Posture (R) Genu Valgus Ankle/Foot Posture (R) Pronated PT-OP-K Range of Motion Start: 04/11/19 10:35 Freq: Status: Active Protocol: Document 04/19/19 13:50 HH (Rec: 04/19/19 16:30 HH [email or web address]) Hip Goniometric Range of Motion Hip Right Hip ROM WFL Yes Testing Position Supine Flexion w/Knee Flexed 100 Straight Leg Raise 60 Extension 12 Abduction 35 Internal Rotation 70 External Rotation 32 Left Hip ROM WFL No Testing Position Supine Flexion w/Knee Flexed 90 Straight Leg Raise 65 Extension 0 Abduction 30 Internal Rotation 5 External Rotation 0 Hip ROM Limitations Hip ROM Limitations Soft Tissue Tightness,Bony Restriction,Pain PT-OP-M Strength Start: 04/11/19 10:35 Freq: Status: Active Protocol: Document 04/19/19 13:50 HH (Rec: 04/19/19 16:30 HH [email or web address]) Hip Strength Hip Manual Muscle Testing Right Flexion (L2) 4 Good Extension (S1) 4- Good- Abduction 4 Good Adduction 4+ Good+ External Rotation 4+ Good+ Internal Rotation 4+ Good+ Left Flexion (L2) 4+ Good+ Extension (S1) 3 Fair Abduction 3+ Fair+ Adduction 4- Good- External Rotation 3+ Fair+ Internal Rotation 4- Good- Reason Not Measured Pain Comments at end range ER/ IR Knee Strength Knee Manual Muscle Testing Right Flexion (S2) 4+ Good+ Extension (L3) 4+ Good+ Left Flexion (S2) 3+ Fair+ Extension (L3) 4+ Good+ PT-OP-Q Treatments Start: 04/11/19 10:35 Freq: Status: Active Protocol: Document 05/28/19 08:16 MB (Rec: 05/28/19 09:00 MB [id number]) Therapeutic Exercises Supine Exercises Verbally reviewed pelvic realignment, core exercises and performed hamstring curl Comments This done with progress note today Gait Training Gait Activity Stair training this date Comments Occ use of rails, SBA, pt has trouble with reciprocal gait, most difficult with ascend Manual Therapy Treatment Soft Tissue Mobilization hip adductos Body Location B adductors and quads Mobilization Type Rolling,Sustained Pressure, Trigger Point Release Intensity/Depth Moderate Body Position Hooklying Comments with rolling pin. significant tenderness noted during treatment and no pain afterwards PT-OP-T Assessment and Plan Start: 04/11/19 10:35 Freq: Status: Active Protocol: Document 05/28/19 08:16 MB (Rec: 05/28/19 09:00 MB [id number]) Physical Therapy Assessment Goals hamstring curl Impairment Pt is unable to perform 1 hamstring curl Mcc Goal (LTG) Pt will be able to perform L hamstring curl with foot brace on x 5 times by 07/30/2019. 05/28/2019: Pt has been performing without brace at home, is able to perform 75% of hamstring curl with the left once aided by the right foot (brace donned today). LTG Duration 8 weeks Strengthening program Impairment pt does not has a strength training program Mcc Goal (LTG) Pt will be independent with a HEP addressing hip mobility and strength as well as core and balance and gait by 2019. 05/28/2019: Pt is performing progressive HEP LTG Duration 8 weeks stair climbing Impairment pt needs 1rail for stair climbing Mcc Goal (LTG) Pt will be able to climb 5 stairs reciprocally without rails safely to allow safe home entry by 07/30/2019. 05/28/2019: Pt tries reciprocal gait without rail, most trouble ascending and decreased balance on left leg ascend and descend and requires SBA and she occ reaches for rail LTG Duration 8 weeks hip mobility Mcc Goal (LTG) Pt will be able to sit cross legged with hips supported on small stool or rolled up mat in order to perform mediation and yoga by 07/30/2019. LTG Duration 8 weeks Five M[facility] Goal (LTG) Pt will be able to perform SLS left leg with orthosis donned for at least 5 sec to allow safe reciprocal gait on stairs by 07/30/2019. 05/28/2019: 1 sec hold today LTG Duration 8 weeks Assessment Summary Assessment Pt reports improved balance, endurance with gait and posture since starting PT. She has less hip pain. She is progressing towards stair gait , HEP, hamstring curl goals. Will con't to benefit from PT to progress strength, balance, flexibility and gait as well as core. Physical Therapy Plan Frequency and Duration Frequency of Treatment 2x/Week Duration of Treatment 8 weeks Plan of Care Start Date 05/28/19 Plan of Care End Date 07/30/19 Therapeutic Interventions Therapeutic Interventions Aquatic Therapy,Balance Training,Gait Training,Home Exercise Program,Joint Mobilizations,Manual Therapy, Neuromuscular Re-education, Orthotic/Prosthetic Management ,Patient/Caregiver Education, Self-Care/Home Management,Soft Tissue Mobilization,Taping, Therapeutic Activities, Therapeutic Exercises Modalities Cold Pack/Ice Massage,Hot Packs,Traction- Mechanical Next Visit Focus/Plan Next Note Type Treatment Note Next Visit Plan Consider working on left QL. Con't to monitor gait in setting of 2 lifts in right shoe and pt walking high on the right with gait. One lift removed previous treatment. Ongoing from previous: assess post tx tolerance manual therapy on L hip mobility (ER>IR>EXT) start with supine open/ close chain exs for hip ext/ abd/ stabilizers
--- NOTE | 2019-05-28 09:01 | PT.OPPOC ---
Physical, Occupational & Speech Therapy At [facility] Current Diagnoses Stiffness of left hip, not elsewhere classified (05/28/19) Personal history of malignant neoplasm of bone (05/28/19) Visit Care Team Role Provider Type ELINOR Leal Attending Provider Advanced Cutting Machine Tender Helper Primary Care Provider Specialty: Family Practice Address: [address] [place] [address], [facility] Email: [email or web address] Plan Of Care PT-OP-T Assessment and Plan Start: 04/11/19 10:35 Freq: Status: Active Protocol: Document 05/28/19 08:16 MB (Rec: 05/28/19 09:00 MB [id number]) Physical Therapy Assessment Goals hamstring curl Impairment Pt is unable to perform 1 hamstring curl Equipment Maintenance Technician Goal (LTG) Pt will be able to perform L hamstring curl with foot brace on x 5 times by 07/30/2019. 05/28/2019: Pt has been performing without brace at home, is able to perform 75% of hamstring curl with the left once aided by the right foot (brace donned today). LTG Duration 8 weeks Strengthening program Impairment pt does not has a strength training program Equipment Maintenance Technician Goal (LTG) Pt will be independent with a HEP addressing hip mobility and strength as well as core and balance and gait by 2019. 05/28/2019: Pt is performing progressive HEP LTG Duration 8 weeks stair climbing Impairment pt needs 1rail for stair climbing Equipment Maintenance Technician Goal (LTG) Pt will be able to climb 5 stairs reciprocally without rails safely to allow safe home entry by 07/30/2019. 05/28/2019: Pt tries reciprocal gait without rail, most trouble ascending and decreased balance on left leg ascend and descend and requires SBA and she occ reaches for rail LTG Duration 8 weeks hip mobility [facility] Goal (LTG) Pt will be able to sit cross legged with hips supported on small stool or rolled up mat in order to perform mediation and yoga by 07/30/2019. LTG Duration 8 weeks Five Equipment Maintenance Technician Goal (LTG) Pt will be able to perform SLS left leg with orthosis donned for at least 5 sec to allow safe reciprocal gait on stairs by 07/30/2019. 05/28/2019: 1 sec hold today LTG Duration 8 weeks Assessment Summary Assessment Pt reports improved balance, endurance with gait and posture since starting PT. She has less hip pain. She is progressing towards stair gait , HEP, hamstring curl goals. Will con't to benefit from PT to progress strength, balance, flexibility and gait as well as core. Physical Therapy Plan Frequency and Duration Frequency of Treatment 2x/Week Duration of Treatment 8 weeks Plan of Care Start Date 05/28/19 Plan of Care End Date 07/30/19 Therapeutic Interventions Therapeutic Interventions Aquatic Therapy,Balance Training,Gait Training,Home Exercise Program,Joint Mobilizations,Manual Therapy, Neuromuscular Re-education, Orthotic/Prosthetic Management ,Patient/Caregiver Education, Self-Care/Home Management,Soft Tissue Mobilization,Taping, Therapeutic Activities, Therapeutic Exercises Modalities Cold Pack/Ice Massage,Hot Packs,Traction- Mechanical Next Visit Focus/Plan Next Note Type Treatment Note Next Visit Plan Consider working on left QL. Con't to monitor gait in setting of 2 lifts in right shoe and pt walking high on the right with gait. One lift removed previous treatment. Ongoing from previous: assess post tx tolerance manual therapy on L hip mobility (ER>IR>EXT) start with supine open/ close chain exs for hip ext/ abd/ stabilizers Plan of Care Dates Plan of Care Start Date 05/28/19 Plan of Care End Date 07/30/19 Electronically Signed by: Yuliana Castellon PT 05/28/19 0901 Please Sign and Return: I have reviewed this Plan of Care and certify that the skilled therapy services above are required to meet the patient?s needs. Physician Signature Date Printed Name and Credentials Clinical Instructor Signature Printed Name and Credentials
--- NOTE | 2019-05-31 08:29 | PT-OP ANOTE ---
Pt is a no show. PT calls pt and she states that she went to her doctor yesterday for neck pain. She had an x-ray that showed cervical spine arthritis. She was prescribed a muscle relaxer, which she took last night and she slept through her alarm. She reports Practitioner Arpit sent a neck referral to be added. Will perform re-eval for neck, pt to take 1030 slot.
--- NOTE | 2019-05-31 11:22 | PT.OTRE ---
Current Diagnoses Stiffness of left hip, not elsewhere classified (05/31/19) Strain of muscle, fascia and tendon at neck level, initial encounter (05/31/19) Personal history of malignant neoplasm of bone (05/31/19) Past Medical History (Last Updated 05/30/19 @ 11:00 by ELINOR Leal) Anxiety (Inactive ~1977) Cellulitis (Inactive) Clostridium difficile diarrhea (Acute) Depression (Inactive ~1977) Hypokalemia (Inactive) Neck strain (Acute) Nerve damage of foot (Acute) Osteosarcoma of bone (Acute) Surgical History (Last Reviewed 02/25/19 @ 00:47 by ELINOR Damon) History of surgery (Resolved) Infection (Inactive) Status post skin flap graft (Acute) Tumor (Resolved) Visit Care Team Role Provider Type Specialty: Address: Phone: Fax: Email: ELINOR Leal Attending Provider Advanced Supplier Specialist Primary Care Provider Specialty: Family Practice Address: [address] [place] [address], [facility] Email: [email or web address] Physical Therapy Re-Evaluation PT-OP-A Visit Information Start: 04/11/19 10:35 Freq: Status: Active Protocol: Document 05/31/19 10:31 MB (Rec: 05/31/19 10:48 MB [id number]) Out-Patient Physical Therapy Visit Information Visit Information Visit Type Re-Evaluation Visit Start Time 10:31 Visit Stop Time 11:10 Total Visit Minutes 39 Visit Number 04/05 before next reassessment PT-OP-B Current Condition Start: 04/11/19 10:35 Freq: Status: Active Protocol: Document 05/31/19 10:31 MB (Rec: 05/31/19 11:10 MB [id number]) Current Condition History of Current Condition Onset Date Four weeks ago Current Complaints Left posteior neck pain and left arm pain History of Current Condition Pt was performing downward dog and her neck seized up. She reports 7/10 left cervical paraspinal pain, 7/10 left lateral elbow pain and 7/10 left intrascapular pain that is worse with forward postures . She denies paresthesias. She is sleeping with neck support but not with arm support. Prior Treatments and Tests Cervical x-ray 05/30/2019: mild C5-6 and C6-7 disc degeneration, straightening normal lordotic curve, mild focal kyphosis C5-6 Treatment Goals Patient/Caregiver Goals To decrease neck and arm pain and return to full yoga program PT-OP-C Subjective Start: 04/11/19 10:35 Freq: Status: Active Protocol: Document 05/31/19 10:31 MB (Rec: 05/31/19 10:48 MB [id number]) OP-PT Subjective Patient Comments Patient Comments Pt went to see ELINOR Munson yesterday d/t ongoing neck pain after doing yoga. She was doing downward dog and her neck seized up. The pain moved to her left shoulder. She is using towel roll for neck support at home. She is not having numbness or tingling. She does have pain down to her left elbow. She reports pain in left arm with sitting forward. Patient Questionnaires Neck Disability Index NDI Score 30 Neck Disability Index Impairment 60 to 79% Impaired (Score 30- 39) PT-OP-D Balance Start: 04/11/19 10:35 Freq: Status: Active Protocol: Document 04/19/19 13:50 HH (Rec: 04/19/19 16:30 HH [email or web address]) Balance Tests Single Limb Standing Single Limb- Right >40s Single Limb- Left 1s PT-OP-G Mobility & Gait Start: 04/19/19 16:31 Freq: Status: Active Protocol: Document 04/19/19 13:50 HH (Rec: 04/19/19 16:33 HH [email or web address]) OP Gait Assessment Gait Gait Assistance Required: Independent Able to Maintain Weight Bearing Status Yes During Gait Assistive Devices Orthotic/Prosthetic Devices or Brace: No Gait Deviations General Gait Pattern Decreased Stride Length, Decreased Feet Clearance, Lateral Trunk Lean Factors Limiting Gait Function Factors Limiting Gait Function Abnormal Tonal Influences, Decreased Activity Tolerance, Decreased Sensation,Decreased Strength,Limited Range of Motion,Pain,Poor Balance Comments Gait Comments with L AFO for foot drop +ve tredelengberg (R hip drop) during L stance phase Stair Climbing Evaluation Evaluation Level of Assist On Stairs Independent Devices Stair Climbing Assistive Devices Right Railing Technique/Endurance Stair Climbing Direction Ascend and Descend Stair Climbing Technique Step Over Step PT-OP-J Posture/Palpation/Skin Start: 04/11/19 10:35 Freq: Status: Active Protocol: Document 05/31/19 10:31 MB (Rec: 05/31/19 11:10 MB [id number]) Posture Evaluation Comments Posture Comments Posture with shoes and left AFO in standing: decreased cervical lordosis, mild Dowager's hump, decreased thoracic kyphosis, increased lumbar lordosis and anterior tilt pelvis, right iliac crest higher than the left in standing. PT-OP-K Range of Motion Start: 04/11/19 10:35 Freq: Status: Active Protocol: Document 05/31/19 10:31 MB (Rec: 05/31/19 11:10 MB [id number]) Cervical Spine Range of Motion Cervical Spine Active Testing Position Standing Flexion 25 Extension 35 Rotation Left 37 Rotation Right 35 Lateral Flexion Left 11 Lateral Flexion Right 9 Comments Left greater than right cervical paraspinal discomfort 2/10 with rotation, SB, flexion Shoulder Goniometric Range of Motion Shoulder Measured in Degrees Left Shoulder ROM WFL Yes Right Shoulder ROM WFL Yes PT-OP-M Strength Start: 04/11/19 10:35 Freq: Status: Active Protocol: Document 05/31/19 10:31 MB (Rec: 05/31/19 11:10 MB [id number]) Shoulder Strength Shoulder Manual Muscle Testing Left Flexion 5 Normal Abduction (C5) 5 Normal External Rotation 3+ Fair+ Internal Rotation 4 Good Right Flexion 5 Normal Abduction (C5) 5 Normal External Rotation 3+ Fair+ Internal Rotation 4 Good Elbow/Forearm Strength Elbow and Forearm Manual Muscle Testing Left Flexion (C6) 5 Normal Extension (C7) 5 Normal Pronation 3+ Fair+ Supination 3+ Fair+ Right Flexion (C6) 5 Normal Extension (C7) 5 Normal Pronation 4 Good Supination 4 Good Wrist Strength Wrist Manual Muscle Testing Left Flexion (C7) 4 Good Extension (C6) 4 Good Right Flexion (C7) 5 Normal Extension (C6) 5 Normal PT-OP-Q Treatments Start: 04/11/19 10:35 Freq: Status: Active Protocol: Document 05/31/19 10:31 MB (Rec: 05/31/19 11:21 MB [id number]) Therapeutic Exercises Standing Exercises 8 Standing Exercise Name Racquet ball massage including MWM infraspinatus, intrascap muscles, traps Side bilateral Comments Ed pt and she performs all, added to HEP PT-OP-T Assessment and Plan Start: 04/11/19 10:35 Freq: Status: Active Protocol: Document 05/31/19 10:31 MB (Rec: 05/31/19 10:48 MB [id number]) Physical Therapy Assessment Rehab Potential Rehabilitation Potential Good Goals hamstring curl Impairment Pt is unable to perform 1 hamstring curl Senior Living Goal (LTG) Pt will be able to perform L hamstring curl with foot brace on x 5 times by 07/30/2019. 05/28/2019: Pt has been performing without brace at home, is able to perform 75% of hamstring curl with the left once aided by the right foot (brace donned today). LTG Duration 8 weeks Strengthening program Impairment pt does not has a strength training program Quality Improvement Manager Goal (LTG) Pt will be independent with a HEP addressing cervical range, UE strength, hip mobility and strength as well as core and balance and gait by 07/30/2019. 05/28/2019: Pt is performing progressive HEP LTG Duration 8 weeks stair climbing Impairment pt needs 1rail for stair climbing Senior Living Goal (LTG) Pt will be able to climb 5 stairs reciprocally without rails safely to allow safe home entry by 07/30/2019. 05/28/2019: Pt tries reciprocal gait without rail, most trouble ascending and decreased balance on left leg ascend and descend and requires SBA and she occ reaches for rail LTG Duration 8 weeks hip mobility Senior Living Goal (LTG) Pt will be able to sit cross legged with hips supported on small stool or rolled up mat in order to perform mediation and yoga by 07/30/2019. LTG Duration 8 weeks Five Quality Improvement Manager Goal (LTG) Pt will be able to perform SLS left leg with orthosis donned for at least 5 sec to allow safe reciprocal gait on stairs by 07/30/2019. 05/28/2019: 1 sec hold today LTG Duration 8 weeks Four Quality Improvement Manager Goal (LTG) Pt will present with an improved NDI score to reflect no more than 15% impairment to allow return to downward dog by 07/31/2019. LTG Duration 8 weeks Three Quality Improvement Manager Goal (LTG) Pt will report an overall 75% improvement in neck and left arm pain to allow return to UE support yoga positions by 07/29. LTG Duration 8 weeks Two Senior Living Goal (LTG) Pt will present with B shoulder ER and IR and wrist pronation and supination strength to 5/5 to allow return to previous exercise activities by 07/30/2019. LTG Duration 8 weeks One Senior Living Goal (LTG) Pt will present with cervical flexion to 35 deg, B rotation to 50 deg to allow functional neck movement for yoga poses by 07/30/2019. LTG Duration 8 weeks Assessment Summary Assessment Assessed cervical spine today and pt presents with decreased cervical ROM, UE strength and increased fascial tension. She has postural changes at least partially related to LE changes requiring AFO. She also has cervical spine changes per x-ray. Will add treatment of cervical spine, posture, UE strength to current PT POC. Physical Therapy Plan Frequency and Duration Frequency of Treatment 2x/Week Duration of Treatment 8 weeks Plan of Care Start Date 05/31/19 Plan of Care End Date 07/30/19 Therapeutic Interventions Therapeutic Interventions Aquatic Therapy,Balance Training,Gait Training,Home Exercise Program,Joint Mobilizations,Manual Therapy, Neuromuscular Re-education, Orthotic/Prosthetic Management ,Patient/Caregiver Education, Self-Care/Home Management,Soft Tissue Mobilization,Taping, Therapeutic Activities, Therapeutic Exercises Modalities Cold Pack/Ice Massage,Hot Packs,Traction- Mechanical Next Visit Focus/Plan Next Note Type Treatment Note Next Visit Plan Progress cervical, scapular and shoulder exercises. Consider working on left QL. Con't to monitor gait in setting of 2 lifts in right shoe and pt walking high on the right with gait. One lift removed previous treatment. Ongoing from previous: assess post tx tolerance manual therapy on L hip mobility (ER>IR>EXT) start with supine open/ close chain exs for hip ext/ abd/ stabilizers
--- NOTE | 2019-06-04 08:58 | PT.OTN ---
Current Diagnoses Stiffness of left hip, not elsewhere classified (06/04/19) Strain of muscle, fascia and tendon at neck level, initial encounter (06/04/19) Personal history of malignant neoplasm of bone (06/04/19) Physical Therapy Treatment Note PT-OP-A Visit Information Start: 04/11/19 10:35 Freq: Status: Active Protocol: Document 06/04/19 08:17 MB (Rec: 06/04/19 08:58 MB [id number]) Out-Patient Physical Therapy Visit Information Visit Information Visit Type Treatment Note Visit Start Time 08:17 Visit Stop Time 08:58 Total Visit Minutes 41 Visit Number 05/06 PT-OP-B Current Condition Start: 04/11/19 10:35 Freq: Status: Active Protocol: Document 05/31/19 10:31 MB (Rec: 05/31/19 11:10 MB [id number]) Current Condition History of Current Condition Onset Date Four weeks ago Current Complaints Left posteior neck pain and left arm pain History of Current Condition Pt was performing downward dog and her neck seized up. She reports 7/10 left cervical paraspinal pain, 7/10 left lateral elbow pain and 7/10 left intrascapular pain that is worse with forward postures . She denies paresthesias. She is sleeping with neck support but not with arm support. Prior Treatments and Tests Cervical x-ray 05/30/2019: mild C5-6 and C6-7 disc degeneration, straightening normal lordotic curve, mild focal kyphosis C5-6 Treatment Goals Patient/Caregiver Goals To decrease neck and arm pain and return to full yoga program PT-OP-C Subjective Start: 04/11/19 10:35 Freq: Status: Active Protocol: Document 06/04/19 08:17 MB (Rec: 06/04/19 08:58 MB [id number]) OP-PT Subjective Patient Comments Patient Comments Pt states that her mother is over and they have been gardening. She is feeling better. PT-OP-D Balance Start: 04/11/19 10:35 Freq: Status: Active Protocol: Document 04/19/19 13:50 HH (Rec: 04/19/19 16:30 HH [email or web address]) Balance Tests Single Limb Standing Single Limb- Right >40s Single Limb- Left 1s PT-OP-G Mobility & Gait Start: 04/19/19 16:31 Freq: Status: Active Protocol: Document 04/19/19 13:50 HH (Rec: 04/19/19 16:33 HH [email or web address]) OP Gait Assessment Gait Gait Assistance Required: Independent Able to Maintain Weight Bearing Status Yes During Gait Assistive Devices Orthotic/Prosthetic Devices or Brace: No Gait Deviations General Gait Pattern Decreased Stride Length, Decreased Feet Clearance, Lateral Trunk Lean Factors Limiting Gait Function Factors Limiting Gait Function Abnormal Tonal Influences, Decreased Activity Tolerance, Decreased Sensation,Decreased Strength,Limited Range of Motion,Pain,Poor Balance Comments Gait Comments with L AFO for foot drop +ve tredelengberg (R hip drop) during L stance phase Stair Climbing Evaluation Evaluation Level of Assist On Stairs Independent Devices Stair Climbing Assistive Devices Right Railing Technique/Endurance Stair Climbing Direction Ascend and Descend Stair Climbing Technique Step Over Step PT-OP-J Posture/Palpation/Skin Start: 04/11/19 10:35 Freq: Status: Active Protocol: Document 05/31/19 10:31 MB (Rec: 05/31/19 11:10 MB [id number]) Posture Evaluation Comments Posture Comments Posture with shoes and left AFO in standing: decreased cervical lordosis, mild Dowager's hump, decreased thoracic kyphosis, increased lumbar lordosis and anterior tilt pelvis, right iliac crest higher than the left in standing. PT-OP-K Range of Motion Start: 04/11/19 10:35 Freq: Status: Active Protocol: Document 05/31/19 10:31 MB (Rec: 05/31/19 11:10 MB [id number]) Cervical Spine Range of Motion Cervical Spine Active Testing Position Standing Flexion 25 Extension 35 Rotation Left 37 Rotation Right 35 Lateral Flexion Left 11 Lateral Flexion Right 9 Comments Left greater than right cervical paraspinal discomfort 2/10 with rotation, SB, flexion Shoulder Goniometric Range of Motion Shoulder Left Shoulder ROM WFL Yes Right Shoulder ROM WFL Yes PT-OP-M Strength Start: 04/11/19 10:35 Freq: Status: Active Protocol: Document 05/31/19 10:31 MB (Rec: 05/31/19 11:10 MB [id number]) Shoulder Strength Shoulder Manual Muscle Testing Left Flexion 5 Normal Abduction (C5) 5 Normal External Rotation 3+ Fair+ Internal Rotation 4 Good Right Flexion 5 Normal Abduction (C5) 5 Normal External Rotation 3+ Fair+ Internal Rotation 4 Good Elbow/Forearm Strength Elbow and Forearm Manual Muscle Testing Left Flexion (C6) 5 Normal Extension (C7) 5 Normal Pronation 3+ Fair+ Supination 3+ Fair+ Right Flexion (C6) 5 Normal Extension (C7) 5 Normal Pronation 4 Good Supination 4 Good Wrist Strength Wrist Manual Muscle Testing Left Flexion (C7) 4 Good Extension (C6) 4 Good Right Flexion (C7) 5 Normal Extension (C6) 5 Normal PT-OP-Q Treatments Start: 04/11/19 10:35 Freq: Status: Active Protocol: Document 06/04/19 08:17 MB (Rec: 06/04/19 08:58 MB [id number]) Manual Therapy Treatment Other Other Manual Treatments Prone MWM levator scap with pt performing retraction, grade II PA thoracic mobs, scapular mobs B; supine: MWM B SCM with pt performing active rotation and PT performing trigger point pressure, grade II right C2-4 transverse processes mobs; pt agrees to Counterstrain to assess and treat fascial tension and pt presents with increased tension left sinuvertebral: treated left LE PT-OP-T Assessment and Plan Start: 04/11/19 10:35 Freq: Status: Active Protocol: Document 06/04/19 08:17 MB (Rec: 06/04/19 08:58 MB [id number]) Physical Therapy Assessment Goals hamstring curl Impairment Pt is unable to perform 1 hamstring curl Handkerchief Sample Clerk Goal (LTG) Pt will be able to perform L hamstring curl with foot brace on x 5 times by 07/30/2019. 05/28/2019: Pt has been performing without brace at home, is able to perform 75% of hamstring curl with the left once aided by the right foot (brace donned today). LTG Duration 8 weeks Strengthening program Impairment pt does not has a strength training program Snf Goal (LTG) Pt will be independent with a HEP addressing cervical range, UE strength, hip mobility and strength as well as core and balance and gait by 07/30/2019. 05/28/2019: Pt is performing progressive HEP LTG Duration 8 weeks stair climbing Impairment pt needs 1rail for stair climbing Snf Goal (LTG) Pt will be able to climb 5 stairs reciprocally without rails safely to allow safe home entry by 07/30/2019. 05/28/2019: Pt tries reciprocal gait without rail, most trouble ascending and decreased balance on left leg ascend and descend and requires SBA and she occ reaches for rail LTG Duration 8 weeks hip mobility Snf Goal (LTG) Pt will be able to sit cross legged with hips supported on small stool or rolled up mat in order to perform mediation and yoga by 07/30/2019. LTG Duration 8 weeks Five Snf Goal (LTG) Pt will be able to perform SLS left leg with orthosis donned for at least 5 sec to allow safe reciprocal gait on stairs by 07/30/2019. 05/28/2019: 1 sec hold today LTG Duration 8 weeks Four Snf Goal (LTG) Pt will present with an improved NDI score to reflect no more than 15% impairment to allow return to downward dog by 07/31/2019. LTG Duration 8 weeks Three Handkerchief Sample Clerk Goal (LTG) Pt will report an overall 75% improvement in neck and left arm pain to allow return to UE support yoga positions by 07/29. LTG Duration 8 weeks Two Snf Goal (LTG) Pt will present with B shoulder ER and IR and wrist pronation and supination strength to 07/29 to allow return to previous exercise activities by 07/30/2019. LTG Duration 8 weeks One Handkerchief Sample Clerk Goal (LTG) Pt will present with cervical flexion to 35 deg, B rotation to 50 deg to allow functional neck movement for yoga poses by 07/30/2019. LTG Duration 8 weeks Assessment Summary Assessment Pt with increased fascial tension greatest left levator and right middle scalene and SCM. Physical Therapy Plan Frequency and Duration Frequency of Treatment 2x/Week Duration of Treatment 8 weeks Plan of Care Start Date 05/31/19 Plan of Care End Date 07/30/19 Therapeutic Interventions Therapeutic Interventions Aquatic Therapy,Balance Training,Gait Training,Home Exercise Program,Joint Mobilizations,Manual Therapy, Neuromuscular Re-education, Orthotic/Prosthetic Management ,Patient/Caregiver Education, Self-Care/Home Management,Soft Tissue Mobilization,Taping, Therapeutic Activities, Therapeutic Exercises Modalities Cold Pack/Ice Massage,Hot Packs,Traction- Mechanical Next Visit Focus/Plan Next Note Type Treatment Note Next Visit Plan Progress cervical, scapular and shoulder exercises. Consider working on left QL. Con't to monitor gait in setting of 2 lifts in right shoe and pt walking high on the right with gait. One lift removed previous treatment. Ongoing from previous: assess post tx tolerance manual therapy on L hip mobility (ER>IR>EXT) start with supine open/ close chain exs for hip ext/ abd/ stabilizers
--- NOTE | 2019-07-06 12:13 | PT-OP ANOTE ---
1213 PT calls pt and leaves message. PT encourages pt to email PT at [facility] email if she has any PT questions or concerns.
--- NOTE | 2019-08-02 09:29 | PT.OPDS ---
Current Diagnoses Stiffness of left hip, not elsewhere classified (06/04/19) Strain of muscle, fascia and tendon at neck level, initial encounter (06/04/19) Personal history of malignant neoplasm of bone (06/04/19) Visit Care Team Role Provider Type Specialty: Address: Phone: Fax: Email: ELINOR Leal Attending Provider Advanced Hogshead Mat Inspector Primary Care Provider Specialty: Family Practice Address: [address] [place] [address], [id number] Email: [email or web address] Visit Number Visit Number 05/06 Discharge Summary PT-OP-B Current Condition Start: 04/11/19 10:35 Freq: Status: Active Protocol: Document 05/31/19 10:31 MB (Rec: 05/31/19 11:10 MB [id number]) Current Condition History of Current Condition Onset Date Four weeks ago Current Complaints Left posteior neck pain and left arm pain History of Current Condition Pt was performing downward dog and her neck seized up. She reports 7/10 left cervical paraspinal pain, 7/10 left lateral elbow pain and 7/10 left intrascapular pain that is worse with forward postures . She denies paresthesias. She is sleeping with neck support but not with arm support. Prior Treatments and Tests Cervical x-ray 05/30/2019: mild C5-6 and C6-7 disc degeneration, straightening normal lordotic curve, mild focal kyphosis C5-6 Treatment Goals Patient/Caregiver Goals To decrease neck and arm pain and return to full yoga program PT-OP-C Subjective Start: 04/11/19 10:35 Freq: Status: Active Protocol: Document 06/04/19 08:17 MB (Rec: 06/04/19 08:58 MB [id number]) OP-PT Subjective Patient Comments Patient Comments Pt states that her mother is over and they have been gardening. She is feeling better. PT-OP-D Balance Start: 04/11/19 10:35 Freq: Status: Active Protocol: Document 04/19/19 13:50 HH (Rec: 04/19/19 16:30 HH [email or web address]) Balance Tests Single Limb Standing Single Limb- Right >40s Single Limb- Left 1s PT-OP-G Mobility & Gait Start: 04/19/19 16:31 Freq: Status: Active Protocol: Document 04/19/19 13:50 HH (Rec: 04/19/19 16:33 HH [email or web address]) OP Gait Assessment Gait Gait Assistance Required: Independent Able to Maintain Weight Bearing Status Yes During Gait Assistive Devices Orthotic/Prosthetic Devices or Brace: No Gait Deviations General Gait Pattern Decreased Stride Length, Decreased Feet Clearance, Lateral Trunk Lean Factors Limiting Gait Function Factors Limiting Gait Function Abnormal Tonal Influences, Decreased Activity Tolerance, Decreased Sensation,Decreased Strength,Limited Range of Motion,Pain,Poor Balance Comments Gait Comments with L AFO for foot drop +ve tredelengberg (R hip drop) during L stance phase Stair Climbing Evaluation Evaluation Level of Assist On Stairs Independent Devices Stair Climbing Assistive Devices Right Railing Technique/Endurance Stair Climbing Direction Ascend and Descend Stair Climbing Technique Step Over Step PT-OP-J Posture/Palpation/Skin Start: 04/11/19 10:35 Freq: Status: Active Protocol: Document 05/31/19 10:31 MB (Rec: 05/31/19 11:10 MB [id number]) Posture Evaluation Comments Posture Comments Posture with shoes and left AFO in standing: decreased cervical lordosis, mild Dowager's hump, decreased thoracic kyphosis, increased lumbar lordosis and anterior tilt pelvis, right iliac crest higher than the left in standing. PT-OP-K Range of Motion Start: 04/11/19 10:35 Freq: Status: Active Protocol: Document 05/31/19 10:31 MB (Rec: 05/31/19 11:10 MB [id number]) Cervical Spine Range of Motion Cervical Spine Active Testing Position Standing Flexion 25 Extension 35 Rotation Left 37 Rotation Right 35 Lateral Flexion Left 11 Lateral Flexion Right 9 Comments Left greater than right cervical paraspinal discomfort 2/10 with rotation, SB, flexion Shoulder Goniometric Range of Motion Shoulder Left Shoulder ROM WFL Yes Right Shoulder ROM WFL Yes PT-OP-M Strength Start: 04/11/19 10:35 Freq: Status: Active Protocol: Document 05/31/19 10:31 MB (Rec: 05/31/19 11:10 MB [id number]) Shoulder Strength Shoulder Manual Muscle Testing Left Flexion 5 Normal Abduction (C5) 5 Normal External Rotation 3+ Fair+ Internal Rotation 4 Good Right Flexion 5 Normal Abduction (C5) 5 Normal External Rotation 3+ Fair+ Internal Rotation 4 Good Elbow/Forearm Strength Elbow and Forearm Manual Muscle Testing Left Flexion (C6) 5 Normal Extension (C7) 5 Normal Pronation 3+ Fair+ Supination 3+ Fair+ Right Flexion (C6) 5 Normal Extension (C7) 5 Normal Pronation 4 Good Supination 4 Good Wrist Strength Wrist Manual Muscle Testing Left Flexion (C7) 4 Good Extension (C6) 4 Good Right Flexion (C7) 5 Normal Extension (C6) 5 Normal PT-OP-T Assessment and Plan Start: 04/11/19 10:35 Freq: Status: Active Protocol: Document 08/02/19 09:29 MB (Rec: 08/02/19 09:29 MB [id number]) Physical Therapy Plan Discharge Physical Therapy Discharge Reasons Patient Request Discharge Comments Pt emails PT and states that she would like to be discharged from PT. She will con't with exercise at home.
== END 2019-08-05 09:51 ==
LOC: PHYS 08:15
PROVIDERS: PCP Nurse Practitioner Family; Visit Provider Nurse Practitioner Family
DX: Z85.830 Personal history of malignant neoplasm of bone (principal); M25.652 Stiffness of left hip, not elsewhere classified; S16.1XXA Strain of muscle, fascia and tendon at neck level, initial encounter
CPT/HCPCS: 97110; 97140; 97162; 97164

== ENCOUNTER → 2019-11-20 16:17 | Outpatient (CLI) | payer MEDICARE, SELFPAY ==
[2019-11-20 17:01] LABS: Add Manual Diff / Slide Review NO; Basophils Absolute Auto 0 /uL (0-100); Basophils Percent Auto 0.4 % (0-2); Eosinophils Absolute Auto 100 /uL (0-450); Eosinophils Percent Auto 1.7 % (2-4); Hematocrit 36.6 % (36-46); Hemoglobin 12.5 g/dL (12.0-16.0); Lymphocytes Absolute Auto 1600 /uL (1100-4500); Lymphocytes Percent Auto 29.9 % (25-40); Mean Corpuscular Volume 91.2 fL (80-100); Monocytes Absolute Auto 400 /uL (0-900); Monocytes Percent Auto 7.3 % (3-14); Neutrophils Absolute Auto 3200 /uL (1500-7000); Neutrophils Percent Auto 60.7 % (50-75); Platelet Count 195 X10^3/uL (150-400); Red Blood Cell Count 4.01 X10^6/uL (4.0-5.2); Red Cell Distribution Width 13.1 % (11.6-14.8); White Blood Cell Count 5.3 X10^3/uL (4.5-11.0)
[2019-11-20 17:22] LABS: Alanine Aminotransferase 14 IU/L (<35); Albumin 4.3 g/dL (3.5-5.0); Albumin Globulin Ratio 1.4 (1.0-2.8); Alkaline Phosphatase 73 U/L (38-126); Aspartate Aminotransferase 21 IU/L (14-36); Bilirubin Total 0.5 mg/dL (0.2-1.3); Bilirubin Unconjugated 0.3 mg/dL (0.0-1.1); Blood Urea Nitrogen 20 mg/dL (7-17); Calcium 9.3 mg/dL (8.4-10.2); Carbon Dioxide 27 mmol/L (22-32); Chloride 106 mmol/L (98-107); Estimated Glomerular Filt Rate > 60.0 mL/min (>60); Glucose 113 mg/dL (70-100); HEMOLYSIS < 15 (0-50); Potassium 4.2 mmol/L (3.4-5.1); Sodium 139 mmol/L (137-145); Total Protein 7.3 g/dL (6.3-8.2)
== END ==
PROVIDERS: PCP Nurse Practitioner Family; Referring Provider Podiatrist; Visit Provider Podiatrist
DX: B35.1 Tinea unguium (principal); B35.3 Tinea pedis
CPT/HCPCS: 36415; 80048; 80076; 85025

== ENCOUNTER → 2023-02-01 13:28 | Outpatient (CLI) | payer MEDICARE, MEDICAID, SELFPAY ==
--- NOTE | 2023-02-01 13:29 | DI.MG.S_ITS ---
BILATERAL DIGITAL DIAGNOSTIC MAMMOGRAM 3D/2D: 02/01/2023 CLINICAL: Left breast pain. Comparison is made to exam dated: 04/18/2019 mammogram - [facility]. There are scattered areas of fibroglandular density in both breasts (category b / 25%-50% glandular tissue). There is a benign intramammary node in the right breast. No significant masses, calcifications, or other findings are seen in either breast. There has been no significant interval change. IMPRESSION: INCOMPLETE: NEEDS ADDITIONAL IMAGING EVALUATION No mammographic evidence of malignancy. A targeted ultrasound is recommended and will immediately follow. Based on the Tyrer Cuzick model (a risk assessment model) the patient's lifetime risk is 4.1% and her 10 year risk is 0.7%. According to the ACR, ACS, and NCCN guidelines, an annual breast MRI exam along with mammogram is recommended if the patient's lifetime risk is 20% or greater. This exam was interpreted at Station ID: [id number]. NOTE: For mammograms, a report in lay terms will be sent to the patient. Approximately 15% of breast malignancies will not be visualized mammographically. In the management of a palpable breast mass, a negative mammogram must not discourage biopsy of a clinically suspicious lesion. Electronically Signed By: Emeterio Redd M.D. slc/:02/01/2023 14:27:23 ACR BI-RADS Category 0: Incomplete [id number]
--- NOTE | 2023-02-01 13:29 | DI.US.S_ITS ---
LIMITED ULTRASOUND OF LEFT BREAST: 02/01/2023 CLINICAL: Focal left breast pain. Comparison is made to exams dated: 02/01/2023 mammogram and 04/18/2019 mammogram - [facility]. Real-time ultrasound of the left breast 4-5 o'clock region was performed. Vaughan scale images of the real-time examination were reviewed. No significant abnormalities were seen sonographically in the left breast in the region of pain. IMPRESSION: NEGATIVE There is no sonographic evidence of malignancy. A 1 year screening mammogram is recommended. Exam findings were conveyed to the patient. Patient is advised to monitor for significant change. Clinical follow-up as needed. This exam was interpreted at Station ID: [id number]. Electronically Signed By: Emeterio Redd M.D. slc/:02/01/2023 15:16:38 letter sent: Normal Exam Ultrasound BI-RADS: 1 Negative
== END ==
PROVIDERS: PCP Family Medicine; Referring Provider Family Medicine; Visit Provider Family Medicine
DX: N64.4 Mastodynia (principal); R92.2 Inconclusive mammogram
CPT/HCPCS: 76642; 77066; G0279